=== PATIENT | female | born 1950 | race Caucasian/White ===

== ENCOUNTER 2016-12-18 03:11 | Inpatient (IN) ==
--- NOTE | 2016-12-18 04:40 | Emergency Department Note ---
Disposition Clinical Impression: Acute exacerbation of chronic obstructive pulmonary disease (COPD), Hypoxia Disposition: Admitted As Inpatient Condition: Good Referrals: Janice Hoff MD [Primary Care Provider] - Forms: ED Satisfaction Letter SOB HPI - General Chief Complaint: ED Shortness of Breath/Dyspnea Stated Complaint: LAVERNE Time Seen by Provider: 12/18/16 03:47 Source: patient, EMS Limitations: no limitations Nursing Notes Reviewed: Yes Vital Signs Reviewed: Yes - History of Present Illness Ms. Cabello, a 66yo female, presents form home via EMS she complained difficulty breathing. Patient was admitted to this hospital 3 weeks ago for community acquired pneumonia. Since then, her respiratiory symptoms have been mild but overall unimproved. 3 days ago, her dyspnea worsened aggressively to her presentation today. Patient notes to her grandchildren recently diagnosed with RSV. Patient missed to dyspnea at rest, worse with exertion. Patient denies fever, chills, nausea, vomiting, changes in bowel or bladder, chest pain, palpitations, dizziness, weakness, numbness, tingling. Denies history of heart disease, kidney disease, DM, thyroid disease. EMS treatment in route included Solu-Medrol 125, DuoNeb aerosol 1. Patient noted improvement after squad-delivered nebs. PMH: Lung cancer status post pneumonectomy, colon cancer; status 11 years post chemotherapy. Embolic ischemic stroke. History community acquired pneumonia. History RSV URI. Chronic hypoxemic respiratory failure. - Related Data Home Medications Medication Instructions Recorded Confirmed Albuterol Sulfate [Ventolin Hfa] 2 puff IH QID PRN 06/08/16 10/19/16 Dextroamphetamine/Amphetamine 30 mg PO BID 06/08/16 10/19/16 [Adderall 30 mg Tablet] Fluticasone/Vilanterol [Breo 1 each IH DAILY 06/08/16 10/19/16 Ellipta 200-25 Mcg INH] Oxycodone HCl/Acetaminophen 1 tab PO Q4-6H PRN 06/08/16 10/19/16 [Percocet 10-325 mg Tablet] Furosemide [Lasix] 20 mg PO DAILY PRN 10/19/16 10/19/16 Ropinirole HCl [Requip] 6 mg PO HS 10/19/16 10/19/16 Rosuvastatin Calcium [Crestor] 10 mg PO DAILY 10/19/16 10/19/16 Previous Rx's Medication Instructions Recorded Ipratropium/Albuterol Neb [Duoneb] 3 ml IH [id number] #60 inhsol 06/10/16 Lisinopril-HCTZ 10-12.5 [Prinzide 1 each PO DAILY tablet 06/10/16 10-12.5] Azithromycin [Zithromax] 250 mg PO DAILY #5 tablet 10/21/16 Cefdinir [Omnicef] 300 mg PO BID #20 capsule 10/21/16 Fluticasone Propionate Nasal 50 mcg NS DAILY #1 bottle 10/21/16 [Flonase] GuaiFENesin ER [Mucinex] 1,200 mg PO BID #40 tbbp.12hr 10/21/16 Loratadine [Claritin] 10 mg PO DAILY #30 tablet 10/21/16 Oxygen 4 l IN CONT #1 each 10/21/16 PredniSONE 10 mg PO DAILY #95 tablet 10/21/16 Allergies Allergy/AdvReac Type Severity Reaction Status Date / Time levofloxacin [From Levaquin] Allergy Rash Verified 06/08/16 10:26 Penicillins Allergy Rash Verified 06/08/16 10:26 azithromycin AdvReac See Verified 06/09/16 14:14 Comments All systems ED: reviewed and negative except as stated. Constitutional: Denies: fever, chills, weakness ENT ED: Denies: throat pain, congestion Cardiovascular: Reports: dyspnea on exertion. Denies: chest pain, palpitations , syncope Respiratory: Reports: cough, wheezes. 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 No retractions, head bobbing, or tripoding/posturing. HEENT: No facial asymmetry. Head is normocephalic and atraumatic. Nasal turbinates pale and moist. Posterior pharynx without exudates or cobblestoning. Trachea midline. Cardiovascular: Heart regular rate and rhythm without clicks, rubs, gallops, or murmurs. No JVD. PMI nondisplaced. Respiratory: Symmetric chest rise with poor respiratory effort. Prolonged expiratory phase. Bilateral breath sounds with overt diffuse wheezing. No rales or rhonchi. Abdomen: Bowel sounds present normoactive x-4 quadrants. Abdomen is soft, nondistended, and nontender. No organomegaly noted. Neuro: Cranial nerves II through XII grossly intact. Sensation light touch intact. Psych: Patient's affect is appropriate for situation. - General Limitations: no limitations General appearance: alert, in no apparent distress Course Course Narrative: Respiratory workup. We will also perform EKG and draw troponins; I do not clinically suspect cardiac etiology of her dyspnea rather looking to rule out dyspnea induced demand ischemia. Vital Signs Temperature 98.6 F 12/18/16 03:13 Pulse Rate 104 12/18/16 03:13 Respiratory Rate 20 12/18/16 03:13 Blood Pressure 153/86 12/18/16 03:13 O2 Sat by Pulse Oximetry 92 L 12/18/16 03:13 Temperature 98.6 F 12/18/16 03:13 Pulse Rate 112 12/18/16 07:32 Respiratory Rate 18 12/18/16 07:32 Blood Pressure 133/84 12/18/16 07:32 O2 Sat by Pulse Oximetry 90 L 12/18/16 07:32 Oxygen Delivery Oxygen Delivery Nasal Cannula Shortness of Breath/Dyspnea - Lab Data Result diagrams: 12/18/16 05:36 12/18/16 05:36 Lab Results 12/18/16 12/18/16 12/18/16 Range/Units 05:36 05:36 05:36 WBC 5.8 (4.3-11.1) K/mcL RBC 5.09 H (3.82-4.97) M/mcL Hgb 14.6 (11.5-15.4) g/dL Hct 45.2 H (35.3-44.9) % MCV 88.8 (83.0-100.0) fL MCH 28.7 (28.0-33.3) pg MCHC 32.3 (31.6-35.5) g/dL RDW 14.1 (11.5-14.5) % Plt Count 162 (140-400) K/mcL MPV 10.7 (9.4-12.4) fL Immature Gran % 0.3 (0-4) % Seg Neutrophils % 89.7 % Lymphocytes % 5.2 % Monocytes % 1.9 % Eosinophils % 2.2 % Basophils % 0.7 % Neutrophils # 5.2 (1.6-8.9) K/mcL Lymphocytes # 0.3 L (0.6-4.6) K/mcL Monocytes # 0.1 (0.0-1.3) K/mcL Eosinophils # 0.1 (0.0-0.6) K/mcL Basophils # 0.0 (0.0-0.2) K/mcL Sodium 137 (136-145) mEq/L Potassium 4.4 (3.5-4.5) mEq/L Chloride 99 (98-109) mEq/L Carbon Dioxide 28 (19-29) mEq/L BUN 10 (7-20) mg/dL Creatinine 0.69 (0.57-1.11) mg/dL Est GFR ( Amer) > 60 (> 60) Est GFR (Non-Af Amer) > 60 (> 60) BUN/Creatinine Ratio 14 (6-26) Glucose 208 H (70-99) mg/dL Calculated Osmolality 289 (280-300) Calcium 9.7 (8.6-10.8) mg/dL Troponin I 0.01 (0-0.03) ng/mL - EKG Data EKG attestation: Yes I reviewed and interpreted this EKG. EKG results narrative: EKG dated 12/18/16 at 03:21 shows sinus tachycardia with a rate of 100. Normal intervals. Left axis. Nonspecific ST-T changes. Compared to previous dated at 01:51 also showing sinus tachycardia with rare PVCs; no acute ischemic changes in comparison. S.B.A.R. - S.B.A.R. Situation: Demographics Background: Presenting Complaint, Relevant PMH, Meds, & Allergies Assessment: Vital Signs, Course and respsone to treatment, Pertinant Lab Results Recommendation: Barrier(s) to disposition, Recommendation based on pending studies, treatments, or consults Sunni Report Given to: Dr. Patty Moeller Repor Time: 07:11 Attestation Statement - Attestation Attestation: I, Julio Cesar Isabel MD, personally performed a history and physical exam of the patient and discussed their management with the resident. I reviewed the resident's note and agree with the documented findings, medical decision making , and plan of care. 66-year-old female with history of COPD and uses home oxygen as needed. She presents tonight complaining of increased shortness of breath over the past several days but much worse tonight. There has been a productive cough with some brownish green sputum. No chest pain. No definite fever. She was recently in the hospital for pneumonia. On examination patient is a well-developed well-nourished elderly female in no acute distress. She is alert and oriented 3. There is no cyanosis or diaphoresis. Breath sounds are decreased bilaterally with some scattered expiratory wheezes. Some mild bibasilar crackles. Heart regular rate and rhythm. Abdomen soft with normal bowel sounds. Lab results reviewed. Chest x-ray showed pulmonary vascular congestion with mild cardiomegaly and hyperinflation. No acute changes on EKG. At shift change the patient is signed out to the [facility], Dr. Corrales and Dr. Brambila. They will assume responsible for the further evaluation and management and disposition of this patient.
[2016-12-18 05:45] LABS: Basophils % 0.7 %; Eosinophils # 0.1 K/mcL (0.0-0.6); Eosinophils % 2.2 %; Hematocrit 45.2 % (35.3-44.9); Hemoglobin 14.6 g/dL (11.5-15.4); Immature Granulocytes % 0.3 % (0-4); Lymphocytes # 0.3 K/mcL (0.6-4.6); Lymphocytes % 5.2 %; Mean Corpuscular HGB Conc 32.3 g/dL (31.6-35.5); Mean Corpuscular Hemoglobin 28.7 pg (28.0-33.3); Mean Corpuscular Volume 88.8 fL (83.0-100.0); Mean Platelet Volume 10.7 fL (9.4-12.4); Monocytes # 0.1 K/mcL (0.0-1.3); Monocytes % 1.9 %; Neutrophils # 5.2 K/mcL (1.6-8.9); Platelet Count 162 K/mcL (140-400); Red Blood Count 5.09 M/mcL (3.82-4.97); Red Cell Distribution Width 14.1 % (11.5-14.5); Segmented Neutrophils % 89.7 %
[2016-12-18 05:56] LABS: BUN/Creatinine Ratio 14 (6-26); Blood Urea Nitrogen 10 mg/dL (7-20); Calcium 9.7 mg/dL (8.6-10.8); Carbon Dioxide 28 mEq/L (19-29); Chloride 99 mEq/L (98-109); Glucose 208 mg/dL (70-99); Osmolality,Calculated 289 (280-300); Potassium 4.4 mEq/L (3.5-4.5); Sodium 137 mEq/L (136-145); eGFR For African Americans > 60 (> 60); eGFR For Non-African Americans > 60 (> 60)
[2016-12-18] MEDS ORDERED: Ipratropium/Albuterol Neb 3 ML IH ONE (06:22)
[2016-12-18] MEDS: 0.9 % Sodium Chloride 250 ML IVC ONE ×2 (06:25→06:29)
[2016-12-18] MEDS ORDERED: methylPREDNISolone 125 MG/2 ML VIAL IVP ONE (07:27)
--- NOTE | 2016-12-18 07:35 | Emergency Department Note ---
Disposition Clinical Impression: Acute exacerbation of chronic obstructive pulmonary disease (COPD), Hypoxia Disposition: Admitted As Inpatient Condition: Good Referrals: Janice Hoff MD [Primary Care Provider] - Forms: ED Satisfaction Letter Time of Disposition: 07:42 SOB HPI - General Chief Complaint: ED Shortness of Breath/Dyspnea Stated Complaint: LAVERNE Time Seen by Provider: 12/18/16 03:47 Source: patient, EMS Limitations: no limitations - Related Data Home Medications Medication Instructions Recorded Confirmed Albuterol Sulfate [Ventolin Hfa] 2 puff IH QID PRN 06/08/16 10/19/16 Dextroamphetamine/Amphetamine 30 mg PO BID 06/08/16 10/19/16 [Adderall 30 mg Tablet] Fluticasone/Vilanterol [Breo 1 each IH DAILY 06/08/16 10/19/16 Ellipta 200-25 Mcg INH] Oxycodone HCl/Acetaminophen 1 tab PO Q4-6H PRN 06/08/16 10/19/16 [Percocet 10-325 mg Tablet] Furosemide [Lasix] 20 mg PO DAILY PRN 10/19/16 10/19/16 Ropinirole HCl [Requip] 6 mg PO HS 10/19/16 10/19/16 Rosuvastatin Calcium [Crestor] 10 mg PO DAILY 10/19/16 10/19/16 Previous Rx's Medication Instructions Recorded Ipratropium/Albuterol Neb [Duoneb] 3 ml IH [id number] #60 inhsol 06/10/16 Lisinopril-HCTZ 10-12.5 [Prinzide 1 each PO DAILY tablet 06/10/16 10-12.5] Azithromycin [Zithromax] 250 mg PO DAILY #5 tablet 10/21/16 Cefdinir [Omnicef] 300 mg PO BID #20 capsule 10/21/16 Fluticasone Propionate Nasal 50 mcg NS DAILY #1 bottle 10/21/16 [Flonase] GuaiFENesin ER [Mucinex] 1,200 mg PO BID #40 tbbp.12hr 10/21/16 Loratadine [Claritin] 10 mg PO DAILY #30 tablet 10/21/16 Oxygen 4 l IN CONT #1 each 10/21/16 PredniSONE 10 mg PO DAILY #95 tablet 10/21/16 Allergies Allergy/AdvReac Type Severity Reaction Status Date / Time levofloxacin [From Levaquin] Allergy Rash Verified 06/08/16 10:26 Penicillins Allergy Rash Verified 06/08/16 10:26 azithromycin AdvReac See Verified 06/09/16 14:14 Comments Constitutional: Denies: fever, chills, weakness ENT ED: Denies: throat pain, congestion Cardiovascular: Reports: dyspnea on exertion. Denies: chest pain, palpitations , syncope Respiratory: Reports: cough, wheezes. Denies: dyspnea Gastrointestinal: Denies: abdominal pain, nausea, vomiting, diarrhea, constipation, hematemesis, melena, hematochezia Genitourinary: Denies: urgency, dysuria Musculoskeletal: Denies: back pain Neurological: Denies: headache, weakness, numbness, paresthesias, confusion Past Medical History - Past Medical History Medical history: Reports: asthma, cancer, COPD, hypertension Surgical history: Reports: cancer surgery, hysterectomy Psychiatric history: Reports: depression MEDICAL SPECIALIST history: Reports: bilateral tubal ligation - Social History Smoking Status: Former smoker Smokeless Tobacco Status: No Alcohol use: Reports: none Drug use: Reports: none Physical Exam - General Limitations: no limitations General appearance: alert, in no apparent distress Course Course Narrative: Patient taken over the beginning my shift at 0700 hrs. Sign out was completed by Dr. Boss and Dr. Isabel. Patient presents emergency room with increased work of breathing shortness of breath and increased oxygen use at home. Vital signs on presentation were tachycardic tachypnea can hypoxic. She typically uses 2 L of oxygen as needed at home but has required 4 L of oxygen to not feel short of breath. She was just discharged from the hospital 2-3 weeks ago for antibiotic treatment of pneumonia. She says that once her antibiotics stopped she started to have productive cough and sputum again along with increased work of breathing. Physical exam and workup were started prior to my arrival. Repeat physical exam by myself confirms increased aeration bilaterally and the lung was still has expiratory wheezing. Patient is still hypoxic with oxygen on. Patient will be admitted to the hospital this time. IV antibiotics to be ordered for community acquired pneumonia consideration over 2 weeks and she was discharged. Patient will be discussed with the hospitalist at this time. - Reevaluation(s) Reevaluation #1: Patient was discussed with the hospitalist Detailed review the presentation symptoms recent medical admission were discussed. He agreed that she would most likely benefit from inpatient evaluation and treatment of COPD flare possible subclinically treated pneumonia. Patient is stable resting in bed and 3 DuoNeb's pulse ox is better while resting but she does still get conversationally dyspneic. Patient will be observed here in the emergency room to the admission process is completed Sebastian Time: 07:41 Vital Signs Temperature 98.6 F 12/18/16 03:13 Pulse Rate 104 12/18/16 03:13 Respiratory Rate 20 12/18/16 03:13 Blood Pressure 153/86 12/18/16 03:13 O2 Sat by Pulse Oximetry 92 L 12/18/16 03:13 Temperature 98.6 F 12/18/16 03:13 Pulse Rate 112 12/18/16 07:32 Respiratory Rate 18 12/18/16 07:32 Blood Pressure 133/84 12/18/16 07:32 O2 Sat by Pulse Oximetry 90 L 12/18/16 07:32 Oxygen Delivery Oxygen Delivery Nasal Cannula Shortness of Breath/Dyspnea - Medical Records Medical records reviewed: Yes I reviewed the patient's medical records. - Lab Data Lab results reviewed: Yes I reviewed the patient's lab results. Result diagrams: 12/18/16 05:36 12/18/16 05:36 Lab Results 12/18/16 12/18/16 12/18/16 Range/Units 05:36 05:36 05:36 WBC 5.8 (4.3-11.1) K/mcL RBC 5.09 H (3.82-4.97) M/mcL Hgb 14.6 (11.5-15.4) g/dL Hct 45.2 H (35.3-44.9) % MCV 88.8 (83.0-100.0) fL MCH 28.7 (28.0-33.3) pg MCHC 32.3 (31.6-35.5) g/dL RDW 14.1 (11.5-14.5) % Plt Count 162 (140-400) K/mcL MPV 10.7 (9.4-12.4) fL Immature Gran % 0.3 (0-4) % Seg Neutrophils % 89.7 % Lymphocytes % 5.2 % Monocytes % 1.9 % Eosinophils % 2.2 % Basophils % 0.7 % Neutrophils # 5.2 (1.6-8.9) K/mcL Lymphocytes # 0.3 L (0.6-4.6) K/mcL Monocytes # 0.1 (0.0-1.3) K/mcL Eosinophils # 0.1 (0.0-0.6) K/mcL Basophils # 0.0 (0.0-0.2) K/mcL Sodium 137 (136-145) mEq/L Potassium 4.4 (3.5-4.5) mEq/L Chloride 99 (98-109) mEq/L Carbon Dioxide 28 (19-29) mEq/L BUN 10 (7-20) mg/dL Creatinine 0.69 (0.57-1.11) mg/dL Est GFR ( Amer) > 60 (> 60) Est GFR (Non-Af Amer) > 60 (> 60) BUN/Creatinine Ratio 14 (6-26) Glucose 208 H (70-99) mg/dL Calculated Osmolality 289 (280-300) Calcium 9.7 (8.6-10.8) mg/dL Troponin I 0.01 (0-0.03) ng/mL - Radiology Data Radiology results reviewed: Yes I reviewed the patient's radiology results. Chest x-ray is negative for acute pathology. This was reviewed by myself and confirmed by radiology - EKG Data EKG attestation: Yes I reviewed and interpreted this EKG. EKG shows normal: Reports: sinus rhythm, axis, intervals, QRS complexes, ST-T waves Rate: Reports: tachycardia Rhythm: Reports: NSR [place]/QRS: Reports: normal When compared to previous EKG there are: no significant changes Interpretation: Reports: normal EKG, unchanged when compared to prior tracing ( date) (02/19/11) Critical Care Time Critical Care Time: Yes Total Critical Care Time: 30 Attestation: Critical care is independent of procedures and medical management in emergency room Attestation Statement - Attestation Attestation: Patient was seen with resident physician. I reviewed the history, physical, assessment and plan, and agree with the findings. I also personally evaluated this patient and had [id number] time with this patient. 66-year-old female presents to the emergency department with worsening shortness of breath. Patient has a history of COPD was recently admitted to the hospital for pneumonia. States that her breathing is getting progressively worse for the last 2-3 days. She is on home O2. Is concerned that she might have more pneumonia. On examination heart is normal. Lungs after 3 breathing treatments still show wheezing throughout. Remainder workup was unremarkable. Unfortunately patient was not breathing well or oxygenating well and up for outpatient management. Were going to admit the patient for acute exacerbation of COPD. Hospice was notified. I agree with the resident physician assessment and plan.
[2016-12-18] MEDS ORDERED: *HR* Morphine 2 MG/ML SYRINGE IV PRN (08:56)
[2016-12-18] MEDS ORDERED: Ondansetron 4 MG/2 ML VIAL IVP PRN (08:57)
[2016-12-18] MEDS ORDERED: Naloxone 0.4 MG/ML INJ IVP PRN (08:57)
[2016-12-18] MEDS ORDERED: Acetaminophen 325 MG TABLET PO PRN (08:57)
[2016-12-18] MEDS ORDERED: Azithromycin 500 MG in D5% in Water 250 ML IVPB SCH (09:00)
--- NOTE | 2016-12-18 09:05 | Internal Med History&Physical ---
Date of Encounter: 12/18/16 Time of Encounter: 09:02 Assessment and Plan (1) Acute exacerbation of chronic obstructive pulmonary disease (COPD) Current visit: Yes Status: Acute Acute on chronic respiratory failure secondary to acute COPD exacerbation likely secondary to acute bronchitis (viral versus bacterial) with a combination of possible CHF systolic versus diastolic, consider possible atypical pneumonia Continue Rocephin and azithromycin Solu-Medrol IV, DuoNeb's, oxygen therapy Lasix IV, strict I's and O's, daily weight, check an echocardiogram Check a respiratory viral panel, Legionella and Streptococcus antigen in urine (2) Acute on chronic respiratory failure with hypoxemia Current visit: No Status: Acute (3) ADHD (attention deficit hyperactivity disorder) Current visit: No Status: Chronic Qualifiers: Attention deficit-hyperactivity disorder type: predominantly hyperactive Qualified Code(s): F90.1 - Attention-deficit hyperactivity disorder, predominantly hyperactive type (4) Anxiety Current visit: No Status: Chronic (5) HTN (hypertension) Current visit: No Status: Chronic Order hydralazine IV as needed Qualifiers: Hypertension type: essential hypertension Qualified Code(s): I10 - Essential (primary) hypertension (6) History of lung cancer Current visit: No Status: Chronic (7) S/P pneumonectomy Current visit: No Status: Chronic Omeprazole for GI prophylaxis and subcutaneous heparin for DVT prophylaxis. The patient will be admitted as inpatient, she is expected to stay more than 2 midnights. Full code. Time spent on this admission 40 minutes. High risk for respiratory failure Internal Medicine - H&P: HPI Chief complaint: Shortness of breath Admitted From: Emergency Dept History of present illness: Ms. Cabello is a 66 year old female with a past medical history of COPD oxygen dependent who was discharged from the hospital on 10/20/2016 where she was treated for COPD exacerbation/pneumonia. Back then she was started on Rocephin and azithromycin. She reported that azithromycin upsetting her stomach slightly but she took it another time without any problems. The patient mentions that two of her great-grandsons were positive for RSV. She did not complain of greenish/brownish phlegm for the past 3 days, worsening shortness of breath. Down and did a ER she desaturated down to 86%, her heart rate was 112 blood pressure 153/86. The chest x-ray shows a right augusto-heel year opacity and vascular congestion with pulmonary edema, also left lower opacities likely scarring. She did not complain of chills. The patient was started on Solu-Medrol and DuoNeb's at the emergency room. Past Med Surg Social Fam HX - Past Medical History Medical history: asthma, cancer (Lung cancer status post lobectomy, colon cancer 11 years ago status post chemotherapy and partial colectomy), COPD ( Oxygen dependent using 2 L as needed), hypertension, other (Ischemic CVA/embolic , RSV pneumonia, chronic back pain, chronic respiratory failure, ADHD) Psychiatric history: depression - Past Surgical History Surgical History: cancer surgery (Partial colectomy, and lung lobectomy, tubal ligation), hysterectomy - Social History Smoking Status: Former smoker (Quit tobacco 12 years ago) Smokeless Tobacco Status: No Alcohol use: none Drug use: none - Family History Mother Living Status: - Additional Family History Additional family history: Mother with colon cancer Internal Medicine - H&P: Meds Albuterol Sulfate [Ventolin Hfa] 2 puff IH QID PRN 06/08/16 [History] Dextroamphetamine/Amphetamine [Adderall 30 mg Tablet] 30 mg PO BID 06/08/16 [ History] Oxycodone HCl/Acetaminophen [Percocet 10-325 mg Tablet] 1 tab PO Q4-6H PRN 06/08 [History] Ipratropium/Albuterol Neb [Duoneb] 3 ml IH [id number] #60 inhsol 06/10/16 [Rx] Lisinopril-HCTZ 10-12.5 [Prinzide 10-12.5] 1 each PO DAILY tablet 06/10/16 [Rx] Furosemide [Lasix] 20 mg PO DAILY PRN 10/19/16 [History] Ropinirole HCl [Requip] 6 mg PO HS 10/19/16 [History] Rosuvastatin Calcium [Crestor] 10 mg PO DAILY 10/19/16 [History] Fluticasone Propionate Nasal [Flonase] 50 mcg NS DAILY #1 bottle 10/21/16 [Rx] GuaiFENesin ER [Mucinex] 1,200 mg PO BID #40 tbbp.12hr 10/21/16 [Rx] Oxygen 2 l IN CONT 12/18/16 [History] Allergies levofloxacin [From Levaquin] Allergy (Verified 06/08/16 10:26) Rash Penicillins Allergy (Verified 06/08/16 10:26) Rash All Systems PM: A 10-system review of systems was performed and is negative for pertinent findings except as documented above in the HPI. Review of systems: Denies any chest pain, no abdominal pain, no dysuria. Other systems out of the 10 reviewed were negative - Constitutional Vitals: Temp Pulse Resp BP Pulse Ox 97.7 F 103 21 155/88 92 L 12/18/16 08:38 12/18/16 08:38 12/18/16 08:38 12/18/16 08:38 12/18/16 08:38 General appearance: Present: A&O X 3, obese - Head Head exam: Present: atraumatic, normocephalic - Eye Eye exam: Present: PERRL, conjuntiva pink, sclera anicteric Pupils: Present: PERRL - Neck Neck exam general surgery: Present: supple, trachea midline. Absent: lymphadenopathy - Respiratory Respiratory exam: Present: decreased breath sounds, CTAB, rales (Diffuse crackles with fine wheezing), wheezes. Absent: accessory muscle use, rhonchi - Cardiovascular Cardiovascular exam: Present: RRR, +S1, +S2. Absent: diastolic murmur, gallop, rubs, systolic murmur - GI/Abdominal GI/Abdominal exam: Present: normal bowel sounds, soft, no peritoneal signs. Absent: distended, tenderness - Extremities Exam Extremities exam: Present: pedal edema (+1 pitting edema in both lower extremities), warm, radial pulses palpable and symetrical. Absent: calf tenderness, cyanotic - Neurological Exam Neurological exam: Present: CN II-XII intact, oriented X3, no focal deficits. Absent: pronater drift, facial droop, speech deficit - Skin Skin exam: Present: dry, intact Internal Med - H&P Results - Labs CBC & Chem 7: 12/18/16 05:36 12/18/16 05:36
[2016-12-18] MEDS: Aspirin 81 MG TAB.CHEW PO SCH (10:24)
[2016-12-18] MEDS: Furosemide 40 MG/4 ML VIAL IV SCH (10:26)
[2016-12-18] MEDS: *HR* OxyCODONE/APAP 10/325 TABLET PO PRN ×3 (10:35→21:59)
[2016-12-18 10:36] LABS: Adenovirus Not Detected (Not Detect); Bordetella Pertussis Not Detected (Not Detect); Chlamydophila pneumoniae Not Detected (Not Detect); Coronavirus 229E Not Detected (Not Detect); Coronavirus HKU1 Not Detected (Not Detect); Coronavirus NL63 Not Detected (Not Detect); Coronavirus OC43 ***DETECTED*** (Not Detect); Human Metapneumovirus Not Detected (Not Detect); Human Rhinovirus/Enterovirus Not Detected (Not Detect); Influenza A Subtype 2009 H1 Not Detected (Not Detect); Influenza A Untypeable Not Detected (Not Detect); Influenza B Not Detected (Not Detect); Mycoplasma pneumoniae Not Detected (Not Detect); Parainfluenza Virus 1 Not Detected (Not Detect); Parainfluenza Virus 2 Not Detected (Not Detect); Parainfluenza Virus 3 Not Detected (Not Detect); Parainfluenza Virus 4 Not Detected (Not Detect); Respiratory Syncytial Virus Not Detected (Not Detect)
[2016-12-18] MEDS: Ipratropium/Albuterol Neb 3 ML IH SCH ×3 (10:53→22:22)
[2016-12-18] MEDS: Dextroamphetamine/Amphetamine [Adderall 30 Mg Tablet] PO SCH ×2 (12:33→21:56)
[2016-12-18] MEDS: Azithromycin 500 MG in D5% in Water 250 ML IVPB SCH (12:34)
--- NOTE | 2016-12-18 15:00 | ECHO - Doppler Report ---
Echocardiogram Name: Yecenia Cabello Date of Study: 12/18/2016 Date: 1950 Ht: 62.0 in Medical Record#: [id number] Age: 66 Wt: 187.0 lb Gender: Female BSA: 1.86 Order #: [id number] Location: [facility] Room #: 2a25 Reading Physician: Swapnil Conte DO, ILYA, LETA GREEN Operating Room Technician: Connor Croft RDCS Ordering Physician: Kurt Soto MD Primary Physician: None Indications: Congestive heart failure Impressions: LVEF 70%. Normal LV chamber size, wall thickness and function. Mild left ventricular diastolic dysfunction. Normal right ventricular structure and function. No evidence of pulmonary hypertension. No significant valvular dysfunction. Left Ventricular Wall Motion: Rest Echo Findings All wall segments showed normal motion. Findings: Study Quality * Technically adequate exam. ECG Findings * Sinus tachycardia. Left Ventricle * LVEF 70%. * Normal LV chamber size, wall thickness and function. * Mild left ventricular diastolic dysfunction. Right Ventricle * Normal right ventricular structure and function. Left Atrium * Mildly dilated left atrium. Right Atrium * Normal right atrial size. Interatrial Septum * Interatrial septum not well evaluated. Aortic Valve * Aortic valve not well visualized. * No aortic stenosis. * No aortic regurgitation. Mitral Valve * Normal mitral valve structure and function. * No mitral regurgitation. * No mitral stenosis. Tricuspid Valve * Normal tricuspid valve structure and function. * Trace tricuspid regurgitation. * No evidence of pulmonary hypertension. Pulmonic Valve * Pulmonic valve not well visualized. * No pulmonic regurgitation. Aorta * Normally sized aortic root. Pericardium * The pericardium appears normal. IVC * The IVC is not well evaluated. Pulmonary Artery * Normal visualized portions of the main pulmonary artery. History Hypertension Hypercholesteremia Measurements: BP: 125/ 55 2D Normal Values RVIDd: 2.90 cm <2.7 cm IVSd: .80 cm 0.6 - 1.0 cm LVIDd: 4.00 cm 3.7 - 5.6 cm LVPWd: 1.10 cm 0.6 - 1.1 cm LVIDs: 2.70 cm 1.5 - 3.6 cm AO: 3.10 cm < 4.0 cm LA: 2.70 cm 2.0 - 4.0cm %FS: 32.50 cm >25 % LA volume: 72 Mitral Valve Peak E:.70 m/sec Peak A:.94 m/sec E/A Ratio:0.7 Peak E' Lat Rodrick:8.09 cm/s Peak E' Med Rodrick:5.75 cm/s E/E' Lat Ratio:8.6 E/E' Med Ratio:12.1 Tricuspid Valve TV Regurg Peak Grad: 11.00mmHg TV Regurg Peak Rodrick: 1.68m/sec Updated by Swapnil Conte DO, ILYA, NORMA, LETA on 12/18/2016 2:53:00 PM electronically signed on 12/18/2016 2:56:19 PM with status of Final Wall Motion [place]: 1=Normal, 2=Hypokinesis, 3=Akinesis, 4=Dyskinesis, 5=Aneurysmal, 6=Hyperkinetic, X=Not Visualized (Blank)=Missing
[2016-12-18] MEDS: methylPREDNISolone 125 MG/2 ML VIAL IV SCH (16:40)
[2016-12-18] MEDS: *HR* Heparin 5,000 UNIT/ML VIAL SQ SCH (16:43)
[2016-12-19] MEDS: *HR* Heparin 5,000 UNIT/ML VIAL SQ SCH ×3 (00:59→19:47)
[2016-12-19] MEDS: methylPREDNISolone 125 MG/2 ML VIAL IV SCH ×4 (00:59→23:04)
[2016-12-19] MEDS: Ipratropium/Albuterol Neb 3 ML IH SCH ×4 (03:47→22:29)
[2016-12-19] MEDS: *HR* OxyCODONE/APAP 10/325 TABLET PO PRN ×3 (04:52→23:04)
[2016-12-19 05:08] LABS: Hematocrit 45.5 % (35.3-44.9); Hemoglobin 14.6 g/dL (11.5-15.4); Mean Corpuscular HGB Conc 32.1 g/dL (31.6-35.5); Mean Corpuscular Hemoglobin 28.7 pg (28.0-33.3); Mean Corpuscular Volume 89.4 fL (83.0-100.0); Mean Platelet Volume 11.2 fL (9.4-12.4); Platelet Count 223 K/mcL (140-400); Red Blood Count 5.09 M/mcL (3.82-4.97); Red Cell Distribution Width 14.1 % (11.5-14.5)
[2016-12-19 05:20] LABS: Calcium 9.9 mg/dL (8.6-10.8); Potassium 4.5 mEq/L (3.5-4.5)
--- NOTE | 2016-12-19 06:30 | Electrocardiograph Report ---
Test Date: 2016-12-18 Pat Name: Yecenia Cabello Department: 103 Room: 2A25 Gender: F [employer] Director: JAMEY : 1950 Requested By: Lopez Boss Order Number: [id number] Reading MD: Carter Nunez MD Measurements Intervals [place] Rate: 100 P: 34 ND: 153 QRS: 3 QRSD: 86 T: 44 QT: 328 QTc: 385 Interpretive Statements SINUS TACHYCARDIA LOW QRS VOLTAGE IN PRECORDIAL LEADS ABNORMAL RHYTHM ECG Electronically Signed On 12-19-16 06:28:27 EST by Carter Nunez MD
[2016-12-19] MEDS: Aspirin 81 MG TAB.CHEW PO SCH (07:52)
[2016-12-19] MEDS: Furosemide 40 MG/4 ML VIAL IV SCH (07:53)
[2016-12-19] MEDS: Azithromycin 500 MG in D5% in Water 250 ML IVPB SCH (07:56)
[2016-12-19] MEDS: Dextroamphetamine/Amphetamine [Adderall 30 Mg Tablet] PO SCH ×2 (07:57→19:50)
[2016-12-19] MEDS ORDERED: Dextrose Gel 15 GM PO PRN ×4 (09:30→16:31)
[2016-12-19] MEDS ORDERED: D5% in Water 1,000 ML IV PRN ×2 (09:30→16:31)
[2016-12-19] MEDS ORDERED: *HR* Dextrose 50 % in Water (Syg) 50 ML SYRINGE IVP PRN ×2 (09:30→16:31)
--- NOTE | 2016-12-19 09:55 | Internal Med Progress Note ---
Date of Encounter: 12/19/16 Time of Encounter: 09:51 - Assessment and plan (1) Acute bronchitis Current Visit: Yes Status: Acute Assessment and plan: Patient presented with wheezing and a cute dyspnea and hypoxia. Respiratory viral panel positive for roblero virus. Continue droplet precautions. Supportive care with supplemental oxygen, bronchodilators and IV steroids. Qualifiers: Bronchitis organism: other organism Qualified Code(s): J20.8 - Acute bronchitis due to other specified organisms (2) Hyperglycemia, drug-induced Current Visit: Yes Status: Acute Assessment and plan: Patient is noted to have significant steroid-induced hyperglycemia due to high- dose IV steroids. Hemoglobin A1c noted to be 6.6%. Blood sugars noted to be uncontrolled with sliding scale insulin, will add basal insulin and monitor sugars closely. Diabetic diet. (3) Acute exacerbation of chronic obstructive pulmonary disease (COPD) Current Visit: Yes Status: Acute Assessment and plan: Patient has a long history of COPD and asthma. Nonsmoker at this time. Improving. Continue high-dose IV steroids, to taper as tolerated. Continue scheduled bronchodilators, inhaled corticosteroids and supplemental oxygen as needed along with empiric IV antibiotics. (4) Acute on chronic respiratory failure with hypoxemia Current Visit: Yes Status: Acute Assessment and plan: Secondary to acute on chronic bronchitis, COPD. Plan as above. Patient is noted to be on intermittent home oxygen at 2 L/m nasal cannula. Currently requiring 5 L/m, titrate down FiO2 as tolerated. Echocardiogram revealed, shows 70% ejection fraction, mild left ventricular diastolic dysfunction. Noted to have worsening serum creatinine, hold diuretics at this time. (5) ADHD (attention deficit hyperactivity disorder) Current Visit: Yes Status: Chronic Qualifiers: Attention deficit-hyperactivity disorder type: predominantly hyperactive Qualified Code(s): F90.1 - Attention-deficit hyperactivity disorder, predominantly hyperactive type (6) HTN (hypertension) Current Visit: Yes Status: Chronic Qualifiers: Hypertension type: essential hypertension Qualified Code(s): I10 - Essential (primary) hypertension - Subjective Interval history: Feels better than yesterday. Continues to have wheezing that improved shortness of breath. No fever, chills, weakness. Noted to be requiring 5 L/m supplemental oxygen. No nausea or vomiting. On respiratory precautions due to positive serology for roblero virus. - Constitutional Vitals: Temp Pulse Resp BP Pulse Ox 97.6 F 101 18 119/72 92 L 12/19/16 07:17 12/19/16 07:17 12/19/16 07:17 12/19/16 07:17 12/19/16 08:09 General appearance: Present: A&O X 3, obese, answers questions appropriately - Head Head exam: Present: atraumatic, normocephalic - Neck Neck exam general surgery: Present: supple, trachea midline. Absent: lymphadenopathy - Respiratory Respiratory exam: Present: rhonchi, wheezes (Bilateral anterior and posterior diffuse wheezing). Absent: accessory muscle use, rales - Cardiovascular Cardiovascular exam: Present: RRR, +S1, +S2. Absent: diastolic murmur, gallop, rubs, systolic murmur - GI/Abdominal GI/Abdominal exam: Present: normal bowel sounds, soft (Obese), no peritoneal signs. Absent: distended, tenderness - Extremities Exam Extremities exam: Present: pedal edema (Trace), warm, radial pulses palpable and symetrical. Absent: calf tenderness, cyanotic - Neurological Exam Neurological exam: Present: CN II-XII intact, oriented X3, no focal deficits. Absent: pronater drift, facial droop, speech deficit - Skin Skin exam: Present: dry, intact Internal Medicine: Result - Labs CBC & Chem 7: 12/19/16 04:26 12/19/16 04:26 Labs: Short CBC 12/19/16 Range/Units 04:26 WBC 14.0 H D (4.3-11.1) K/mcL Hgb 14.6 (11.5-15.4) g/dL Hct 45.5 H (35.3-44.9) % Plt Count 223 (140-400) K/mcL [facility] 12/19/16 04:26 Sodium 137 Potassium 4.5 Chloride 97 L Carbon Dioxide 27 BUN 36 H D Creatinine 1.21 H D Glucose 291 H Calcium 9.9 Consult Discharge Plan - Plan Referrals: Janice Hoff MD [Primary Care Provider] -
[2016-12-19 10:11] LABS: Hemoglobin A1C 6.6 %
[2016-12-19] MEDS: Insulin LISPRO 300 UNITS/3 ML VIAL SQ SCH ×2 (11:34→15:02)
[2016-12-19] MEDS ORDERED: *HR* OxyCODONE/APAP 5/325 TABLET PO PRN (12:52)
[2016-12-19] MEDS ORDERED: Insulin LISPRO 300 UNITS/3 ML VIAL SQ SCH ×3 (17:00→21:00)
[2016-12-19 17:12] LABS: Calcium 10.1 mg/dL (8.6-10.8); Potassium 3.8 mEq/L (3.5-4.5)
[2016-12-19] MEDS ORDERED: 0.9 % Sodium Chloride 1,000 ML IVC SCH (17:15)
--- NOTE | 2016-12-19 17:43 | Electrocardiograph Report ---
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
[2016-12-19] MEDS ORDERED: Insulin Regular, Human 100 UNIT/ML IV PRN (18:26)
[2016-12-19] MEDS ORDERED: D5% in 0.45% NACL 1,000 ML IVC PRN (18:26)
--- NOTE | 2016-12-19 18:32 | Event Note ---
Date of Encounter: 12/19/16 Time of Encounter: 18:30 Patient appears to be developing Hyperosmolar hyperglycemic non ketotic state with persistently elevated blood sugars. Will start on IV insulin per HHS / DKA protocol. Monitor accuchecks Q1hr
[2016-12-19] MEDS: Insulin Human Regular 100 UNIT in 0.9 % Sodium Chloride 100 ML IVC SCH (19:47)
[2016-12-19] MEDS: 0.9 % Sodium Chloride 1,000 ML IVC SCH (19:48)
[2016-12-19] MEDS ORDERED: Insulin DETEMIR 100 UNIT/ML X5UNITS SQ SCH (21:00)
[2016-12-20] MEDS: Insulin Human Regular 100 UNIT in 0.9 % Sodium Chloride 100 ML IVC SCH (02:13)
[2016-12-20] MEDS: Ipratropium/Albuterol Neb 3 ML IH SCH ×4 (04:35→22:35)
[2016-12-20] MEDS: *HR* OxyCODONE/APAP 10/325 TABLET PO PRN ×2 (05:04→18:12)
[2016-12-20] MEDS: 0.9 % Sodium Chloride 1,000 ML IVC SCH ×2 (05:04→12:25)
[2016-12-20 05:45] LABS: Basophils % 0.1 %; Hematocrit 42.6 % (35.3-44.9); Hemoglobin 13.6 g/dL (11.5-15.4); Lymphocytes # 0.6 K/mcL (0.6-4.6); Lymphocytes % 4.7 %; Mean Corpuscular HGB Conc 31.9 g/dL (31.6-35.5); Mean Corpuscular Hemoglobin 28.8 pg (28.0-33.3); Mean Corpuscular Volume 90.1 fL (83.0-100.0); Mean Platelet Volume 11.3 fL (9.4-12.4); Monocytes # 0.3 K/mcL (0.0-1.3); Neutrophils # 11.5 K/mcL (1.6-8.9); Platelet Count 189 K/mcL (140-400); Red Blood Count 4.73 M/mcL (3.82-4.97); Red Cell Distribution Width 14.2 % (11.5-14.5); Segmented Neutrophils % 92.2 %
[2016-12-20 06:02] LABS: BUN/Creatinine Ratio 55 (6-26); Blood Urea Nitrogen 43 mg/dL (7-20); Carbon Dioxide 29 mEq/L (19-29); Chloride 99 mEq/L (98-109); Glucose 190 mg/dL (70-99); Osmolality,Calculated 302 (280-300); Potassium 4.4 mEq/L (3.5-4.5); Sodium 138 mEq/L (136-145); eGFR For African Americans > 60 (> 60); eGFR For Non-African Americans > 60 (> 60)
[2016-12-20] MEDS: *HR* Heparin 5,000 UNIT/ML VIAL SQ SCH ×2 (06:15→18:12)
[2016-12-20] MEDS ORDERED: Insulin LISPRO 300 UNITS/3 ML VIAL SQ SCH ×2 (07:30→21:00)
[2016-12-20] MEDS: Azithromycin 500 MG in D5% in Water 250 ML IVPB SCH (09:39)
[2016-12-20] MEDS: methylPREDNISolone 125 MG/2 ML VIAL IV SCH (09:40)
[2016-12-20] MEDS: Insulin DETEMIR 100 UNIT/ML X5UNITS SQ SCH ×2 (09:42→20:50)
[2016-12-20] MEDS: Dextroamphetamine/Amphetamine [Adderall 30 Mg Tablet] PO SCH ×2 (09:43→20:51)
[2016-12-20] MEDS: Aspirin 81 MG TAB.CHEW PO SCH (09:43)
[2016-12-20] MEDS: Insulin LISPRO 300 UNITS/3 ML VIAL SQ SCH ×4 (12:27→18:13)
--- NOTE | 2016-12-20 17:10 | Internal Med Progress Note ---
Date of Encounter: 12/20/16 Time of Encounter: 10:50 - Assessment and plan (1) Acute bronchitis Current Visit: Yes Status: Acute Assessment and plan: Patient presented with wheezing and a cute dyspnea and hypoxia. Respiratory viral panel positive for roblero virus. Continue droplet precautions. Supportive care with supplemental oxygen, bronchodilators Change steroids to po + Qualifiers: Bronchitis organism: other organism Qualified Code(s): J20.8 - Acute bronchitis due to other specified organisms (2) Acute exacerbation of chronic obstructive pulmonary disease (COPD) Current Visit: Yes Status: Acute Assessment and plan: As above (3) Acute on chronic respiratory failure with hypoxemia Current Visit: Yes Status: Acute Assessment and plan: Secondary to acute on chronic bronchitis, COPD. Plan as above. Patient is noted to be on intermittent home oxygen at 2 L/m nasal cannula. Currently requiring 3.5 L/m, titrate down as tolerated. Echocardiogram reviewed, shows 70 % ejection fraction, mild left ventricular diastolic dysfunction. Creatinine is at baseline now (4) Hyperglycemia, drug-induced Current Visit: Yes Status: Acute Assessment and plan: Patient is noted to have significant steroid-induced hyperglycemia due to high- dose IV steroids. Hemoglobin A1c noted to be 6.6%. Insulin drip has been discontinued Diabetic diet, basal and prandial insulin monitor FS (5) ADHD (attention deficit hyperactivity disorder) Current Visit: Yes Status: Chronic Qualifiers: Attention deficit-hyperactivity disorder type: predominantly hyperactive Qualified Code(s): F90.1 - Attention-deficit hyperactivity disorder, predominantly hyperactive type (6) HTN (hypertension) Current Visit: Yes Status: Chronic Qualifiers: Hypertension type: essential hypertension Qualified Code(s): I10 - Essential (primary) hypertension (7) Anxiety Current Visit: Yes Status: Chronic (8) Chronic back pain Current Visit: Yes Status: Chronic Qualifiers: Back pain location: low back pain Back pain laterality: bilateral Sciatica presence: without sciatica Qualified Code(s): M54.5 - Low back pain; G89.29 - Other chronic pain - Subjective Interval history: 66 Y/O F with acute on chronic respiratory failure secondary to acute bronchitis and COPDE from roblero virus infection She als has ADHD and HTN Yesterday, she developed HHS from hyperglycemia secondary to steroids She has been bridged this morning Will d/c solumedrol and change to prednisone po Patient seen at bedside, slightly tachypneic and wheezing diffusely She is also still requiring higher concentration of oxygen than she previously used at home She is a non-smoker - Constitutional Vitals: Temp Pulse Resp BP Pulse Ox 97.7 F 88 20 156/89 93 L 12/20/16 16:26 12/20/16 16:26 12/20/16 16:26 12/20/16 16:26 12/20/16 16:26 General appearance: Present: mild distress, A&O X 3, obese, answers questions appropriately - Head Head exam: Present: atraumatic, normocephalic - Eye Eye exam: Present: PERRL, conjuntiva pink, sclera anicteric Pupils: Present: PERRL - Neck Neck exam general surgery: Present: supple, trachea midline. Absent: lymphadenopathy - Respiratory Respiratory exam: Present: wheezes, tachypnea - Cardiovascular Cardiovascular exam: Present: RRR, +S1, +S2. Absent: diastolic murmur, gallop, rubs, systolic murmur - GI/Abdominal GI/Abdominal exam: Present: normal bowel sounds, soft, no peritoneal signs. Absent: distended, tenderness - Extremities Exam Extremities exam: Present: warm, radial pulses palpable and symetrical. Absent : calf tenderness, cyanotic, pedal edema - Neurological Exam Neurological exam: Present: CN II-XII intact, oriented X3, no focal deficits. Absent: pronater drift, facial droop, speech deficit - Skin Skin exam: Present: dry, intact Internal Medicine: Result - Labs CBC & Chem 7: 12/20/16 05:25 12/20/16 05:25 Labs: Short CBC 12/20/16 Range/Units 05:25 WBC 12.5 H (4.3-11.1) K/mcL Hgb 13.6 (11.5-15.4) g/dL Hct 42.6 (35.3-44.9) % Plt Count 189 (140-400) K/mcL Neutrophils # 11.5 H (1.6-8.9) K/mcL BMP 12/19/16 12/20/16 16:45 05:25 Sodium 137 138 Potassium 3.8 4.4 Chloride 95 L 99 Carbon Dioxide 28 29 BUN 45 H 43 H Creatinine 1.25 H 0.78 Glucose 439 H 190 H Calcium 10.1 9.0 Consult Discharge Plan - Plan Referrals: Janice Hoff MD [Primary Care Provider] - (appt requested)
[2016-12-20] MEDS ORDERED: ALPRAZolam 1 MG TABLET PO PRN (17:32)
[2016-12-20] MEDS ORDERED: ALPRAZolam 1 MG TABLET PO ONE (17:32)
[2016-12-21] MEDS: 0.9 % Sodium Chloride 1,000 ML IVC SCH ×2 (03:21→07:57)
[2016-12-21] MEDS: Ipratropium/Albuterol Neb 3 ML IH SCH ×2 (04:33→10:29)
[2016-12-21] MEDS: *HR* Heparin 5,000 UNIT/ML VIAL SQ SCH (05:28)
[2016-12-21 05:41] LABS: Basophils % 0.1 %; Hematocrit 41.7 % (35.3-44.9); Immature Granulocytes % 0.7 % (0-4); Lymphocytes % 10.2 %; Mean Corpuscular HGB Conc 31.2 g/dL (31.6-35.5); Mean Corpuscular Hemoglobin 28.6 pg (28.0-33.3); Mean Corpuscular Volume 91.9 fL (83.0-100.0); Mean Platelet Volume 11.3 fL (9.4-12.4); Monocytes # 0.5 K/mcL (0.0-1.3); Platelet Count 173 K/mcL (140-400); Red Blood Count 4.54 M/mcL (3.82-4.97); Red Cell Distribution Width 14.5 % (11.5-14.5)
[2016-12-21 05:51] LABS: BUN/Creatinine Ratio 42 (6-26); Calcium 8.8 mg/dL (8.6-10.8); Carbon Dioxide 26 mEq/L (19-29); Chloride 102 mEq/L (98-109); Glucose 213 mg/dL (70-99); Osmolality,Calculated 299 (280-300); Sodium 138 mEq/L (136-145); eGFR For African Americans > 60 (> 60); eGFR For Non-African Americans > 60 (> 60)
[2016-12-21 05:57] LABS: Blood Urea Nitrogen 31 mg/dL (7-20); Potassium 4.6 mEq/L (3.5-4.5)
[2016-12-21] MEDS: Insulin LISPRO 300 UNITS/3 ML VIAL SQ SCH ×4 (08:49→12:08)
[2016-12-21] MEDS: Aspirin 81 MG TAB.CHEW PO SCH (08:52)
[2016-12-21] MEDS: Azithromycin 500 MG in D5% in Water 250 ML IVPB SCH (08:52)
[2016-12-21] MEDS: Dextroamphetamine/Amphetamine [Adderall 30 Mg Tablet] PO SCH (08:53)
[2016-12-21] MEDS: Insulin DETEMIR 100 UNIT/ML X5UNITS SQ SCH (08:53)
[2016-12-21] MEDS ORDERED: predniSONE 20 MG TABLET PO SCH (09:00)
[2016-12-21] MEDS: *HR* OxyCODONE/APAP 10/325 TABLET PO PRN (09:45)
[2016-12-21 11:15] VITALS: BP 129/81
--- NOTE | 2016-12-21 13:24 | Discharge Summary ---
Date of Encounter: 12/21/16 Time of Encounter: 11:00 - Discharge Diagnosis (1) Acute bronchitis Priority: Primary Status: Acute Qualifiers: Bronchitis organism: other organism Qualified Code(s): J20.8 - Acute bronchitis due to other specified organisms (2) Acute exacerbation of chronic obstructive pulmonary disease (COPD) Priority: Primary Status: Acute (3) Acute on chronic respiratory failure with hypoxemia Priority: Primary Status: Acute (4) Hyperglycemia, drug-induced Priority: Secondary Status: Acute (5) ADHD (attention deficit hyperactivity disorder) Priority: Secondary Status: Chronic Qualifiers: Attention deficit-hyperactivity disorder type: predominantly hyperactive Qualified Code(s): F90.1 - Attention-deficit hyperactivity disorder, predominantly hyperactive type (6) HTN (hypertension) Priority: Secondary Status: Chronic Qualifiers: Hypertension type: essential hypertension Qualified Code(s): I10 - Essential (primary) hypertension (7) Anxiety Priority: Secondary Status: Chronic (8) Chronic back pain Priority: Secondary Status: Chronic Qualifiers: Back pain location: low back pain Back pain laterality: bilateral Sciatica presence: without sciatica Qualified Code(s): M54.5 - Low back pain; G89.29 - Other chronic pain (9) Diabetes mellitus Priority: Secondary Status: Chronic Comments: a1c 6.6 Started Metformin Qualifiers: Diabetes mellitus type: type 2 Diabetes mellitus complication status: without complication 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: without long-term use Qualified Code(s): E11.9 - Type 2 diabetes mellitus without complications - Discharge Medications Prescriptions: Albuterol Sulfate [Ventolin Hfa] 2 puff IH QID PRN #2 hfa.aer.ad PRN Reason: Shortness Of Breath Budesonide/Formoterol 160/4.5 [Symbicort 160/4.5] 1 puff IH BIDR #2 hfa.aer.ad Ipratropium/Albuterol Neb [Duoneb] 3 ml IH Q4H PRN #30 inhsol PRN Reason: Shortness Of Breath Metformin HCl [Metformin HCl ER] 1,000 mg PO DAILY #30 [id number] PredniSONE 40 mg PO DAILY #20 tablet Home Medications: Dextroamphetamine/Amphetamine [Adderall 30 mg Tablet] 30 mg PO BID 06/08/16 [ History] Oxycodone HCl/Acetaminophen [Percocet 10-325 mg Tablet] 1 tab PO Q4-6H PRN 07/13 /16 [History] Furosemide [Lasix] 20 mg PO DAILY PRN 10/19/16 [History] Ropinirole HCl [Requip] 6 mg PO HS 10/19/16 [History] Rosuvastatin Calcium [Crestor] 10 mg PO DAILY 10/19/16 [History] Fluticasone Propionate Nasal [Flonase] 50 mcg NS DAILY #1 bottle 10/21/16 [Rx] Aspirin [Lo-Dose Aspirin EC] 81 mg PO DAILY 12/18/16 [History] Lisinopril-HCTZ 10-12.5 [Prinzide 10-12.5] 1 tab PO DAILY 12/18/16 [History] Oxygen 4 l IN CONT 12/18/16 [History] Pantoprazole Sodium [Protonix] 20 mg PO DAILY 12/18/16 [History] Albuterol Sulfate [Ventolin Hfa] 2 puff IH QID PRN #2 hfa.aer.ad 12/21/16 [Rx] Budesonide/Formoterol 160/4.5 [Symbicort 160/4.5] 1 puff IH BIDR #2 hfa.aer.ad 12/21/16 [Rx] Ipratropium/Albuterol Neb [Duoneb] 3 ml IH Q4H PRN #30 inhsol 12/21/16 [Rx] Metformin HCl [Metformin HCl ER] 1,000 mg PO DAILY #30 [id number] 12/21/16 [Rx] PredniSONE 40 mg PO DAILY #20 tablet 12/21/16 [Rx] Allergies/Adverse Reactions: Allergies Amoxicillin Allergy (Verified 12/18/16 13:32) Rash levofloxacin [From Levaquin] Allergy (Verified 06/08/16 10:26) Rash Penicillins Allergy (Verified 06/08/16 10:26) Rash Procedures/tests Complete & Pending: Procedures Performed prior 72 hours Category Date Time Status ECG 12 lead ECG [ECG] Routine Y 12/18/16 22:52 Completed Date of admission: 12/18/16 10:39 Primary care physician: Janice Hoff Discharging clinician: Davian Vance Anticipated date of discharge: 12/21/16 - Patient Status Disposition: Home, Self-Care Condition: Good Functional capacity at discharge: independent ambulation Overall status at discharge: patient is progressing back to baseline - Discharge Instructions Instructions: Prednisone (By mouth), Metformin (By mouth), Ipratropium/ Albuterol (By breathing), Viral Pneumonia (DC), Chronic Obstructive Pulmonary Disease (DC) Follow Up With: Janice Hoff MD [Primary Care Provider] - (appt requested) - Diet and Activity Activity: resume usual activities as tolerated, wear oxygen at all times Diet: diabetic diet, low fat, low cholesterol, low salt diet Interval History: See below Hospital course: Ms. Cabello is a 66 year old female with PMH of Asthma/COPD, Chronic respiratory failure on home O2, DM (A1C 6.6%), ADHD, Anxiety, HTN and Chronic low back pain She was admitted and managed for acute viral bronchitis with exacerbation of her COPD Hospital stay was complicated by hyperglycemia and HHS Her respiratory status has improved, her blood sugars have been controlled and improved on insulin She is seen at bedside today in no form of distress She is stable to be discharged home She is discharged on prednisone taper and albuterol I, Advair HERNANDEZI and Cornelia alford prn She is also started on Metformin po for her DM (which she states she was pre-DM before) Other chronic conditions stable She has received FLu and pneuococcal vaccine Follow up with PCP - Time Spent with Patient Total time spent providing and/or coordinating discharge services: Less than 30 minutes - Constitutional Vitals: Temp Pulse Resp BP Pulse Ox 97.5 F L 93 16 129/81 95 12/21/16 11:10 12/21/16 11:10 12/21/16 11:10 12/21/16 11:10 12/21/16 11:10 General appearance: Present: A&O X 3, no acute distress, obese, answers questions appropriately - Head Head exam: Present: atraumatic, normocephalic - Eye Eye exam: Present: PERRL, conjuntiva pink, sclera anicteric Pupils: Present: PERRL - Neck Neck exam general surgery: Present: supple, trachea midline. Absent: lymphadenopathy - Respiratory Respiratory exam: Present: wheezes (Few scattered whezes). Absent: accessory muscle use, rales, rhonchi - Cardiovascular Cardiovascular exam: Present: RRR, +S1, +S2. Absent: diastolic murmur, gallop, rubs, systolic murmur - GI/Abdominal GI/Abdominal exam: Present: normal bowel sounds, soft, no peritoneal signs. Absent: distended, tenderness - Extremities Exam Extremities exam: Present: warm, radial pulses palpable and symetrical. Absent : calf tenderness, cyanotic, pedal edema - Neurological Exam Neurological exam: Present: CN II-XII intact, oriented X3, no focal deficits. Absent: pronater drift, facial droop, speech deficit - Skin Skin exam: Present: dry
== END 2016-12-21 15:00 | disposition home or self-care (01) ==
LOC: 2ANU 03:11 → EMEROO 03:11 → 2ANU 08:29 → SUATTDRO 10:39
PROVIDERS: ADMIT Internal Medicine; ATTEND Internal Medicine

== ENCOUNTER 2017-01-19 01:25 | Inpatient (IN) ==
[2017-01-19] MEDS ORDERED: Ipratropium/Albuterol Neb 3 ML ONE (01:43)
[2017-01-19] MEDS ORDERED: Albuterol 2.5 MG/3 ML NEBULIZER ONE (02:13)
[2017-01-19] MEDS ORDERED: predniSONE 20 MG TABLET ONE (02:28)
[2017-01-19] MEDS ORDERED: 0.9 % Sodium Chloride 2,000 ML ONE (02:55)
[2017-01-19] MEDS: 0.9 % Sodium Chloride 1,000 ML IVC SCH ×2 (02:58→03:27)
[2017-01-19] MEDS ORDERED: Piperacillin/Tazobactam 4.5 GM VIAL IVPB ONE (03:15)
[2017-01-19] MEDS ORDERED: D5% in Water (Mini-Bag+) 0 ML IVPB ONE (03:15)
[2017-01-19] MEDS ORDERED: Levofloxacin 750 MG/150 ML 750 MG/150 ML BAG IVPB ONE ×2 (03:23→03:27)
[2017-01-19] MEDS ORDERED: D5% in Water 250 ML ONE (04:27)
[2017-01-19] MEDS ORDERED: Vancomycin 1,000 MG VIAL ONE (04:27)
[2017-01-19] MEDS ORDERED: Vancomycin 1,500 MG in D5% in Water 250 ML IVPB ONE (04:35)
[2017-01-19] MEDS ORDERED: Cefepime HCl 2,000 MG in D5% in Water (Mini-Bag+) 100 ML IVPB ONE (04:57)
--- NOTE | 2017-01-19 05:19 | Emergency Department Note ---
Disposition Clinical Impression: HCAP (healthcare-associated pneumonia), Sepsis, History of lung cancer Acute respiratory failure Qualifiers: Respiratory failure complication: unspecified whether with hypoxia or hypercapnia Qualified Code(s): J96.00 - Acute respiratory failure, unspecified whether with hypoxia or hypercapnia Disposition: Admitted As Inpatient Condition: Fair Referrals: Janice Hoff MD [Primary Care Provider] - Time of Disposition: 02:53 SOB HPI - General Stated Complaint: abebe Time Seen by Provider: 01/19/17 05:16 Source: patient Mode of arrival: ambulatory Limitations: no limitations Nursing Notes Reviewed: Yes Vital Signs Reviewed: Yes - History of Present Illness Patient was evaluated during [facility] 66-year-old female with history of lung CA (surgery removed 11 years ago), HTN, HLD, Colon CA, and COPD on 3L home oxygenation presents to the ED for difficulty in breathing. Worse the past 2 days. Reports her duoneb machine has not been working over the past 2 days as well. She has been using her inhalers with increased frequency. Denies any fever or chills. Denies any chest pain. She reports increase cough in sputum production with change in sputum color. She is currently taken steroids for COPD exacerbation that has been ongoing for last 2 weeks. Patient presents in respiratory distress 76% on 5L NC. Per EMS she was reportedly 80% on room air. Reports she is on Coumadin started here at [place] on discharge. - Related Data Home Medications Medication Instructions Recorded Confirmed Dextroamphetamine/Amphetamine 30 mg PO BID 06/08/16 12/18/16 [Adderall 30 mg Tablet] Oxycodone HCl/Acetaminophen 1 tab PO Q4-6H PRN 06/08/16 12/18/16 [Percocet 10-325 mg Tablet] Furosemide [Lasix] 20 mg PO DAILY PRN 10/19/16 12/18/16 Ropinirole HCl [Requip] 6 mg PO HS 10/19/16 12/18/16 Rosuvastatin Calcium [Crestor] 10 mg PO DAILY 10/19/16 12/18/16 Aspirin [Lo-Dose Aspirin EC] 81 mg PO DAILY 12/18/16 12/18/16 Lisinopril-HCTZ 10-12.5 [Prinzide 1 tab PO DAILY 12/18/16 12/18/16 10-12.5] Oxygen 4 l IN CONT 12/18/16 12/18/16 Pantoprazole Sodium [Protonix] 20 mg PO DAILY 12/18/16 12/18/16 Previous Rx's Medication Instructions Recorded Fluticasone Propionate Nasal 50 mcg NS DAILY #1 bottle 10/21/16 [Flonase] Albuterol Sulfate [Ventolin Hfa] 2 puff IH QID PRN #2 hfa.[email or web address] 12/21/16 Budesonide/Formoterol 160/4.5 1 puff IH BIDR #2 hfa.aer.ad 12/21/16 [Symbicort 160/4.5] Ipratropium/Albuterol Neb [Duoneb] 3 ml IH Q4H PRN #30 inhsol 12/21/16 Metformin HCl [Metformin HCl ER] 1,000 mg PO DAILY #30 [id number] 12/21/16 PredniSONE 40 mg PO DAILY #20 tablet 12/21/16 Allergies Allergy/AdvReac Type Severity Reaction Status Date / Time Amoxicillin Allergy Rash Verified 01/19/17 05:05 Penicillins Allergy Rash Verified 01/19/17 05:05 All systems ED: reviewed and negative except as stated. Constitutional: Denies: fever, chills Cardiovascular: Denies: chest pain Respiratory: Reports: cough, dyspnea, wheezes Gastrointestinal: Denies: abdominal pain, nausea, vomiting Musculoskeletal: Denies: back pain Integumentary: Denies: rash, abrasion Neurological: Denies: headache Past Medical History - Past Medical History Attestation: Yes The following information was validated with the patient. Source: patient Medical history: Reports: asthma, cancer (Lung cancer status post lobectomy, colon cancer 11 years ago status post chemotherapy and partial colectomy), COPD (Oxygen dependent using 2 L as needed), hypertension, other (Ischemic CVA/ embolic, RSV pneumonia, chronic back pain, chronic respiratory failure, ADHD) Surgical history: Reports: cancer surgery (Partial colectomy, and lung lobectomy , tubal ligation), hysterectomy Psychiatric history: Reports: depression [employer] history: Reports: bilateral tubal ligation - Social History Smoking Status: Former smoker (Quit tobacco 12 years ago) Smokeless Tobacco Status: No Alcohol use: Reports: none Drug use: Reports: none Physical Exam - General Limitations: no limitations General appearance: alert, in distress - Head Head exam: atraumatic, normocephalic, normal inspection - Eye Eye exam: Present: normal appearance, PERRL, EOMI - ENT ENT exam: normal exam, normal oropharynx, mucous membranes dry - Neck Neck exam: Present: normal inspection, full ROM, trachea midline - Chest Chest inspection: Present: normal inspection, symmetric chest wall rise - Respiratory Respiratory exam: Present: normal lung sounds bilaterally, respiratory distress , wheezes, accessory muscle use - Cardiovascular Cardiovascular exam: Present: regular rate, normal rhythm, normal heart sounds - Abdominal Exam Abdominal exam: Present: soft, Non-Tender, normal bowel sounds. Absent: tenderness, distention, guarding, rebound, rigidity - Extremities Exam Extremities exam: Present: normal inspection, full ROM, normal capillary refill. Absent: tenderness, pedal edema, calf tenderness - Neurological Exam Neurological exam: Present: alert, oriented X3 - Psychiatric Psychiatric exam: Present: normal affect, normal mood - Skin Skin exam: Present: warm, dry, intact, normal color Course Course Narrative: Patient with COPD on 3L home supplementation presents with difficulty in breathing over past 48 hours. Reports increase cough, sputum production, and change in sputum color. Also reports her duoneb machine not working the past 2 days as well. Previously admitted and treated for pneumonia which required hospitalization. She finished oral antibiotics and has been requiring 20 mg prednisone daily. Did not take any today. Initially patient is 76% on 5L NC. After 3 continuous duoneb treatments and NRB she remains tight and diffusely wheezy but O2 96-98%. Will check CXR, BMP, CBC. Likely will admit for respiratory distress suspect COPD exacerbation or pneumonia. CBC does not reveal leukocytosis. BMP is normal. CXR portable reveals new right lobe infiltrate, compared to CXR back in November where she was hospitalized for pneumonia >48 hr. Will treat for HCAP. Will order blood cultures x2, IV 2L NS, and lactate for septic workup. With her duoneb machine down and acute hypoxia will admit to hospital. IV vanc, zosyn, and Levaquin. Patient is in agreement with plan. Patient's antibiotics switched from Zosyn to Cefepime due to PCN allergy and history of Ceftriaxone and Keflex without adverse effects. Will check a VBG and place her on BiPAP. [address] Siddhartha mancini for admission for HCAP and sepsis. Shortness of Breath/Dyspnea - Medical Records Medical records reviewed: Yes I reviewed the patient's medical records. - Lab Data Lab results reviewed: Yes I reviewed the patient's lab results. - Radiology Data Radiology results reviewed: Yes I reviewed the patient's radiology results. Images interpreted by radiologist and reviewed by myself, reveals new right infiltrate consistent with pneumonia. CXR report on paper chart - EKG Data EKG attestation: Yes I reviewed and interpreted this EKG. EKG results narrative: EKG performed 140 shows sinus tachycardia 131 beates per minute, normal axis, there are no ST elevations or depressions, no T-wave inversions, intervals are within normal limits. No old EKG available at this time for comparison. Attestation Statement - Attestation Attestation: I examined this patient and my medical decision-making was reviewed with the Resident Physician. I agree with the documented findings, disposition and treatment plan as described.
--- NOTE | 2017-01-19 05:22 | Internal Med History&Physical ---
<Jenifer Mckeon - Last Filed: 01/19/17 06:32> Date of Encounter: 01/19/17 Time of Encounter: 05:20 Assessment and Plan (1) HCAP (healthcare-associated pneumonia) Current visit: Yes Status: Acute IV vancomycin, cefepime, and levaquin (2) Acute on chronic respiratory failure with hypoxemia Current visit: No Status: Acute patient currently doing well on BIPAP VBG ordered (3) Chronic back pain Current visit: No Status: Chronic continue home medications Qualifiers: Back pain location: low back pain Back pain laterality: bilateral Sciatica presence: without sciatica Qualified Code(s): M54.5 - Low back pain; G89.29 - Other chronic pain (4) Diabetes mellitus Current visit: No Status: Chronic diagnosed during last hospitalization 1 month ago accucheck q6 low dose sliding scale Qualifiers: Diabetes mellitus type: type 2 Diabetes mellitus complication status: without complication 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: without termite technician use Qualified Code(s): E11.9 - Type 2 diabetes mellitus without complications (5) HTN (hypertension) Current visit: No Status: Chronic continue home medications no VS visible at this time due to [place] downtime Qualifiers: Hypertension type: essential hypertension Qualified Code(s): I10 - Essential (primary) hypertension (6) History of lung cancer Current visit: No Status: Chronic (7) S/P pneumonectomy Current visit: No Status: Chronic Internal Medicine - H&P: HPI Chief complaint: shortness of breath Admitted From: Emergency Dept History of present illness: Ms. Cabello is a 66 year old female with past medical history of COPD, asthma, who presents to the emergency department with increased shortness of breath for the past 3 days. She also has had a productive cough, subjective fevers, and lack of appetite in that period of time. She was hospitalized 1 month ago for bronchitis. She states that she felt that she only got better for a very short amount of time before her condition worsened again. Patient states that she has home oxygen and a nebulizer but she only uses them when she is sick. She states that when she is healthy she does not use oxygen or nebulizers: she does take inhalers daily to manage her COPD. Past Med Surg Social Fam HX - Past Medical History Medical history: asthma, cancer (Lung cancer status post lobectomy, colon cancer 11 years ago status post chemotherapy and partial colectomy), COPD ( Oxygen dependent using 2 L as needed), diabetes, hyperlipidemia, hypertension, other (Ischemic CVA/embolic, RSV pneumonia, chronic back pain, chronic respiratory failure, ADHD) Psychiatric history: depression - Past Surgical History Surgical History: cancer surgery (Partial colectomy, and lung lobectomy, tubal ligation), hysterectomy - Social History Smoking Status: Former smoker (Quit tobacco 12 years ago) Smokeless Tobacco Status: No Alcohol use: none Drug use: none - Family History Mother Living Status: Internal Medicine - H&P: Meds Dextroamphetamine/Amphetamine [Adderall 30 mg Tablet] 30 mg PO BID 06/08/16 [ History] Oxycodone HCl/Acetaminophen [Percocet 10-325 mg Tablet] 1 tab PO Q8H PRN [History] Ropinirole HCl [Requip] 6 mg PO HS 10/19/16 [History] Rosuvastatin Calcium [Crestor] 10 mg PO DAILY 10/19/16 [History] Aspirin [Lo-Dose Aspirin EC] 81 mg PO DAILY 12/18/16 [History] Lisinopril-HCTZ 10-12.5 [Prinzide 10-12.5] 1 tab PO DAILY 12/18/16 [History] Albuterol Sulfate [Ventolin Hfa] 2 puff IH QID PRN #2 hfa.aer.ad 12/21/16 [Rx] Ipratropium/Albuterol Neb [Duoneb] 3 ml IH Q4H PRN #30 inhsol 12/21/16 [Rx] Metformin HCl [Metformin HCl ER] 1,000 mg PO DAILY #30 [id number] 12/21/16 [Rx] Alprazolam [Xanax 1 MG Tablet] 1 mg PO Q6H PRN 01/19/17 [History] Fluticasone/Vilanterol [Breo Ellipta 200-25 Mcg INH] 2 puff IH DAILY 01/19/17 [ History] Omeprazole [PriLOSEC] 20 mg PO DAILY 01/19/17 [History] Allergies Amoxicillin Allergy (Verified 01/19/17 08:21) Rash Penicillins Allergy (Verified 01/19/17 08:21) Rash All Systems PM: A 10-system review of systems was performed and is negative for pertinent findings except as documented above in the HPI. - Constitutional Constitutional: anorexia, fever(s) (subjective), no chills, no night sweats - EENT Eyes: no change in vision, no discharge, no pain, no photophobia Ears: no ear discharge, no ear pain, no tinnitus Nose, mouth and throat: no dysphagia, no nasal discharge, no neck pain, no sore throat - Cardiovascular Cardiovascular ROS IM: no chest pain, no diaphoresis, no dyspnea, no lightheadedness, no palpitations, no syncope - Respiratory Respiratory: cough, dyspnea, excessive phlegm production, no wheezing - Gastrointestinal Gastrointestinal: other (loss of appetite), no abdominal pain, no diarrhea, no hematemesis, no hematochezia, no melena, no nausea, no vomiting - Genitourinary Genitourinary: no change in urinary stream, no dysuria, no flank pain, no hematuria - Musculoskeletal Musculoskeletal ROS IM: no arthralgias, no myalgias, no numbness, no tingling - Integumentary Integumentary IM: no rash, no unusual bruising - Neurological Neurological ROS: no confusion, no convulsions, no focal weakness, no headache(s ), no numbness, no tingling, no tremor(s) - Hematologic/Lymphatic Hematologic/Lymphatic: no easy bruising - Constitutional General appearance: Present: A&O X 3, no acute distress (on BIPAP), answers questions appropriately - Head Head exam: Present: atraumatic, normocephalic - Eye Eye exam: Present: PERRL, conjuntiva pink, sclera anicteric Pupils: Present: PERRL - Neck Neck exam general surgery: Present: supple, trachea midline. Absent: lymphadenopathy - Respiratory Respiratory exam: Present: decreased breath sounds, wheezes. Absent: accessory muscle use, rales, rhonchi - Cardiovascular Cardiovascular exam: Present: RRR, +S1, +S2. Absent: diastolic murmur, gallop, rubs, systolic murmur - GI/Abdominal GI/Abdominal exam: Present: normal bowel sounds, soft, no peritoneal signs. Absent: distended, tenderness - Extremities Exam Extremities exam: Present: warm, radial pulses palpable and symetrical. Absent : calf tenderness, cyanotic, pedal edema - Neurological Exam Neurological exam: Present: CN II-XII intact, oriented X3, no focal deficits. Absent: pronater drift, facial droop, speech deficit - Skin Skin exam: Present: dry, intact <Mariana Branch R - Last Filed: 01/19/17 09:46> Date of Encounter: 01/19/17 Assessment and Plan (1) Sepsis Current visit: Yes Status: Acute Secondary to pneumonia. Treat with IV antibiotics and IV fluids Qualifiers: Sepsis type: sepsis due to unspecified organism Qualified Code(s): A41.9 - Sepsis, unspecified organism Internal Medicine - H&P: HPI History of present illness: Ms. Cabello is a 66 year old female All Systems PM: A 10-system review of systems was performed and is negative for pertinent findings except as documented above in the HPI. - Constitutional Vitals: Temp Pulse Resp BP Pulse Ox 0 F L 103 22 132/89 94 L 01/19/17 08:09 01/19/17 06:24 01/19/17 08:55 01/19/17 08:55 01/19/17 08:55 Internal Med - H&P Results - Labs CBC & Chem 7: 01/19/17 01:45 01/19/17 01:45 - Attending Attestation I performed a history and physical examination of the patient and discussed his management with the Resident/Medical Record Librarians Teacher (Dr Mckeon). I reviewed the residents note and agree with the documented findings and plan of care, with additions as below. 66 Y/F with h/o COPD and was hospitalized about a month ago for bronchitis. She presented to the emergency department with worsening shortness of breath and productive cough. She was hypoxic in the emergency department and required BiPAP therapy. O/E: General: Not in acute distress at the time of my evaluation HEENT: Oral mucosa is moist. No conjunctival palor or scleral icterus Neck: No obvious neck swellings Lungs: Occasional clicks on the right side. Scar on the right posterolateral chest Cardiac: Regular rate and rhythm - tachycardic. No significant murmurs Abdomen: Soft, non tender. Bowel sounds present Neurological: Alert and oriented. No gross localizing deficits Psych: Not aggressive or agitated Extremities: no significant leg edema Skin: No generalized rash CXR: Reported new right lung opacities which may represent acute pneumonia. Recurrent lung cancer cannot be excluded (However, reviewed prior CXR, which does not show similar changes in the right lung). Labs reviewed. A/P: Pneumonia (right lung): Treat for healthcare associated pneumonia / bacterial pneumonia, with cefepime, levofloxacin, vancomycin. Sepsis secondary to pneumonia: Lactate is not elevated. Continue antibiotics, IV fluids. Acute on chronic respiratory failure: Treat with supplemental oxygen/BiPAP
[2017-01-19] MEDS ORDERED: Furosemide 20 MG TABLET PO PRN (05:26)
[2017-01-19] MEDS ORDERED: predniSONE 20 MG TABLET PO ONE (05:32)
[2017-01-19 05:44] LABS: VBG HCO3 35.1 mEq/L (21-27); VBG PH 7.34 pH Units (7.32-7.42)
[2017-01-19] MEDS ORDERED: Naloxone 0.4 MG/ML INJ IVP PRN ×2 (05:59→19:23)
[2017-01-19] MEDS ORDERED: Ondansetron ODT 4 MG TAB.RAPDIS SL PRN ×2 (05:59→19:23)
[2017-01-19] MEDS ORDERED: Acetaminophen 325 MG TABLET PO PRN ×2 (05:59→19:23)
[2017-01-19] MEDS ORDERED: Dextrose Gel 15 GM PO PRN ×6 (06:02→19:23)
[2017-01-19] MEDS ORDERED: D5% in Water 1,000 ML IV PRN ×3 (06:02→19:23)
[2017-01-19] MEDS ORDERED: *HR* Dextrose 50 % in Water (Syg) 50 ML SYRINGE IVP PRN ×3 (06:02→19:23)
[2017-01-19 07:34] LABS: BUN/Creatinine Ratio 16 (6-26); Blood Urea Nitrogen 12 mg/dL (7-20); Calcium 9.6 mg/dL (8.6-10.8); Carbon Dioxide 32 mEq/L (19-29); Chloride 98 mEq/L (98-109); Glucose 155 mg/dL (70-99); Osmolality,Calculated 291 (280-300); Sodium 139 mEq/L (136-145); eGFR For African Americans > 60 (> 60); eGFR For Non-African Americans > 60 (> 60)
[2017-01-19 07:38] LABS: Basophils % 0.4 %; Eosinophils # 0.1 K/mcL (0.0-0.6); Eosinophils % 0.9 %; Hematocrit 42.7 % (35.3-44.9); Hemoglobin 13.4 g/dL (11.5-15.4); Immature Granulocytes % 0.8 % (0-4); Immature Platelets 6.7 % (1.1-6.1); Lymphocytes # 1.1 K/mcL (0.6-4.6); Lymphocytes % 14.1 %; Mean Corpuscular HGB Conc 31.4 g/dL (31.6-35.5); Mean Corpuscular Hemoglobin 28.5 pg (28.0-33.3); Mean Corpuscular Volume 90.7 fL (83.0-100.0); Mean Platelet Volume 11.4 fL (9.4-12.4); Monocytes # 0.5 K/mcL (0.0-1.3); Monocytes % 5.8 %; Platelet Count 231 K/mcL (140-400); Red Blood Count 4.71 M/mcL (3.82-4.97); Red Cell Distribution Width 13.8 % (11.5-14.5)
[2017-01-19] MEDS ORDERED: (Dextroamphetamine/Amphetamine [Adderall 30 Mg Tablet]) PO SCH (09:00)
[2017-01-19] MEDS ORDERED: Fluticasone Propionate Nasal 50 MCG/SPRAY BOTTLE NS SCH (09:00)
[2017-01-19] MEDS ORDERED: *HR* Metformin 500 MG TABLET PO SCH (09:00)
[2017-01-19] MEDS ORDERED: Aspirin Enteric Coated 81 MG Tablet PO SCH (09:00)
[2017-01-19] MEDS: *HR* Heparin 5,000 UNIT/ML VIAL SQ SCH ×2 (09:29→18:36)
[2017-01-19] MEDS: *HR* OxyCODONE/APAP 10/325 TABLET PO PRN ×2 (09:29→15:31)
[2017-01-19] MEDS ORDERED: 0.9 % Sodium Chloride 1,000 ML IVC SCH (09:45)
[2017-01-19] MEDS ORDERED: Budesonide/Formoterol 160/4.5 MDI IH SCH (10:00)
--- NOTE | 2017-01-19 10:10 | Internal Med Progress Note ---
<Avinash Baxter - Last Filed: 01/19/17 15:06> Date of Encounter: 01/19/17 Time of Encounter: 09:20 - Assessment and plan (1) HCAP (healthcare-associated pneumonia) Current Visit: Yes Status: Acute Assessment and plan: Patient with recent admission. Now with color change in sputum. new opacities in the right lung with exam findings consistent with pneumonia. Continue Vancomycin, cefepime and levofloxacin possibly a secondary pneumonia as she recently had coronovirus infection. obtain blood and sputum cultures. urine strep and legionella. currently she meets SIRS criteria but clinically dose not appear septic. BIPAP/O2 as needed. Stable. Can transfer out of ICU to . however no bed available at this time. (2) SIRS (systemic inflammatory response syndrome) Current Visit: Yes Status: Acute Assessment and plan: tachycardia and tachypnea. however clinically she dose not appear septic and is afebrile. Normal lactic acid. Hemodynamically stable (3) Acute respiratory failure Current Visit: Yes Status: Acute Assessment and plan: I suspect she has some chronic respiratory failure given her elevated bicarb. Combined hypoxemic and hypercapneic. multifactorial with COPD, PNA, prior lobectomy, and former tobacco abuse contributing. Will attempt to wean off of BiPAP and onto O2 Titrate O2 to no greater than 92% Qualifiers: Qualified Code(s): J96.00 - Acute respiratory failure, unspecified whether with hypoxia or hypercapnia (4) Acute exacerbation of chronic obstructive airways disease Current Visit: No Status: Resolved Assessment and plan: Currently she is not wheezing However she has had steroids adn bronchodialators. wheezing documented on H&P and ER notes Will continue bronchodialators and steroids. (5) History of lung cancer Current Visit: Yes Status: Acute (6) Former tobacco use Current Visit: Yes Status: Acute Assessment and plan: she has quit for 12 years now. (7) History of colon cancer Current Visit: Yes Status: Acute (8) Metabolic alkalosis Current Visit: Yes Status: Acute Assessment and plan: mild Likely from chronic hypoxemia. Will see if she qualifies for O2 prior to discharge. (9) Diabetes Current Visit: Yes Status: Acute Assessment and plan: DC metformin as she is an inpatient. Continue sliding scale insulin. Qualifiers: Qualified Code(s): E11.9 - Type 2 diabetes mellitus without complications (10) DVT prophylaxis Current Visit: Yes Status: Acute Assessment and plan: SQ heparin - Subjective Interval history: Mrs Cabello is a 65 y.o. female with pmh significant for Colon and lung cancer. She states that these were 2 primary cancers diagnosed at the same wime. She would undergo colon resection and chemotherapy. She would also have right upper lobectomy. She states that she has no had recurrence since that time. she states that she is a former smoker and that seh quit e12 years ago after her cancer diagonosis. She dose have a history of COPD but states that it is well controlled and that mary has not been hospitalized for the past 3 years until this winter. She was recently admitted to [facility] and was treated for AECOPD and was discharged on bronchodilators and prednisone. she was also started on metformin because her Hg A1C was 6.6. today she states that she is feeling much better since admission. She states that she felt better for about a week after discharge but then she took a turn for the worse and had increased dyspnea, cough, and subjective fever. she states that her sputum is now green. She denies any pain or dyscomfort. She has no further complaints or concerns at this time. - Constitutional Vitals: Temp Pulse Resp BP Pulse Ox 0 F L 103 22 132/89 94 L 01/19/17 08:09 01/19/17 06:24 01/19/17 08:55 01/19/17 08:55 01/19/17 08:55 General appearance: Present: A&O X 3, no acute distress (on BIPAP), answers questions appropriately - Head Head exam: Present: atraumatic, normal inspection, normocephalic - Eye Eye exam: Present: PERRL, conjuntiva pink, sclera anicteric Pupils: Present: PERRL - Neck Neck exam general surgery: Present: supple, trachea midline. Absent: lymphadenopathy - Respiratory Respiratory exam: Present: CTAB, rhonchi. Absent: accessory muscle use, rales, wheezes Additional comments: in the right lower and right mid lung. mild crackles in this area as well. She has a sugical scar from prior lobectomy on the right. She is currently comfortable and is on BIPAP with 45% FiO2 - Cardiovascular Cardiovascular exam: Present: RRR, +S1, +S2. Absent: diastolic murmur, gallop, rubs, systolic murmur - GI/Abdominal GI/Abdominal exam: Present: normal bowel sounds, soft, no peritoneal signs. Absent: distended, tenderness - Extremities Exam Extremities exam: Present: warm, radial pulses palpable and symetrical. Absent : calf tenderness, cyanotic, pedal edema - Skin Skin exam: Present: dry, intact Internal Medicine: Result - Labs CBC & Chem 7: 01/19/17 01:45 01/19/17 01:45 Consult Discharge Plan - Plan Referrals: Janice Hoff MD [Primary Care Provider] - <Ki Burns - Last Filed: 01/19/17 17:19> Date of Encounter: 01/19/17 - Constitutional Vitals: Temp Pulse Resp BP Pulse Ox 98.2 F 97 24 111/93 93 L 01/19/17 16:00 01/19/17 16:00 01/19/17 16:00 01/19/17 16:00 01/19/17 16:00 Internal Medicine: Result - Labs CBC & Chem 7: 01/19/17 01:45 01/19/17 01:45 - Attending Attestation I examined this patient and my medical decision-making was reviewed with the ZIGZAGGER/PA/Advanced Practice Nurse/Resident Physician. I agree with the documented findings, disposition and treatment plan as described except to the extent set forth below. Agree with DR. Baxter. Continue with therapy for HCAP , trasnfer to step down unit. D/W patient.
[2017-01-19] MEDS ORDERED: Insulin LISPRO 300 UNITS/3 ML VIAL SQ SCH ×2 (12:00→21:00)
[2017-01-19] MEDS: Insulin LISPRO 300 UNITS/3 ML VIAL SQ SCH ×3 (12:52→20:03)
[2017-01-19] MEDS ORDERED: Cefepime HCl 2,000 MG in D5% in Water (Mini-Bag+) 100 ML IVPB SCH (13:00)
[2017-01-19] MEDS ORDERED: MethylPREDNISolone 40 MG/ML VIAL IVP SCH (16:00)
[2017-01-19] MEDS ORDERED: Vancomycin 1,500 MG in D5% in Water 250 ML IVPB SCH (16:00)
[2017-01-19] MEDS ORDERED: Vancomycin 1,250 MG in D5% in Water 250 ML IVPB SCH (16:30)
--- NOTE | 2017-01-19 19:36 | Electrocardiograph Report ---
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
[2017-01-19] MEDS: Patient Taking Own Medication 1 EACH PO SCH (20:01)
[2017-01-19] MEDS: Cefepime HCl 2,000 MG in D5% in Water (Mini-Bag+) 100 ML IVPB SCH (20:12)
[2017-01-19] MEDS: Budesonide/Formoterol 160/4.5 MDI IH SCH (20:47)
[2017-01-20] MEDS: MethylPREDNISolone 40 MG/ML VIAL IVP SCH ×2 (00:35→08:44)
[2017-01-20] MEDS: *HR* OxyCODONE/APAP 10/325 TABLET PO PRN ×4 (00:40→21:48)
[2017-01-20] MEDS: Levofloxacin 750 MG/150 ML 750 MG/150 ML BAG IVPB SCH (02:53)
[2017-01-20] MEDS ORDERED: Levofloxacin 750 MG/150 ML 750 MG/150 ML BAG IVPB SCH (03:00)
[2017-01-20 03:35] LABS: Basophils % 0.2 %; Hematocrit 36.7 % (35.3-44.9); Hemoglobin 11.6 g/dL (11.5-15.4); Immature Granulocytes % 1.2 % (0-4); Lymphocytes # 0.5 K/mcL (0.6-4.6); Lymphocytes % 8.7 %; Mean Corpuscular HGB Conc 31.6 g/dL (31.6-35.5); Mean Corpuscular Hemoglobin 28.9 pg (28.0-33.3); Mean Corpuscular Volume 91.3 fL (83.0-100.0); Mean Platelet Volume 11.7 fL (9.4-12.4); Monocytes # 0.2 K/mcL (0.0-1.3); Monocytes % 2.6 %; Neutrophils # 5.1 K/mcL (1.6-8.9); Platelet Count 181 K/mcL (140-400); Red Blood Count 4.02 M/mcL (3.82-4.97); Red Cell Distribution Width 13.7 % (11.5-14.5); Segmented Neutrophils % 87.3 %
[2017-01-20 03:47] LABS: Alanine Aminotransferase 9 Units/L (0-55); Albumin 2.6 g/dL (3.5-5.0); Albumin/Globulin Ratio 0.7 (1.1-2.2); Alkaline Phosphatase 70 Units/L (38-126); Aspartate Amino Transferase 8 Units/L (5-34); BUN/Creatinine Ratio 22 (6-26); Bilirubin,Total 0.5 mg/dL (0.2-1.2); Blood Urea Nitrogen 16 mg/dL (7-20); Calcium 8.6 mg/dL (8.6-10.8); Carbon Dioxide 30 mEq/L (19-29); Chloride 99 mEq/L (98-109); Globulin 3.7 g/dL (2.4-3.5); Glucose 262 mg/dL (70-99); Osmolality,Calculated 290 (280-300); Potassium 4.7 mEq/L (3.5-4.5); Sodium 135 mEq/L (136-145); Total Protein 6.3 g/dL (6.0-8.3); eGFR For African Americans > 60 (> 60); eGFR For Non-African Americans > 60 (> 60)
[2017-01-20] MEDS ORDERED: Vancomycin 1,250 MG in D5% in Water 250 ML IVPB SCH (04:30)
[2017-01-20] MEDS: Cefepime HCl 2,000 MG in D5% in Water (Mini-Bag+) 100 ML IVPB SCH (04:43)
[2017-01-20] MEDS: Fluticasone Propionate Nasal 50 MCG/SPRAY BOTTLE NS SCH (08:42)
[2017-01-20] MEDS: Insulin LISPRO 300 UNITS/3 ML VIAL SQ SCH ×4 (08:43→21:48)
[2017-01-20] MEDS: Aspirin Enteric Coated 81 MG Tablet PO SCH (08:43)
[2017-01-20] MEDS: Patient Taking Own Medication 1 EACH PO SCH ×2 (08:44→21:47)
[2017-01-20] MEDS: *HR* Heparin 5,000 UNIT/ML VIAL SQ SCH ×2 (08:44→18:26)
--- NOTE | 2017-01-20 10:15 | Internal Med Progress Note ---
Addendum entered and electronically signed by Avinash Baxter DO 11:44: Patient doing well. In addition to the below plan we will also deescalate her cefepime. If she continues to improve may possibly be discharged tomorrow on a course of levofloxacin. Original Note: <Avinash Baxter - Last Filed: 01/20/17 10:19> Date of Encounter: 01/20/17 Time of Encounter: 10:13 - Assessment and plan (1) HCAP (healthcare-associated pneumonia) Current Visit: Yes Status: Acute Assessment and plan: Patient with recent admission. Now with color change in sputum. new opacities in the right lung with exam findings consistent with pneumonia. Continue Vancomycin, cefepime and levofloxacin possibly a secondary pneumonia as she recently had coronovirus infection. obtain blood and sputum cultures. urine strep and legionella. currently she meets SIRS criteria but clinically dose not appear septic. BIPAP/O2 as needed. 01/20/17 Patient is doing well. afebrile normal WBC improvemetn on exam. Blood and sputum cultures pending. we will deescalate antibiotics today. DC vancomycin. can transfer to floor whenever bed available. (2) SIRS (systemic inflammatory response syndrome) Current Visit: Yes Status: Acute Assessment and plan: resolved (3) Acute respiratory failure Current Visit: Yes Status: Acute Assessment and plan: I suspect she has some chronic respiratory failure given her elevated bicarb. Combined hypoxemic and hypercapneic. multifactorial with COPD, PNA, prior lobectomy, and former tobacco abuse contributing. Will attempt to wean off of BiPAP and onto O2 Titrate O2 to no greater than 92% 01/20/17 improving Now on 3L and comfortable Qualifiers: Qualified Code(s): J96.00 - Acute respiratory failure, unspecified whether with hypoxia or hypercapnia (4) History of lung cancer Current Visit: Yes Status: Acute (5) Former tobacco use Current Visit: Yes Status: Acute Assessment and plan: she has quit for 12 years now. (6) History of colon cancer Current Visit: Yes Status: Acute (7) Metabolic alkalosis Current Visit: Yes Status: Acute Assessment and plan: mild Likely from chronic hypoxemia. Will see if she qualifies for O2 prior to discharge. (8) Diabetes Current Visit: Yes Status: Acute Assessment and plan: DC metformin as she is an inpatient. Continue sliding scale insulin. Qualifiers: Qualified Code(s): E11.9 - Type 2 diabetes mellitus without complications (9) DVT prophylaxis Current Visit: Yes Status: Acute Assessment and plan: SQ heparin - Subjective Interval history: No major events overnight. Patient states that she is feeling better. she is breathing easier and has less coughing. She denies any pain or discomfort. She is tolerating a diet. she has no further complaints or concerns at this time. - Constitutional Vitals: Temp Pulse Resp BP Pulse Ox 97.6 F 95 17 123/84 91 L 01/20/17 07:10 01/20/17 09:00 01/20/17 08:00 01/20/17 08:00 01/20/17 08:00 General appearance: Present: A&O X 3, no acute distress (on BIPAP), answers questions appropriately - Head Head exam: Present: atraumatic, normal inspection, normocephalic - Eye Eye exam: Present: PERRL, conjuntiva pink, sclera anicteric Pupils: Present: PERRL - Neck Neck exam general surgery: Present: supple, trachea midline. Absent: lymphadenopathy - Respiratory Respiratory exam: Present: CTAB. Absent: accessory muscle use, rales, rhonchi, wheezes Additional comments: patient has scar form prior lobectomy on the right. Mild crackles in the right mid field Significantly improved since last exam - Cardiovascular Cardiovascular exam: Present: RRR, +S1, +S2. Absent: diastolic murmur, gallop, rubs, systolic murmur - GI/Abdominal GI/Abdominal exam: Present: normal bowel sounds, soft, no peritoneal signs. Absent: distended, tenderness - Extremities Exam Extremities exam: Present: warm, radial pulses palpable and symetrical. Absent : calf tenderness, cyanotic, pedal edema - Skin Skin exam: Present: dry, intact Internal Medicine: Result - Labs CBC & Chem 7: 01/20/17 03:20 01/20/17 03:20 Labs: Short CBC 01/20/17 Range/Units 03:20 WBC 5.8 (4.3-11.1) K/mcL Hgb 11.6 D (11.5-15.4) g/dL Hct 36.7 (35.3-44.9) % Plt Count 181 (140-400) K/mcL Neutrophils # 5.1 (1.6-8.9) K/mcL BMP 01/20/17 03:20 Sodium 135 L Potassium 4.7 H Chloride 99 Carbon Dioxide 30 H BUN 16 Creatinine 0.73 Glucose 262 H Calcium 8.6 Liver Function 01/20/17 Range/Units 03:20 Total Bilirubin 0.5 (0.2-1.2) mg/dL AST 8 (5-34) Units/L ALT 9 (0-55) Units/L Alkaline Phosphatase 70 (38-126) Units/L Albumin 2.6 L (3.5-5.0) g/dL Consult Discharge Plan - Plan Referrals: Janice Hoff MD [Primary Care Provider] - <Ki Burns - Last Filed: 01/20/17 16:02> Date of Encounter: 01/20/17 - Constitutional Vitals: Temp Pulse Resp BP Pulse Ox 97.6 F 93 18 133/85 93 L 01/20/17 11:49 01/20/17 12:37 01/20/17 12:35 01/20/17 12:35 01/20/17 12:35 Internal Medicine: Result - Labs CBC & Chem 7: 01/20/17 03:20 01/20/17 03:20 Labs: Short CBC 01/20/17 Range/Units 03:20 WBC 5.8 (4.3-11.1) K/mcL Hgb 11.6 D (11.5-15.4) g/dL Hct 36.7 (35.3-44.9) % Plt Count 181 (140-400) K/mcL Neutrophils # 5.1 (1.6-8.9) K/mcL [facility] 01/20/17 03:20 Sodium 135 L Potassium 4.7 H Chloride 99 Carbon Dioxide 30 H BUN 16 Creatinine 0.73 Glucose 262 H Calcium 8.6 Liver Function 01/20/17 Range/Units 03:20 Total Bilirubin 0.5 (0.2-1.2) mg/dL AST 8 (5-34) Units/L ALT 9 (0-55) Units/L Alkaline Phosphatase 70 (38-126) Units/L Albumin 2.6 L (3.5-5.0) g/dL - Attending Attestation I examined this patient and my medical decision-making was reviewed with the MEDICAL SECRETARY RECEPTIONIST/PA/Advanced Practice Nurse/Resident Physician. I agree with the documented findings, disposition and treatment plan as described except to the extent set forth below. Stable, can be transferred out of the ICU.
[2017-01-20] MEDS: Budesonide/Formoterol 160/4.5 MDI IH SCH ×2 (10:38→22:40)
[2017-01-20] MEDS: 0.9 % Sodium Chloride 1,000 ML IVC SCH ×3 (19:25→23:04)
[2017-01-21] MEDS: Levofloxacin 750 MG/150 ML 750 MG/150 ML BAG IVPB SCH (02:02)
[2017-01-21] MEDS: *HR* OxyCODONE/APAP 10/325 TABLET PO PRN (03:38)
[2017-01-21] MEDS: *HR* Heparin 5,000 UNIT/ML VIAL SQ SCH (06:12)
[2017-01-21 07:48] VITALS: BP 145/79
[2017-01-21] MEDS: Patient Taking Own Medication 1 EACH PO SCH (07:49)
[2017-01-21] MEDS: Insulin LISPRO 300 UNITS/3 ML VIAL SQ SCH (07:51)
[2017-01-21] MEDS: Aspirin Enteric Coated 81 MG Tablet PO SCH (07:56)
[2017-01-21] MEDS: Budesonide/Formoterol 160/4.5 MDI IH SCH (08:01)
[2017-01-21] MEDS: Fluticasone Propionate Nasal 50 MCG/SPRAY BOTTLE NS SCH (08:44)
[2017-01-21] MEDS ORDERED: predniSONE 20 MG TABLET PO SCH (09:00)
--- NOTE | 2017-01-21 09:27 | Discharge Summary ---
Date of Encounter: 01/21/17 Time of Encounter: 09:25 - Discharge Diagnosis (1) Acute exacerbation of chronic obstructive pulmonary disease (COPD) Priority: Primary Status: Acute (2) Acute respiratory failure Priority: Secondary Status: Acute Qualifiers: Qualified Code(s): J96.00 - Acute respiratory failure, unspecified whether with hypoxia or hypercapnia (3) DVT prophylaxis Priority: Secondary Status: Acute (4) Diabetes Priority: Secondary Status: Acute Qualifiers: Diabetes mellitus type: type 2 Diabetes mellitus complication status: without complication Diabetes mellitus manager terminal insulin use: without [facility] use Qualified Code(s): E11.9 - Type 2 diabetes mellitus without complications (5) Former tobacco use Priority: Secondary Status: Acute (6) HCAP (healthcare-associated pneumonia) Priority: Secondary Status: Acute (7) History of colon cancer Priority: Secondary Status: Acute - Discharge Medications Prescriptions: Levofloxacin [Levaquin] 500 mg PO DAILY 4 Days Home Medications: Dextroamphetamine/Amphetamine [Adderall 30 mg Tablet] 30 mg PO BID 06/08/16 [ History] Oxycodone HCl/Acetaminophen [Percocet 10-325 mg Tablet] 1 tab PO Q8H PRN [History] Ropinirole HCl [Requip] 6 mg PO HS 10/19/16 [History] Rosuvastatin Calcium [Crestor] 10 mg PO DAILY 10/19/16 [History] Aspirin [Lo-Dose Aspirin EC] 81 mg PO DAILY 12/18/16 [History] Lisinopril-HCTZ 10-12.5 [Prinzide 10-12.5] 1 tab PO DAILY 12/18/16 [History] Albuterol Sulfate [Ventolin Hfa] 2 puff IH QID PRN #2 hfa.aer.ad 12/21/16 [Rx] Ipratropium/Albuterol Neb [Duoneb] 3 ml IH Q4H PRN #30 inhsol 12/21/16 [Rx] Metformin HCl [Metformin HCl ER] 1,000 mg PO DAILY #30 [id number] 12/21/16 [Rx] Alprazolam [Xanax 1 MG Tablet] 1 mg PO Q6H PRN 01/19/17 [History] Fluticasone/Vilanterol [Breo Ellipta 200-25 Mcg INH] 2 puff IH DAILY 01/19/17 [ History] Omeprazole [PriLOSEC] 20 mg PO DAILY 01/19/17 [History] Levofloxacin [Levaquin] 500 mg PO DAILY 4 Days 01/21/17 [Rx] Allergies/Adverse Reactions: Allergies Amoxicillin Allergy (Verified 01/19/17 08:21) Rash Penicillins Allergy (Verified 01/19/17 08:21) Rash Procedures/tests Complete & Pending: Procedures Performed prior 72 hours Category Date Time Status ECG 12 lead ECG [ECG] Routine Y 01/19/17 01:41 Completed Date of admission: 01/19/17 07:41 Primary care physician: Janice Hoff Discharging clinician: Ki Burns Anticipated date of discharge: 01/21/17 - Patient Status Disposition: Home Health Service Condition: Fair Functional capacity at discharge: independent ambulation Overall status at discharge: patient is back to baseline - Discharge Instructions Follow Up With: Janice Hoff MD [Primary Care Provider] - - Diet and Activity Activity: increase activity as tolerated Diet: advance to your usual diet Interval History: Ms. Cabello is a 66 year old female with past medical history of COPD, asthma, who presents to the emergency department with increased shortness of breath for the past 3 days. She also has had a productive cough, subjective fevers, and lack of appetite in that period of time. She was hospitalized 1 month ago for bronchitis. She states that she felt that she only got better for a very short amount of time before her condition worsened again. Patient states that she has home oxygen and a nebulizer but she only uses them when she is sick. She states that when she is healthy she does not use oxygen or nebulizers: she does take inhalers daily to manage her COPD. Hospital course: Ms. Cabello is a 66 year old female Patient with recent admission. Now with color change in sputum. new opacities in the right lung with exam findings consistent with pneumonia. Responded well to therapy. Afebrile, no leukocytosis. Stable. Renal function at her baseline. Blood cultures show no growth. Possibly a secondary pneumonia as she recently had coronovirus infection. She will be discharged home today, will continue with levaquin po. She is a user of manager terminal oxygen therapy. Resume home meds. D/W patient, agreed with plan. Follow up with PCP upon discharge. - Time Spent with Patient Total time spent providing and/or coordinating discharge services: Greater than 30 minutes - Constitutional Vitals: Temp Pulse Resp BP Pulse Ox 97.6 F 63 16 145/79 93 L 01/21/17 07:37 01/21/17 07:37 01/21/17 07:37 01/21/17 07:37 01/21/17 07:45 General appearance: Present: A&O X 3, no acute distress (on BIPAP), answers questions appropriately Exam: breathing with a nasal cannula. - Head Head exam: Present: atraumatic, normocephalic - Eye Eye exam: Present: PERRL, conjuntiva pink, sclera anicteric Pupils: Present: PERRL - Neck Neck exam general surgery: Present: supple, trachea midline. Absent: lymphadenopathy - Respiratory Respiratory exam: Present: decreased breath sounds. Absent: accessory muscle use, rales, rhonchi, wheezes - Cardiovascular Cardiovascular exam: Present: RRR, +S1, +S2. Absent: diastolic murmur, gallop, rubs, systolic murmur - GI/Abdominal GI/Abdominal exam: Present: normal bowel sounds, soft, no peritoneal signs. Absent: distended, tenderness - Extremities Exam Extremities exam: Present: warm, radial pulses palpable and symetrical. Absent : calf tenderness, cyanotic, pedal edema - Neurological Exam Neurological exam: Present: CN II-XII intact, oriented X3, no focal deficits. Absent: pronater drift, facial droop, speech deficit - Skin Skin exam: Present: dry, intact
--- NOTE | 2017-01-21 09:32 | Physician Discharge Referral ---
Home Health/Hosp Referral Info Transfer to: Home Health - Diagnosis (1) Acute exacerbation of chronic obstructive pulmonary disease (COPD) Status: Acute (2) Acute respiratory failure Status: Acute (3) DVT prophylaxis Status: Acute (4) Diabetes Status: Acute (5) Former tobacco use Status: Acute (6) HCAP (healthcare-associated pneumonia) Status: Acute (7) History of colon cancer Status: Acute - Respiratory Orders Oxygen / L per min (3) Smoking Cessation: Smoking cessation has been advised. For more information, call the [employer] Quit Line at 9-673-QMJC-NOW. - Diet/Nutrition Diet/Nutrition Orders: Cardiac - Activity Activity Orders: Up ad mikael - Services Needed Following services are medically necessary services: Home Health Aide - Transfer Medications Prescriptions: Levofloxacin [Levaquin] 500 mg PO DAILY 4 Days Home Medications: Dextroamphetamine/Amphetamine [Adderall 30 mg Tablet] 30 mg PO BID 06/08/16 [ History] Oxycodone HCl/Acetaminophen [Percocet 10-325 mg Tablet] 1 tab PO Q8H PRN [History] Ropinirole HCl [Requip] 6 mg PO HS 10/19/16 [History] Rosuvastatin Calcium [Crestor] 10 mg PO DAILY 10/19/16 [History] Aspirin [Lo-Dose Aspirin EC] 81 mg PO DAILY 12/18/16 [History] Lisinopril-HCTZ 10-12.5 [Prinzide 10-12.5] 1 tab PO DAILY 12/18/16 [History] Albuterol Sulfate [Ventolin Hfa] 2 puff IH QID PRN #2 hfa.aer.ad 12/21/16 [Rx] Ipratropium/Albuterol Neb [Duoneb] 3 ml IH Q4H PRN #30 inhsol 12/21/16 [Rx] Metformin HCl [Metformin HCl ER] 1,000 mg PO DAILY #30 [id number] 12/21/16 [Rx] Alprazolam [Xanax 1 MG Tablet] 1 mg PO Q6H PRN 01/19/17 [History] Fluticasone/Vilanterol [Breo Ellipta 200-25 Mcg INH] 2 puff IH DAILY 01/19/17 [ History] Omeprazole [PriLOSEC] 20 mg PO DAILY 01/19/17 [History] Levofloxacin [Levaquin] 500 mg PO DAILY 4 Days 01/21/17 [Rx] Allergies/Adverse Reactions: Allergies Amoxicillin Allergy (Verified 01/19/17 08:21) Rash Penicillins Allergy (Verified 01/19/17 08:21) Rash Certification: Further, I certify that my clinical findings support that this patient is homebound (i.e. absences from home require considerable and taxing effort and are for medical reasons or episcopal services or infrequently or short duration when for other reasons) because: Homebound Reason: Leaving home requires considerable and taxing effort due to condition, Severity of cardiac or pulmonary status limits activity tolerance Attestation: My signature below is to certify that this patient is under my care and that I, or nurse practitioner, or a physician's assistant corporate secretary working with me, has a face-to -face encounter with this patient.
[2017-01-21] MEDS ORDERED: Aminoglycoside Consult 1 EACH MC ONE (11:25)
== END 2017-01-21 11:26 | disposition home or self-care (01) | DRG 871 ==
LOC: EMEROO 01:25 → ICNU 07:41 → SUATTDRO 07:41 → ICNU 08:39 → 3ANU 01-20 15:55
PROVIDERS: ADMIT Pediatrics; ATTEND Internal Medicine

== ENCOUNTER 2017-03-28 11:26 | Inpatient (IN) ==
[2017-03-28] MEDS ORDERED: Ipratropium/Albuterol Neb 3 ML ONE (11:41)
[2017-03-28] MEDS ORDERED: Ipratropium/Albuterol Neb 3 ML IH ONE (11:41)
[2017-03-28] MEDS ORDERED: methylPREDNISolone 125 MG/2 ML VIAL IVP ONE (11:41)
--- NOTE | 2017-03-28 11:47 | Emergency Department Note ---
Disposition Clinical Impression: Acute exacerbation of chronic obstructive airways disease, History of lung cancer, Community acquired pneumonia Disposition: Admitted As Inpatient Condition: Fair Referrals: NO,PCP [Non-Partnered Physician] - Forms: ED Satisfaction Letter Time of Disposition: 13:04 SOB HPI - General Chief Complaint: ED Shortness of Breath/Dyspnea Stated Complaint: LAVERNE Time Seen by Provider: 03/28/17 11:31 Source: EMS Limitations: no limitations Nursing Notes Reviewed: Yes Vital Signs Reviewed: Yes - History of Present Illness 66-year-old comes in with increasing shortness of breath history of lung cancer and COPD. Pt Subjective Complaint: shortness of breath, cough Onset (ago): day(s) (1) Context: recent illness Severity: moderate Consistency/Duration: constant Improves with: nothing Worsens with: exertion Known history of: COPD Associated symptoms: Reports: chest pain (With cough and deep breathing), fever (Subjective), wheezing Treatment prior to arrival: oxygen, bronchodilator - Related Data Home Medications Medication Instructions Recorded Confirmed Dextroamphetamine/Amphetamine 30 mg PO BID 06/08/16 01/19/17 [Adderall 30 mg Tablet] Oxycodone HCl/Acetaminophen 1 tab PO Q8H PRN 06/08/16 01/19/17 [Percocet 10-325 mg Tablet] Ropinirole HCl [Requip] 6 mg PO HS 10/19/16 01/19/17 Rosuvastatin Calcium [Crestor] 10 mg PO DAILY 10/19/16 01/19/17 Aspirin [Lo-Dose Aspirin EC] 81 mg PO DAILY 12/18/16 01/19/17 Lisinopril-HCTZ 10-12.5 [Prinzide 1 tab PO DAILY 12/18/16 01/19/17 10-12.5] Alprazolam [Xanax 1 MG Tablet] 1 mg PO Q6H PRN 01/19/17 01/19/17 Fluticasone/Vilanterol [Breo 2 puff IH DAILY 01/19/17 01/19/17 Ellipta 200-25 Mcg INH] Omeprazole [PriLOSEC] 20 mg PO DAILY 01/19/17 01/19/17 Previous Rx's Medication Instructions Recorded Albuterol Sulfate [Ventolin Hfa] 2 puff IH QID PRN #2 hfa.aer.ad 01/25/17 Ipratropium/Albuterol Neb [Duoneb] 3 ml IH Q4H PRN #30 inhsol 12/21/16 Metformin HCl [Metformin HCl ER] 1,000 mg PO DAILY #30 [id number] 12/21/16 Levofloxacin [Levaquin] 500 mg PO DAILY 4 Days 01/21/17 Allergies Allergy/AdvReac Type Severity Reaction Status Date / Time Amoxicillin Allergy Rash Verified 01/19/17 08:21 Penicillins Allergy Rash Verified 01/19/17 08:21 All systems ED: reviewed and negative except as stated. Constitutional: Denies: fever, chills, weakness, weight change Eyes: Denies: eye pain, eye discharge, vision change ENT ED: Denies: ear pain, throat pain, dental pain, hearing loss, epistaxis, congestion, dysphagia Cardiovascular: Reports: chest pain. Denies: palpitations, dyspnea on exertion , edema, syncope Respiratory: Reports: cough, wheezes. Denies: dyspnea, hemoptysis, stridor Gastrointestinal: Denies: abdominal pain, nausea, vomiting, diarrhea, constipation, hematemesis, melena, hematochezia Genitourinary: Denies: dysuria, frequency, hematuria, discharge Musculoskeletal: Denies: back pain, neck pain, arthralgia, myalgia Integumentary: Denies: rash, abrasion, lesions Neurological: Denies: headache, weakness, numbness, paresthesias, confusion, abnormal gait, vertigo Psychiatric: Denies: anxiety, depression, suicidal thoughts, homicidal thoughts , auditory hallucinations, visual hallucinations Endocrine: Denies: fatigue Hematological/Lymphatic: Denies: easy bleeding, easy bruising Allergic/Immunologic: Denies: facial swelling, urticaria Past Medical History - Past Medical History Medical history: Reports: asthma, cancer, COPD, diabetes, hyperlipidemia, hypertension, other Surgical history: Reports: cancer surgery, hysterectomy Psychiatric history: Reports: depression DENTAL THERAPIST history: Reports: bilateral tubal ligation - Social History Smoking Status: Former smoker Smokeless Tobacco Status: No Alcohol use: Reports: none Drug use: Reports: none Physical Exam - General Limitations: no limitations General appearance: alert - Head Head exam: atraumatic, normocephalic, normal inspection - Eye Eye exam: Present: normal appearance, PERRL, EOMI - ENT ENT exam: normal exam, normal oropharynx, mucous membranes moist - Neck Neck exam: Present: normal inspection, full ROM, trachea midline - Chest Chest inspection: Present: normal inspection, symmetric chest wall rise - Respiratory Respiratory exam: Present: wheezes - Cardiovascular Cardiovascular exam: Present: regular rate, normal rhythm, normal heart sounds - Abdominal Exam Abdominal exam: Present: soft, Non-Tender. Absent: tenderness, distention, guarding, rebound, rigidity - Extremities Exam Extremities exam: Present: normal inspection, full ROM. Absent: tenderness, pedal edema - Expanded Lower Extremity Exam Neurovascular/Tendon exam: Absent: motor deficit, sensory deficit, tendon deficit Gait: observed and normal - Back Exam Back exam: Present: normal inspection, full ROM. Absent: tenderness - Neurological Exam Neurological exam: Present: alert, oriented X3 - Psychiatric Psychiatric exam: Present: normal affect, normal mood - Skin Skin exam: Present: warm, dry, intact, normal color Course - Reevaluation(s) Reevaluation #1: 66-year-old with a history COPD a remote history of lung cancer comes in with increasing shortness of breath. Workup shows a left lower lobe pneumonia. Mid for further evaluation and treatment. Time: 13:12 - Consultations Consultation #1: Discussed with kevin Vincent. Time: 13:11 Vital Signs Temperature 97.8 F 03/28/17 11:29 Pulse Rate 123 03/28/17 11:29 Respiratory Rate 28 03/28/17 11:29 Blood Pressure 134/91 03/28/17 11:29 O2 Sat by Pulse Oximetry 90 03/28/17 11:29 Temperature 97.8 F 03/28/17 11:29 Pulse Rate 123 03/28/17 11:29 Respiratory Rate 28 03/28/17 11:29 Blood Pressure 134/91 03/28/17 11:29 O2 Sat by Pulse Oximetry 90 03/28/17 11:29 Oxygen Delivery Oxygen Delivery Nasal Cannula Shortness of Breath/Dyspnea - Lab Data Lab results reviewed: Yes I reviewed the patient's lab results. Result diagrams: 03/28/17 12:12 03/28/17 12:12 Lab Results 03/28/17 03/28/17 03/28/17 Range/Units 12:12 12:12 12:12 WBC 19.3 H (4.3-11.1) K/mcL RBC 5.81 H (3.82-4.97) M/mcL Hgb 15.9 H (11.5-15.4) g/dL Hct 50.8 H (35.3-44.9) % MCV 87.4 (83.0-100.0) fL MCH 27.4 L (28.0-33.3) pg MCHC 31.3 L (31.6-35.5) g/dL RDW 13.6 (11.5-14.5) % Plt Count 139 L (140-400) K/mcL MPV 11.5 (9.4-12.4) fL Immature Gran % 7.1 H (0-4) % Seg Neutrophils % 84.6 % Lymphocytes % 5.2 % Monocytes % 2.5 % Eosinophils % 0.0 % Basophils % 0.6 % Neutrophils # 16.3 H (1.6-8.9) K/mcL Lymphocytes # 1.0 (0.6-4.6) K/mcL Monocytes # 0.5 (0.0-1.3) K/mcL Eosinophils # 0.0 (0.0-0.6) K/mcL Basophils # 0.1 (0.0-0.2) K/mcL Platelet Estimate Decreased L (Normal) Sodium 136 (136-145) mEq/L Potassium 4.3 (3.5-4.5) mEq/L Chloride 102 (98-109) mEq/L Carbon Dioxide 20 (19-29) mEq/L BUN 23 H (7-20) mg/dL Creatinine 1.23 H (0.57-1.11) mg/dL Est GFR ( Amer) 53 L (> 60) Est GFR (Non-Af Amer) 44 L (> 60) BUN/Creatinine Ratio 19 (6-26) Glucose 135 H (70-99) mg/dL Calculated Osmolality 288 (280-300) Calcium 9.3 (8.6-10.8) mg/dL Troponin I 0.00 (0-0.03) ng/mL B-Natriuretic Peptide (0-100) pg/mL 03/28/17 Range/Units 12:12 WBC (4.3-11.1) K/mcL RBC (3.82-4.97) M/mcL Hgb (11.5-15.4) g/dL Hct (35.3-44.9) % MCV (83.0-100.0) fL MCH (28.0-33.3) pg MCHC (31.6-35.5) g/dL RDW (11.5-14.5) % Plt Count (140-400) K/mcL MPV (9.4-12.4) fL Immature Gran % (0-4) % Seg Neutrophils % % Lymphocytes % % Monocytes % % Eosinophils % % Basophils % % Neutrophils # (1.6-8.9) K/mcL Lymphocytes # (0.6-4.6) K/mcL Monocytes # (0.0-1.3) K/mcL Eosinophils # (0.0-0.6) K/mcL Basophils # (0.0-0.2) K/mcL Platelet Estimate (Normal) Sodium (136-145) mEq/L Potassium (3.5-4.5) mEq/L Chloride (98-109) mEq/L Carbon Dioxide (19-29) mEq/L BUN (7-20) mg/dL Creatinine (0.57-1.11) mg/dL Est GFR ( Amer) (> 60) Est GFR (Non-Af Amer) (> 60) BUN/Creatinine Ratio (6-26) Glucose (70-99) mg/dL Calculated Osmolality (280-300) Calcium (8.6-10.8) mg/dL Troponin I (0-0.03) ng/mL B-Natriuretic Peptide 90 (0-100) pg/mL - Radiology Data Radiology results reviewed: Yes I reviewed the patient's radiology results. Chest X-Ray 03/28/17 11:36 IMPRESSION: Stable cardiomegaly. Mild pulmonary vascular congestion. Interval development of airspace opacity in the left mid to lower lung field, likely related to pneumonia. Interval improved aeration of the right hemithorax. Small bilateral pleural effusions. D/ / Steven Mendez MD / Steven Mendez MD Interpreting Provider: Steven Mendez MD - EKG Data EKG attestation: Yes I reviewed and interpreted this EKG. EKG shows normal: Reports: sinus rhythm Rate: Reports: tachycardia Rhythm: Reports: NSR Interpretation: Reports: no acute changes
[2017-03-28 12:23] LABS: Basophils # 0.1 K/mcL (0.0-0.2); Basophils % 0.6 %; Hematocrit 50.8 % (35.3-44.9); Hemoglobin 15.9 g/dL (11.5-15.4); Immature Granulocytes % 7.1 % (0-4); Lymphocytes % 5.2 %; Mean Corpuscular HGB Conc 31.3 g/dL (31.6-35.5); Mean Corpuscular Hemoglobin 27.4 pg (28.0-33.3); Mean Corpuscular Volume 87.4 fL (83.0-100.0); Mean Platelet Volume 11.5 fL (9.4-12.4); Monocytes # 0.5 K/mcL (0.0-1.3); Monocytes % 2.5 %; Neutrophils # 16.3 K/mcL (1.6-8.9); Platelet Count 139 K/mcL (140-400); Red Blood Count 5.81 M/mcL (3.82-4.97); Red Cell Distribution Width 13.6 % (11.5-14.5); Segmented Neutrophils % 84.6 %
[2017-03-28 12:35] LABS: Calcium 9.3 mg/dL (8.6-10.8); Potassium 4.3 mEq/L (3.5-4.5)
[2017-03-28 12:41] LABS: Platelet Estimate Decreased (Normal)
[2017-03-28] MEDS ORDERED: Azithromycin 500 MG in D5% in Water 250 ML IVPB ONE (13:02)
[2017-03-28] MEDS ORDERED: *HR* Morphine 2 MG/ML SYRINGE IVP ONE (13:23)
[2017-03-28] MEDS ORDERED: *HR* Promethazine 25 MG/ML VIAL IVP ONE (13:23)
[2017-03-28] MEDS ORDERED: Acetaminophen 325 MG TABLET PO PRN (15:00)
[2017-03-28] MEDS ORDERED: *HR* Morphine 2 MG/ML SYRINGE IVP PRN ×2 (15:00→15:35)
[2017-03-28] MEDS ORDERED: Naloxone 0.4 MG/ML INJ IVP PRN (15:00)
[2017-03-28] MEDS ORDERED: *HR* HYDROcodone/Acet 5/325 mg TABLET PO PRN (15:00)
--- NOTE | 2017-03-28 15:11 | Event Note ---
Date of Encounter: 03/28/17 Time of Encounter: 15:09 Patient seen and examined with nurse practitioner. Patient as healthcare associated pneumonia. She was discharged two month ago from the hospital after she had presented with pneumonia. Patient currently in mild respiratory distress requiring 4 L of nasal oxygen. Uses oxygen at home as needed. Patient will be treated with vancomycin meropenem and Levaquin. She was treated with vanc cefepime and levaquin last admission. Patient will also be treated with IV steroids and [id number] nebulizer treatment for COPD exacerbation. She is in hypoxic respiratory failure so a blood gas will be performed as she still having increased work of breathing. Consider BiPAP. Sputum blood culture. Continuous telemetry monitoring. She is full code. Patient is at high risk for decompensation.
[2017-03-28] MEDS ORDERED: 0.9 % Sodium Chloride 1,000 ML IVC ONE ×3 (15:29→21:59)
[2017-03-28] MEDS: 0.9 % Sodium Chloride 1,000 ML IVC SCH (15:54)
[2017-03-28] MEDS: Meropenem 1,000 MG in 0.9 % Sodium Chloride Mini Bag 100 ML IVPB SCH (15:54)
[2017-03-28] MEDS ORDERED: Vancomycin 1,500 MG in D5% in Water 250 ML IVPB SCH ×2 (16:00→23:00)
[2017-03-28] MEDS ORDERED: *HR* Morphine 2 MG/ML SYRINGE IVP SCH (16:00)
[2017-03-28] MEDS ORDERED: Ipratropium/Albuterol Neb 3 ML IH SCH (16:00)
[2017-03-28] MEDS ORDERED: Levofloxacin 750 MG/150 ML 750 MG/150 ML BAG IVPB SCH (16:00)
[2017-03-28 16:13] LABS: Hemoglobin A1C 6.2 %
[2017-03-28 16:16] LABS: ABG Base Excess -0.9 mEq/L (-2.0 to 3.0); ABG HCO3 24.9 mEQ/L (21-27); ABG Oxygen Saturation 87 % (95-98); ABG PCO2 44 mmHg (35-45); ABG PH 7.36 pH Units (7.32-7.45); ABG PO2 56 mmHg (85-104); ABG TCO2 26.3 mEq/L (20-26); Blood Gas FiO2 32 %
[2017-03-28 17:13] LABS: Hematocrit 50.5 % (35.3-44.9); Hemoglobin 15.7 g/dL (11.5-15.4); Mean Corpuscular HGB Conc 31.1 g/dL (31.6-35.5); Mean Corpuscular Hemoglobin 27.4 pg (28.0-33.3); Mean Corpuscular Volume 88.1 fL (83.0-100.0); Mean Platelet Volume 11.8 fL (9.4-12.4); Platelet Count 174 K/mcL (140-400); Red Blood Count 5.73 M/mcL (3.82-4.97); Red Cell Distribution Width 13.5 % (11.5-14.5)
[2017-03-28 17:27] LABS: INR 1.7; Prothrombin Time 18.4 Seconds (9.4-12.1)
[2017-03-28 17:28] LABS: Albumin 3.2 g/dL (3.5-5.0); Albumin/Globulin Ratio 0.8 (1.1-2.2); Bilirubin,Direct 0.7 mg/dL (0.0-0.5); Bilirubin,Indirect 0.6 mg/dL (0.0-1.2); Bilirubin,Total 1.3 mg/dL (0.2-1.2); Calcium 9.3 mg/dL (8.6-10.8); Potassium 4.1 mEq/L (3.5-4.5); Total Protein 7.2 g/dL (6.0-8.3)
[2017-03-28 17:30] LABS: Activated Partial Thrombo Time 42.5 Seconds (26.0-36.0)
[2017-03-28] MEDS: *HR* Digoxin 0.5 MG/2 ML AMPUL ONE ×2 (17:52→18:21)
[2017-03-28 17:53] LABS: Monocytes # 1.1 K/mcL (0.0-1.3); Neutrophils # 16.7 K/mcL (1.6-8.9)
[2017-03-28 17:54] LABS: Dohle Bodies Present (Not Present)
--- NOTE | 2017-03-28 18:41 | Internal Med History&Physical ---
Date of Encounter: 03/28/17 Time of Encounter: 14:40 Assessment and Plan (1) Sepsis Current visit: Yes Status: Acute Assess: Patient presents with elevated WBC of 19.3, infection related to unresolved pneumonia, HR >90 (123), respiratory rate of 28 and lactic acid level of 3.6 that increased to 5.8. Plan: Blood cultures ordered Sputum cultures ordered Repeat lactate levels Ceftriaxone IVPB ordered Levofloxacin IVPB ordered Meropenem IVPB ordered ABGs ordered Monitor patient's vital signs Monitor patient's O2 and SpO2 levels and titrate if necessary when SpO2 <92% Qualifiers: Sepsis type: sepsis due to unspecified organism Qualified Code(s): A41.9 - Sepsis, unspecified organism (2) Shortness of breath Current visit: Yes Status: Acute Assess: Patient presents with acute SOB and dyspnea related to unresolved pneumonia. Plan: Xopenex nebulizer treatments ordered Q4 Continue albuterol inhaler PRN Continue Singulair PRN Methylprednisolone ordered 60 mg IVP Q6HR BiPAP PRN ABGs ordered O2 @ 4L ordered to be titrated if SpO2 <92% Monitor SpO2 Monitor vital signs (3) Community acquired pneumonia Current visit: Yes Status: Acute Assess: Patient presents with unresolved pneumonia resulting in acute SOB and dyspnea. Plan: Ceftriaxone IVPB ordered Levofloxacin IVPB ordered Meropenem IVPB ordered Xopenex nebulizer treatments ordered Q4 Continue albuterol inhaler PRN Continue Singulair PRN Methylprednisolone ordered 60 mg IVP Q6HR BiPAP PRN ABGs ordered O2 @ 4L ordered to be titrated if SpO2 <92% Monitor SpO2 Monitor vital signs (4) Acute exacerbation of chronic obstructive pulmonary disease (COPD) Current visit: Yes Status: Acute Assess: Patient presents with SOB and acute exacerbation of COPD. Plan: Xopenex nebulizer treatments ordered Q4 Continue albuterol inhaler PRN Continue Singulair PRN Methylprednisolone ordered 60 mg IVP Q6HR BiPAP PRN ABGs ordered O2 @ 4L ordered to be titrated if SpO2 <92% Monitor SpO2 Monitor vital signs (5) Asthma exacerbation Current visit: Yes Status: Acute Assess: Patient presents with SOB and acute exacerbation of asthma. Plan: Xopenex nebulizer treatments ordered Q4 Continue albuterol inhaler PRN Continue Singulair PRN Methylprednisolone ordered 60 mg IVP Q6HR BiPAP PRN ABGs ordered O2 @ 4L ordered to be titrated if SpO2 <92% Monitor SpO2 Monitor vital signs (6) DVT prophylaxis Current visit: Yes Status: Acute Assess: Patient to be placed on DVT prophylaxis due to current inpatient status and sepsis criteria. Plan: 5,000 units SQ Q12HR of Heparin ordered. Internal Medicine - H&P: HPI Chief complaint: SOB/dyspnea Admitted From: Emergency Dept Plans for Post Hospital Care: Home History of present illness: Ms. Cabello is a 66 year old female who presents from the ED with the chief complaint of shortness of breath and dyspnea related to unresolved pneumonia. Patient states that she was hospitalized three weeks ago for pneumonia and symptoms did not resolve completely and have become worse over the past several days. Patient reports experiencing dyspnea at rest and with exertion. Mrs. Cabello also reports coughing up bloody sputum over the past 48 hours. On examination, Mrs. Santos's lungs have expiratory wheezes in all lobes and she is clearly dyspneic on examination. Patient denies smoking, alcohol, or drug use. Patient has history of asthma, lung cancer, colon cancer, COPD, hyperlipidemia, hypertension, and pre-diabetes. Heart rate is regular with normal rhythm and normal heart sounds. Patient to be admitted as inpatient status. Ceftriaxone, levofloxacin, and meropenem ordered for pneumonia coverage. Methylprednisone 60 mg IV push every 6 ordered. Xopenex nebulizer every 4 hours ordered. Patient 's vital signs and SpO2 to be monitored closely to assess respiratory status. Past Med Surg Social Fam HX - Past Medical History Medical history: asthma, cancer, COPD, hyperlipidemia, hypertension, other - Past Surgical History Surgical History: cancer surgery (Right lower lobectomy, colectomy), hysterectomy, orthopedic, other (Knee surgery), other (Tonsillectomy, brain surgery (11 years ago)) - Social History Smoking Status: Former smoker Smokeless Tobacco Status: No Alcohol use: none Drug use: none Occupational status: unemployed Current living situation: Home Activity Level: Independent ambulation Recent Out of Country Travel Within the Last 8 Weeks: No Exposure or Possible Exposure to Illness During Travel: No - Family History Father Living Status: Hx Family Cardiac Disorders: Yes Hx Family Respiratory Disorders: Yes Mother Adopted: No Living Status: Hx Family Cardiac Disorders: Yes Internal Medicine - H&P: Meds Dextroamphetamine/Amphetamine [Adderall 30 mg Tablet] 30 mg PO BID 06/08/16 [ History] Oxycodone HCl/Acetaminophen [Percocet 10-325 mg Tablet] 1 tab PO Q8H PRN [History] Ropinirole HCl [Requip] 6 mg PO HS 10/19/16 [History] Rosuvastatin Calcium [Crestor] 10 mg PO DAILY 10/19/16 [History] Aspirin [Lo-Dose Aspirin EC] 81 mg PO DAILY 12/18/16 [History] Lisinopril-HCTZ 10-12.5 [Prinzide 10-12.5] 1 tab PO DAILY 12/18/16 [History] Albuterol Sulfate [Ventolin Hfa] 2 puff IH QID PRN #2 hfa.aer.ad 12/21/16 [Rx] Ipratropium/Albuterol Neb [Duoneb] 3 ml IH Q4H PRN #30 inhsol 12/21/16 [Rx] Alprazolam [Xanax 1 MG Tablet] 1 mg PO Q6H PRN 01/19/17 [History] Omeprazole [PriLOSEC] 20 mg PO DAILY 01/19/17 [History] Budesonide/Formoterol 160/4.5 [Symbicort 160/4.5] 1 puff IH BIDR 03/28/17 [ History] Nortriptyline [Pamelor] 25 mg PO BID 03/28/17 [History] Allergies Amoxicillin Allergy (Verified 03/28/17 13:19) Rash Penicillins Allergy (Verified 03/28/17 13:19) Rash All Systems PM: A 10-system review of systems was performed and is negative for pertinent findings except as documented above in the HPI. - Constitutional Constitutional: no chills, no fever(s), no night sweats - EENT Eyes: no change in vision, no discharge, no pain, no photophobia Ears: no ear discharge, no ear pain, no tinnitus Nose, mouth and throat: no dysphagia, no nasal discharge, no neck pain, no sore throat - Breasts Breasts: as per HPI - Cardiovascular Cardiovascular ROS IM: dyspnea, no chest pain, no diaphoresis, no lightheadedness, no palpitations, no syncope - Respiratory Respiratory: as per HPI, cough, dyspnea, hemoptysis, dyspnea on exertion, wheezing, pain on inspiration, change in phlegm color - Gastrointestinal Gastrointestinal: no abdominal pain, no diarrhea, no hematemesis, no hematochezia, no melena, no nausea, no vomiting - Genitourinary Genitourinary: no change in urinary stream, no dysuria, no flank pain, no hematuria Menstruation: as per HPI - Musculoskeletal Musculoskeletal ROS IM: no numbness, no tingling - Integumentary Integumentary IM: no rash, no unusual bruising - Neurological Neurological ROS: no confusion, no convulsions, no focal weakness, no numbness, no tingling, no tremor(s) - Psychiatric Psychiatric: as per HPI - Endocrine Endocrine IM: as per HPI - Hematologic/Lymphatic Hematologic/Lymphatic: no easy bruising - Allergic/Immunologic Allergic/Immunologic: as per HPI - Constitutional Vitals: Temp Pulse Resp BP Pulse Ox 98.7 F 116 28 106/71 93 03/28/17 17:58 03/28/17 17:58 03/28/17 17:58 03/28/17 17:58 03/28/17 17:58 General appearance: Present: cooperative, mild distress, A&O X 3, pleasant, obese, answers questions appropriately - Head Head exam: Present: atraumatic, normocephalic - Eye Eye exam: Present: PERRL, conjuntiva pink, sclera anicteric Pupils: Present: PERRL - ENT ENT exam: Present: normal exam, normal external ear exam - Neck Neck exam general surgery: Present: supple, trachea midline. Absent: lymphadenopathy - Respiratory Respiratory exam: Present: respiratory distress, wheezes - Cardiovascular Cardiovascular exam: Present: RRR, +S1, +S2. Absent: diastolic murmur, gallop, rubs, systolic murmur - GI/Abdominal GI/Abdominal exam: Present: normal bowel sounds, soft, no peritoneal signs. Absent: distended, tenderness - Rectal Rectal exam: Present: deferred - Additional comments: exam deferred. - Extremities Exam Extremities exam: Present: warm, radial pulses palpable and symetrical. Absent : calf tenderness, cyanotic, pedal edema - Back Exam Back exam: Present: normal inspection - Neurological Exam Neurological exam: Present: CN II-XII intact, oriented X3, no focal deficits. Absent: pronater drift, facial droop, speech deficit - Psychiatric Psychiatric exam: Present: normal affect, normal mood - Skin Skin exam: Present: dry, intact Internal Med - H&P Results - Labs CBC & Chem 7: 03/28/17 17:04 03/28/17 17:04 Labs: Short CBC 03/28/17 Range/Units 17:04 WBC 17.8 H (4.3-11.1) K/mcL Hgb 15.7 H (11.5-15.4) g/dL Hct 50.5 H (35.3-44.9) % Plt Count 174 (140-400) K/mcL Neutrophils # 16.7 H (1.6-8.9) K/mcL BMP 03/28/17 17:04 Sodium 137 Potassium 4.1 Chloride 101 Carbon Dioxide 23 BUN 27 H Creatinine 1.46 H Glucose 195 H Calcium 9.3 Liver Function 03/28/17 Range/Units 17:04 Total Bilirubin 1.3 H (0.2-1.2) mg/dL Direct Bilirubin 0.7 H (0.0-0.5) mg/dL AST 13 (5-34) Units/L ALT 18 (0-55) Units/L Alkaline Phosphatase 68 (38-126) Units/L Albumin 3.2 L (3.5-5.0) g/dL - ABG Interpretation ABG results: 03/28/17 16:09 ABG pH 7.36 ABG pCO2 44 ABG pO2 56 L ABG HCO3 24.9 ABG Total CO2 26.3 H ABG O2 Saturation 87 L ABG Base Excess -0.9 - EKG Data EKG shows normal: sinus rhythm Rate: tachycardia - EKG Data Prior EKG available for review: no EKG comments: 03/28/17 19:10 EKG dated 03/28/17 shows sinus tachycardia with possible anterior myocardial infarction of indeterminate age. - Diagnostic Studies Chest x-ray Additional comments: 1-View CXR dated 03/28/17 shows stable cardiomegaly, mild pulmonary vascular congestion, interval development of airspace opacity in the left mid to lower lung field, likely related to pneumonia. Interval improved aeration of the right hemothorax. Small bilateral pleural effusions.
[2017-03-28] MEDS: *HR* Heparin 5,000 UNIT/ML VIAL SQ SCH (20:23)
[2017-03-28] MEDS: *HR* OxyCODONE/APAP 10/325 TABLET PO PRN (20:24)
[2017-03-28] MEDS: methylPREDNISolone 125 MG/2 ML VIAL IVP SCH (20:24)
[2017-03-28] MEDS: DEXTROAMPHETAMINE PO SCH (20:25)
[2017-03-28] MEDS: AMPHETAMINE PO SCH (20:25)
[2017-03-28] MEDS: Levalbuterol Neb 1.25 MG/3 ML IH SCH (20:56)
[2017-03-28] MEDS: Budesonide/Formoterol 160/4.5 MDI IH SCH (20:57)
[2017-03-29] MEDS: Levalbuterol Neb 1.25 MG/3 ML IH SCH ×6 (00:19→20:54)
[2017-03-29] MEDS: 0.9 % Sodium Chloride 1,000 ML IVC SCH ×2 (00:45→11:31)
[2017-03-29] MEDS: methylPREDNISolone 125 MG/2 ML VIAL IVP SCH ×4 (00:45→18:24)
[2017-03-29] MEDS: Meropenem 1,000 MG in 0.9 % Sodium Chloride Mini Bag 100 ML IVPB SCH ×3 (00:45→18:07)
[2017-03-29] MEDS: *HR* Heparin 5,000 UNIT/ML VIAL SQ SCH ×2 (05:17→18:24)
[2017-03-29 05:25] LABS: Hematocrit 43.1 % (35.3-44.9); Mean Corpuscular HGB Conc 30.6 g/dL (31.6-35.5); Mean Corpuscular Hemoglobin 27.4 pg (28.0-33.3); Mean Corpuscular Volume 89.4 fL (83.0-100.0); Mean Platelet Volume 11.4 fL (9.4-12.4); Platelet Count 136 K/mcL (140-400); Red Blood Count 4.82 M/mcL (3.82-4.97); Red Cell Distribution Width 13.6 % (11.5-14.5)
[2017-03-29] MEDS: *HR* OxyCODONE/APAP 10/325 TABLET PO PRN ×2 (05:25→21:22)
[2017-03-29] MEDS: ALPRAZolam 1 MG TABLET PO PRN ×2 (05:25→22:51)
[2017-03-29 05:45] LABS: Alanine Aminotransferase 15 Units/L (0-55); Albumin/Globulin Ratio 0.7 (1.1-2.2); Alkaline Phosphatase 45 Units/L (38-126); Aspartate Amino Transferase 9 Units/L (5-34); BUN/Creatinine Ratio 30 (6-26); Bilirubin,Total 0.6 mg/dL (0.2-1.2); Blood Urea Nitrogen 25 mg/dL (7-20); Calcium 8.3 mg/dL (8.6-10.8); Carbon Dioxide 24 mEq/L (19-29); Chloride 107 mEq/L (98-109); Chol/HDL Ratio 3.5 (0-4.9); Cholesterol 94 mg/dL (< 200); Globulin 3.5 g/dL (2.4-3.5); Glucose 191 mg/dL (70-99); HDL Cholesterol 27 mg/dL (40-59); LDL Cholesterol,Calculated 44 mg/dL (0-99); Magnesium 1.6 mg/dL (1.6-2.6); Osmolality,Calculated 296 (280-300); Sodium 138 mEq/L (136-145); Triglycerides 115 mg/dL (< 150); eGFR For African Americans > 60 (> 60); eGFR For Non-African Americans > 60 (> 60)
[2017-03-29 05:46] LABS: Albumin 2.5 g/dL (3.5-5.0)
[2017-03-29 05:55] LABS: Hemoglobin 13.2 g/dL (11.5-15.4)
[2017-03-29 06:31] LABS: Lymphocytes # 0.7 K/mcL (0.6-4.6); Monocytes # 0.2 K/mcL (0.0-1.3); Platelet Estimate Normal (Normal)
[2017-03-29] MEDS: Budesonide/Formoterol 160/4.5 MDI IH SCH (07:54)
[2017-03-29] MEDS: Aspirin Enteric Coated 81 MG Tablet PO SCH (08:49)
[2017-03-29] MEDS: DEXTROAMPHETAMINE PO SCH (08:50)
[2017-03-29] MEDS: AMPHETAMINE PO SCH (08:50)
--- NOTE | 2017-03-29 12:18 | Internal Med Progress Note ---
Date of Encounter: 03/29/17 Time of Encounter: 12:18 - Assessment and plan (1) Acute exacerbation of chronic obstructive airways disease Current Visit: Yes Status: Acute Assessment and plan: Continue IV steroids patient with significant O2 requirements Continue duonebs Continue singulair (2) Acute on chronic respiratory failure with hypoxemia Current Visit: Yes Status: Acute Assessment and plan: Continue O2 supplement Change to humidified O2 by NC-high flow Will need O2 qualification prior to discharge (3) HTN (hypertension) Current Visit: Yes Status: Chronic Assessment and plan: Controlled , medications held due to low blood pressure on admission Will restart medications prn Qualifiers: Hypertension type: essential hypertension Qualified Code(s): I10 - Essential (primary) hypertension (4) S/P pneumonectomy Current Visit: Yes Status: Chronic Assessment and plan: Chronic, stable (5) Diabetes mellitus Current Visit: Yes Status: Chronic Assessment and plan: A1C 6.2 FS ACHS Sliding scale Qualifiers: Diabetes mellitus type: type 2 Diabetes mellitus complication status: without complication Diabetes mellitus fpc insulin use: without terminal gauger supervisor use Qualified Code(s): E11.9 - Type 2 diabetes mellitus without complications (6) HCAP (healthcare-associated pneumonia) Current Visit: Yes Status: Acute Assessment and plan: As in sepsis (7) Sepsis Current Visit: Yes Status: Acute Assessment and plan: Patient presented with respiratory distress and lactic acidosis, leukocytosis with left shift and evidence of pneumonia. Lactic acidosis PKI and leukocytosis have improved. Patient is on meropenem, levofloxacin, and Vanco continue the same Follow blood cultures Sputum culture with prelim many GPC/GNR Send respiratory panel hemoptysis has resolved Continue oxygen supplementation BiPAP when necessary Qualifiers: Sepsis type: sepsis due to unspecified organism Qualified Code(s): A41.9 - Sepsis, unspecified organism - Subjective Interval history: Seen and evaluated at bedside 66 Y/O F being managed for severe sepsis with hypotension, lactic acidosis secondary to HCAP, she also has acute on chronic hypoxemic respiratory failure She has made remarkable improvement but continues to require high O2 Denies new complains - Constitutional Vitals: Temp Pulse Resp BP Pulse Ox 97.8 F 115 24 119/80 90 03/29/17 12:06 03/29/17 12:06 03/29/17 12:06 03/29/17 12:06 05/03/17 12:06 VSS, O2 sat 92-96% on 15L by face mask Gen: Not in any form of distress, speaks full sentences, Neuro: AAOX3, moves all limbs spontaneously, no focal deficits, no speech abnormality or facial asymmetry HEENT: Moist mucosa, no cyanosis, YESENIA Chest: Diffuse rhonchi in all lung zones Heart: S1, S2, no m/g/r Abdomen: Soft, not tender, no palpably enlarged organs Extremities: No edema General appearance: Present: cooperative, A&O X 3, pleasant, no acute distress, obese, answers questions appropriately Internal Medicine: Result - Labs CBC & Chem 7: 03/29/17 05:08 03/29/17 05:08 Labs: Short CBC 03/28/17 03/29/17 Range/Units 17:04 05:08 WBC 17.8 H 9.1 (4.3-11.1) K/mcL Hgb 15.7 H 13.2 D (11.5-15.4) g/dL Hct 50.5 H 43.1 (35.3-44.9) % Plt Count 174 136 L (140-400) K/mcL Neutrophils # 16.7 H 8.0 (1.6-8.9) K/mcL BMP 03/28/17 03/29/17 17:04 05:08 Sodium 137 138 Potassium 4.1 4.0 Chloride 101 107 Carbon Dioxide 23 24 BUN 27 H 25 H Creatinine 1.46 H 0.83 Glucose 195 H 191 H Calcium 9.3 8.3 L Liver Function 03/28/17 03/29/17 Range/Units 17:04 05:08 Total Bilirubin 1.3 H 0.6 (0.2-1.2) mg/dL Direct Bilirubin 0.7 H (0.0-0.5) mg/dL AST 13 9 (5-34) Units/L ALT 18 15 (0-55) Units/L Alkaline Phosphatase 68 45 (38-126) Units/L Albumin 3.2 L 2.5 L D (3.5-5.0) g/dL - ABG Interpretation ABG results: ABG ABG pH 7.36 pH Units (7.32-7.45) 03/28/17 16:09 ABG pCO2 44 mmHg (35-45) 03/28/17 16:09 ABG pO2 56 mmHg (85-104) L 03/28/17 16:09 ABG O2 Saturation 87 % (95-98) L 03/28/17 16:09 PT/INR, D-dimer PT 18.4 Seconds (9.4-12.1) H 03/28/17 17:04 Consult Discharge Plan - Plan Referrals: Janice Hoff MD [Primary Care Provider] -
[2017-03-29] MEDS ORDERED: Vancomycin 1,000 MG in D5% in Water 250 ML IVPB SCH (14:00)
--- NOTE | 2017-03-29 14:22 | Electrocardiograph Report ---
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
[2017-03-29] MEDS ORDERED: Dextrose Gel 15 GM PO PRN ×2 (15:04→15:09)
[2017-03-29] MEDS ORDERED: D5% in Water 1,000 ML IVC PRN (15:04)
[2017-03-29] MEDS ORDERED: *HR* Dextrose 50 % in Water (Syg) 50 ML SYRINGE IVP PRN (15:09)
[2017-03-29 17:14] LABS: ABG Base Excess -4.1 mEq/L (-2.0 to 3.0); ABG HCO3 25.6 mEQ/L (21-27); ABG Oxygen Saturation 90 % (95-98); ABG PCO2 64 mmHg (35-45); ABG PH 7.21 pH Units (7.32-7.45); ABG PO2 72 mmHg (85-104); ABG TCO2 27.6 mEq/L (20-26); Blood Gas FiO2 50 %
--- NOTE | 2017-03-29 17:16 | Event Note ---
Date of Encounter: 03/29/17 Time of Encounter: 17:13 Attention drawn to patient by RN stated patient is drowsy Seen and evaluated at bedside On BIPAP, RR 20-22, Alert, awake, oriented X3 Diffuse rhonchi on lung auscultation HR ranged from 125-135, patient without hypotension Stat 12 lead EKG ordered, suspicious for new Afib Will start on low dose cardizem drip as tolerated by BP Will consult cardiology ECHO when patient is out of fib for assessment Hold all sedative, only use anxiolytic prn to prevent withdrawal
[2017-03-29] MEDS: Levofloxacin 750 MG/150 ML 750 MG/150 ML BAG IVPB SCH (18:23)
[2017-03-29] MEDS: Insulin LISPRO 300 UNITS/3 ML VIAL SQ SCH ×2 (18:24→21:24)
[2017-03-30 00:14] LABS: Adenovirus Not Detected (Not Detect); Bordetella Pertussis Not Detected (Not Detect); Chlamydophila pneumoniae Not Detected (Not Detect); Coronavirus 229E Not Detected (Not Detect); Coronavirus HKU1 Not Detected (Not Detect); Coronavirus NL63 Not Detected (Not Detect); Coronavirus OC43 Not Detected (Not Detect); Human Metapneumovirus Not Detected (Not Detect); Influenza A Subtype 2009 H1 Not Detected (Not Detect); Influenza A Untypeable Not Detected (Not Detect); Influenza B Not Detected (Not Detect); Mycoplasma pneumoniae Not Detected (Not Detect); Parainfluenza Virus 1 Not Detected (Not Detect); Parainfluenza Virus 2 Not Detected (Not Detect); Parainfluenza Virus 3 Not Detected (Not Detect); Parainfluenza Virus 4 Not Detected (Not Detect); Respiratory Syncytial Virus Not Detected (Not Detect)
[2017-03-30 00:15] LABS: Human Rhinovirus/Enterovirus ***DETECTED*** (Not Detect)
[2017-03-30] MEDS: Levalbuterol Neb 1.25 MG/3 ML IH SCH ×7 (00:25→23:48)
[2017-03-30] MEDS: methylPREDNISolone 125 MG/2 ML VIAL IVP SCH ×4 (00:59→16:29)
[2017-03-30] MEDS: Meropenem 1,000 MG in 0.9 % Sodium Chloride Mini Bag 100 ML IVPB SCH ×2 (01:00→09:07)
[2017-03-30] MEDS: AMPHETAMINE PO SCH ×3 (01:02→22:24)
[2017-03-30] MEDS: DEXTROAMPHETAMINE PO SCH ×3 (01:02→22:24)
[2017-03-30 05:00] LABS: Basophils % 0.5 %; Hematocrit 40.5 % (35.3-44.9); Hemoglobin 12.6 g/dL (11.5-15.4); Immature Granulocytes % 7.9 % (0-4); Lymphocytes # 0.4 K/mcL (0.6-4.6); Lymphocytes % 5.9 %; Mean Corpuscular HGB Conc 31.1 g/dL (31.6-35.5); Mean Corpuscular Hemoglobin 27.9 pg (28.0-33.3); Mean Corpuscular Volume 89.8 fL (83.0-100.0); Mean Platelet Volume 12.4 fL (9.4-12.4); Monocytes # 0.3 K/mcL (0.0-1.3); Monocytes % 4.5 %; Neutrophils # 5.2 K/mcL (1.6-8.9); Platelet Count 130 K/mcL (140-400); Red Blood Count 4.51 M/mcL (3.82-4.97); Red Cell Distribution Width 13.8 % (11.5-14.5); Segmented Neutrophils % 81.2 %
[2017-03-30 05:20] LABS: BUN/Creatinine Ratio 32 (6-26); Blood Urea Nitrogen 27 mg/dL (7-20); Carbon Dioxide 26 mEq/L (19-29); Chloride 105 mEq/L (98-109); Glucose 265 mg/dL (70-99); Osmolality,Calculated 298 (280-300); Potassium 4.1 mEq/L (3.5-4.5); Sodium 137 mEq/L (136-145); eGFR For African Americans > 60 (> 60); eGFR For Non-African Americans > 60 (> 60)
[2017-03-30 06:32] LABS: Platelet Estimate Normal (Normal)
[2017-03-30] MEDS: Vancomycin 1,000 MG in D5% in Water 250 ML IVPB SCH ×2 (06:45→17:40)
[2017-03-30] MEDS: *HR* OxyCODONE/APAP 10/325 TABLET PO PRN (06:45)
[2017-03-30] MEDS: *HR* Heparin 5,000 UNIT/ML VIAL SQ SCH ×2 (06:45→17:41)
[2017-03-30] MEDS: Aspirin Enteric Coated 81 MG Tablet PO SCH (08:10)
[2017-03-30] MEDS: Insulin LISPRO 300 UNITS/3 ML VIAL SQ SCH ×4 (08:12→22:18)
--- NOTE | 2017-03-30 09:16 | Internal Med Progress Note ---
Date of Encounter: 03/30/17 Time of Encounter: 09:14 - Assessment and plan (1) Sepsis Current Visit: Yes Status: Acute Assessment and plan: Patient presented with respiratory distress and lactic acidosis, leukocytosis with left shift and evidence of pneumonia. Lactic acidosis , GREGORIO and leukocytosis have improved. Patient is on meropenem, levofloxacin, and Vanco continue the same Follow blood cultures, prelim negative Sputum culture with prelim many GPC/GNR Resp panel enterovirus Await final cultures before deescalation as patient is recurrent pneumonia hemoptysis has resolved Continue oxygen supplementation BiPAP when necessary Qualifiers: Sepsis type: sepsis due to unspecified organism Qualified Code(s): A41.9 - Sepsis, unspecified organism (2) Atrial fibrillation Current Visit: Yes Status: Acute Assessment and plan: Suspected Qualifiers: Atrial fibrillation type: paroxysmal Qualified Code(s): I48.0 - Paroxysmal atrial fibrillation (3) Acute exacerbation of chronic obstructive airways disease Current Visit: Yes Status: Acute Assessment and plan: CD/C steroids IV after today and change to prednisone from tomorrow patient with significant O2 requirements Continue duonebs Continue singulair (4) Acute on chronic respiratory failure with hypoxemia Current Visit: Yes Status: Acute Assessment and plan: Continue O2 supplement Change to humidified O2 by NC-high flow Will need O2 qualification prior to discharge (5) HTN (hypertension) Current Visit: Yes Status: Chronic Assessment and plan: Controlled , continue meds Qualifiers: Hypertension type: essential hypertension Qualified Code(s): I10 - Essential (primary) hypertension (6) S/P pneumonectomy Current Visit: Yes Status: Chronic Assessment and plan: Chronic, stable (7) Diabetes mellitus Current Visit: Yes Status: Chronic Assessment and plan: A1C 6.2 FS ACHS Sliding scale Qualifiers: Diabetes mellitus type: type 2 Diabetes mellitus complication status: without complication Diabetes mellitus termite exterminator insulin use: without termite exterminator use Qualified Code(s): E11.9 - Type 2 diabetes mellitus without complications (8) HCAP (healthcare-associated pneumonia) Current Visit: Yes Status: Acute Assessment and plan: As in sepsis (9) SVT (supraventricular tachycardia) Current Visit: Yes Status: Acute Assessment and plan: Appreciate cardiology input Continue cardizem Follow ECHO - Subjective Interval history: Seen and evaluated at bedside 66 Y/O F being managed for severe sepsis with hypotension, lactic acidosis secondary to HCAP, she also has acute on chronic hypoxemic respiratory failure She has made remarkable improvement but continues to require high O2 Developed SVT/Afib/flutter with RVR yesterday, responded to cardizem drip She sounds better on auscultation this a.m and her vital signs are stable Will transition to po cardizem ECHO and cardiology review are pending Regarding HCAP, resp panel with entero/rhino and sputum culture is pending - Constitutional Vitals: Temp Pulse Resp BP Pulse Ox 96.7 F L 95 24 130/79 88 03/30/17 08:24 03/30/17 08:24 03/30/17 08:24 03/30/17 08:24 03/30/17 08:11 General appearance: Present: cooperative, A&O X 3, pleasant, no acute distress, obese, answers questions appropriately Exam: VSS, O2 sat 92% on 8L by face mask. HR 100-106, sinus Gen: Not in any form of distress, speaks full sentences, looks clinically better today Neuro: AAOX3, moves all limbs spontaneously, no focal deficits, no speech abnormality or facial asymmetry HEENT: Moist mucosa, no cyanosis, YESENIA Chest: Improved air entry bilaterally, few scattered wheezing, rhonchi has improved significantly Heart: S1, S2, Regular this a.m, no m/g/r Abdomen: Soft, not tender, no palpably enlarged organs Extremities: No edema Internal Medicine: Result - Labs CBC & Chem 7: 03/30/17 04:11 03/30/17 04:11 Labs: Short CBC 03/30/17 Range/Units 04:11 WBC 6.4 (4.3-11.1) K/mcL Hgb 12.6 (11.5-15.4) g/dL Hct 40.5 (35.3-44.9) % Plt Count 130 L (140-400) K/mcL Neutrophils # 5.2 (1.6-8.9) K/mcL BMP 03/30/17 04:11 Sodium 137 Potassium 4.1 Chloride 105 Carbon Dioxide 26 BUN 27 H Creatinine 0.85 Glucose 265 H Calcium 9.0 - ABG Interpretation ABG results: ABG ABG pH 7.21 pH Units (7.32-7.45) L 03/29/17 16:55 ABG pCO2 64 mmHg (35-45) H 03/29/17 16:55 ABG pO2 72 mmHg (85-104) L 03/29/17 16:55 ABG O2 Saturation 90 % (95-98) L 03/29/17 16:55 PT/INR, D-dimer PT 18.4 Seconds (9.4-12.1) H 03/28/17 17:04 Consult Discharge Plan - Plan Referrals: Janice Hoff MD [Primary Care Provider] - 04/07/17 11:00 am
--- NOTE | 2017-03-30 09:51 | Cardiology Consult Note ---
<Tushar Armenta A - Last Filed: 03/30/17 11:30> Date of Encounter: 03/30/17 Time of Encounter: 09:30 Assessment and Plan (1) SVT (supraventricular tachycardia) Current Visit: Yes Status: Acute SVT present on telemetry and EKG in addition to sinus tachycardia Recommend AV gigi blocking agent such as PO cardizem as needed (2) Tachycardia Current Visit: Yes Status: Acute Reviewed the EKG's and telemetry overnight SVT and sinus tachycardia were found to be present in the setting of hypoxia, AECOPD, Pneumonia, and lactic acidosis No evidence of atrial fibrillation found Recommend AV gigi blocking agent such as cardizem, but will avoid beta robin due to theoretical risk of worsening asthma/copd. Agree with PO diltiazem (3) Community acquired pneumonia Current Visit: Yes Status: Acute Managed per primary team (4) HTN (hypertension) Current Visit: Yes Status: Chronic BP appears to be controlled while admitted Qualifiers: Hypertension type: essential hypertension Qualified Code(s): I10 - Essential (primary) hypertension (5) Acute exacerbation of chronic obstructive pulmonary disease (COPD) Current Visit: Yes Status: Acute Managed per primary team Discussion w patient/family: The assessment and plan as outlined above was discussed with the patient and/or family members who expressed understanding and agreement. All questions were answered. Thank you for involving us in the care of your patient. Please call with any questions. History of Present Illness Consult date: 03/30/17 Consult reason: Suspected new onset Afib Chief complaint: Dyspnea History of present illness: Ms. Cabello is a 66 year old female who presented to the ER on 03/28/17 due to dyspnea and cough. She was found to have LLL pneumonia and AECOPD. In the evening of 03/29/17 she was found to have tachycardia. An EKG was performed which was read as possible A-fib. She was started on a cardizem drip at 7.5mg/ hr and was rate controlled a couple of hours later. She has since been transitioned to cardizem PO. She denies having any symptoms during this episode. No CP, no worsening dyspnea, no paresthesias, no pre-syncope. She reports no cardiac history. Never had a heart cath. No stents/CABG. She reports this happened to her while she was hospitalized 10 years ago, but that is all she remembers. She reports her dyspnea has only improved since being admitted to the hospital. She has intermittently been on Bipap but is not currently. Past Med Surg Social Fam HX - Past Medical History Medical history: asthma, cancer, COPD, hyperlipidemia, hypertension, other Psychiatric history: depression - Past Surgical History Surgical History: cancer surgery (Right lower lobectomy, colectomy), hysterectomy, orthopedic, other (Knee surgery), other (Tonsillectomy, brain surgery (11 years ago)) - Social History Smoking Status: Former smoker Smokeless Tobacco Status: No Alcohol use: none Drug use: none - Family History Father Living Status: Hx Family Cardiac Disorders: Yes Hx Family Respiratory Disorders: Yes Mother Adopted: No Living Status: Hx Family Cardiac Disorders: Yes Medications and Allergies Dextroamphetamine/Amphetamine [Adderall 30 mg Tablet] 30 mg PO BID 06/08/16 [ History] Oxycodone HCl/Acetaminophen [Percocet 10-325 mg Tablet] 1 tab PO Q8H PRN [History] Ropinirole HCl [Requip] 6 mg PO HS 10/19/16 [History] Rosuvastatin Calcium [Crestor] 10 mg PO DAILY 10/19/16 [History] Aspirin [Lo-Dose Aspirin EC] 81 mg PO DAILY 12/18/16 [History] Lisinopril-HCTZ 10-12.5 [Prinzide 10-12.5] 1 tab PO DAILY 12/18/16 [History] Albuterol Sulfate [Ventolin Hfa] 2 puff IH QID PRN #2 hfa.aer.ad 12/21/16 [Rx] Ipratropium/Albuterol Neb [Duoneb] 3 ml IH Q4H PRN #30 inhsol 12/21/16 [Rx] Alprazolam [Xanax 1 MG Tablet] 1 mg PO Q6H PRN 01/19/17 [History] Omeprazole [PriLOSEC] 20 mg PO DAILY 01/19/17 [History] Budesonide/Formoterol 160/4.5 [Symbicort 160/4.5] 1 puff IH BIDR 03/28/17 [ History] Nortriptyline [Pamelor] 25 mg PO BID 03/28/17 [History] Allergies Amoxicillin Allergy (Verified 03/28/17 13:19) Rash Penicillins Allergy (Verified 03/28/17 13:19) Rash All Systems Review: A 10-system review of systems was performed and is negative for pertinent findings except as documented above in the HPI. - Constitutional Constitutional: fatigue - EENT Eyes: no loss of vision - Cardiovascular Cardiovascular: no chest pain at rest - Respiratory Respiratory: cough, dyspnea - Genitourinary Genitourinary: no dysuria - Integumentary Integumentary: no rash - Neurological Neurological: no dizziness Physical Examination Vital Signs, Last 4 Hours Temp Pulse Resp BP Pulse Ox 03/30/17 08:24 96.7 F L 95 24 130/79 03/30/17 08:11 17 88 03/30/17 07:00 91 127/93 03/30/17 06:00 93 127/81 General: Conversant HEENT: Atraumatic Neck: No JVD Cardiac: Reg Rate and Rhythm, Normal S1 and S2 Lungs: Other (Coarse lung sounds and expiratory wheezes bilaterally) Neuro: Alert and responsive Abdomen: Soft Skin: No rashes noted on visualized skin Extremities: No Cyanosis, No Edema, Normal Pulses Results 03/30/17 04:11 03/30/17 04:11 Lab Results 03/30/17 03/30/17 04:11 04:11 WBC 6.4 Hgb 12.6 Hct 40.5 Plt Count 130 L Sodium 137 Potassium 4.1 Chloride 105 Carbon Dioxide 26 BUN 27 H Creatinine 0.85 Glucose 265 H Calcium 9.0 Consult Discharge Plan - Plan Referrals: Janice Hoff MD [Primary Care Provider] - 04/07/17 11:00 am <Lucy Briceno - Last Filed: 03/30/17 13:58> Date of Encounter: 03/30/17 Assessment and Plan Discussion w patient/family: The assessment and plan as outlined above was discussed with the patient and/or family members who expressed understanding and agreement. All questions were answered. Thank you for involving us in the care of your patient. Please call with any questions. History of Present Illness History of present illness: Ms. Cabello is a 66 year old female All Systems Review: A 10-system review of systems was performed and is negative for pertinent findings except as documented above in the HPI. Physical Examination Vital Signs, Last 4 Hours Temp Pulse Resp BP Pulse Ox 03/30/17 12:11 97.7 F 97 20 138/82 03/30/17 10:00 98 135/84 93 Results 03/30/17 04:11 03/30/17 04:11 Lab Results 03/30/17 03/30/17 04:11 04:11 WBC 6.4 Hgb 12.6 Hct 40.5 Plt Count 130 L Sodium 137 Potassium 4.1 Chloride 105 Carbon Dioxide 26 BUN 27 H Creatinine 0.85 Glucose 265 H Calcium 9.0 - Attending Attestation I examined this patient and my medical decision-making was reviewed with the ENTERTAINER [employer] COMIC/PA/Advanced Practice Nurse/Resident Physician. I agree with the documented findings, disposition and treatment plan. Reviewed patient's ECGs and telemetry. No findings consistent with a diagnosis of AFIB. One of her ECGs demonstrates SVT. However, she is at risk for the development of AF. I recommend continuing aspirin. We will start her on oral cardizem. Her echo returned demonstrating normal findings. No further testing is warranted at this time. Please call with questions. We will sign off.
--- NOTE | 2017-03-30 10:26 | Electrocardiograph Report ---
[address] [place] [address] Test Date: 2017-03-28 Pat Name: Yecenia Cabello Department: 112 Room: 2N13 Gender: F Product Technician: : 1950 Requested By: Jhonathan Shore Order Number: [id number] Reading MD: Mohamud Rico Measurements Intervals [place] Rate: 153 P: HI: 0 QRS: -16 QRSD: 92 T: 48 QT: 309 QTc: 396 Interpretive Statements SINUS TACHYCARDIA WITH PVCS POSSIBLE ANTERIOR MYOCARDIAL INFARCTION, OF INDETERMINATE AGE Electronically Signed On 03-30-2017 10:25:11 EDT by Mohamud Rico
--- NOTE | 2017-03-30 10:27 | Electrocardiograph Report ---
[address] [place] [address] Test Date: 2017-03-28 Pat Name: Yecenia Cabello Department: 110 Room: 2N13 Gender: F Conductor And Engineer: [place] : 1950 Requested By: Mariana Branch Order Number: [id number] Reading MD: Mohamud Rico Measurements Intervals [place] Rate: 135 P: 49 ME: 170 QRS: -7 QRSD: 93 T: 52 QT: 294 QTc: 373 Interpretive Statements SINUS TACHYCARDIA LOW QRS VOLTAGE IN PRECORDIAL LEADS POSSIBLE ANTERIOR MYOCARDIAL INFARCTION, OF INDETERMINATE AGE Electronically Signed On 03-30-2017 10:25:25 EDT by Mohamud Rico
--- NOTE | 2017-03-30 10:34 | Electrocardiograph Report ---
[address] [place] [address] Test Date: 2017-03-29 Pat Name: Yecenia Cabello Department: 110 Room: 2N13 Gender: F Motor Builder Assembler: : 1950 Requested By: Davian Vance Order Number: [id number] Reading MD: Mohamud Rico Measurements Intervals [place] Rate: 126 P: 59 [place]: 178 QRS: 3 QRSD: 92 T: 35 QT: 292 QTc: 366 Interpretive Statements SINUS TACHYCARDIA LOW QRS VOLTAGE IN PRECORDIAL LEADS POSSIBLE ANTERIOR MYOCARDIAL INFARCTION, OF INDETERMINATE AGE Electronically Signed On 03-30-2017 10:32:45 EDT by Mohamud Rico
--- NOTE | 2017-03-30 13:11 | ECHO - Doppler Report ---
Echocardiogram Name: Yecenia Cabello Date of Study: 03/30/2017 Date: 1950 Ht: 62.0 in Medical Record#: [id number] Age: 66 Wt: 207.0 lb Gender: Female BSA: 1.94 Order #: [id number] Location: [facility] Room #: 2NE13 Reading Physician: Gerald Contreras MD, [facility] Bd Special Education Teacher: Jacek Rose Ordering Physician: Davian Vance MD Primary Physician: Janice Hoff MD Indications: Atrial fibrillation Impressions: Normal LV systolic function, LVEF 65%. Normal left ventricular diastolic function. Normal right ventricular size and function. No significant valvular dysfunction. Left Ventricular Wall Motion: Rest Echo Findings All wall segments showed normal motion. Findings: Study Quality * Suboptimal echo windows. ECG Findings * Normal sinus rhythm. Left Ventricle * Normal LV systolic function, LVEF 65%. * Normal LV chamber size and wall thickness. * Normal left ventricular diastolic function. Right Ventricle * Normal right ventricular size and function. Left Atrium * Normal left atrial size. Right Atrium * Normal right atrial size. Aorta * Normally sized aortic root. Pericardium * There is no pericardial effusion present. IVC * The IVC is not dilated. Aortic Valve * Aortic valve not well visualized. * No aortic stenosis. * No aortic regurgitation. Mitral Valve * Normal mitral valve structure. * No mitral stenosis. * Trace mitral regurgitation. Tricuspid Valve * Tricuspid valve not well visualized. * No tricuspid stenosis. * Trace tricuspid regurgitation. * Unable to estimate RVSP due to lack of TR jet. Pulmonic Valve * Pulmonic valve not well visualized. * No pulmonic stenosis. * No pulmonic regurgitation. History Hypertension Diabetes Hypercholesteremia Family History of CAD 12/18/2016 a Previous Echo was performed. Measurements: BP: 135/ 84 2D Normal Values RVIDd: 3.10 cm IVSd: .90 cm 0.6 - 1.0 cm LVIDd: 4.90 cm 3.7 - 5.6 cm LVPWd: 1.00 cm 0.6 - 1.1 cm LVIDs: 3.40 cm 1.5 - 3.6 cm AO: 2.90 cm < 4.0 cm %FS: 30.60 cm >25 % LA volume: 39 Mitral Valve Peak E:1.17 m/sec Peak A:.89 m/sec E/A Ratio:1.3 Updated by Gerald Contreras MD, [facility] on 03/30/2017 1:06:50 PM electronically signed on 03/30/2017 1:07:18 PM with status of Final Wall Motion [place]: 1=Normal, 2=Hypokinesis, 3=Akinesis, 4=Dyskinesis, 5=Aneurysmal, 6=Hyperkinetic, X=Not Visualized (Blank)=Missing
[2017-03-30] MEDS: Levofloxacin 750 MG/150 ML 750 MG/150 ML BAG IVPB SCH (16:27)
[2017-03-30] MEDS: Insulin DETEMIR 100 UNIT/ML X5UNITS SQ SCH (22:18)
[2017-03-31] MEDS: Levalbuterol Neb 1.25 MG/3 ML IH SCH ×4 (04:08→16:04)
[2017-03-31] MEDS ORDERED: Vancomycin 1,250 MG in D5% in Water 250 ML IVPB SCH (05:00)
[2017-03-31 05:20] LABS: Hematocrit 40.9 % (35.3-44.9); Hemoglobin 12.8 g/dL (11.5-15.4); Mean Corpuscular HGB Conc 31.3 g/dL (31.6-35.5); Mean Corpuscular Hemoglobin 28.6 pg (28.0-33.3); Mean Corpuscular Volume 91.3 fL (83.0-100.0); Mean Platelet Volume 11.5 fL (9.4-12.4); Nucleated Red Blood Cells 0.3 /100 WBC (0); Platelet Count 145 K/mcL (140-400); Red Blood Count 4.48 M/mcL (3.82-4.97)
[2017-03-31 05:33] LABS: BUN/Creatinine Ratio 40 (6-26); Blood Urea Nitrogen 34 mg/dL (7-20); Calcium 9.5 mg/dL (8.6-10.8); Carbon Dioxide 28 mEq/L (19-29); Chloride 104 mEq/L (98-109); Glucose 254 mg/dL (70-99); Osmolality,Calculated 300 (280-300); Sodium 137 mEq/L (136-145); eGFR For African Americans > 60 (> 60); eGFR For Non-African Americans > 60 (> 60)
[2017-03-31 05:50] LABS: Lymphocytes # 5.9 K/mcL (0.6-4.6); Monocytes # 0.9 K/mcL (0.0-1.3); Neutrophils # 0.3 K/mcL (1.6-8.9); Platelet Estimate Normal (Normal)
[2017-03-31 05:51] LABS: Reactive Lymphocytes Present (Not Present)
[2017-03-31 06:07] LABS: Potassium 5.4 mEq/L (3.5-4.5)
[2017-03-31] MEDS: *HR* Heparin 5,000 UNIT/ML VIAL SQ SCH ×2 (06:29→18:29)
[2017-03-31] MEDS: *HR* OxyCODONE/APAP 10/325 TABLET PO PRN (06:34)
[2017-03-31] MEDS: Aspirin Enteric Coated 81 MG Tablet PO SCH (09:42)
[2017-03-31] MEDS: predniSONE 20 MG TABLET PO SCH (09:42)
[2017-03-31] MEDS: AMPHETAMINE PO SCH (09:43)
[2017-03-31] MEDS: DEXTROAMPHETAMINE PO SCH (09:43)
[2017-03-31] MEDS: Insulin LISPRO 300 UNITS/3 ML VIAL SQ SCH ×4 (09:44→21:16)
[2017-03-31] MEDS: Insulin DETEMIR 100 UNIT/ML X5UNITS SQ SCH ×2 (09:49→21:16)
--- NOTE | 2017-03-31 10:50 | Internal Med Progress Note ---
Date of Encounter: 03/31/17 Time of Encounter: 10:50 - Assessment and plan (1) Sepsis Current Visit: Yes Status: Acute Assessment and plan: Patient presented with respiratory distress and lactic acidosis, leukocytosis with left shift and evidence of pneumonia. Lactic acidosis , GREGORIO and leukocytosis have improved. Follow blood cultures, prelim negative Sputum culture with Strep pneumo Resp panel enterovirus Continue levoflox, d/c meropenem and vanco hemoptysis has resolved Continue oxygen supplementation BiPAP when necessary Qualifiers: Sepsis type: sepsis due to unspecified organism Qualified Code(s): A41.9 - Sepsis, unspecified organism (2) Atrial fibrillation Current Visit: Yes Status: Ruled-out Assessment and plan: ruled out Qualifiers: Atrial fibrillation type: paroxysmal Qualified Code(s): I48.0 - Paroxysmal atrial fibrillation (3) Acute exacerbation of chronic obstructive airways disease Current Visit: Yes Status: Acute Assessment and plan: CD/C steroids IV after today and change to prednisone from tomorrow patient with significant O2 requirements Continue duonebs Continue singulair (4) Acute on chronic respiratory failure with hypoxemia Current Visit: Yes Status: Acute Assessment and plan: Continue O2 supplement Continue humidified O2 by NC-high flow Will need O2 qualification prior to discharge (5) HTN (hypertension) Current Visit: Yes Status: Chronic Assessment and plan: Controlled , continue meds Qualifiers: Hypertension type: essential hypertension Qualified Code(s): I10 - Essential (primary) hypertension (6) S/P pneumonectomy Current Visit: Yes Status: Chronic Assessment and plan: Chronic, stable (7) Diabetes mellitus Current Visit: Yes Status: Chronic Assessment and plan: A1C 6.2 FS ACHS Increase levemir, continue Sliding scale Qualifiers: Diabetes mellitus type: type 2 Diabetes mellitus complication status: without complication Diabetes mellitus terminal gauger supervisor insulin use: without terminal gauger supervisor use Qualified Code(s): E11.9 - Type 2 diabetes mellitus without complications (8) HCAP (healthcare-associated pneumonia) Current Visit: Yes Status: Acute Assessment and plan: As in sepsis (9) SVT (supraventricular tachycardia) Current Visit: Yes Status: Acute Assessment and plan: Appreciate cardiology input Continue po cardizem ECHO unremarkable - Subjective Interval history: Seen and evaluated at bedside 66 Y/O F being managed for severe sepsis with hypotension, lactic acidosis secondary to HCAP, she also has acute on chronic hypoxemic respiratory failure She has made remarkable improvement but continues to require high O2 Developed SVT 5/3 responded to cardizem drip ECHO noted, unremarkable Regarding HCAP, resp panel with entero/rhino and sputum culture with strep pneumo patient seen at bedside, wheezing diffusely,meds adjusted - Constitutional Vitals: Temp Pulse Resp BP Pulse Ox 97.2 F L 114 26 157/99 100 03/31/17 08:02 03/31/17 08:02 03/31/17 09:26 03/31/17 08:02 03/31/17 09:26 General appearance: Present: cooperative, A&O X 3, pleasant, no acute distress, obese, answers questions appropriately Exam: VSS, O2 sat 92% on 5L by NC. HR 100-106, sinus Gen: Not in any form of distress, speaks full sentences, looks clinically better today Neuro: AAOX3, moves all limbs spontaneously, no focal deficits, no speech abnormality or facial asymmetry HEENT: Moist mucosa, no cyanosis, YESENIA Chest: Improved air entry bilaterally, diffuse wheezing, rhonchi has improved significantly Heart: S1, S2, Regular this a.m, no m/g/r Abdomen: Soft, not tender, no palpably enlarged organs Extremities: No edema Internal Medicine: Result - Labs CBC & Chem 7: 03/31/17 05:11 03/31/17 05:11 Labs: Short CBC 03/31/17 Range/Units 05:11 WBC 7.4 (4.3-11.1) K/mcL Hgb 12.8 (11.5-15.4) g/dL Hct 40.9 (35.3-44.9) % Plt Count 145 (140-400) K/mcL Neutrophils # 0.3 L (1.6-8.9) K/mcL BMP 03/31/17 05:11 Sodium 137 Potassium 5.4 H D Chloride 104 Carbon Dioxide 28 BUN 34 H Creatinine 0.86 Glucose 254 H Calcium 9.5 - ABG Interpretation ABG results: ABG ABG pH 7.21 pH Units (7.32-7.45) L 03/29/17 16:55 ABG pCO2 64 mmHg (35-45) H 03/29/17 16:55 ABG pO2 72 mmHg (85-104) L 03/29/17 16:55 ABG O2 Saturation 90 % (95-98) L 03/29/17 16:55 PT/INR, D-dimer PT 18.4 Seconds (9.4-12.1) H 03/28/17 17:04 Consult Discharge Plan - Plan Referrals: Janice Hoff MD [Primary Care Provider] - 04/07/17 11:00 am
[2017-03-31] MEDS ORDERED: Albuterol 2.5 MG/3 ML NEBULIZER IH PRN (11:04)
[2017-03-31] MEDS ORDERED: Ipratropium/Albuterol Neb 3 ML IH ONE (11:04)
[2017-03-31] MEDS ORDERED: Aminoglycoside Consult 1 EACH MC ONE (13:39)
[2017-03-31 16:17] LABS: ABG Base Excess 6.1 mEq/L (-2.0 to 3.0); ABG HCO3 35.8 mEQ/L (21-27); ABG Oxygen Saturation 81 % (95-98); ABG PH 7.27 pH Units (7.32-7.45); ABG PO2 52 mmHg (85-104); ABG TCO2 38.2 mEq/L (20-26)
[2017-03-31 16:23] LABS: ABG PCO2 78 mmHg (35-45)
[2017-03-31] MEDS: Levofloxacin 750 MG/150 ML 750 MG/150 ML BAG IVPB SCH (16:27)
[2017-03-31] MEDS ORDERED: Magnesium Sulfate 2 GM in D5% in Water 100 ML IVPB ONE (17:38)
[2017-03-31] MEDS ORDERED: Racepinephrine Neb 0.5 ML VIAL IH ONE (17:38)
[2017-03-31] MEDS: ALPRAZolam 0.5 MG TABLET PO PRN ×2 (18:29→23:13)
[2017-03-31] MEDS: Ipratropium/Albuterol Neb 3 ML IH SCH (21:00)
[2017-04-01] MEDS: Ipratropium/Albuterol Neb 3 ML IH SCH ×6 (00:31→20:38)
[2017-04-01 03:46] LABS: Basophils # 0.1 K/mcL (0.0-0.2); Hematocrit 41.3 % (35.3-44.9); Hemoglobin 12.6 g/dL (11.5-15.4); Lymphocytes # 0.6 K/mcL (0.6-4.6); Mean Corpuscular HGB Conc 30.5 g/dL (31.6-35.5); Mean Corpuscular Hemoglobin 27.6 pg (28.0-33.3); Mean Corpuscular Volume 90.4 fL (83.0-100.0); Mean Platelet Volume 11.6 fL (9.4-12.4); Monocytes # 0.4 K/mcL (0.0-1.3); Platelet Count 144 K/mcL (140-400); Red Blood Count 4.57 M/mcL (3.82-4.97); Red Cell Distribution Width 13.8 % (11.5-14.5)
[2017-04-01 03:58] LABS: BUN/Creatinine Ratio 39 (6-26); Blood Urea Nitrogen 31 mg/dL (7-20); Calcium 9.3 mg/dL (8.6-10.8); Carbon Dioxide 31 mEq/L (19-29); Chloride 103 mEq/L (98-109); Glucose 186 mg/dL (70-99); Osmolality,Calculated 303 (280-300); Potassium 4.9 mEq/L (3.5-4.5); Sodium 141 mEq/L (136-145); eGFR For African Americans > 60 (> 60); eGFR For Non-African Americans > 60 (> 60)
[2017-04-01 04:22] LABS: Neutrophils # 6.1 K/mcL (1.6-8.9); Platelet Estimate Normal (Normal); Reactive Lymphocytes Present (Not Present)
[2017-04-01 04:38] LABS: ABG Base Excess 11.5 mEq/L (-2.0 to 3.0); ABG HCO3 40.5 mEQ/L (21-27); ABG Oxygen Saturation 97 % (95-98); ABG PH 7.34 pH Units (7.32-7.45); ABG PO2 96 mmHg (85-104); ABG TCO2 42.8 mEq/L (20-26); Blood Gas FiO2 50 %
[2017-04-01 04:39] LABS: ABG PCO2 75 mmHg (35-45)
[2017-04-01] MEDS: *HR* Heparin 5,000 UNIT/ML VIAL SQ SCH ×2 (06:05→17:44)
--- NOTE | 2017-04-01 07:32 | Pulmonology Consult Note ---
Date of Encounter: 04/01/17 Time of Encounter: 07:31 Assessment and Plan (1) Community acquired pneumonia Current Visit: Yes Status: Acute In conclusion this 66-year-old woman presented with acute respiratory distress secondary to strep pneumo pneumonia complicating obstructive airway disease with acute exacerbation. Her radiographically she had concern for left-sided pleural effusion however when I examined this area with bedside ultrasonography there is only a very small -trivial effusion (without complex features) findings most notable/consistent with consolidated lung. She continues to require subtotal oxygen therapy and ABG notable for combined hypoxemic/ hypercarbic respiratory failure. She is a former smoker but quit approximately 20 years ago. 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 Recs: Continue respiratory fluoroquinolone to treat for strep pneumonia 7 days based upon clinical course Continue aggressive bronchopulmonary toileting including out of bed to chair focal percussor on the left side, early ambulation as tolerated and supervised and incentive spirometry Recommend continuation of IV methylprednisolone 40 mg twice a day in place of oral steroid Continue bronchodilator therapy every 2-4 hours Symbicort 2 puffs twice a day (I have ordered this) Small atrial pleural effusion does not make it amenable to bedside thoracentesis and in fact I do not believe that this is necessary at this time would continue antimicrobial therapy for treatment of pneumonia Mucinex 600 mg twice a day We welcome this patient to follow with us in the pulmonary clinic at discharge I appreciate the consult please call with any questions I did relay my findings to the primary hospitalist Dr. Vance (2) Pleural effusion Current Visit: Yes Status: Acute (3) Acute exacerbation of chronic obstructive airways disease Current Visit: Yes Status: Acute (4) Acute on chronic respiratory failure with hypoxemia Current Visit: Yes Status: Acute (5) Tobacco abuse, in remission Current Visit: No Status: Inactive (6) DVT prophylaxis Current Visit: Yes Status: Acute History of Present Illness Consult date: 04/01/17 Requesting physician: Davian Vance Reason for consult: abnormal CXR/CT Chief complaint: Shortness of Breath History of present illness: This is a pleasant 66-year-old woman with a past medical history of tobacco abuse but in remission since 1996 prior history of lung cancer status post right upper lobe lobectomy asthma on maintenance metered-dose inhaler daily who presented with shortness of breath and cough. Found to be acute in acute respiratory failure has been treated with positive airway pressure antimicrobials bronchodilators and steroids with no with general improvement. Possibility of supraventricular tachyarrhythmia or etiology was following an she has been placed on calcium channel robin. Echocardiogram was essentially unremarkable Microbiological cultures are positive for strep pneumo repeat chest x-ray yesterday notable for possible increasing size of left pleural effusion pulmonary consult to further evaluate this. She smoked for approximately 20 years about a pack a day quitting in 1996 with the discovery of her lung cancer. She is been followed and treated for many years for asthma and takes Symbicort daily for this. 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 No exotic pets, sick exposures or recent travel history Past Med Surg Social Fam HX - Past Medical History Medical history: asthma, cancer, COPD, hyperlipidemia, hypertension, other Psychiatric history: depression - Past Surgical History Surgical History: cancer surgery (Right lower lobectomy, colectomy), hysterectomy, orthopedic, other (Knee surgery), other (Tonsillectomy, brain surgery (11 years ago)) - Social History Smoking Status: Former smoker Smokeless Tobacco Status: No Alcohol use: none Drug use: none - Family History Father Living Status: Hx Family Cardiac Disorders: Yes Hx Family Respiratory Disorders: Yes Mother Adopted: No Living Status: Hx Family Cardiac Disorders: Yes Medications and Allergies Dextroamphetamine/Amphetamine [Adderall 30 mg Tablet] 30 mg PO BID 06/08/16 [ History] Oxycodone HCl/Acetaminophen [Percocet 10-325 mg Tablet] 1 tab PO Q8H PRN [History] Ropinirole HCl [Requip] 6 mg PO HS 10/19/16 [History] Rosuvastatin Calcium [Crestor] 10 mg PO DAILY 10/19/16 [History] Aspirin [Lo-Dose Aspirin EC] 81 mg PO DAILY 12/18/16 [History] Lisinopril-HCTZ 10-12.5 [Prinzide 10-12.5] 1 tab PO DAILY 12/18/16 [History] Albuterol Sulfate [Ventolin Hfa] 2 puff IH QID PRN #2 hfa.aer.ad 12/21/16 [Rx] Ipratropium/Albuterol Neb [Duoneb] 3 ml IH Q4H PRN #30 inhsol 12/21/16 [Rx] Alprazolam [Xanax 1 MG Tablet] 1 mg PO Q6H PRN 01/19/17 [History] Omeprazole [PriLOSEC] 20 mg PO DAILY 01/19/17 [History] Budesonide/Formoterol 160/4.5 [Symbicort 160/4.5] 1 puff IH BIDR 03/28/17 [ History] Nortriptyline [Pamelor] 25 mg PO BID 03/28/17 [History] Allergies Amoxicillin Allergy (Verified 03/28/17 13:19) Rash Penicillins Allergy (Verified 03/28/17 13:19) Rash All Systems: A 10-system review of systems was performed and is negative for pertinent findings except as documented above in the HPI. Physical Examination Vital Signs: Vital Signs, Last 4 Hours Temp Pulse Resp BP Pulse Ox 04/01/17 04:20 26 151/86 99 04/01/17 04:09 98.5 F 82 24 151/86 98 General appearance: appears uncomfortable ENT: oropharynx moist Neck: supple, no lymphadenopathy Effort: mildly labored Auscultation: left: rhonchi, bilateral: diminished breath sounds (Left greater than right), wheezes, rales Cardiovascular: regular rate and rhythm Gastrointestinal: normoactive bowel sounds Extremities: edema normal mental status, non-focal exam, pupils equal and round mood appropriate Results - Laboratory Findings CBC and BMP: 04/01/17 03:25 04/01/17 03:25 ABG ABG pH 7.34 pH Units (7.32-7.45) 04/01/17 04:20 ABG pCO2 75 mmHg (35-45) H* 04/01/17 04:20 ABG pO2 96 mmHg (85-104) 04/01/17 04:20 ABG O2 Saturation 97 % (95-98) 04/01/17 04:20 PT/INR, D-dimer PT 18.4 Seconds (9.4-12.1) H 03/28/17 17:04 Abnormal lab findings: Abnormal lab results MCH 27.6 pg (28.0-33.3) L 04/01/17 03:25 MCHC 30.5 g/dL (31.6-35.5) L 04/01/17 03:25 Immature Gran % 7.9 % (0-4) H 03/30/17 04:11 Metamyelocytes % 2.0 % (0) H 03/29/17 05:08 Myelocytes % 4.0 % (0) H 03/31/17 05:11 Nucleated RBCs/100 WBC 0.3 /100 WBC (0) H 03/31/17 05:11 Reactive Lymphocytes Present (Not Present) A 04/01/17 03:25 Dohle Bodies Present (Not Present) A 03/28/17 17:04 PT 18.4 Seconds (9.4-12.1) H 03/28/17 17:04 APTT 42.5 Seconds (26.0-36.0) H 03/28/17 17:04 ABG pCO2 75 mmHg (35-45) H* 04/01/17 04:20 ABG HCO3 40.5 mEQ/L (21-27) H 04/01/17 04:20 ABG Total CO2 42.8 mEq/L (20-26) H 04/01/17 04:20 ABG Base Excess 11.5 mEq/L (-2.0 to 3.0) H 04/01/17 04:20 Potassium 4.9 mEq/L (3.5-4.5) H 04/01/17 03:25 Carbon Dioxide 31 mEq/L (19-29) H 04/01/17 03:25 BUN 31 mg/dL (7-20) H 04/01/17 03:25 BUN/Creatinine Ratio 39 (6-26) H 04/01/17 03:25 Glucose 186 mg/dL (70-99) H 04/01/17 03:25 POC Glucose 269 (58-89) H 03/31/17 20:44 Hemoglobin A1c 6.2 % (-5.6) H 03/28/17 12:12 Calculated Osmolality 303 (280-300) H 04/01/17 03:25 Lactic Acid 3.2 mmol/L (0.5-2.2) H 03/28/17 23:34 Direct Bilirubin 0.7 mg/dL (0.0-0.5) H 03/28/17 17:04 Albumin 2.5 g/dL (3.5-5.0) L D 03/29/17 05:08 Albumin/Globulin Ratio 0.7 (1.1-2.2) L 03/29/17 05:08 HDL Cholesterol 27 mg/dL (40-59) L 03/29/17 05:08 Entero/Rhino (PCR) DETECTED (Not Detect) A 03/29/17 22:45 - Microbiology Findings Microbiology Findings: Microbiology, Last 48 Hours 03/30/17 16:36 Sputum Culture - Preliminary Sputum Yeast Species 03/28/17 18:34 Sputum Culture - Preliminary Sputum Streptococcus pneumoniae 03/28/17 17:04 Blood Culture - Preliminary Peripheral Venipuncture No growth. - Diagnostic Findings Chest x-ray: report reviewed, image reviewed CT scan - chest: report reviewed, image reviewed - Clinical Findings Intake & Output: Intake & Output 03/31/17 03/31/17 04/01/17 15:59 23:59 07:59 Intake Total 510 / 510 150 / 150 Output Total 350 / 350 1000 / 1000 Balance 160 / 160 150 / 150 -1000 / -1000 Weight 95.4 kg Consult Discharge Plan - Plan Referrals: Janice Hoff MD [Primary Care Provider] - 04/07/17 11:00 am
[2017-04-01] MEDS: Insulin LISPRO 300 UNITS/3 ML VIAL SQ SCH ×4 (07:50→21:14)
[2017-04-01] MEDS: predniSONE 20 MG TABLET PO SCH (07:51)
[2017-04-01] MEDS: Aspirin Enteric Coated 81 MG Tablet PO SCH (07:51)
[2017-04-01] MEDS: Insulin DETEMIR 100 UNIT/ML X5UNITS SQ SCH ×2 (08:25→21:15)
[2017-04-01] MEDS ORDERED: MethylPREDNISolone 40 MG/ML VIAL IVP SCH (09:00)
[2017-04-01] MEDS: GuaiFENesin/Dextromethorphan TABLET PO SCH ×2 (09:42→21:15)
--- NOTE | 2017-04-01 10:37 | Internal Med Progress Note ---
Date of Encounter: 04/01/17 Time of Encounter: 10:37 - Assessment and plan (1) Sepsis Current Visit: Yes Status: Acute Assessment and plan: Patient presented with respiratory distress and lactic acidosis, leukocytosis with left shift and evidence of pneumonia. Lactic acidosis , GREGORIO and leukocytosis have improved. Follow blood cultures, prelim negative Sputum culture with Strep pneumo Resp panel enterovirus Continue levoflox hemoptysis has resolved Continue oxygen supplementation BiPAP when necessary Qualifiers: Sepsis type: sepsis due to unspecified organism Qualified Code(s): A41.9 - Sepsis, unspecified organism (2) Atrial fibrillation Current Visit: Yes Status: Ruled-out Assessment and plan: ruled out Qualifiers: Atrial fibrillation type: paroxysmal Qualified Code(s): I48.0 - Paroxysmal atrial fibrillation (3) Acute exacerbation of chronic obstructive airways disease Current Visit: Yes Status: Acute Assessment and plan: Continue Steroids IV per pulm recommendation patient with significant O2 requirements Continue duonebs Continue singulair (4) Acute on chronic respiratory failure with hypoxemia Current Visit: Yes Status: Acute Assessment and plan: Continue O2 supplement Continue humidified O2 by NC-high flow Will need O2 qualification prior to discharge (5) HTN (hypertension) Current Visit: Yes Status: Chronic Assessment and plan: Controlled , continue meds, titrate prn Qualifiers: Hypertension type: essential hypertension Qualified Code(s): I10 - Essential (primary) hypertension (6) S/P pneumonectomy Current Visit: Yes Status: Chronic Assessment and plan: Chronic, stable (7) Diabetes mellitus Current Visit: Yes Status: Chronic Assessment and plan: A1C 6.2 FS ACHS Increase levemir, continue Sliding scale Qualifiers: Diabetes mellitus type: type 2 Diabetes mellitus complication status: without complication Diabetes mellitus usp insulin use: without terminal gauger use Qualified Code(s): E11.9 - Type 2 diabetes mellitus without complications (8) HCAP (healthcare-associated pneumonia) Current Visit: Yes Status: Acute Assessment and plan: As in sepsis (9) SVT (supraventricular tachycardia) Current Visit: Yes Status: Acute Assessment and plan: Appreciate cardiology input Continue po cardizem ECHO unremarkable - Subjective Interval history: Seen and evaluated at bedside 66 Y/O F being managed for severe sepsis with hypotension, lactic acidosis secondary to HCAP, she also has acute on chronic hypoxemic respiratory failure She has made remarkable improvement but continues to require high O2 Developed SVT 5/3 responded to cardizem drip, chnaged to po ECHO noted, unremarkable Regarding HCAP, resp panel with entero/rhino and sputum culture with strep pneumo Required more O2 yesterday and repeat CXR with suspected L pleurla effusion, pulmonary consulted for eval, appreciate input patient seen at bedside, doc, awake, talking to her family, in mild resp distress - Constitutional Vitals: Temp Pulse Resp BP Pulse Ox 97.6 F 98 18 153/83 92 04/01/17 07:45 04/01/17 07:45 04/01/17 07:55 04/01/17 07:55 04/01/17 07:55 General appearance: Present: cooperative, A&O X 3, pleasant, obese, answers questions appropriately Exam: VSS, O2 sat 92% on 5L by NC. HR 100-106, sinus Gen: Mild resp distress, speaks full sentences, looks clinically better today Neuro: AAOX3, moves all limbs spontaneously, no focal deficits, no speech abnormality or facial asymmetry HEENT: Moist mucosa, no cyanosis, YESENIA Chest: Improved air entry bilaterally, few scatered wheezing, rhonchi has improved significantly Heart: S1, S2, Regular this a.m, no m/g/r Abdomen: Soft, not tender, no palpably enlarged organs Extremities: No edema Internal Medicine: Result - Labs CBC & Chem 7: 04/01/17 03:25 04/01/17 03:25 Labs: Short CBC 04/01/17 Range/Units 03:25 WBC 7.2 (4.3-11.1) K/mcL Hgb 12.6 (11.5-15.4) g/dL Hct 41.3 (35.3-44.9) % Plt Count 144 (140-400) K/mcL Neutrophils # 6.1 (1.6-8.9) K/mcL BMP 04/01/17 03:25 Sodium 141 Potassium 4.9 H Chloride 103 Carbon Dioxide 31 H BUN 31 H Creatinine 0.79 Glucose 186 H Calcium 9.3 - ABG Interpretation ABG results: ABG ABG pH 7.34 pH Units (7.32-7.45) 04/01/17 04:20 ABG pCO2 75 mmHg (35-45) H* 04/01/17 04:20 ABG pO2 96 mmHg (85-104) 04/01/17 04:20 ABG O2 Saturation 97 % (95-98) 04/01/17 04:20 PT/INR, D-dimer PT 18.4 Seconds (9.4-12.1) H 03/28/17 17:04 - Impressions Impressions Chest X-Ray 03/31/17 16:51 IMPRESSION: 1. Increased left pleural effusion and underlying left basilar airspace opacity that could represent atelectasis pneumonia. 2. Persistent though decreased airspace opacity in the mid left lung most likely representing pneumonia. 3. Unchanged right pleural effusion and/or scarring with increased underlying right basilar atelectasis. 4. Pulmonary vascular congestion and mild cardiomegaly. 5. Unchanged widening of the right paratracheal stripe likely due in part to normal vasculature and mediastinal fat based upon the prior CT appearance. Underlying lymphadenopathy is not excluded. D/ / Gerald Tang MD / Gerald Tang MD Interpreting Provider: Gerald Tang MD Consult Discharge Plan - Plan Referrals: Janice Hoff MD [Primary Care Provider] - 04/07/17 11:00 am
[2017-04-01] MEDS: Budesonide/Formoterol 160/4.5 MDI IH SCH ×2 (11:45→20:38)
[2017-04-01] MEDS: *HR* OxyCODONE/APAP 10/325 TABLET PO PRN (11:52)
[2017-04-01] MEDS: Levofloxacin 750 MG/150 ML 750 MG/150 ML BAG IVPB SCH (16:38)
[2017-04-01] MEDS: MethylPREDNISolone 40 MG/ML VIAL IVP SCH (21:15)
[2017-04-02] MEDS: Ipratropium/Albuterol Neb 3 ML IH SCH ×6 (00:06→20:02)
[2017-04-02 05:11] LABS: Hematocrit 40.8 % (35.3-44.9); Hemoglobin 12.6 g/dL (11.5-15.4); Lymphocytes # 0.5 K/mcL (0.6-4.6); Mean Corpuscular HGB Conc 30.9 g/dL (31.6-35.5); Mean Corpuscular Hemoglobin 27.8 pg (28.0-33.3); Mean Corpuscular Volume 90.1 fL (83.0-100.0); Mean Platelet Volume 11.3 fL (9.4-12.4); Platelet Count 137 K/mcL (140-400); Red Blood Count 4.53 M/mcL (3.82-4.97); Red Cell Distribution Width 13.7 % (11.5-14.5)
[2017-04-02 05:24] LABS: BUN/Creatinine Ratio 33 (6-26); Blood Urea Nitrogen 27 mg/dL (7-20); Calcium 9.4 mg/dL (8.6-10.8); Carbon Dioxide 36 mEq/L (19-29); Chloride 97 mEq/L (98-109); Glucose 248 mg/dL (70-99); Osmolality,Calculated 299 (280-300); Potassium 5.2 mEq/L (3.5-4.5); Sodium 138 mEq/L (136-145); eGFR For African Americans > 60 (> 60); eGFR For Non-African Americans > 60 (> 60)
[2017-04-02 05:42] LABS: Monocytes # 0.4 K/mcL (0.0-1.3); Neutrophils # 5.6 K/mcL (1.6-8.9); Platelet Estimate Decreased (Normal)
[2017-04-02] MEDS: *HR* Heparin 5,000 UNIT/ML VIAL SQ SCH ×2 (05:59→17:47)
[2017-04-02] MEDS: Budesonide/Formoterol 160/4.5 MDI IH SCH ×2 (07:55→20:02)
--- NOTE | 2017-04-02 08:20 | Pulmonology Progress Note ---
Date of Encounter: 04/02/17 Time of Encounter: 08:20 Assessment and Plan (1) Community acquired pneumonia Current Visit: Yes Status: Acute Impression: 1. Acute hypoxic hypercarbic respiratory failure 2. Pneumonia secondary to strep pneumo 3. Asthma/COPD with acute exacerbation 4. Obesity with concern for sleep-disordered breathing Recs: 1. Continue to wean supplemental FiO2 to keep saturation around 92%. Perform walking pulse ox test prior to discharge to assess for need of supplemental O2. Continue incentive spirometry out of bed to chair and ambulation under supervision as tolerated. Continue bilevel positive airway pressure support as needed for work of breathing and at night this can be weaned as she continues to clinically improve 2. Continue treatment with Levaquin 7 days based upon clinical course. Continue Mucinex twice a day until discharge. 3. Continue IV dosing of methylprednisolone today transitioned to enteral steroids tomorrow to complete two-week taper; continue Symbicort twice a day; supplemental bronchodilators as needed every 2-6 hours 4. Weight loss encouraged outpatient polysomnogram We welcomed the patient follow us in the outpatient pulmonary clinic in 4-6 weeks at the time of discharge. Thank you for allowing us to participate in the care of this patient pulmonary we will sign off please call with any questions (2) Pleural effusion Current Visit: Yes Status: Acute (3) Acute exacerbation of chronic obstructive airways disease Current Visit: Yes Status: Acute (4) Acute on chronic respiratory failure with hypoxemia Current Visit: Yes Status: Acute (5) Tobacco abuse, in remission Current Visit: No Status: Inactive (6) DVT prophylaxis Current Visit: Yes Status: Acute Subjective Principal diagnosis: Pneumonia Interval history: Patient woke up as I entered the room to speak with her, she said that her breathing is overall much improved. No acute events overnight remains hemodynamically stable on 8L HFNC supplemental oxygen to keep saturations around 92%. Objective PUL Vital signs: Last Vital Signs Temp 97.5 F L 04/02/17 04:42 Pulse 100 04/02/17 04:42 Resp 26 04/02/17 07:59 BP 156/91 04/02/17 04:42 Pulse Ox 94 04/02/17 07:59 General appearance: no acute distress ENT: oropharynx moist Effort: normal Auscultation: bilateral: diminished breath sounds (Much more in the left compared to the right), wheezes (Very faint today compared to yesterday's exam) Cardiovascular: regular rate and rhythm Gastrointestinal: normoactive bowel sounds Extremities: edema normal mental status, non-focal exam mood appropriate Results - Laboratory Findings CBC and BMP: 04/02/17 05:02 04/02/17 05:02 ABG ABG pH 7.34 pH Units (7.32-7.45) 04/01/17 04:20 ABG pCO2 75 mmHg (35-45) H* 04/01/17 04:20 ABG pO2 96 mmHg (85-104) 04/01/17 04:20 ABG O2 Saturation 97 % (95-98) 04/01/17 04:20 PT/INR, D-dimer PT 18.4 Seconds (9.4-12.1) H 03/28/17 17:04 Abnormal lab findings: Abnormal lab results MCH 27.8 pg (28.0-33.3) L 04/02/17 05:02 MCHC 30.9 g/dL (31.6-35.5) L 04/02/17 05:02 Plt Count 137 K/mcL (140-400) L 04/02/17 05:02 Immature Gran % 7.9 % (0-4) H 03/30/17 04:11 Metamyelocytes % 2.0 % (0) H 03/29/17 05:08 Myelocytes % 4.0 % (0) H 04/02/17 05:02 Lymphocytes # 0.5 K/mcL (0.6-4.6) L 04/02/17 05:02 Nucleated RBCs/100 WBC 0.3 /100 WBC (0) H 03/31/17 05:11 Reactive Lymphocytes Present (Not Present) A 04/01/17 03:25 Dohle Bodies Present (Not Present) A 03/28/17 17:04 Platelet Estimate Decreased (Normal) L 04/02/17 05:02 PT 18.4 Seconds (9.4-12.1) H 03/28/17 17:04 APTT 42.5 Seconds (26.0-36.0) H 03/28/17 17:04 ABG pCO2 75 mmHg (35-45) H* 04/01/17 04:20 ABG HCO3 40.5 mEQ/L (21-27) H 04/01/17 04:20 ABG Total CO2 42.8 mEq/L (20-26) H 04/01/17 04:20 ABG Base Excess 11.5 mEq/L (-2.0 to 3.0) H 04/01/17 04:20 Potassium 5.2 mEq/L (3.5-4.5) H 04/02/17 05:02 Chloride 97 mEq/L (98-109) L 04/02/17 05:02 Carbon Dioxide 36 mEq/L (19-29) H 04/02/17 05:02 BUN 27 mg/dL (7-20) H 04/02/17 05:02 BUN/Creatinine Ratio 33 (6-26) H 04/02/17 05:02 Glucose 248 mg/dL (70-99) H 04/02/17 05:02 POC Glucose 266 (58-89) H 04/01/17 21:13 Hemoglobin A1c 6.2 % (-5.6) H 03/28/17 12:12 Lactic Acid 3.2 mmol/L (0.5-2.2) H 03/28/17 23:34 Direct Bilirubin 0.7 mg/dL (0.0-0.5) H 03/28/17 17:04 Albumin 2.5 g/dL (3.5-5.0) L D 03/29/17 05:08 Albumin/Globulin Ratio 0.7 (1.1-2.2) L 03/29/17 05:08 HDL Cholesterol 27 mg/dL (40-59) L 03/29/17 05:08 Entero/Rhino (PCR) DETECTED (Not Detect) A 03/29/17 22:45 - Microbiology Findings Microbiology Findings: Microbiology, Last 48 Hours 03/28/17 18:34 Sputum Culture - Final Sputum Streptococcus pneumoniae 03/30/17 16:36 Sputum Culture - Preliminary Sputum Yeast Species - Clinical Findings Intake & Output: Intake & Output 04/01/17 04/02/17 04/02/17 23:59 07:59 15:59 Intake Total 550 / 550 0 / 0 Output Total 900 / 900 600 / 600 Balance -350 / -350 -600 / -600 Weight 95.1 kg Consult Discharge Plan - Plan Referrals: Janice Hoff MD [Primary Care Provider] - 04/07/17 11:00 am
[2017-04-02] MEDS: Insulin DETEMIR 100 UNIT/ML X5UNITS SQ SCH ×2 (09:54→22:11)
[2017-04-02] MEDS: Insulin LISPRO 300 UNITS/3 ML VIAL SQ SCH ×4 (09:54→22:11)
[2017-04-02] MEDS: GuaiFENesin/Dextromethorphan TABLET PO SCH ×2 (09:56→22:12)
[2017-04-02] MEDS: Aspirin Enteric Coated 81 MG Tablet PO SCH (09:57)
[2017-04-02] MEDS: MethylPREDNISolone 40 MG/ML VIAL IVP SCH ×2 (09:57→22:11)
[2017-04-02] MEDS: *HR* OxyCODONE/APAP 10/325 TABLET PO PRN (10:14)
--- NOTE | 2017-04-02 10:20 | Internal Med Progress Note ---
Date of Encounter: 04/02/17 Time of Encounter: 09:10 - Assessment and plan (1) Sepsis Current Visit: Yes Status: Acute Assessment and plan: Resolved Patient presented with respiratory distress and lactic acidosis, leukocytosis with left shift and evidence of pneumonia. Lactic acidosis , GREGORIO and leukocytosis have improved. Follow blood cultures, prelim negative Sputum culture with Strep pneumo Resp panel enterovirus Continue levoflox hemoptysis has resolved Continue oxygen supplementation BiPAP when necessary Qualifiers: Sepsis type: sepsis due to unspecified organism Qualified Code(s): A41.9 - Sepsis, unspecified organism (2) Atrial fibrillation Current Visit: Yes Status: Ruled-out Assessment and plan: ruled out Qualifiers: Atrial fibrillation type: paroxysmal Qualified Code(s): I48.0 - Paroxysmal atrial fibrillation (3) Acute exacerbation of chronic obstructive airways disease Current Visit: Yes Status: Acute Assessment and plan: Continue Steroids IV per pulm recommendation Start po prednisone a.m patient with significant O2 requirements Continue duonebs Continue singulair, symbicort (4) Acute on chronic respiratory failure with hypoxemia Current Visit: Yes Status: Acute Assessment and plan: Continue O2 supplement Continue humidified O2 by NC-high flow Will need O2 qualification prior to discharge (5) HTN (hypertension) Current Visit: Yes Status: Chronic Assessment and plan: Uncontrolled Change cardizem to ER, 300mg daily Qualifiers: Hypertension type: essential hypertension Qualified Code(s): I10 - Essential (primary) hypertension (6) S/P pneumonectomy Current Visit: Yes Status: Chronic Assessment and plan: Chronic, stable (7) Diabetes mellitus Current Visit: Yes Status: Chronic Assessment and plan: A1C 6.2 FS ACHS Increase levemir, continue Sliding scale Qualifiers: Diabetes mellitus type: type 2 Diabetes mellitus complication status: without complication Diabetes mellitus halfway insulin use: without halfway use Qualified Code(s): E11.9 - Type 2 diabetes mellitus without complications (8) HCAP (healthcare-associated pneumonia) Current Visit: Yes Status: Acute Assessment and plan: As in sepsis (9) SVT (supraventricular tachycardia) Current Visit: Yes Status: Acute Assessment and plan: Appreciate cardiology input Continue po cardizem ECHO unremarkable (10) Hyperkalemia Current Visit: Yes Status: Acute Assessment and plan: Kayexalate Rpt Chem am - Subjective Interval history: Seen and evaluated at bedside 66 Y/O F being managed for severe sepsis with hypotension, lactic acidosis secondary to HCAP, she also has acute on chronic hypoxemic respiratory failure She has made remarkable improvement but continues to require high O2 Developed SVT 5/3 responded to cardizem drip, chnaged to po ECHO noted, unremarkable Regarding HCAP, resp panel with entero/rhino and sputum culture with strep pneumo, goode-sensitive Day 5 on Levoflox Pulmonary eval appreciated O2 and BIPAP prior to discharge - Constitutional Vitals: Temp Pulse Resp BP Pulse Ox 97.7 F 105 20 174/98 92 04/02/17 09:32 04/02/17 09:32 04/02/17 09:32 04/02/17 09:32 04/02/17 09:32 General appearance: Present: cooperative, A&O X 3, pleasant, obese, answers questions appropriately Exam: VSS, O2 sat 92% on 5L by NC. HR 100-106, sinus Gen: Mild resp distress, speaks full sentences, looks clinically better today Neuro: AAOX3, moves all limbs spontaneously, no focal deficits, no speech abnormality or facial asymmetry HEENT: Moist mucosa, no cyanosis, YESENIA Chest: CTAB Heart: S1, S2, Regular this a.m, no m/g/r Abdomen: Soft, not tender, no palpably enlarged organs Extremities: No edema Internal Medicine: Result - Labs CBC & Chem 7: 04/02/17 05:02 04/02/17 05:02 Labs: Short CBC 04/02/17 Range/Units 05:02 WBC 6.8 (4.3-11.1) K/mcL Hgb 12.6 (11.5-15.4) g/dL Hct 40.8 (35.3-44.9) % Plt Count 137 L (140-400) K/mcL Neutrophils # 5.6 (1.6-8.9) K/mcL BMP 04/02/17 05:02 Sodium 138 Potassium 5.2 H Chloride 97 L Carbon Dioxide 36 H BUN 27 H Creatinine 0.83 Glucose 248 H Calcium 9.4 - ABG Interpretation ABG results: ABG ABG pH 7.34 pH Units (7.32-7.45) 04/01/17 04:20 ABG pCO2 75 mmHg (35-45) H* 04/01/17 04:20 ABG pO2 96 mmHg (85-104) 04/01/17 04:20 ABG O2 Saturation 97 % (95-98) 04/01/17 04:20 PT/INR, D-dimer PT 18.4 Seconds (9.4-12.1) H 03/28/17 17:04 Consult Discharge Plan - Plan Referrals: Janice Hoff MD [Primary Care Provider] - 04/07/17 11:00 am
[2017-04-02] MEDS: Diltiazem CD (24hr) 300 MG CAPSULE PO SCH (12:59)
[2017-04-02] MEDS ORDERED: Levofloxacin 750 MG/150 ML 750 MG/150 ML BAG IVPB SCH (16:00)
[2017-04-03] MEDS: Ipratropium/Albuterol Neb 3 ML IH SCH ×6 (00:15→19:36)
[2017-04-03] MEDS: *HR* OxyCODONE/APAP 10/325 TABLET PO PRN ×2 (00:51→21:28)
[2017-04-03 04:11] LABS: Hematocrit 40.2 % (35.3-44.9); Hemoglobin 12.8 g/dL (11.5-15.4); Lymphocytes # 0.6 K/mcL (0.6-4.6); Mean Corpuscular HGB Conc 31.8 g/dL (31.6-35.5); Mean Corpuscular Hemoglobin 28.2 pg (28.0-33.3); Mean Corpuscular Volume 88.5 fL (83.0-100.0); Mean Platelet Volume 11.2 fL (9.4-12.4); Nucleated Red Blood Cells 0.3 /100 WBC (0); Platelet Count 147 K/mcL (140-400); Red Blood Count 4.54 M/mcL (3.82-4.97); Red Cell Distribution Width 13.5 % (11.5-14.5)
[2017-04-03 04:23] LABS: BUN/Creatinine Ratio 36 (6-26); Blood Urea Nitrogen 25 mg/dL (7-20); Calcium 8.9 mg/dL (8.6-10.8); Carbon Dioxide 39 mEq/L (19-29); Chloride 94 mEq/L (98-109); Glucose 185 mg/dL (70-99); Osmolality,Calculated 301 (280-300); Sodium 141 mEq/L (136-145); eGFR For African Americans > 60 (> 60); eGFR For Non-African Americans > 60 (> 60)
[2017-04-03 04:53] LABS: Monocytes # 0.2 K/mcL (0.0-1.3); Neutrophils # 6.8 K/mcL (1.6-8.9); Platelet Estimate Normal (Normal)
[2017-04-03] MEDS: *HR* Heparin 5,000 UNIT/ML VIAL SQ SCH ×2 (06:25→17:00)
[2017-04-03] MEDS: GuaiFENesin/Dextromethorphan TABLET PO SCH ×2 (08:30→21:29)
[2017-04-03] MEDS: Diltiazem CD (24hr) 300 MG CAPSULE PO SCH (08:30)
[2017-04-03] MEDS: Aspirin Enteric Coated 81 MG Tablet PO SCH (08:30)
[2017-04-03] MEDS: predniSONE 20 MG TABLET PO SCH (08:30)
[2017-04-03] MEDS: Insulin LISPRO 300 UNITS/3 ML VIAL SQ SCH ×4 (08:30→21:28)
[2017-04-03] MEDS: Insulin DETEMIR 100 UNIT/ML X5UNITS SQ SCH ×2 (08:31→21:28)
[2017-04-03] MEDS: Budesonide/Formoterol 160/4.5 MDI IH SCH ×2 (08:40→19:36)
--- NOTE | 2017-04-03 10:24 | Internal Med Progress Note ---
Date of Encounter: 04/03/17 Time of Encounter: 10:24 - Assessment and plan (1) Sepsis Current Visit: Yes Status: Resolved Assessment and plan: Resolved Patient presented with respiratory distress and lactic acidosis, leukocytosis with left shift and evidence of pneumonia. Lactic acidosis , GREGORIO and leukocytosis have improved. Follow blood cultures, prelim negative Sputum culture with Strep pneumo Resp panel enterovirus Continue levoflox-Day 6, to complete 7 days of therapy hemoptysis has resolved Continue oxygen supplementation BiPAP when necessary Qualifiers: Sepsis type: sepsis due to unspecified organism Qualified Code(s): A41.9 - Sepsis, unspecified organism (2) Atrial fibrillation Current Visit: Yes Status: Ruled-out Assessment and plan: ruled out Qualifiers: Atrial fibrillation type: paroxysmal Qualified Code(s): I48.0 - Paroxysmal atrial fibrillation (3) Acute exacerbation of chronic obstructive airways disease Current Visit: Yes Status: Acute Assessment and plan: Continue Steroids IV per pulm recommendation Start po prednisone a.m patient with significant O2 requirements Continue duonebs Continue singulair, symbicort patient needs to be qualified for BIPAP tonight She needs HOB elevation at all times PT/OT review today (4) Acute on chronic respiratory failure with hypoxemia Current Visit: Yes Status: Acute Assessment and plan: Continue O2 supplement Continue humidified O2 by NC-high flow Will need O2 qualification prior to discharge (5) HTN (hypertension) Current Visit: Yes Status: Chronic Assessment and plan: Control improved, Continue Cardizem 300mg daily Qualifiers: Hypertension type: essential hypertension Qualified Code(s): I10 - Essential (primary) hypertension (6) S/P pneumonectomy Current Visit: Yes Status: Chronic Assessment and plan: Chronic, stable (7) Diabetes mellitus Current Visit: Yes Status: Chronic Assessment and plan: A1C 6.2 FS ACHS Increase levemir, continue Sliding scale Qualifiers: Diabetes mellitus type: type 2 Diabetes mellitus complication status: without complication Diabetes mellitus [facility] insulin use: without buttermilk drier operator use Qualified Code(s): E11.9 - Type 2 diabetes mellitus without complications (8) HCAP (healthcare-associated pneumonia) Current Visit: Yes Status: Acute Assessment and plan: As in sepsis (9) SVT (supraventricular tachycardia) Current Visit: Yes Status: Acute Assessment and plan: Appreciate cardiology input Continue po cardizem ECHO unremarkable (10) Hyperkalemia Current Visit: Yes Status: Acute Assessment and plan: Resolved, monitor Chem - Subjective Interval history: Seen and evaluated at bedside 66 Y/O F being managed for severe sepsis with hypotension, lactic acidosis secondary to HCAP, she also has acute on chronic hypoxemic respiratory failure She has made remarkable improvement but continues to require high O2 Developed SVT 5/3 responded to cardizem drip, chnaged to po ECHO noted, unremarkable Regarding HCAP, resp panel with entero/rhino and sputum culture with strep pneumo, goode-sensitive Day 6 on Levoflox Pulmonary eval appreciated O2 and BIPAP prior to discharge - Constitutional Vitals: Temp Pulse Resp BP Pulse Ox 97.9 F 85 18 140/80 94 04/03/17 07:12 04/03/17 08:40 04/03/17 08:44 04/03/17 07:12 04/03/17 08:44 General appearance: Present: cooperative, A&O X 3, pleasant, obese, answers questions appropriately Exam: VSS, O2 sat 92% on 5L by NC. HR 100-106, sinus Gen: Mild resp distress, speaks full sentences, looks clinically better today Neuro: AAOX3, moves all limbs spontaneously, no focal deficits, no speech abnormality or facial asymmetry HEENT: Moist mucosa, no cyanosis, YESENIA Chest: CTAB Heart: S1, S2, Regular this a.m, no m/g/r Abdomen: Soft, not tender, no palpably enlarged organs Extremities: No edema Internal Medicine: Result - Labs CBC & Chem 7: 04/03/17 03:37 04/03/17 03:37 Labs: Short CBC 04/03/17 Range/Units 03:37 WBC 7.7 (4.3-11.1) K/mcL Hgb 12.8 (11.5-15.4) g/dL Hct 40.2 (35.3-44.9) % Plt Count 147 (140-400) K/mcL Neutrophils # 6.8 (1.6-8.9) K/mcL BMP 04/03/17 03:37 Sodium 141 Potassium 4.0 D Chloride 94 L Carbon Dioxide 39 H BUN 25 H Creatinine 0.69 Glucose 185 H Calcium 8.9 - ABG Interpretation ABG results: ABG ABG pH 7.34 pH Units (7.32-7.45) 04/01/17 04:20 ABG pCO2 75 mmHg (35-45) H* 04/01/17 04:20 ABG pO2 96 mmHg (85-104) 04/01/17 04:20 ABG O2 Saturation 97 % (95-98) 04/01/17 04:20 PT/INR, D-dimer PT 18.4 Seconds (9.4-12.1) H 03/28/17 17:04 Consult Discharge Plan - Plan Referrals: Janice Hoff MD [Primary Care Provider] - 04/07/17 11:00 am
[2017-04-03] MEDS ORDERED: Levofloxacin 750 MG/150 ML 750 MG/150 ML BAG IVPB SCH (16:00)
[2017-04-03] MEDS: Sennosides/Docusate Sodium TABLET PO SCH (21:29)
[2017-04-04] MEDS: Ipratropium/Albuterol Neb 3 ML IH SCH ×6 (00:15→20:16)
[2017-04-04] MEDS: Nystatin SUSP 5 ML UD.LIQ PO SCH ×5 (01:51→21:42)
[2017-04-04 04:48] LABS: Hemoglobin 12.6 g/dL (11.5-15.4); Mean Corpuscular HGB Conc 31.5 g/dL (31.6-35.5); Mean Corpuscular Hemoglobin 27.7 pg (28.0-33.3); Mean Corpuscular Volume 87.9 fL (83.0-100.0); Mean Platelet Volume 10.5 fL (9.4-12.4); Monocytes # 0.5 K/mcL (0.0-1.3); Platelet Count 138 K/mcL (140-400); Red Blood Count 4.55 M/mcL (3.82-4.97); Red Cell Distribution Width 13.7 % (11.5-14.5)
[2017-04-04 05:00] LABS: BUN/Creatinine Ratio 42 (6-26); Blood Urea Nitrogen 29 mg/dL (7-20); Calcium 8.9 mg/dL (8.6-10.8); Chloride 94 mEq/L (98-109); Glucose 142 mg/dL (70-99); Osmolality,Calculated 298 (280-300); Potassium 4.4 mEq/L (3.5-4.5); Sodium 140 mEq/L (136-145); eGFR For African Americans > 60 (> 60); eGFR For Non-African Americans > 60 (> 60)
[2017-04-04 05:12] LABS: Carbon Dioxide 41 mEq/L (19-29)
[2017-04-04 05:30] LABS: Lymphocytes # 1.6 K/mcL (0.6-4.6); Neutrophils # 6.8 K/mcL (1.6-8.9); Platelet Estimate Normal (Normal)
[2017-04-04] MEDS: *HR* Heparin 5,000 UNIT/ML VIAL SQ SCH ×2 (06:27→16:39)
[2017-04-04] MEDS: Diltiazem CD (24hr) 180 MG CAPSULE PO SCH (08:56)
[2017-04-04] MEDS: Insulin LISPRO 300 UNITS/3 ML VIAL SQ SCH ×4 (08:57→21:40)
[2017-04-04] MEDS: predniSONE 20 MG TABLET PO SCH (08:57)
[2017-04-04] MEDS: Aspirin Enteric Coated 81 MG Tablet PO SCH (08:57)
[2017-04-04] MEDS: Insulin DETEMIR 100 UNIT/ML X5UNITS SQ SCH ×2 (08:57→21:41)
[2017-04-04] MEDS: GuaiFENesin/Dextromethorphan TABLET PO SCH ×2 (08:57→21:41)
[2017-04-04] MEDS: Sennosides/Docusate Sodium TABLET PO SCH ×2 (08:57→21:41)
[2017-04-04] MEDS ORDERED: Furosemide 40 MG TABLET PO SCH (10:45)
--- NOTE | 2017-04-04 10:52 | Internal Med Progress Note ---
Date of Encounter: 04/04/17 Time of Encounter: 10:30 - Assessment and plan (1) Sepsis Current Visit: Yes Status: Resolved Assessment and plan: Resolved. secondary to PNA. Patient presented with respiratory distress and lactic acidosis, leukocytosis with left shift and mid-lung infiltrate in CXR. blood cultures 03/28 are negative 12/29. Sputum culture grew Strep pneumo Resp panel positive for enterovirus Clinically improving. patient completed 7-days of Levaquin (last day 04/03). Qualifiers: Sepsis type: sepsis due to unspecified organism Qualified Code(s): A41.9 - Sepsis, unspecified organism (2) Acute on chronic respiratory failure with hypoxemia Current Visit: Yes Status: Acute Assessment and plan: secondary to PNA, pleural effusion and COPD exacerbation. She states she only uses 4 L of oxygen via NC when "sick" but she gets sick with cough, and shortness of breath at least once every two months. She denies smoking but her family members do smoke outside her home. Before this episode of shortness of breath, there was a septic tube leak under her home but it has been fixed. She also reports that she has a CPAP machine at home but she has never used it because the mask is too big. secondary to COPD exacerbation, pna and pulmonary edema CXR 03/31 showing pulmonary edema, left pleural effusion and mid-left lung infiltrates. Patient failed qualification for BIPAP study 04/03. slowly improving. check CT Chest. check ABG now and at 4am. start IV lasix, fluid restriction and strict I/o. continue oxygen 4L NC. continue nebs, symbicort, mucinex, and prednisone. patient will bring CPAP machine to check home health agency and attempt to have a smaller mask brought to ED. consult RT for pulmonary toilet. (3) Acute exacerbation of chronic obstructive airways disease Current Visit: Yes Status: Acute Assessment and plan: plan as above. (4) Community acquired pneumonia Current Visit: Yes Status: Acute Assessment and plan: plan as above. (5) Atrial fibrillation Current Visit: Yes Status: Ruled-out Assessment and plan: ruled out Qualifiers: Atrial fibrillation type: paroxysmal Qualified Code(s): I48.0 - Paroxysmal atrial fibrillation (6) Chronic back pain Current Visit: No Status: Chronic Qualifiers: Back pain location: low back pain Back pain laterality: bilateral Sciatica presence: without sciatica Qualified Code(s): M54.5 - Low back pain; G89.29 - Other chronic pain (7) Diabetes mellitus Current Visit: Yes Status: Chronic Assessment and plan: A1C 6.2 adequate fasting glucose continue levemir and Sliding scale Qualifiers: Diabetes mellitus type: type 2 Diabetes mellitus complication status: without complication Diabetes mellitus snf insulin use: without shelf stocker use Qualified Code(s): E11.9 - Type 2 diabetes mellitus without complications (8) History of lung cancer Current Visit: Yes Status: Acute (9) HTN (hypertension) Current Visit: Yes Status: Chronic Assessment and plan: well controlled. Continue Cardizem 300mg daily Qualifiers: Hypertension type: essential hypertension Qualified Code(s): I10 - Essential (primary) hypertension (10) Hyperkalemia Current Visit: Yes Status: Acute Assessment and plan: Resolved, monitor Chem (11) Metabolic alkalosis Current Visit: Yes Status: Chronic Assessment and plan: continue to monitor. chronic secondary to COPD. (12) Pleural effusion Current Visit: Yes Status: Acute Assessment and plan: Left pleural effusion. plan as above (13) S/P pneumonectomy Current Visit: Yes Status: Chronic Assessment and plan: Chronic, stable (14) SVT (supraventricular tachycardia) Current Visit: Yes Status: Acute Assessment and plan: Appreciate cardiology input Continue po cardizem ECHO unremarkable - Subjective Interval history: Patient still has shortness of breath at minimal exertion and has noted swelling of all her four extremities today. She agrees on going to the rehab. She states she only uses 4 L of oxygen via NC when "sick" but she gets sick with cough, and shortness of breath at least once every two months. She denies smoking but her family members do smoke outside her home. Before this episode of shortness of breath, there was a septic tube leak under her home but it has been fixed. She also reports that she has a CPAP machine at home but she has never used it because the mask is too big. - Constitutional Vitals: Temp Pulse Resp BP Pulse Ox 97.9 F 87 18 153/91 91 04/04/17 07:31 04/04/17 08:00 04/04/17 07:31 04/04/17 07:31 04/04/17 07:31 General appearance: Present: cooperative, A&O X 3, pleasant, no acute distress, obese, answers questions appropriately - Neck Neck exam general surgery: Present: supple, trachea midline. Absent: lymphadenopathy - Respiratory Respiratory exam: Present: decreased breath sounds, wheezes - Cardiovascular Cardiovascular exam: Present: RRR - GI/Abdominal GI/Abdominal exam: Present: normal bowel sounds, soft. Absent: distended, tenderness - Extremities Exam Additional comments: 1+ edema in all her four extremities. - Neurological Exam Neurological exam: Present: alert, oriented X3, no focal deficits, strengths equal and symetr throughout. Absent: facial droop, speech deficit - Skin Skin exam: Absent: rash Internal Medicine: Result - Labs CBC & Chem 7: 04/04/17 04:34 04/04/17 04:34 Labs: Short CBC 04/04/17 Range/Units 04:34 WBC 8.9 (4.3-11.1) K/mcL Hgb 12.6 (11.5-15.4) g/dL Hct 40.0 (35.3-44.9) % Plt Count 138 L (140-400) K/mcL Neutrophils # 6.8 (1.6-8.9) K/mcL BMP 04/04/17 04:34 Sodium 140 Potassium 4.4 Chloride 94 L Carbon Dioxide 41 H* BUN 29 H Creatinine 0.69 Glucose 142 H Calcium 8.9 - ABG Interpretation ABG results: ABG ABG pH 7.34 pH Units (7.32-7.45) 04/01/17 04:20 ABG pCO2 75 mmHg (35-45) H* 04/01/17 04:20 ABG pO2 96 mmHg (85-104) 04/01/17 04:20 ABG O2 Saturation 97 % (95-98) 04/01/17 04:20 PT/INR, D-dimer PT 18.4 Seconds (9.4-12.1) H 03/28/17 17:04 Consult Discharge Plan - Plan Referrals: Janice Hoff MD [Primary Care Provider] - 04/07/17 11:00 am
[2017-04-04] MEDS: Budesonide/Formoterol 160/4.5 MDI IH SCH ×2 (11:44→20:17)
[2017-04-04] MEDS: Furosemide 40 MG/4 ML VIAL IVP SCH ×2 (12:05→16:39)
[2017-04-04] MEDS ORDERED: acetaZOLAMIDE 250 MG TABLET PO ONE (15:30)
[2017-04-04] MEDS: *HR* OxyCODONE/APAP 10/325 TABLET PO PRN (21:41)
[2017-04-05] MEDS: Ipratropium/Albuterol Neb 3 ML IH SCH ×4 (00:04→11:23)
[2017-04-05 05:39] LABS: ABG Base Excess 15.6 mEq/L (-2.0 to 3.0); ABG HCO3 43.8 mEQ/L (21-27); ABG Oxygen Saturation 91 % (95-98); ABG PCO2 66 mmHg (35-45); ABG PH 7.43 pH Units (7.32-7.45); ABG PO2 59 mmHg (85-104); ABG TCO2 45.8 mEq/L (20-26)
[2017-04-05 05:40] LABS: Blood Gas FiO2 36 %
[2017-04-05] MEDS: *HR* Heparin 5,000 UNIT/ML VIAL SQ SCH (05:42)
[2017-04-05 06:12] LABS: Hematocrit 43.5 % (35.3-44.9); Hemoglobin 14.1 g/dL (11.5-15.4); Mean Corpuscular HGB Conc 32.4 g/dL (31.6-35.5); Mean Corpuscular Hemoglobin 28.1 pg (28.0-33.3); Mean Corpuscular Volume 86.7 fL (83.0-100.0); Mean Platelet Volume 10.9 fL (9.4-12.4); Platelet Count 174 K/mcL (140-400); Red Blood Count 5.02 M/mcL (3.82-4.97); Red Cell Distribution Width 14.3 % (11.5-14.5)
[2017-04-05 06:21] LABS: BUN/Creatinine Ratio 37 (6-26); Blood Urea Nitrogen 32 mg/dL (7-20); Calcium 9.2 mg/dL (8.6-10.8); Carbon Dioxide 35 mEq/L (19-29); Chloride 92 mEq/L (98-109); Glucose 187 mg/dL (70-99); Osmolality,Calculated 296 (280-300); Phosphorous 4.1 mg/dL (2.3-4.7); Sodium 137 mEq/L (136-145); eGFR For African Americans > 60 (> 60); eGFR For Non-African Americans > 60 (> 60)
[2017-04-05 06:28] LABS: Monocytes # 0.3 K/mcL (0.0-1.3); Neutrophils # 11.4 K/mcL (1.6-8.9)
[2017-04-05 06:29] LABS: Platelet Estimate Normal (Normal); Reactive Lymphocytes Present (Not Present)
[2017-04-05 07:50] VITALS: BP 143/79
[2017-04-05] MEDS: Budesonide/Formoterol 160/4.5 MDI IH SCH (08:07)
[2017-04-05] MEDS: Sennosides/Docusate Sodium TABLET PO SCH (08:34)
[2017-04-05] MEDS: Nystatin SUSP 5 ML UD.LIQ PO SCH (08:34)
[2017-04-05] MEDS: GuaiFENesin/Dextromethorphan TABLET PO SCH (08:34)
[2017-04-05] MEDS: Aspirin Enteric Coated 81 MG Tablet PO SCH (08:34)
[2017-04-05] MEDS: Diltiazem CD (24hr) 180 MG CAPSULE PO SCH (08:34)
[2017-04-05] MEDS: Furosemide 40 MG/4 ML VIAL IVP SCH (08:34)
[2017-04-05] MEDS: predniSONE 20 MG TABLET PO SCH (08:34)
[2017-04-05] MEDS: Insulin LISPRO 300 UNITS/3 ML VIAL SQ SCH (08:35)
[2017-04-05] MEDS: Insulin DETEMIR 100 UNIT/ML X5UNITS SQ SCH (08:38)
[2017-04-05] MEDS: *HR* OxyCODONE/APAP 10/325 TABLET PO PRN (08:38)
--- NOTE | 2017-04-05 10:00 | Discharge Summary ---
Date of Encounter: 04/05/17 Time of Encounter: 09:58 - Discharge Diagnosis (1) Sepsis Priority: Primary Status: Resolved Qualifiers: Sepsis type: sepsis due to unspecified organism Qualified Code(s): A41.9 - Sepsis, unspecified organism (2) Acute on chronic respiratory failure with hypoxemia Priority: Primary Status: Acute (3) Acute exacerbation of chronic obstructive airways disease Priority: Primary Status: Acute (4) Community acquired pneumonia Priority: Primary Status: Acute (5) Atrial fibrillation Priority: Secondary Status: Ruled-out Qualifiers: Atrial fibrillation type: paroxysmal Qualified Code(s): I48.0 - Paroxysmal atrial fibrillation (6) Chronic back pain Priority: Secondary Status: Chronic Qualifiers: Back pain location: low back pain Back pain laterality: bilateral Sciatica presence: without sciatica Qualified Code(s): M54.5 - Low back pain; G89.29 - Other chronic pain (7) Diabetes mellitus Priority: Secondary Status: Chronic Qualifiers: Diabetes mellitus type: type 2 Diabetes mellitus complication status: without complication Diabetes mellitus longterm insulin use: without longterm use Qualified Code(s): E11.9 - Type 2 diabetes mellitus without complications (8) History of lung cancer Priority: Secondary Status: Chronic (9) HTN (hypertension) Priority: Secondary Status: Chronic Qualifiers: Hypertension type: essential hypertension Qualified Code(s): I10 - Essential (primary) hypertension (10) Hyperkalemia Priority: Primary Status: Resolved (11) Metabolic alkalosis Priority: Secondary Status: Chronic (12) Pleural effusion Priority: Primary Status: Acute (13) S/P pneumonectomy Priority: Secondary Status: Chronic (14) SVT (supraventricular tachycardia) Priority: Primary Status: Ruled-out - Discharge Medications Prescriptions: Furosemide [Lasix] 40 mg PO BID #60 tab Lisinopril [Zestril] 10 mg PO DAILY #30 tablet Nystatin Cream [Mycostatin Cream] 1 appl TP TID #1 tube OxyCODONE/APAP 10/325 [Percocet 10/325 MG] 1 each PO Q8H PRN #14 tablet PRN Reason: moderate to severe pain 4-10 PredniSONE 40 mg PO AD #9 tablet Home Medications: Dextroamphetamine/Amphetamine [Adderall 30 mg Tablet] 30 mg PO BID 06/08/16 [ History] Oxycodone HCl/Acetaminophen [Percocet 10-325 mg Tablet] 1 tab PO Q8H PRN [History] Ropinirole HCl [Requip] 6 mg PO HS 10/19/16 [History] Rosuvastatin Calcium [Crestor] 10 mg PO DAILY 10/19/16 [History] Aspirin [Lo-Dose Aspirin EC] 81 mg PO DAILY 12/18/16 [History] Albuterol Sulfate [Ventolin Hfa] 2 puff IH QID PRN #2 hfa.aer.ad 12/21/16 [Rx] Omeprazole [PriLOSEC] 20 mg PO DAILY 01/19/17 [History] Budesonide/Formoterol 160/4.5 [Symbicort 160/4.5] 1 puff IH BIDR 03/28/17 [ History] Nortriptyline [Pamelor] 25 mg PO BID 03/28/17 [History] Albuterol Neb [Proventil Neb] 2.5 mg IH Q2H PRN #0 inhsol 04/05/17 [Rx] Alprazolam [Xanax 1 MG Tablet] 0.5 mg PO TID PRN #14 04/05/17 [Rx] Budesonide/Formoterol 160/4.5 [Symbicort 160/4.5] 2 puff IH BIDR inhaler [Rx] Diltiazem CD (24hr) [Cardizem CD] 360 mg PO DAILY cap.er.24h 04/05/17 [Rx] Furosemide [Lasix] 40 mg PO BID #60 tab 04/05/17 [Rx] GuaiFENesin/Dextromethorphan [Mucinex Dm] 1 each PO BID 4 Days 04/05/17 [Rx] Insulin DETEMIR [Levemir] 15 unit SQ BID [id number] 04/05/17 [Rx] Ipratropium/Albuterol Neb [Duoneb] 3 ml IH [id number] inhsol 04/05/17 [Rx] Lisinopril [Zestril] 10 mg PO DAILY #30 tablet 04/05/17 [Rx] Nystatin Cream [Mycostatin Cream] 1 appl TP TID #1 tube 04/05/17 [Rx] OxyCODONE/APAP 10/325 [Percocet 10/325 MG] 1 each PO Q8H PRN #14 tablet [Rx] PredniSONE 40 mg PO AD #9 tablet 04/05/17 [Rx] Sennosides/Docusate Sodium [Senna Plus] 2 each PO BID tablet 04/05/17 [Rx] Allergies/Adverse Reactions: Allergies Amoxicillin Allergy (Verified 03/28/17 13:19) Rash Penicillins Allergy (Verified 03/28/17 13:19) Rash Procedures/tests Complete & Pending: Procedures Performed prior 72 hours Category Date Time Status CT chest wo con [CT] Routine Cat Scan 04/04/17 13:00 Completed Date of admission: 03/28/17 15:00 Primary care physician: Janice Hoff Consults: 03/29/17 17:18 Consult to Cardiology [CONS] Routine Comment: Consulting Provider: Cardiology Allyn Reason for Consult: Suspected new onset Afib/flutter Call Completed: No 03/31/17 17:50 Consult to Pulmonology [CONS] Routine Consulting Provider: Pulm Crit Care [facility] Sleep Allyn Reason for Consult: Thoracentensis Call Completed: No 04/01/17 12:03 Consult to Customer Supply Chain Analyst [CONS] Routine Reason for SW Consult: PATIENT WISHING TO ORDER HOSPITAL BED FOR HOME. CURRENTLY PATIENT IS SLEEPING UPRIGHT ON COUCH DUE TO NOT BEING ABLE TO LIE FLAT. PATIENT CURIOUS IF INSURANCE WOULD COVER COST OF HOSPITAL BED. 04/03/17 10:24 Consult to Occupational Therapy [CONS] Routine Comment: Evaluate, develop and implement POC Reason for Consult: Evaluate Consult to Physical Therapy [CONS] Routine Comment: Evaluate, develop and implement POC Reason for Consult: Evaluate for gait aid/home PT/OT 04/04/17 10:59 Consult to Respiratory Therapy [CONS] Routine Reason for Consult: pulmonary toilet Call Completed: No - Patient Status Disposition: Transfer SNF Condition: Good Functional capacity at discharge: uses cane/walker Overall status at discharge: patient is progressing back to baseline - Discharge Instructions Instructions: Chronic Obstructive Pulmonary Disease (DC) Follow Up With: Janice Hoff MD [Primary Care Provider] - 04/11/17 9:45 am Winston Ramey MD [Partnered Physician] - (in 1 -2 weeks) - Diet and Activity Activity: as per physical therapy, wear oxygen at all times (4L at rest and 5-6 L at exertion) Diet: diabetic diet, low fat, low cholesterol, low salt diet Interval History: patient reports her breathing is better compared to admission. mild cough. no chest pain. Hospital course: Ms. Cabello is a 66 year old female with past medical history of COPD-asthma overlap syndrome, hypertension, lung cancer status post right lower lobectomy, colon cancer status post colectomy, hypertension. LEE but non-compliant with CPAP and diabetes. She states she only uses 4 L of oxygen via NC when "sick" but she gets sick with cough, and shortness of breath at least once every two months. She denies smoking but her family members do smoke outside her home. Before this episode of shortness of breath, there was a septic tube leak under her home but it has been fixed. She also reports that she has a CPAP machine at home but she has never used it because the mask is too big. She presents with a chief complaint of shortness of breath and was found to have lactic acidosis, leukocytosis with left shift and mid-lung infiltrate in CXR. She was admitted with diagnosis of acute on chronic respiratory failure with hypoxemia and hypercapnia secondary to COPD-asthma exacerbation, pneumonia and heart failure with preserved LVEF. She was started on IV fluids, broad- spectrum antibiotics, nebulizations, IV glucocorticoids, oxygen supplementation and BiPAP at bedtime. Patient improved clinically very slowly and was tolerating 4 L of oxygen via nasal cannula well. CXR 03/31 showing pulmonary edema , left pleural effusion and mid-left lung infiltrates. Sputum culture grew Strep pneumo. Blood cultures were negative. Resp panel positive for enterovirus. She completed 7-days of Levaquin while in the hospital (last day ). Patient failed qualification for BIPAP study 04/03. She also received IV Lasix with good diuresis (~5L UOP). CT chest revealed pulmonary emphysema, postoperative scarring on the right lung, consolidation with volume loss of the left lower lobe, air bronchograms, left lower lobe atelectasis with a small left pleural effusion. Patient brought CPAP machine from home, she has never used it. A prescription for a new CPAP mask with supplies was given. Her CPAP setting are 22/16 APAP, RAMP 3. Patient counseled to start of weight loss program, and she agreed. PLAN: 1. check BMP and CBC in 4 days. 2. Follow-up with primary care physician in one week for hypertension, diabetes , asthma-COPD overlap syndrome, chronic respiratory failure, LEE, and weight loss program. 3. Follow-up in the pulmonology clinic in 1-2 weeks. 4. Patient will require a repeat CT of the chest in 4-6 weeks to address resolution of consolidation and pleural effusion. - Time Spent with Patient Total time spent providing and/or coordinating discharge services: Greater than 30 minutes (45 minutes) - Constitutional Vitals: Temp Pulse Resp BP Pulse Ox 97.6 F 79 16 143/79 92 04/05/17 07:45 04/05/17 08:44 04/05/17 08:07 04/05/17 07:45 04/05/17 08:07 General appearance: Present: cooperative, A&O X 3, pleasant, no acute distress, obese, answers questions appropriately - Neck Neck exam general surgery: Present: supple, trachea midline. Absent: lymphadenopathy - Respiratory Additional comments: mild wheezes diffusely, better air entry compared to admission - Cardiovascular Cardiovascular exam: Present: RRR - GI/Abdominal GI/Abdominal exam: Present: normal bowel sounds, soft. Absent: distended, tenderness - Extremities Exam Extremities exam: Present: pedal edema - Back Exam Back exam: Absent: CVA tenderness (L), CVA tenderness (R) - Neurological Exam Neurological exam: Present: alert, oriented X3, no focal deficits, strengths equal and symetr throughout. Absent: facial droop, speech deficit - Skin Skin exam: Absent: rash
--- NOTE | 2017-04-05 10:42 | Physician Discharge Referral ---
ExtendedCare Referral Info Transfer To: [facility] Provider in Charge: eric Provider in Charge after Transfer: PCP Institutional Level of Care: Skilled - Diagnosis (1) Sepsis Status: Resolved (2) Acute on chronic respiratory failure with hypoxemia Status: Acute (3) Acute exacerbation of chronic obstructive airways disease Status: Acute (4) Community acquired pneumonia Status: Acute (5) Atrial fibrillation Status: Ruled-out (6) Chronic back pain Status: Chronic (7) Diabetes mellitus Status: Chronic (8) History of lung cancer Status: Chronic (9) HTN (hypertension) Status: Chronic (10) Hyperkalemia Status: Resolved (11) Metabolic alkalosis Status: Chronic (12) Pleural effusion Status: Acute (13) S/P pneumonectomy Status: Chronic (14) SVT (supraventricular tachycardia) Status: Ruled-out - Transfer Medications Prescriptions: Furosemide [Lasix] 40 mg PO BID #60 tab Lisinopril [Zestril] 10 mg PO DAILY #30 tablet Nystatin Cream [Mycostatin Cream] 1 appl TP TID #1 tube OxyCODONE/APAP 10/325 [Percocet 10/325 MG] 1 each PO Q8H PRN #14 tablet PRN Reason: moderate to severe pain 4-10 PredniSONE 40 mg PO AD #9 tablet Home Medications: Dextroamphetamine/Amphetamine [Adderall 30 mg Tablet] 30 mg PO BID 06/08/16 [ History] Oxycodone HCl/Acetaminophen [Percocet 10-325 mg Tablet] 1 tab PO Q8H PRN [History] Ropinirole HCl [Requip] 6 mg PO HS 10/19/16 [History] Rosuvastatin Calcium [Crestor] 10 mg PO DAILY 10/19/16 [History] Aspirin [Lo-Dose Aspirin EC] 81 mg PO DAILY 12/18/16 [History] Albuterol Sulfate [Ventolin Hfa] 2 puff IH QID PRN #2 hfa.aer.ad 12/21/16 [Rx] Omeprazole [PriLOSEC] 20 mg PO DAILY 01/19/17 [History] Budesonide/Formoterol 160/4.5 [Symbicort 160/4.5] 1 puff IH BIDR 03/28/17 [ History] Nortriptyline [Pamelor] 25 mg PO BID 03/28/17 [History] Albuterol Neb [Proventil Neb] 2.5 mg IH Q2H PRN #0 inhsol 04/05/17 [Rx] Alprazolam [Xanax 1 MG Tablet] 0.5 mg PO TID PRN #14 04/05/17 [Rx] Budesonide/Formoterol 160/4.5 [Symbicort 160/4.5] 2 puff IH BIDR inhaler [Rx] Diltiazem CD (24hr) [Cardizem CD] 360 mg PO DAILY cap.er.24h 04/05/17 [Rx] Furosemide [Lasix] 40 mg PO BID #60 tab 04/05/17 [Rx] GuaiFENesin/Dextromethorphan [Mucinex Dm] 1 each PO BID 4 Days 04/05/17 [Rx] Insulin DETEMIR [Levemir] 15 unit SQ BID [id number] 04/05/17 [Rx] Ipratropium/Albuterol Neb [Duoneb] 3 ml IH [id number] inhsol 04/05/17 [Rx] Lisinopril [Zestril] 10 mg PO DAILY #30 tablet 04/05/17 [Rx] Nystatin Cream [Mycostatin Cream] 1 appl TP TID #1 tube 04/05/17 [Rx] OxyCODONE/APAP 10/325 [Percocet 10/325 MG] 1 each PO Q8H PRN #14 tablet [Rx] PredniSONE 40 mg PO AD #9 tablet 04/05/17 [Rx] Sennosides/Docusate Sodium [Senna Plus] 2 each PO BID tablet 04/05/17 [Rx] Allergies/Adverse Reactions: Allergies Amoxicillin Allergy (Verified 03/28/17 13:19) Rash Penicillins Allergy (Verified 03/28/17 13:19) Rash - Respiratory Orders Oxygen / L per min (4L NC at rest, may increase to 5-6 L at exertion. Keep SaO2 between 90-92%.), Other (pulmonary toilet. CPAP settings are 22/16 APAP, RAMP 3. CPAP at betime and during naptime) Smoking Cessation: Smoking cessation has been advised. For more information, call the [place] Tobacco Quit Line at 7-419-AIBH-NOW. - Lab Orders Lab Orders: Other (include drug levels w/frequency) (CBC and BMP in 4 days) - Advance Directives Code Status: Full Code - Mobility Orders Ambulate - Rehabiliation Orders Rehab Potential: Fair Rehab Orders: Evaluation for Physical Therapy, Evaluation for Occupational Therapy - Treatments Skin tear care topically daily PRN per policy List/Other: 1. weight loss program. 2. Follow-up in the pulmonology clinic in 1-[address] of the chest in 4-6 weeks to address resolution of consolidation and pleural effusion. - Diet Orders No Added Salt (NHAN), No Concentrated Sweets, Cardiac CERTIFICATION: I certify that the transfer of the above named patient to an Extended Care Facility is necessary for the continuing treatment of the diagnosis listed. The above information is true and accurate reflection of patient's current condition. Confidential - Redisclosure prohibited without a patient's written consent.
== END 2017-04-05 11:32 | DRG 871 ==
LOC: EMEROO 11:26 → 2ANU 11:26 → SUATTDRO 15:00 → 2NNU 19:45
PROVIDERS: ADMIT Hospitalist; ATTEND Internal Medicine

== ENCOUNTER 2017-06-11 22:41 | Inpatient (IN) ==
[2017-06-11] MEDS ORDERED: Ipratropium/Albuterol Neb 3 ML IH ONE (22:52)
[2017-06-11] MEDS ORDERED: methylPREDNISolone 125 MG/2 ML VIAL IVP ONE (22:52)
--- NOTE | 2017-06-11 22:56 | Emergency Department Note ---
Disposition Clinical Impression: Acute exacerbation of chronic obstructive pulmonary disease (COPD) Disposition: Admitted As Inpatient Condition: Good Time of Disposition: 00:47 SOB HPI - General Chief Complaint: ED Shortness of Breath/Dyspnea Stated Complaint: LAVERNE Time Seen by Provider: 06/11/17 22:48 Source: patient Mode of arrival: EMS Limitations: no limitations Nursing Notes Reviewed: Yes Vital Signs Reviewed: Yes - History of Present Illness Patient presents to the ED with the chief complaint of shortness of breath. She denies history of asthma and COPD, requiring BiPAP, but no intubations. Reports that in March 2017. She was admitted for her pneumonia. After medical record review. She did meet sepsis criteria. At that time and also had paroxysmal atrial fibrillation. Reports that she is not on any blood thinners. States her shortness of breath has been gradually increasing over the last week. She started with a mildly productive cough today. No chest pain, diaphoresis, changes in vision, dizziness, syncope, abdominal pain, nausea or vomiting. No pain or swelling in her legs. No history of PE, but does have a history of a DVT 10 years ago associated with her chemotherapy for previous lung cancer. States she has had no treatment in the last 10 years and everything seems to have been in remission. States that she feels like she may have pneumonia again. No recent sick contacts or travel. - Related Data Home Medications Medication Instructions Recorded Confirmed Dextroamphetamine/Amphetamine 30 mg PO BID 06/08/16 03/28/17 [Adderall 30 mg Tablet] Oxycodone HCl/Acetaminophen 1 tab PO Q8H PRN 06/08/16 03/28/17 [Percocet 10-325 mg Tablet] Ropinirole HCl [Requip] 6 mg PO HS 10/19/16 03/28/17 Rosuvastatin Calcium [Crestor] 10 mg PO DAILY 10/19/16 03/28/17 Aspirin [Lo-Dose Aspirin EC] 81 mg PO DAILY 12/18/16 03/28/17 Omeprazole [PriLOSEC] 20 mg PO DAILY 01/19/17 03/28/17 Budesonide/Formoterol 160/4.5 1 puff IH BIDR 03/28/17 03/28/17 [Symbicort 160/4.5] Nortriptyline [Pamelor] 25 mg PO BID 03/28/17 03/28/17 Previous Rx's Medication Instructions Recorded Albuterol Sulfate [Ventolin Hfa] 2 puff IH QID PRN #2 hfa.aer.ad 12/21/16 ALPRAZolam [Xanax 1 MG Tablet] 0.5 mg PO TID PRN #14 04/05/17 Albuterol Neb [Proventil Neb] 2.5 mg IH Q2H PRN #0 inhsol 04/05/17 Budesonide/Formoterol 160/4.5 2 puff IH BIDR inhaler 04/05/17 [Symbicort 160/4.5] Chair, Shower [SHOWER CHAIR] 1 each .ROUTE AD #1 each 04/05/17 Diltiazem CD (24hr) [Cardizem CD] 360 mg PO DAILY cap.er.24h 04/05/17 Furosemide [Lasix] 40 mg PO BID #60 tab 04/05/17 GuaiFENesin/Dextromethorphan 1 each PO BID 4 Days 04/05/17 [Mucinex Dm] Insulin DETEMIR [Levemir] 15 unit SQ BID s2mrdod 04/05/17 Ipratropium/Albuterol Neb [Duoneb] 3 ml IH [id number] inhsol 04/05/17 Lisinopril [Zestril] 10 mg PO DAILY #30 tablet 04/05/17 Nebulizer [Aeroeclipse] 1 each MC AD #1 each 04/05/17 Nystatin Cream [Mycostatin Cream] 1 appl TP TID #1 tube 04/05/17 OxyCODONE/APAP 10/325 [Percocet 1 each PO Q8H PRN #14 tablet 04/05/17 10/325 MG] Sennosides/Docusate Sodium [Senna 2 each PO BID tablet 04/05/17 Plus] predniSONE [PredniSONE] 40 mg PO AD #9 tablet 04/05/17 Allergies Allergy/AdvReac Type Severity Reaction Status Date / Time Amoxicillin Allergy Rash Verified 06/11/17 22:46 Penicillins Allergy Rash Verified 06/11/17 22:46 Constitutional: Denies: fever Eyes: Denies: vision change Cardiovascular: Denies: chest pain Respiratory: Reports: cough, dyspnea, wheezes, sputum production. Denies: hemoptysis Gastrointestinal: Denies: nausea, vomiting Genitourinary: Denies: dysuria Musculoskeletal: Denies: back pain, neck pain Integumentary: Denies: rash Past Medical History - Past Medical History Attestation: Yes The following information was validated with the patient. 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 - Social History Smoking Status: Former smoker Smokeless Tobacco Status: No Alcohol use: Reports: none Drug use: Reports: none Physical Exam - General Limitations: no limitations General appearance: alert, in no apparent distress - Head Head exam: atraumatic, normocephalic, normal inspection - Eye Eye exam: Present: normal appearance, PERRL, EOMI - ENT ENT exam: normal exam, normal oropharynx, mucous membranes moist - Neck Neck exam: Present: normal inspection, full ROM, trachea midline - Chest Chest inspection: Present: normal inspection, symmetric chest wall rise - Respiratory Respiratory exam: Present: respiratory distress (Mild), wheezes (Right lung field throughout), other (Rhonchi left lower lobe). Absent: normal lung sounds bilaterally - Cardiovascular Cardiovascular exam: Present: tachycardia, normal heart sounds - Abdominal Exam Abdominal exam: Present: soft, Non-Tender. Absent: tenderness, distention, guarding, rebound, rigidity - Extremities Exam Extremities exam: Present: normal inspection, full ROM, pedal edema (trace). Absent: tenderness - Neurological Exam Neurological exam: Present: alert, oriented X3 - Psychiatric Psychiatric exam: Present: normal affect, normal mood - Skin Skin exam: Present: warm, dry, intact, normal color Course Course Narrative: 67 y/o F presenting in mild respiration is. Seems to be consistent with COPD exacerbation versus pneumonia. Labs initiated. Likely admission. Nebs, IV fluids, steroids. Does not need BiPAP currently, but will continue to reevaluate - Reevaluation(s) Reevaluation #1: Patient was reevaluated after her breathing treatments and steroids. States she is feeling a little bit better, but still feels a little short of breath. She is saturating 92-93% on her home 2 L of oxygen. Discussed outpatient management versus inpatient and she would feel more comfortable with admission. She is completely out of all of her COPD maintenance medications, as well as she does not have any nebulized treatments at home. She was unable to get in with her family care physician until June 20. We will admit her to the hospitalist service. She was accepted for admission and stable condition Time: 00:45 Vital Signs Temperature 98.1 F 06/11/17 22:42 Pulse Rate 121 06/11/17 22:42 Respiratory Rate 22 06/11/17 22:42 Blood Pressure 196/114 06/11/17 22:42 O2 Sat by Pulse Oximetry 88 06/11/17 22:42 Temperature 98.1 F 06/11/17 22:42 Pulse Rate 104 06/12/17 00:37 Respiratory Rate 18 06/12/17 00:37 Blood Pressure 157/102 06/12/17 00:37 O2 Sat by Pulse Oximetry 91 06/12/17 00:37 Oxygen Delivery Oxygen Delivery Nasal Cannula Shortness of Breath/Dyspnea - Medical Records Medical records reviewed: Yes I reviewed the patient's medical records. - Lab Data Lab results reviewed: Yes I reviewed the patient's lab results. Result diagrams: 06/11/17 22:05 06/11/17 22:05 Lab Results 06/11/17 06/11/17 06/11/17 Range/Units 22:05 22:05 22:05 WBC 7.2 (4.3-11.1) K/mcL RBC 5.75 H (3.82-4.97) M/mcL Hgb 15.4 (11.5-15.4) g/dL Hct 48.8 H (35.3-44.9) % MCV 84.9 (83.0-100.0) fL MCH 26.8 L (28.0-33.3) pg MCHC 31.6 (31.6-35.5) g/dL RDW 14.0 (11.5-14.5) % Plt Count 200 (140-400) K/mcL MPV 10.4 (9.4-12.4) fL Immature Gran % 0.4 (0-4) % Seg Neutrophils % 65.5 % Lymphocytes % 24.2 % Monocytes % 5.3 % Eosinophils % 4.0 % Basophils % 0.6 % Neutrophils # 4.7 (1.6-8.9) K/mcL Lymphocytes # 1.8 (0.6-4.6) K/mcL Monocytes # 0.4 (0.0-1.3) K/mcL Eosinophils # 0.3 (0.0-0.6) K/mcL Basophils # 0.0 (0.0-0.2) K/mcL PT 10.8 (9.4-12.1) Seconds INR 1.0 APTT 28.5 (26.0-36.0) Seconds Sodium 140 (136-145) mEq/L Potassium 4.0 (3.5-4.5) mEq/L Chloride 103 (98-109) mEq/L Carbon Dioxide 26 (19-29) mEq/L BUN 14 (7-20) mg/dL Creatinine 0.75 (0.57-1.11) mg/dL Est GFR ( Amer) > 60 (> 60) Est GFR (Non-Af Amer) > 60 (> 60) BUN/Creatinine Ratio 19 (6-26) Glucose 142 H (70-99) mg/dL Calculated Osmolality 293 (280-300) Lactic Acid (0.5-2.2) mmol/L Calcium 9.8 (8.6-10.8) mg/dL Troponin I (0-0.03) ng/mL B-Natriuretic Peptide (0-100) pg/mL 06/11/17 06/11/17 06/11/17 Range/Units 22:05 22:05 23:10 WBC (4.3-11.1) K/mcL RBC (3.82-4.97) M/mcL Hgb (11.5-15.4) g/dL Hct (35.3-44.9) % MCV (83.0-100.0) fL MCH (28.0-33.3) pg MCHC (31.6-35.5) g/dL RDW (11.5-14.5) % Plt Count (140-400) K/mcL MPV (9.4-12.4) fL Immature Gran % (0-4) % Seg Neutrophils % % Lymphocytes % % Monocytes % % Eosinophils % % Basophils % % Neutrophils # (1.6-8.9) K/mcL Lymphocytes # (0.6-4.6) K/mcL Monocytes # (0.0-1.3) K/mcL Eosinophils # (0.0-0.6) K/mcL Basophils # (0.0-0.2) K/mcL PT (9.4-12.1) Seconds INR APTT (26.0-36.0) Seconds Sodium (136-145) mEq/L Potassium (3.5-4.5) mEq/L Chloride (98-109) mEq/L Carbon Dioxide (19-29) mEq/L BUN (7-20) mg/dL Creatinine (0.57-1.11) mg/dL Est GFR ( Amer) (> 60) Est GFR (Non-Af Amer) (> 60) BUN/Creatinine Ratio (6-26) Glucose (70-99) mg/dL Calculated Osmolality (280-300) Lactic Acid 1.8 (0.5-2.2) mmol/L Calcium (8.6-10.8) mg/dL Troponin I 0.00 (0-0.03) ng/mL B-Natriuretic Peptide < 10 (0-100) pg/mL - Radiology Data Radiology results reviewed: Yes I reviewed the patient's radiology results. - EKG Data EKG attestation: Yes I reviewed and interpreted this EKG. EKG results narrative: Sinus tach, rate 116, OR interval 170, QRS 77, QTC 377, normal axis, no acute ischemic changes Attestation Statement - Attestation Attestation: I personally interviewed and examined this patient and my medical decision- making was reviewed with the ED Resident Physician, Dr. Hankins. I agree with the documented findings, disposition and treatment plan as described except to the extent set forth below. Patient is 67-year-old white female with a history of COPD and remote colon and lung cancer who presents to emergency today with gradually worsening breathing and productive cough over the past 12-24 hours. Patient arrives tachycardic and hypoxic on room air requiring supplemental O2 by nasal cannula. Patient denies any form of chest pain pressure or heaviness, no diaphoresis, no fevers or chills, no nausea or posttussive emesis. Patient was hospitalized last in March of this year with pneumonia that met sepsis criteria. I agree patient's physical exam findings as documented. Patient received breathing treatments and steroids and supplemental oxygen by nasal cannula and is improved but still requiring oxygen to prevent hypoxia. Patient's chest x-ray is unremarkable for any acute abnormality and the remainder of her labs look unremarkable. We will admit the patient for acute exacerbation of COPD and persistent hypoxia on room air. Patient agrees with admission and case was discussed with the hospitalist.
[2017-06-11 23:15] LABS: Basophils % 0.6 %; Eosinophils # 0.3 K/mcL (0.0-0.6); Hematocrit 48.8 % (35.3-44.9); Hemoglobin 15.4 g/dL (11.5-15.4); Immature Granulocytes % 0.4 % (0-4); Lymphocytes # 1.8 K/mcL (0.6-4.6); Lymphocytes % 24.2 %; Mean Corpuscular HGB Conc 31.6 g/dL (31.6-35.5); Mean Corpuscular Hemoglobin 26.8 pg (28.0-33.3); Mean Corpuscular Volume 84.9 fL (83.0-100.0); Mean Platelet Volume 10.4 fL (9.4-12.4); Monocytes # 0.4 K/mcL (0.0-1.3); Monocytes % 5.3 %; Neutrophils # 4.7 K/mcL (1.6-8.9); Platelet Count 200 K/mcL (140-400); Red Blood Count 5.75 M/mcL (3.82-4.97); Segmented Neutrophils % 65.5 %
[2017-06-11 23:26] LABS: BUN/Creatinine Ratio 19 (6-26); Blood Urea Nitrogen 14 mg/dL (7-20); Calcium 9.8 mg/dL (8.6-10.8); Carbon Dioxide 26 mEq/L (19-29); Chloride 103 mEq/L (98-109); Glucose 142 mg/dL (70-99); Osmolality,Calculated 293 (280-300); Sodium 140 mEq/L (136-145); eGFR For African Americans > 60 (> 60); eGFR For Non-African Americans > 60 (> 60)
[2017-06-11 23:30] LABS: Prothrombin Time 10.8 Seconds (9.4-12.1)
[2017-06-11 23:33] LABS: Activated Partial Thrombo Time 28.5 Seconds (26.0-36.0)
[2017-06-12] MEDS: *HR* OxyCODONE/APAP 10/325 TABLET PO PRN ×4 (02:22→21:43)
[2017-06-12] MEDS ORDERED: Acetaminophen 325 MG TABLET PO PRN (04:48)
[2017-06-12] MEDS ORDERED: Naloxone 0.4 MG/ML INJ IVP PRN (04:48)
[2017-06-12] MEDS ORDERED: Albuterol 2.5 MG/3 ML NEBULIZER IH PRN (04:48)
[2017-06-12] MEDS ORDERED: *HR* OxyCODONE/APAP 10/325 TABLET PO PRN (04:54)
[2017-06-12] MEDS ORDERED: D5% in Water 1,000 ML IVC PRN (04:56)
[2017-06-12] MEDS ORDERED: Dextrose Gel 15 GM PO PRN ×2 (04:56)
[2017-06-12] MEDS ORDERED: *HR* Dextrose 50 % in Water (Syg) 50 ML SYRINGE IVP PRN (04:56)
[2017-06-12] MEDS ORDERED: 0.9 % Sodium Chloride w KCl 20 MEQ/1,000 ML MLS IVC ONE (05:00)
[2017-06-12] MEDS ORDERED: Ipratropium/Albuterol Neb 3 ML IH SCH (05:00)
--- NOTE | 2017-06-12 05:02 | Internal Med History&Physical ---
Date of Encounter: 06/12/17 Time of Encounter: 04:57 Assessment and Plan (1) Acute exacerbation of chronic obstructive airways disease Current visit: No Status: Acute 1. Will treat with IV steroids, frequent aerosols, oxygen, and antibiotics. 2. Patient has been smoke free for ~ 12 years. 3. Wean oxygen and steroids as able. 4. Patient will need new nebulizer upon discharge. (2) HTN (hypertension) Current visit: No Status: Chronic 1. Continue home meds as appropriate. 2. Monitor BP and adjust meds as necessary. Qualifiers: Hypertension type: essential hypertension Qualified Code(s): I10 - Essential (primary) hypertension (3) Diabetes mellitus Current visit: No Status: Chronic 1. Continue home Levemir and add SSI. 2. Montior glucose while on steroids and adjust as needed. 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 Heparin SQ. Internal Medicine - H&P: HPI Chief complaint: cough; SOB Admitted From: Emergency Dept Plans for Post Hospital Care: Home History of present illness: Ms. Cabello is a 67 year old female who presents with one-week history of worsening cough, shortness of breath, wheezing, and mild productive cough. Her nebulizer machine quit working recently, and she not been able to use her inhalers and aerosols as normal. She denies any fevers, vomiting, or diarrhea. However, she has had worsening productive cough and some ill contacts with her grandchildren. She was hospitalized 2 months ago with pneumonia but she feels as though this is more of an asthma attack. Workup in the ER revealed x- ray which was much improved from her last x-ray when she had pneumonia. She had just some minimal blunting of the right costophrenic angle. However, her clinical presentation revealed significant respiratory difficulty necessitating admission. Upon my assessment of the patient, patient reiterates the above history. She is audibly wheezing and coughing. She is having some conversational dyspnea. She also is requiring some oxygen which she seldom ever uses at home. Past Med Surg Social Fam HX - Past Medical History Attestation: Yes The following information was validated with the patient. Source: patient, old records reviewed Medical history: asthma, cancer (lung, colon), COPD, hyperlipidemia, hypertension, other Psychiatric history: depression - Past Surgical History Surgical History: cancer surgery, hysterectomy, other (neurosurgery) - Social History Smoking Status: Former smoker Packs per day: 1.5 Smokeless Tobacco Status: No Alcohol use: none Drug use: none Occupational status: retired Current living situation: Home Activity Level: Independent ambulation Recent Out of Country Travel Within the Last 8 Weeks: No - Family History Father Living Status: Hx Family Cardiac Disorders: Yes Hx Family Respiratory Disorders: Yes Mother Adopted: No Living Status: Hx Family Cardiac Disorders: Yes Internal Medicine - H&P: Meds Dextroamphetamine/Amphetamine [Adderall 30 mg Tablet] 30 mg PO BID 06/08/16 [ History] Oxycodone HCl/Acetaminophen [Percocet 10-325 mg Tablet] 1 tab PO Q4-6H PRN 06/08 [History] Ropinirole HCl [Requip] 6 mg PO HS 10/19/16 [History] Rosuvastatin Calcium [Crestor] 10 mg PO DAILY 10/19/16 [History] Aspirin [Lo-Dose Aspirin EC] 81 mg PO DAILY 12/18/16 [History] Albuterol Sulfate [Ventolin Hfa] 2 puff IH QID PRN #2 hfa.aer.ad 12/21/16 [Rx] Omeprazole [PriLOSEC] 20 mg PO DAILY 01/19/17 [History] Albuterol Neb [Proventil Neb] 2.5 mg IH Q2H PRN #0 inhsol 04/05/17 [Rx] Budesonide/Formoterol 160/4.5 [Symbicort 160/4.5] 2 puff IH BIDR inhaler [Rx] Diltiazem CD (24hr) [Cardizem CD] 360 mg PO DAILY cap.er.24h 04/05/17 [Rx] GuaiFENesin/Dextromethorphan [Mucinex Dm] 1 each PO BID 4 Days 04/05/17 [Rx] Insulin DETEMIR [Levemir] 15 unit SQ BID [id number] 04/05/17 [Rx] Ipratropium/Albuterol Neb [Duoneb] 3 ml IH [id number] inhsol 04/05/17 [Rx] Lisinopril [Zestril] 10 mg PO DAILY #30 tablet 04/05/17 [Rx] Nebulizer [Aeroeclipse] 1 each AD #1 each 04/05/17 [Rx] ALPRAZolam [Xanax 1 MG Tablet] 1 mg PO TID PRN 06/12/17 [History] Furosemide [Lasix] 40 mg PO BID PRN 06/12/17 [History] Allergies Amoxicillin Allergy (Verified 06/11/17 22:46) Rash Penicillins Allergy (Verified 06/11/17 22:46) Rash - Constitutional Constitutional: malaise, no chills, no fever(s), no night sweats - EENT Eyes: no blurry vision, no change in vision Ears: no ear pain, no tinnitus Nose, mouth and throat: nasal congestion, sore throat, no sinus pressure - Cardiovascular Cardiovascular ROS IM: no chest pain, no diaphoresis, no lightheadedness, no palpitations, no syncope - Respiratory Respiratory: cough, dyspnea, wheezing, chest congestion, excessive phlegm production, change in phlegm color, no hemoptysis - Gastrointestinal Gastrointestinal: no abdominal pain, no diarrhea, no hematemesis, no hematochezia, no melena, no nausea, no vomiting - Genitourinary Genitourinary: no dysuria, no flank pain, no hematuria - Musculoskeletal Musculoskeletal ROS IM: no arthralgias, no back pain - Integumentary Integumentary IM: no rash, no jaundice - Neurological Neurological ROS: no focal weakness, no frequent falls, no headache(s) - Psychiatric Psychiatric: anxiety, no depression - Endocrine Endocrine IM: no polydipsia, no polyuria - Hematologic/Lymphatic Hematologic/Lymphatic: no easy bruising - Allergic/Immunologic Allergic/Immunologic: wheezing, no GI upset with certain foods - Constitutional Vitals: Temp Pulse Resp BP Pulse Ox 98 F 111 19 170/105 92 06/12/17 03:38 06/12/17 03:38 06/12/17 03:38 06/12/17 03:38 06/12/17 03:38 General appearance: Present: cooperative, mild distress, A&O X 3, pleasant - Head Head exam: Present: atraumatic, normal inspection - Eye Eye exam: Present: EOMI, normal appearance, PERRL. Absent: scleral icterus Pupils: Present: normal accommodation - ENT ENT exam: Present: mucous membranes moist, normal exam - Neck Neck exam general surgery: Present: full ROM, supple. Absent: lymphadenopathy, tenderness - Respiratory Respiratory exam: Present: accessory muscle use, prolonged expiratory phase, respiratory distress, wheezes, tachypnea. Absent: chest wall tenderness, CTAB, rales, rhonchi - Cardiovascular Cardiovascular exam: Present: distant heart sounds, RRR, +S1, +S2, tachycardia. Absent: diastolic murmur, JVD, systolic murmur - GI/Abdominal GI/Abdominal exam: Present: normal bowel sounds, soft. Absent: hepatomegaly, mass, splenomegaly, tenderness - Extremities Exam Extremities exam: Present: full ROM, warm. Absent: calf tenderness, joint swelling, pedal edema - Back Exam Back exam: Present: normal inspection. Absent: CVA tenderness (L), CVA tenderness (R) - Neurological Exam Neurological exam: Present: alert, oriented X3, no focal deficits - Psychiatric Psychiatric exam: Present: normal affect, normal mood - Skin Skin exam: Present: dry, warm. Absent: rash Internal Med - H&P Results - Labs CBC & Chem 7: 06/11/17 22:05 06/11/17 22:05 - EKG Data -: EKG Interpreted by Myself Rate: tachycardia - EKG Data EKG comments: 06/12/17 05:07 Sinus tachycardia; no acute ST-T changes - Diagnostic Studies Chest x-ray Status: image reviewed by me (small blunting of right costophrenic angle; no infiltrate; much improved from last CXR)
[2017-06-12] MEDS: *HR* Heparin 5,000 UNIT/ML VIAL SQ SCH ×2 (05:32→17:46)
[2017-06-12] MEDS: Insulin LISPRO 300 UNITS/3 ML VIAL SQ SCH ×3 (08:48→17:46)
[2017-06-12] MEDS: Aspirin Enteric Coated 81 MG Tablet PO SCH (08:52)
[2017-06-12] MEDS: Insulin DETEMIR 100 UNIT/ML X5UNITS SQ SCH ×2 (08:52→21:44)
[2017-06-12] MEDS: levoFLOXacin 500 MG TABLET PO SCH (08:52)
[2017-06-12] MEDS: Diltiazem CD (24hr) 180 MG CAPSULE PO SCH (08:52)
[2017-06-12] MEDS: GuaiFENesin/Dextromethorphan TABLET PO SCH ×2 (08:52→21:43)
[2017-06-12] MEDS: methylPREDNISolone 125 MG/2 ML VIAL IVP SCH ×3 (08:52→23:59)
--- NOTE | 2017-06-12 09:13 | Event Note ---
Date of Encounter: 06/12/17 Time of Encounter: 07:45 Patient seen and examined. On examination, patient sitting upright in bed. Patient stating she is starting to feel slightly better but states she is not back to her baseline. She states her nebulizer machine broke at home. She states that at home, she is on 2-3 L as needed but she states that prior to coming in, she had bumped herself up to 4 L. She is currently tolerating 3 L. On examination, patient with mild to moderate respiratory distress with tight, diffuse expiratory wheezing present. Chest x-ray unremarkable. We will continue to treat for COPD exacerbation. She may have an asthmatic component as well, she has seasonal allergies and states she has been wheezing more this week. Mild hypertension and tachycardia noted, will trend. No leukocytosis. No lactic acidosis. Initially held her furosemide and initially were giving her gentle IV fluids. She is eating and drinking well, will stop IVF at this time. She appears euvolemic on examination. Increased duonebs to be every 4 hours. ITS Impressions Chest X-Ray 06/11/17 22:52 IMPRESSION: Blunting of the right costophrenic angle which may represent chronic pleural effusion or pleural thickening. D/ / Bee Chan MD / Bee Chan MD Interpreting Provider: Bee Chan MD
[2017-06-12] MEDS: Budesonide/Formoterol 160/4.5 MDI IH SCH ×2 (11:15→20:15)
[2017-06-12] MEDS: Ipratropium/Albuterol Neb 3 ML IH SCH ×4 (11:15→23:59)
[2017-06-12] MEDS: ALPRAZolam 1 MG TABLET PO PRN (21:43)
[2017-06-13 03:53] LABS: Basophils % 0.1 %; Hematocrit 45.2 % (35.3-44.9); Hemoglobin 14.1 g/dL (11.5-15.4); Immature Granulocytes % 0.7 % (0-4); Lymphocytes # 0.6 K/mcL (0.6-4.6); Lymphocytes % 4.4 %; Mean Corpuscular HGB Conc 31.2 g/dL (31.6-35.5); Mean Corpuscular Hemoglobin 27.4 pg (28.0-33.3); Mean Corpuscular Volume 87.8 fL (83.0-100.0); Mean Platelet Volume 10.8 fL (9.4-12.4); Monocytes # 0.2 K/mcL (0.0-1.3); Monocytes % 1.4 %; Neutrophils # 12.2 K/mcL (1.6-8.9); Platelet Count 193 K/mcL (140-400); Red Blood Count 5.15 M/mcL (3.82-4.97); Red Cell Distribution Width 14.7 % (11.5-14.5); Segmented Neutrophils % 93.4 %
[2017-06-13] MEDS: Ipratropium/Albuterol Neb 3 ML IH SCH ×6 (03:54→22:52)
[2017-06-13 04:13] LABS: Alanine Aminotransferase 14 Units/L (0-55); Albumin 3.7 g/dL (3.5-5.0); Albumin/Globulin Ratio 1.2 (1.1-2.2); Alkaline Phosphatase 80 Units/L (38-126); Aspartate Amino Transferase 6 Units/L (5-34); BUN/Creatinine Ratio 29 (6-26); Bilirubin,Total 0.5 mg/dL (0.2-1.2); Blood Urea Nitrogen 30 mg/dL (7-20); Calcium 9.9 mg/dL (8.6-10.8); Carbon Dioxide 25 mEq/L (19-29); Chloride 104 mEq/L (98-109); Globulin 3.1 g/dL (2.4-3.5); Glucose 267 mg/dL (70-99); Magnesium 1.9 mg/dL (1.6-2.6); Osmolality,Calculated 300 (280-300); Potassium 4.7 mEq/L (3.5-4.5); Sodium 137 mEq/L (136-145); Total Protein 6.8 g/dL (6.0-8.3); eGFR For African Americans > 60 (> 60); eGFR For Non-African Americans 54 (> 60)
--- NOTE | 2017-06-13 06:18 | Electrocardiograph Report ---
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
[2017-06-13] MEDS: *HR* OxyCODONE/APAP 10/325 TABLET PO PRN ×2 (06:29→21:32)
[2017-06-13] MEDS: *HR* Heparin 5,000 UNIT/ML VIAL SQ SCH ×2 (06:29→17:52)
[2017-06-13] MEDS: Budesonide/Formoterol 160/4.5 MDI IH SCH ×2 (07:47→19:47)
[2017-06-13] MEDS: Diltiazem CD (24hr) 180 MG CAPSULE PO SCH (08:07)
[2017-06-13] MEDS: methylPREDNISolone 125 MG/2 ML VIAL IVP SCH ×2 (08:07→17:53)
[2017-06-13] MEDS: levoFLOXacin 500 MG TABLET PO SCH (08:07)
[2017-06-13] MEDS: Aspirin Enteric Coated 81 MG Tablet PO SCH (08:07)
[2017-06-13] MEDS: Insulin LISPRO 300 UNITS/3 ML VIAL SQ SCH ×4 (08:07→21:13)
[2017-06-13] MEDS: GuaiFENesin/Dextromethorphan TABLET PO SCH ×2 (08:07→21:12)
[2017-06-13] MEDS: Insulin DETEMIR 100 UNIT/ML X5UNITS SQ SCH ×2 (08:08→21:13)
--- NOTE | 2017-06-13 17:38 | Internal Med Progress Note ---
Date of Encounter: 06/13/17 Time of Encounter: 09:15 - Assessment and plan (1) Acute exacerbation of chronic obstructive airways disease Current Visit: No Status: Acute Assessment and plan: Patient reports one-week history of worsening cough shortness of breath, wheezing, and increased cough. She shares her nebulizer machine with her that quit working recently she said that she has had increased need for inhalers and aerosols, however has not been able to use them. Patient's lungs are diminished with expiratory wheezing and posterior heel. Patient has requested a hospital bed stating that she used to have one in the past. She says that due to her inability to lie down and need to sit up in Fowlers position to sleep she requires a hospital bed. Written prescription for the hospital bed, as well as the nebulizer machine and do an abscess before her discharge. Continue IV steroids, nebulizer treatments, oxygen, and antibiotics. Transition to by mouth when patient is ready to go home. (2) HTN (hypertension) Current Visit: Yes Status: Chronic Assessment and plan: Chronic. Continue home medications. Qualifiers: Hypertension type: essential hypertension Qualified Code(s): I10 - Essential (primary) hypertension (3) Diabetes mellitus Current Visit: Yes Status: Chronic Assessment and plan: Chronic. Continue home medications. A1c was 6.2 in Mar, 2017. Continue sliding scale insulin, Accu-Cheks before meals at bedtime, diabetic diet. 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 - Time Spent With Patient less than 15 minutes - Subjective Interval history: Patient was seen and assessed that about 6:15 AM. She is resting quietly in her bed and denies chest pain or complaints. Lung sounds are diminished with expiratory wheezing. Patient states that she is not ready to go home yet. She said that she would like to speak to neonatal social worker about getting a hospital bed due to her inability to lie flat. She also states that her nebulizer is broken and would like to have another one. I have written scripts for both of these and neonatal social worker has been. Have also written for DuoNeb nebs every 6 hours as needed for wheezing. Patient is a nonsmoker, she has had her pneumonia vaccine. She is able to speak in long phrases. We will re-evaluate tomorrow for potential discharge. - Constitutional Vitals: Temp Pulse Resp BP Pulse Ox 97.4 F L 102 16 146/82 96 06/13/17 15:49 06/13/17 15:49 06/13/17 16:29 06/13/17 15:49 06/13/17 16:29 General appearance: Present: cooperative, mild distress, A&O X 3, pleasant, answers questions appropriately - Head Head exam: Present: normal inspection - Eye Eye exam: Present: normal appearance, conjuntiva pink - ENT ENT exam: Present: normal exam. Absent: mucous membranes moist, normal external ear exam - Neck Neck exam general surgery: Present: normal inspection. Absent: lymphadenopathy , tenderness - Respiratory Respiratory exam: Present: decreased breath sounds, wheezes. Absent: chest wall tenderness, CTAB, prolonged expiratory phase, rales, respiratory distress, rhonchi, stridor, tachypnea - Cardiovascular Cardiovascular exam: Present: RRR, +S1, +S2. Absent: diastolic murmur, systolic murmur - GI/Abdominal GI/Abdominal exam: Present: distended, normal bowel sounds, soft. Absent: hepatomegaly, tenderness - Extremities Exam Extremities exam: Present: normal capillary refill, warm, radial pulses palpable and symetrical. Absent: pedal edema, tenderness - Neurological Exam Neurological exam: Present: alert, oriented X3, no focal deficits, strengths equal and symetr throughout. Absent: facial droop, speech deficit - Skin Skin exam: Present: dry, intact, normal color, warm Internal Medicine: Result - Labs CBC & Chem 7: 06/13/17 03:13 06/13/17 03:13 Labs: Short CBC 06/13/17 Range/Units 03:13 WBC 13.1 H D (4.3-11.1) K/mcL Hgb 14.1 (11.5-15.4) g/dL Hct 45.2 H (35.3-44.9) % Plt Count 193 (140-400) K/mcL Neutrophils # 12.2 H (1.6-8.9) K/mcL BMP 06/13/17 03:13 Sodium 137 Potassium 4.7 H Chloride 104 Carbon Dioxide 25 BUN 30 H D Creatinine 1.03 Glucose 267 H Calcium 9.9 Liver Function 06/13/17 Range/Units 03:13 Total Bilirubin 0.5 (0.2-1.2) mg/dL AST 6 (5-34) Units/L ALT 14 (0-55) Units/L Alkaline Phosphatase 80 (38-126) Units/L Albumin 3.7 (3.5-5.0) g/dL - ABG Interpretation ABG results: PT/INR, D-dimer PT 10.8 Seconds (9.4-12.1) 06/11/17 22:05 Consult Discharge Plan - Plan Referrals: Janice Hoff MD [Primary Care Provider] -
[2017-06-13] MEDS: ALPRAZolam 1 MG TABLET PO PRN (21:32)
[2017-06-14] MEDS: methylPREDNISolone 125 MG/2 ML VIAL IVP SCH ×3 (01:49→17:41)
[2017-06-14] MEDS: Ipratropium/Albuterol Neb 3 ML IH SCH ×5 (03:59→20:43)
[2017-06-14] MEDS: *HR* Heparin 5,000 UNIT/ML VIAL SQ SCH ×2 (07:00→17:41)
[2017-06-14] MEDS: Budesonide/Formoterol 160/4.5 MDI IH SCH ×2 (07:52→20:43)
[2017-06-14] MEDS: Insulin LISPRO 300 UNITS/3 ML VIAL SQ SCH ×4 (08:03→21:16)
[2017-06-14] MEDS: GuaiFENesin/Dextromethorphan TABLET PO SCH ×2 (09:23→21:17)
[2017-06-14] MEDS: Aspirin Enteric Coated 81 MG Tablet PO SCH (09:24)
[2017-06-14] MEDS: levoFLOXacin 500 MG TABLET PO SCH (09:24)
[2017-06-14] MEDS: Diltiazem CD (24hr) 180 MG CAPSULE PO SCH (09:24)
[2017-06-14] MEDS: Insulin DETEMIR 100 UNIT/ML X5UNITS SQ SCH ×2 (09:29→21:17)
--- NOTE | 2017-06-14 12:24 | Discharge Summary ---
Date of Encounter: 06/14/17 Time of Encounter: 09:10 - Discharge Diagnosis (1) Acute exacerbation of chronic obstructive airways disease Priority: Primary Status: Acute Comments: Patient states that she feels significantly better today. States if she feels as if she is ready to go home. She reports a productive cough with clear sputum. Lungs remained clear, diminished, with better air movement today. She is a nonsmoker. She is up-to-date on her pneumonia vaccine, she needs second booster shot later this year. She will be sent home with her steroids, continue her Levaquin. I written a prescription for nebulizer as well as duo neb solution. She tells primary nurse she also needs prescriptions first for Spiriva and pro-air, which I will provide. Patient is also going to receive a hospital bed if approved by insurance, due to her inability to lie flat and sleep. (2) HTN (hypertension) Priority: Secondary Status: Chronic Comments: Well controlled. Continue home medications. Qualifiers: Hypertension type: essential hypertension Qualified Code(s): I10 - Essential (primary) hypertension (3) Diabetes mellitus Priority: Secondary Status: Chronic Comments: Well controlled. A1c was 6.2 in Mar, 2017. Continue home medications and Accu- Cheks, diabetic diet at home. Qualifiers: Diabetes mellitus type: type 2 Diabetes mellitus complication status: without complication Diabetes mellitus intermediate insulin use: with intermediate use Qualified Code(s): E11.9 - Type 2 diabetes mellitus without complications ; Z79.4 - senior care (current) use of insulin (4) DVT prophylaxis Priority: Secondary Status: Acute Comments: Heparin subcutaneous daily. - Discharge Medications Prescriptions: Albuterol Sulfate [Proair Hfa] 2 puff IH Q4H PRN #1 inh PRN Reason: Wheezing GuaiFENesin/Dextromethorphan [Mucinex Dm] 1 each PO BID PRN #60 tab PRN Reason: Cough levoFLOXacin [Levaquin] 500 mg PO DAILY #8 tab Tiotropium [Spiriva] 18 mcg IH DAILY #30 capsule Home Medications: Dextroamphetamine/Amphetamine [Adderall 30 mg Tablet] 30 mg PO BID 06/08/16 [ History] Oxycodone HCl/Acetaminophen [Percocet 10-325 mg Tablet] 1 tab PO Q4-6H PRN 06/08 [History] Ropinirole HCl [Requip] 6 mg PO HS 10/19/16 [History] Rosuvastatin Calcium [Crestor] 10 mg PO DAILY 10/19/16 [History] Aspirin [Lo-Dose Aspirin EC] 81 mg PO DAILY 12/18/16 [History] Albuterol Sulfate [Ventolin Hfa] 2 puff IH QID PRN #2 hfa.aer.ad 12/21/16 [Rx] Omeprazole [PriLOSEC] 20 mg PO DAILY 01/19/17 [History] Albuterol Neb [Proventil Neb] 2.5 mg IH Q2H PRN #0 inhsol 04/05/17 [Rx] Budesonide/Formoterol 160/4.5 [Symbicort 160/4.5] 2 puff IH BIDR inhaler [Rx] Diltiazem CD (24hr) [Cardizem CD] 360 mg PO DAILY cap.er.24h 04/05/17 [Rx] Insulin DETEMIR [Levemir] 15 unit SQ BID [id number] 04/05/17 [Rx] Ipratropium/Albuterol Neb [Duoneb] 3 ml IH [id number] inhsol 04/05/17 [Rx] Lisinopril [Zestril] 10 mg PO DAILY #30 tablet 04/05/17 [Rx] ALPRAZolam [Xanax 1 MG Tablet] 1 mg PO TID PRN 06/12/17 [History] Furosemide [Lasix] 40 mg PO BID PRN 06/12/17 [History] Albuterol Sulfate [Proair Hfa] 2 puff IH Q4H PRN #1 inh 06/14/17 [Rx] GuaiFENesin/Dextromethorphan [Mucinex Dm] 1 each PO BID PRN #60 tab 06/14/17 [Rx ] Tiotropium [Spiriva] 18 mcg IH DAILY #30 capsule 06/14/17 [Rx] levoFLOXacin [Levaquin] 500 mg PO DAILY #8 tab 06/14/17 [Rx] Allergies/Adverse Reactions: Allergies Amoxicillin Allergy (Verified 06/11/17 22:46) Rash Penicillins Allergy (Verified 06/11/17 22:46) Rash Date of admission: 06/12/17 15:34 Primary care physician: Janice Hoff Discharging clinician: Lorraine Bee Anticipated date of discharge: 06/14/17 - Patient Status Disposition: Home, Self-Care Functional capacity at discharge: independent ambulation Overall status at discharge: patient is progressing back to baseline - Discharge Instructions Follow Up With: Janice Hoff MD [Primary Care Provider] - Additional Instructions: Take your medications as written. Resume your normal home medications. Follow-up with her primary care provider in the next 7-10 days for reevaluation. Return to the emergency department as needed for any other problems or concerns or if your symptoms return or worsen. Make sure you drink plenty of fluids and stay inside during the heat of the day. Wear your oxygen as needed. - Diet and Activity Activity: increase activity as tolerated, resume usual activities as tolerated, wear oxygen at all times Diet: advance to your usual diet Hospital course: Ms. Cabello is a 67 year old female with past medical history of diabetes, hypertension, and COPD who presented to the emergency department on June 12 with complaint of worsening cough and shortness of breath, increased wheezing. She and her share a nebulizer machine and has quit working recently and she has not been able to use it. She reports increased need for inhalers and aerosols her last few days. Patient's lungs remain diminished but clear today, patient initially had expiratory wheezing in posterior chung. She has been treated with Levaquin, steroids, nebulizers and will continue these at home. Patient has requested a hospital bed, stating that she had one when she lived in [place] and that she needs it again due to her inability to lie in a supine position and not become short of breath and dyspneic. I have provided her with prescriptions for the hospital bed, as well as the nebulizer machine and DuoNeb treatments. She also needed her Spiriva and pro-air inhalers, which I have refilled. She will also be sent home with Mucinex for her cough. Patient states that she feels significantly better and is ready to go home. Chest x-ray on admission showed blunting of the right costophrenic angle which may represent chronic pleural effusion or pleural thickening, no acute processes. Her labs have remained within normal limits, with the exception of leukocytosis at 13.1 yesterday, patient is receiving high-dose steroids. Accu- Cheks and serum glucose have remained elevated, also most likely due to steroid use. BNP was negative on arrival. Patient is requiring 4 L of oxygen to maintain her sats above 92%. Patient states she normally wears 3-1/2 L of oxygen at home. Patient is a nonsmoker, she has had her pneumonia vaccine, needs second part of it later in this year. She reports that she gets flu vaccines when it is time for them. Patient is stable and ready for discharge. - Time Spent with Patient Total time spent providing and/or coordinating discharge services: Less than 30 minutes - Constitutional Vitals: Temp Pulse Resp BP Pulse Ox 97.9 F 99 16 142/82 93 06/14/17 11:04 06/14/17 11:04 06/14/17 11:04 06/14/17 11:04 06/14/17 12:06 General appearance: Present: cooperative, mild distress, A&O X 3, pleasant, answers questions appropriately - Head Head exam: Present: normal inspection - Eye Eye exam: Present: normal appearance, conjuntiva pink - ENT ENT exam: Present: mucous membranes moist, normal exam, normal external ear exam - Neck Neck exam general surgery: Present: normal inspection. Absent: lymphadenopathy , tenderness - Respiratory Respiratory exam: Present: decreased breath sounds, CTAB. Absent: chest wall tenderness, rales, respiratory distress, rhonchi, stridor, wheezes - Cardiovascular Cardiovascular exam: Present: RRR, +S1, +S2. Absent: diastolic murmur, systolic murmur - Extremities Exam Extremities exam: Present: normal capillary refill, normal inspection, warm, radial pulses palpable and symetrical. Absent: pedal edema, tenderness - Neurological Exam Neurological exam: Present: alert, oriented X3. Absent: facial droop, speech deficit - Skin Skin exam: Present: dry, intact, normal color, warm
[2017-06-14] MEDS: ALPRAZolam 1 MG TABLET PO PRN (21:17)
[2017-06-14] MEDS: *HR* OxyCODONE/APAP 10/325 TABLET PO PRN (21:18)
[2017-06-15] MEDS: Ipratropium/Albuterol Neb 3 ML IH SCH ×5 (00:02→15:48)
[2017-06-15] MEDS: methylPREDNISolone 125 MG/2 ML VIAL IVP SCH ×2 (01:11→07:49)
[2017-06-15] MEDS: *HR* Heparin 5,000 UNIT/ML VIAL SQ SCH (06:36)
[2017-06-15] MEDS: Budesonide/Formoterol 160/4.5 MDI IH SCH (07:46)
[2017-06-15] MEDS: Insulin LISPRO 300 UNITS/3 ML VIAL SQ SCH ×2 (07:49→13:30)
[2017-06-15] MEDS: Diltiazem CD (24hr) 180 MG CAPSULE PO SCH (07:50)
[2017-06-15] MEDS: levoFLOXacin 500 MG TABLET PO SCH (07:50)
[2017-06-15] MEDS: GuaiFENesin/Dextromethorphan TABLET PO SCH (07:50)
[2017-06-15] MEDS: Aspirin Enteric Coated 81 MG Tablet PO SCH (07:50)
[2017-06-15] MEDS: Insulin DETEMIR 100 UNIT/ML X5UNITS SQ SCH (08:21)
[2017-06-15 09:16] LABS: Basophils % 0.1 %; Hematocrit 46.9 % (35.3-44.9); Hemoglobin 14.5 g/dL (11.5-15.4); Immature Granulocytes % 1.7 % (0-4); Lymphocytes # 0.5 K/mcL (0.6-4.6); Lymphocytes % 3.3 %; Mean Corpuscular HGB Conc 30.9 g/dL (31.6-35.5); Mean Corpuscular Hemoglobin 27.4 pg (28.0-33.3); Mean Corpuscular Volume 88.5 fL (83.0-100.0); Mean Platelet Volume 11.1 fL (9.4-12.4); Monocytes # 0.2 K/mcL (0.0-1.3); Monocytes % 1.5 %; Neutrophils # 12.9 K/mcL (1.6-8.9); Platelet Count 194 K/mcL (140-400); Segmented Neutrophils % 93.4 %
[2017-06-15 11:45] VITALS: BP 131/81
--- NOTE | 2017-06-15 14:21 | Internal Med Progress Note ---
Date of Encounter: 06/15/17 Time of Encounter: 10:40 - Assessment and plan (1) Acute exacerbation of chronic obstructive airways disease Current Visit: No Status: Acute Assessment and plan: Patient reports one-week history of worsening cough shortness of breath, wheezing, and increased cough. She shares her nebulizer machine with her that quit working recently she said that she has had increased need for inhalers and aerosols, however has not been able to use them. Patient's lungs are diminished with expiratory wheezing and posterior heel. Patient has requested a hospital bed stating that she used to have one in the past. She says that due to her inability to lie down and need to sit up in Fowlers position to sleep she requires a hospital bed. Written prescription for the hospital bed, as well as the nebulizer machine and do an abscess before her discharge. Continue steroids, nebulizer treatments, oxygen, and antibiotics. (2) HTN (hypertension) Current Visit: Yes Status: Chronic Assessment and plan: Chronic. Continue home medications. Qualifiers: Hypertension type: essential hypertension Qualified Code(s): I10 - Essential (primary) hypertension (3) Diabetes mellitus Current Visit: Yes Status: Chronic Assessment and plan: Chronic. Continue home medications and Accu-Cheks schedule A1c was 6.2 in Mar, 2017. Qualifiers: Diabetes mellitus type: type 2 Diabetes mellitus complication status: without complication Diabetes mellitus ocean transportation intermediary insulin use: with ocean transportation intermediary use Qualified Code(s): E11.9 - Type 2 diabetes mellitus without complications ; Z79.4 - residential (current) use of insulin (4) DVT prophylaxis Current Visit: Yes Status: Acute Assessment and plan: Subcutaneous heparin daily. - Time Spent With Patient less than 15 minutes - Subjective Interval history: She was seen and assessed at 8:45 AM. She significantly better than she was yesterday. She is down to 2-1/2 L and satting greater than 92%. She appears to be less short of breath, she has better air movement posterior lung chung with wheezing that remains. Patient states that she wants to go home. soaker soda worker still working on hospital bed, nebulizer and DuoNeb nebs are secured. Prescriptions have been written. Patient will need a prescription for steroid taper. She also states that she used to follow staff design engineer here at the hospital but he left. We have reestablish her pulmonology office, she has an appointment tomorrow at 1045. I also have written her prescription for the increased need for oxygen at 2.5 L. Patient did not discharge yesterday due to qualifying for oxygen at 4 L. - Constitutional Vitals: Temp Pulse Resp BP Pulse Ox 97.8 F 110 14 131/81 90 06/15/17 11:43 06/15/17 11:43 06/15/17 11:43 06/15/17 11:43 06/15/17 11:43 General appearance: Present: cooperative, mild distress, A&O X 3, pleasant, answers questions appropriately - Head Head exam: Present: normal inspection - Eye Eye exam: Present: EOMI, normal appearance, conjuntiva pink - ENT ENT exam: Present: mucous membranes moist, normal exam, normal external ear exam - Neck Neck exam general surgery: Present: normal inspection. Absent: lymphadenopathy , tenderness - Respiratory Respiratory exam: Present: decreased breath sounds, wheezes. Absent: chest wall tenderness, CTAB, prolonged expiratory phase, rales, respiratory distress, rhonchi, stridor - Cardiovascular Cardiovascular exam: Present: RRR, +S1, +S2. Absent: diastolic murmur, systolic murmur - GI/Abdominal GI/Abdominal exam: Present: distended, normal bowel sounds, soft. Absent: hepatomegaly, tenderness - Extremities Exam Extremities exam: Present: normal capillary refill, warm, radial pulses palpable and symetrical. Absent: pedal edema, tenderness - Neurological Exam Neurological exam: Present: alert, oriented X3, no focal deficits. Absent: facial droop, speech deficit Internal Medicine: Result - Labs CBC & Chem 7: 06/15/17 08:57 06/13/17 03:13 Labs: Short CBC 06/15/17 Range/Units 08:57 WBC 13.8 H (4.3-11.1) K/mcL Hgb 14.5 (11.5-15.4) g/dL Hct 46.9 H (35.3-44.9) % Plt Count 194 (140-400) K/mcL Neutrophils # 12.9 H (1.6-8.9) K/mcL - ABG Interpretation ABG results: PT/INR, D-dimer PT 10.8 Seconds (9.4-12.1) 06/11/17 22:05 Consult Discharge Plan - Plan Additional Instructions: Take your medications as written. Resume your normal home medications. Follow-up with her primary care provider in the next 7-10 days for reevaluation. Return to the emergency department as needed for any other problems or concerns or if your symptoms return or worsen. Make sure you drink plenty of fluids and stay inside during the heat of the day. Wear your oxygen as needed. Referrals: Albert Ac MD [Partnered Physician] - 06/16/17 10:45 am (patient call office to confirm oppointment.) Janice Hoff MD [Primary Care Provider] - 06/21/17 1:45 pm Prescriptions: Albuterol Sulfate [Proair Hfa] 2 puff IH Q4H PRN #1 inh PRN Reason: Wheezing GuaiFENesin/Dextromethorphan [Mucinex Dm] 1 each PO BID PRN #60 tab PRN Reason: Cough levoFLOXacin [Levaquin] 500 mg PO DAILY #8 tab Tiotropium [Spiriva] 18 mcg IH DAILY #30 capsule
[2017-06-15] MEDS: *HR* OxyCODONE/APAP 10/325 TABLET PO PRN (14:43)
== END 2017-06-15 16:20 | disposition home or self-care (01) | DRG 191 ==
LOC: EMEROO 22:41 → 3BNU 22:41
PROVIDERS: ADMIT Internal Medicine; ATTEND Nurse Practitioner Family

== ENCOUNTER 2017-09-16 19:48 | Observation (INO) ==
[2017-09-16] MEDS ORDERED: Ipratropium/Albuterol Neb 3 ML IH ONE (19:49)
[2017-09-16] MEDS ORDERED: predniSONE 20 MG TABLET PO ONE (19:49)
--- NOTE | 2017-09-16 20:13 | Emergency Department Note ---
Disposition Clinical Impression: Acute exacerbation of chronic obstructive pulmonary disease (COPD) Disposition: Admitted As Inpatient Condition: Fair Time of Disposition: 21:25 SOB HPI - General Chief Complaint: ED Shortness of Breath/Dyspnea Stated Complaint: LAVERNE x 2 weeks Time Seen by Provider: 09/16/17 19:49 Source: patient, EMS Mode of arrival: EMS Limitations: no limitations Nursing Notes Reviewed: Yes Vital Signs Reviewed: Yes - History of Present Illness 67-year-old female with history of COPD arrives to [facility] emergency department complaining of difficulty breathing 3 days. The patient states that over the course in the past 3 days she has used her oxygen from a when necessary to now up to 4 L nasal cannula. The patient states she has had a productive cough that began roughly 2 weeks ago and has actually gotten much better over the course the past 3 days. The patient denies any previous history of DVT, unilateral leg swelling, hemoptysis, recent surgeries, recent immobilizations, chest pain. The patient admits to previous COPD exacerbations in the past and states this feels similar to that. The patient denies any other complaints at this time and upon arrival to the emergency department was tachypneic and tripoding with accessory muscle use. The patient' s O2 saturation was 88% upon arrival from EMS. The patient still able to speak in 3-4 word sentences. Pt Subjective Complaint: shortness of breath, cough Onset (ago): day(s) (2) Severity: moderate, severe Consistency/Duration: constant, gradually worsening Improves with: oxygen, bronchodilators Worsens with: exertion, movement, coughing Known history of: COPD, recurrent pneumonia Associated symptoms: Reports: cough, wheezing, sputum production Treatment prior to arrival: oxygen, bronchodilator Cough present: Yes Cough Description: Involuntary, Productive Cough Frequency: Persistent Sputum production: Yes Sputum Amount: Small Sputum Color: White, Cream - Related Data Home oxygen amount: 2 liters (When necessary) Home Medications Medication Instructions Recorded Confirmed Dextroamphetamine/Amphetamine 30 mg PO BID 06/08/16 09/17/17 [Adderall 30 mg Tablet] Oxycodone HCl/Acetaminophen 1 tab PO Q4-6H PRN 06/08/16 09/17/17 [Percocet 10-325 mg Tablet] Ropinirole HCl [Requip] 3 mg PO HS 10/19/16 09/17/17 Rosuvastatin Calcium [Crestor] 10 mg PO DAILY 10/19/16 09/17/17 Aspirin [Lo-Dose Aspirin EC] 81 mg PO DAILY 12/18/16 09/17/17 Omeprazole [PriLOSEC] 20 mg PO DAILY 01/19/17 09/17/17 ALPRAZolam [Xanax 1 MG Tablet] 1 mg PO TID PRN 06/12/17 09/17/17 Furosemide [Lasix] 40 mg PO BID PRN 06/12/17 09/17/17 Montelukast [Singulair] 10 mg PO DAILY 08/01/17 09/17/17 Lisinopril/Hydrochlorothiazide 1 tab PO DAILY 09/17/17 09/17/17 [Zestoretic 10-12.5 mg Tablet] Loratadine [Allergy Relief] 10 mg PO DAILY 09/17/17 09/17/17 Previous Rx's Medication Instructions Recorded Budesonide/Formoterol 160/4.5 2 puff IH BIDR inhaler 04/05/17 [Symbicort 160/4.5] Albuterol Sulfate [Proair Hfa] 2 puff IH Q4H PRN #1 inh 06/14/17 Diltiazem CD (24hr) [Cardizem CD] 120 mg PO DAILY #15 08/10/17 GuaiFENesin/Dextromethorphan 1 each PO BID PRN tab.er.12h 09/18/17 [Mucinex Dm] Ipratropium/Albuterol Neb [Duoneb] 3 ml IH Q4HR PRN #5 vial.neb 09/18/17 levoFLOXacin [Levaquin] 500 mg PO DAILY #4 tablet 09/18/17 predniSONE [PredniSONE] 40 mg PO DAILY #8 tablet 09/18/17 Allergies Allergy/AdvReac Type Severity Reaction Status Date / Time Amoxicillin Allergy Rash Verified 06/11/17 22:46 Penicillins Allergy Rash Verified 06/11/17 22:46 All systems ED: reviewed and negative except as stated. Constitutional: Denies: fever, chills, weakness Cardiovascular: Reports: dyspnea on exertion. Denies: chest pain, edema, syncope Respiratory: Reports: cough, dyspnea, wheezes, sputum production. Denies: hemoptysis, stridor Gastrointestinal: Denies: abdominal pain, nausea, vomiting Genitourinary: Denies: urgency, dysuria Musculoskeletal: Denies: back pain, neck pain Neurological: Denies: headache, weakness, numbness Past Medical History - Past Medical History Attestation: Yes The following information was validated with the patient. 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: bilateral tubal ligation - Social History Smoking Status: Former smoker Smokeless Tobacco Status: No Alcohol use: Reports: none Drug use: Reports: none Physical Exam - General Limitations: no limitations General appearance: alert, in distress (Moderate respiratory) - Head Head exam: atraumatic, normocephalic, normal inspection - Eye Eye exam: Present: normal appearance, PERRL, EOMI - ENT ENT exam: normal exam, normal oropharynx, mucous membranes moist - Neck Neck exam: Present: normal inspection, full ROM, trachea midline - Chest Chest inspection: Present: normal inspection, symmetric chest wall rise - Respiratory Respiratory exam: Present: respiratory distress, wheezes, accessory muscle use - Cardiovascular Cardiovascular exam: Present: normal rhythm, tachycardia, normal heart sounds - Abdominal Exam Abdominal exam: Present: soft, Non-Tender. Absent: tenderness, distention, guarding, rebound, rigidity - Extremities Exam Extremities exam: Present: normal inspection, full ROM. Absent: tenderness, pedal edema - Neurological Exam Neurological exam: Present: alert Course Vital Signs Temperature 98.3 F 09/16/17 19:49 Pulse Rate 100 09/16/17 19:49 Respiratory Rate 24 09/16/17 19:49 Blood Pressure 159/88 09/16/17 19:49 O2 Sat by Pulse Oximetry 93 09/16/17 19:49 Temperature 97.5 F L 09/18/17 12:06 Pulse Rate 130 09/18/17 12:06 Respiratory Rate 18 09/18/17 12:06 Blood Pressure 153/82 09/18/17 12:06 O2 Sat by Pulse Oximetry 90 09/18/17 12:06 Oxygen Delivery Oxygen Delivery Nasal Cannula Shortness of Breath/Dyspnea - MDM Narrative Medical decision making narrative: Patient's work-up here in the emergency department demonstrates COPD exacerbation. The patient was hypoxic upon arrival to the emergency department any percent. We will admit the patient to the hospitalist at this time. Patient agrees to plan. Patient will be admitted to the hospitalist service, accepted by Dr. Mcdonough. - Lab Data Lab results reviewed: Yes I reviewed the patient's lab results. Result diagrams: 09/17/17 06:26 09/17/17 06:26 Lab Results 09/16/17 09/16/17 09/16/17 Range/Units 20:43 20:43 20:43 WBC 9.4 (4.3-11.1) K/mcL RBC 4.62 (3.82-4.97) M/mcL Hgb 13.2 (11.5-15.4) g/dL Hct 41.0 (35.3-44.9) % MCV 88.7 (83.0-100.0) fL MCH 28.6 (28.0-33.3) pg MCHC 32.2 (31.6-35.5) g/dL RDW 14.0 (11.5-14.5) % Plt Count 160 (140-400) K/mcL MPV 11.1 (9.4-12.4) fL Immature Gran % 0.5 (0-4) % Seg Neutrophils % 92.8 % Lymphocytes % 4.9 % Monocytes % 1.6 % Eosinophils % 0.1 % Basophils % 0.1 % Neutrophils # 8.7 (1.6-8.9) K/mcL Lymphocytes # 0.5 L (0.6-4.6) K/mcL Monocytes # 0.2 (0.0-1.3) K/mcL Eosinophils # 0.0 (0.0-0.6) K/mcL Basophils # 0.0 (0.0-0.2) K/mcL PT (9.4-12.1) Seconds INR APTT (26.0-36.0) Seconds D-Dimer (0-500) ng/mLFEU Sodium 138 (136-145) mEq/L Potassium 4.0 (3.5-4.5) mEq/L Chloride 101 (98-109) mEq/L Carbon Dioxide 28 (19-29) mEq/L BUN 7 (7-20) mg/dL Creatinine 0.66 (0.57-1.11) mg/dL Est GFR ( Amer) > 60 (> 60) Est GFR (Non-Af Amer) > 60 (> 60) BUN/Creatinine Ratio 11 (6-26) Glucose 215 H (70-99) mg/dL Calculated Osmolality 290 (280-300) Calcium 9.6 (8.6-10.8) mg/dL Magnesium 2.0 (1.6-2.6) mg/dL Troponin I 0.00 (0-0.03) ng/mL B-Natriuretic Peptide (0-100) pg/mL 09/16/17 09/16/17 Range/Units 20:43 20:43 WBC (4.3-11.1) K/mcL RBC (3.82-4.97) M/mcL Hgb (11.5-15.4) g/dL Hct (35.3-44.9) % MCV (83.0-100.0) fL MCH (28.0-33.3) pg MCHC (31.6-35.5) g/dL RDW (11.5-14.5) % Plt Count (140-400) K/mcL MPV (9.4-12.4) fL Immature Gran % (0-4) % Seg Neutrophils % % Lymphocytes % % Monocytes % % Eosinophils % % Basophils % % Neutrophils # (1.6-8.9) K/mcL Lymphocytes # (0.6-4.6) K/mcL Monocytes # (0.0-1.3) K/mcL Eosinophils # (0.0-0.6) K/mcL Basophils # (0.0-0.2) K/mcL PT 11.5 (9.4-12.1) Seconds INR 1.1 APTT 27.7 (26.0-36.0) Seconds D-Dimer 317 (0-500) ng/mLFEU Sodium (136-145) mEq/L Potassium (3.5-4.5) mEq/L Chloride (98-109) mEq/L Carbon Dioxide (19-29) mEq/L BUN (7-20) mg/dL Creatinine (0.57-1.11) mg/dL Est GFR ( Amer) (> 60) Est GFR (Non-Af Amer) (> 60) BUN/Creatinine Ratio (6-26) Glucose (70-99) mg/dL Calculated Osmolality (280-300) Calcium (8.6-10.8) mg/dL Magnesium (1.6-2.6) mg/dL Troponin I (0-0.03) ng/mL B-Natriuretic Peptide 20 (0-100) pg/mL - Radiology Data Radiology results reviewed: Yes I reviewed the patient's radiology results. - EKG Data EKG attestation: Yes I reviewed and interpreted this EKG. EKG results narrative: Heart rate 10 1 bpm. WA interval 168 seconds. QTc 389 ms. Normal axis. Sinus tachycardia. No ST elevation or ST depression noted. EKG similar appearance to EKG from 08/01/2017. No acute changes noted. Attestation Statement - Attestation Attestation: I, Mohamud Quiñones, examined this patient and my medical decision-making was reviewed with the LOGISTICS PLANNER/PA/Advanced Practice Nurse/Resident Physician. I agree with the documented findings, disposition and treatment plan as described except to the extent set forth below. 67-year-old female presents emergency Department with concerns of increasing dyspnea. Patient has a history of COPD with similar symptoms in the past. Patient hypoxic on initial evaluation. She does feel improved after administration of DuoNeb in the emergency department. Initial EKG was negative for STEMI. Troponin negative for elevation. Patient will be admitted to the hospital for further care and evaluation of her dyspnea as she was hypoxic during our evaluation.
[2017-09-16 20:48] LABS: Basophils % 0.1 %; Eosinophils % 0.1 %; Hemoglobin 13.2 g/dL (11.5-15.4); Immature Granulocytes % 0.5 % (0-4); Lymphocytes # 0.5 K/mcL (0.6-4.6); Lymphocytes % 4.9 %; Mean Corpuscular HGB Conc 32.2 g/dL (31.6-35.5); Mean Corpuscular Hemoglobin 28.6 pg (28.0-33.3); Mean Corpuscular Volume 88.7 fL (83.0-100.0); Mean Platelet Volume 11.1 fL (9.4-12.4); Monocytes # 0.2 K/mcL (0.0-1.3); Monocytes % 1.6 %; Neutrophils # 8.7 K/mcL (1.6-8.9); Platelet Count 160 K/mcL (140-400); Red Blood Count 4.62 M/mcL (3.82-4.97); Segmented Neutrophils % 92.8 %
[2017-09-16 21:02] LABS: BUN/Creatinine Ratio 11 (6-26); Blood Urea Nitrogen 7 mg/dL (7-20); Calcium 9.6 mg/dL (8.6-10.8); Carbon Dioxide 28 mEq/L (19-29); Chloride 101 mEq/L (98-109); Glucose 215 mg/dL (70-99); Osmolality,Calculated 290 (280-300); Sodium 138 mEq/L (136-145); eGFR For African Americans > 60 (> 60); eGFR For Non-African Americans > 60 (> 60)
--- NOTE | 2017-09-16 21:50 | Internal Med History&Physical ---
<Ernst Kelly - Last Filed: 09/17/17 00:46> Date of Encounter: 09/16/17 Time of Encounter: 21:49 Assessment and Plan (1) Sepsis Current visit: Yes Status: Acute Met 2 SIRS criteria of tachycardia HR 100 and tachypnea RR 24 Lactic acid 2.4, repeat lactic acid level pending Sepsis bolus given Blood and sputum cultures pending Started on empiric Vanc, Levaquin, and Aztreonam (patient is allergic to PCN) De-escalate antibiotics once cultures resulted. Qualifiers: Sepsis type: sepsis due to unspecified organism Qualified Code(s): A41.9 - Sepsis, unspecified organism (2) HCAP (healthcare-associated pneumonia) Current visit: Yes Status: Acute Patient with productive cough for the past 2 weeks and recent hospitalizations Blood and sputum cultures pending Started on empiric Vanc, Levaquin and Aztreonam (patient is allergic to PCN) De-escalate antibiotics once cultures resulted Duonebs, Mucinex Incentive spirometry (3) Acute on chronic respiratory failure with hypoxia and hypercapnia Current visit: Yes Status: Acute She is currently requiring 4L of NC while at home she is on 2.5L of O2. Upon arrival to the emergency department, patient was tachypneic and tripoding with accessory muscle use. The patient's O2 saturation was 88% and patient still able to speak in 3-4 word sentences. ABG reveals hypercapnia Bipap qhs Continue Duonebs (4) Acute exacerbation of chronic obstructive pulmonary disease (COPD) Current visit: Yes Status: Acute CXR reveals chronic blunting of the right costophrenic angle. Continue steroids, antibiotics, and Duonebs (5) History of lung cancer Current visit: No Status: Chronic Continue to monitor (6) S/P pneumonectomy Current visit: No Status: Chronic Continue to monitor (7) Obstructive sleep apnea Current visit: Yes Status: Chronic During previous hospitalization, she underwent overnight bipap qualification study and qualified for home bipap. Continue bipap at night (8) Essential hypertension Current visit: Yes Status: Chronic Continue home meds (9) Hyperglycemia, drug-induced Current visit: Yes Status: Acute Steroid induced hyperglycemia HGB a1c 6.0 on 08/01/17 Continue accucheck and SSI (10) DVT prophylaxis Current visit: Yes Status: Acute Heparin subq TID Internal Medicine - H&P: HPI Chief complaint: SOB Admitted From: Home History of present illness: Ms. Cabello is a 67 year old female with a PMH of right upper lung lobectomy s/p lung cancer, oxygen dependent COPD, brain aneurysm, hypertension, and LEE that presented complaining of difficulty breathing 4 days. Patient reports a productive cough with white sputum production for the past 2 weeks, chills, multiple sick contacts at home, and wheezing despite oxygen and bronchodilators at home. She is currently requiring 4L of NC while at home she is on 2.5L of O2 at home prn. She reports associated rib pain from coughing and one episode of vomiting. Patient denies fever, chest pain, hemoptysis, diarrhea, constipation, dysuria, recent surgeries, or recent immobilizations. Upon arrival to the emergency department, patient was tachypneic and tripoding with accessory muscle use. The patient's O2 saturation was 88% and patient still able to speak in 3-4 word sentences. Past Med Surg Social Fam HX - Past Medical History Medical history: asthma, cancer (lung, colon), COPD, hyperlipidemia, hypertension, other (brain aneurysm, LEE) Psychiatric history: depression - Past Surgical History Surgical History: appendectomy, cancer surgery (Right upper lung lobectomy, partial colon resection), colectomy, hysterectomy (Tubal ligation), other ( Cerebral thrombectomy, tonsillectomy) - Social History Smoking Status: Former smoker Smokeless Tobacco Status: No Alcohol use: none Drug use: none Current living situation: Home, With Family Activity Level: Independent ambulation Recent Out of Country Travel Within the Last 8 Weeks: No Exposure or Possible Exposure to Illness During Travel: No - Family History Father Living Status: Hx Family Cardiac Disorders: Yes Hx Family Respiratory Disorders: Yes Mother Adopted: No Living Status: Hx Family Cardiac Disorders: Yes Hx Family Cancer: Yes Internal Medicine - H&P: Meds Dextroamphetamine/Amphetamine [Adderall 30 mg Tablet] 30 mg PO BID 06/08/16 [ History] Oxycodone HCl/Acetaminophen [Percocet 10-325 mg Tablet] 1 tab PO Q4-6H PRN 06/08 [History] Ropinirole HCl [Requip] 6 mg PO HS 10/19/16 [History] Rosuvastatin Calcium [Crestor] 10 mg PO DAILY 10/19/16 [History] Aspirin [Lo-Dose Aspirin EC] 81 mg PO DAILY 12/18/16 [History] Omeprazole [PriLOSEC] 20 mg PO DAILY 01/19/17 [History] Budesonide/Formoterol 160/4.5 [Symbicort 160/4.5] 2 puff IH BIDR inhaler [Rx] Ipratropium/Albuterol Neb [Duoneb] 3 ml IH [id number] inhsol 04/05/17 [Rx] Lisinopril [Zestril] 10 mg PO DAILY #30 tablet 04/05/17 [Rx] ALPRAZolam [Xanax 1 MG Tablet] 1 mg PO TID PRN 06/12/17 [History] Furosemide [Lasix] 40 mg PO BID PRN 06/12/17 [History] Albuterol Sulfate [Proair Hfa] 2 puff IH Q4H PRN #1 inh 06/14/17 [Rx] GuaiFENesin/Dextromethorphan [Mucinex Dm] 1 each PO BID PRN #60 tab 06/14/17 [Rx ] Montelukast [Singulair] 10 mg PO DAILY 08/01/17 [History] Diltiazem CD (24hr) [Cardizem CD] 120 mg PO DAILY #15 08/10/17 [Rx] Ipratropium/Albuterol Neb [Duoneb] 3 ml IH Q4HR PRN #5 vial.neb 08/10/17 [Rx] 3 Allergy/AdvReac Type Severity Reaction Status Date / Time Amoxicillin Allergy Rash Verified 06/11/17 22:46 Penicillins Allergy Rash Verified 06/11/17 22:46 All Systems PM: A 10-system review of systems was performed and is negative for pertinent findings except as documented above in the HPI. - Constitutional Constitutional: chills, fatigue, lethargy, weakness, no fever(s), no weight gain , no weight loss - EENT Eyes: no change in vision Nose, mouth and throat: no nasal congestion, no sinus pressure, no sore throat - Cardiovascular Cardiovascular ROS IM: palpitations, no chest pain - Respiratory Respiratory: cough, dyspnea, wheezing, excessive phlegm production, change in phlegm color, pain with cough - Gastrointestinal Gastrointestinal: no abdominal pain, no constipation, no diarrhea, no hematemesis, no hematochezia, no melena, no nausea, no vomiting - Genitourinary Genitourinary: no dysuria, no urinary frequency, no urinary urgency Menstruation: post hysterectomy - Musculoskeletal Musculoskeletal ROS IM: back pain, no numbness, no tingling - Integumentary Integumentary IM: no erythema, no new lesions, no rash - Neurological Neurological ROS: weakness, no confusion, no dizziness, no numbness, no tingling - Psychiatric Psychiatric: no anxiety, no depression - Endocrine Endocrine IM: no polydipsia, no polyphagia, no polyuria - Hematologic/Lymphatic Hematologic/Lymphatic: no easy bleeding, no easy bruising - Constitutional Vitals: Temp Pulse Resp BP Pulse Ox 98.3 F 100 24 159/88 93 09/16/17 19:49 09/16/17 19:49 09/16/17 19:49 09/16/17 19:49 09/16/17 19:49 General appearance: Present: cooperative, A&O X 3, pleasant, answers questions appropriately - Head Head exam: Present: atraumatic, normal inspection, normocephalic - Eye Eye exam: Present: EOMI, PERRL - ENT ENT exam: Present: mucous membranes moist, normal oropharynx - Neck Neck exam general surgery: Present: normal inspection, supple. Absent: tenderness - Respiratory Respiratory exam: Present: decreased breath sounds, prolonged expiratory phase, wheezes, tachypnea. Absent: accessory muscle use, respiratory distress Additional comments: conversational dyspnea - Cardiovascular Cardiovascular exam: Present: +S1, +S2, tachycardia - GI/Abdominal GI/Abdominal exam: Present: normal bowel sounds, soft. Absent: distended, tenderness - Additional comments: no bowden - Extremities Exam Extremities exam: Present: full ROM, normal inspection, pedal edema (1+), warm, radial pulses palpable and symmetrical - Back Exam Back exam: Present: normal inspection. Absent: paraspinal tenderness, tenderness - Neurological Exam Neurological exam: Present: alert, oriented X3, no focal deficits. Absent: speech deficit - Psychiatric Psychiatric exam: Present: normal affect, normal mood - Skin Skin exam: Present: dry, normal color, warm Internal Med - H&P Results - Labs CBC & Chem 7: 09/16/17 20:43 09/16/17 20:43 - Pulse Oximetry Interpretation Digit-Finger O2 Sat by Pulse Oximetry: 96 (on O2 at 4L via NC) Actions taken: placed on BiPAP - EKG Data -: EKG Interpreted by Myself EKG shows normal: sinus rhythm (Sinus tachycardia. HR 101 bpm. MA interval 168 seconds. QTc 389 ms. Normal axis. No ST elevation or ST depression noted) Rate: tachycardia - EKG Data Prior EKG available for review: yes When compared to previous EKG: there is no significant change - Impressions Impressions Chest X-Ray 09/16/17 19:49 IMPRESSION: No acute process. Chronic blunting of the right costophrenic angle. D/ / Swapnil Mackenzie MD / Swapnil Mackenzie MD Interpreting Provider: Swapnil Mackenzie MD <[email or web address] - Last Filed: 09/17/17 01:34> Date of Encounter: 09/17/17 Internal Medicine - H&P: HPI History of present illness: Ms. Cabello is a 67 year old female All Systems PM: A 10-system review of systems was performed and is negative for pertinent findings except as documented above in the HPI. - Constitutional Vitals: Temp Pulse Resp BP Pulse Ox 98.4 F 103 16 143/90 98 09/17/17 00:06 09/17/17 00:06 09/17/17 00:34 09/17/17 00:06 09/17/17 00:34 Internal Med - H&P Results - Labs CBC & Chem 7: 09/16/17 20:43 09/16/17 20:43 - ABG Interpretation ABG results: 09/17/17 00:34 ABG pH 7.42 ABG pCO2 47 H ABG pO2 76 L ABG HCO3 30 H ABG Total CO2 32 H ABG O2 Saturation 95 ABG Base Excess 5 H - Attending Attestation I saw and examined the patient independently. I have discussed with resident Dr Kelly regarding the management plan. I agree with the documentation except below: Patient presents with shortness of breath and increased oxygen requirement. No fever. Chest x-ray shows no acute change. Consider COPD exacerbation but not pneumonia or sepsis. Tachycardia may caused by acute respiratory distress. When I saw patient, her shortness of breath has significantly improved after treatment in the ER. Will continue Levaquin, steroid, and bronchodilator.
[2017-09-16] MEDS ORDERED: 0.9 % Sodium Chloride 1,000 ML IVC ONE (22:09)
[2017-09-16] MEDS ORDERED: D5% in Water 1,000 ML IVC PRN (22:13)
[2017-09-16] MEDS ORDERED: *HR* Dextrose 50 % in Water (Syg) 50 ML SYRINGE IVP PRN (22:13)
[2017-09-16] MEDS ORDERED: Dextrose Gel 15 GM PO PRN ×2 (22:13)
[2017-09-16] MEDS ORDERED: Naloxone 0.4 MG/ML INJ IVP PRN (22:14)
[2017-09-16] MEDS ORDERED: Ondansetron 4 MG/2 ML VIAL IVP PRN (22:14)
[2017-09-16] MEDS ORDERED: Acetaminophen 325 MG TABLET PO PRN (22:14)
[2017-09-16] MEDS ORDERED: Insulin DETEMIR 100 UNIT/ML X5UNITS SQ SCH (22:15)
[2017-09-16] MEDS ORDERED: ALPRAZolam 1 MG TABLET PO PRN (22:17)
[2017-09-16] MEDS ORDERED: GuaiFENesin/Dextromethorphan TABLET PO PRN (22:17)
[2017-09-16] MEDS ORDERED: Furosemide 20 MG TABLET PO PRN (22:17)
[2017-09-16] MEDS ORDERED: Vancomycin 1,250 MG in D5% in Water 250 ML IVPB SCH (23:00)
[2017-09-16] MEDS ORDERED: Vancomycin (wt based) 1,000 MG VIAL IVPB SCH (23:00)
[2017-09-16 23:07] LABS: INR 1.1; Prothrombin Time 11.5 Seconds (9.4-12.1)
[2017-09-16 23:10] LABS: Activated Partial Thrombo Time 27.7 Seconds (26.0-36.0)
[2017-09-17] MEDS ORDERED: Aztreonam 2,000 MG in D5% in Water (Mini-Bag+) 100 ML IVPB SCH
[2017-09-17] MEDS: Ipratropium/Albuterol Neb 3 ML IH SCH ×7 (00:31→23:01)
[2017-09-17 00:37] LABS: ABG Base Excess 5 mEq/L (-2 to 3); ABG HCO3 30 mEq/L (21-27); ABG Oxygen Saturation 95 % (95-98); ABG PCO2 47 mmHg (35-45); ABG PH 7.42 pH Units (7.32-7.45); ABG PO2 76 mmHg (85-104); ABG TCO2 32 mEq/L (20-26); Blood Gas Modality NCPAP
[2017-09-17] MEDS: *HR* OxyCODONE/APAP 10/325 TABLET PO PRN ×4 (01:48→19:53)
[2017-09-17] MEDS: MethylPREDNISolone 40 MG/ML VIAL IVP SCH ×4 (02:04→23:20)
[2017-09-17] MEDS: Insulin LISPRO 300 UNITS/3 ML VIAL SQ SCH ×5 (02:10→21:15)
[2017-09-17] MEDS: Levofloxacin 750 MG/150 ML 750 MG/150 ML BAG IVPB SCH ×2 (03:13→23:19)
[2017-09-17] MEDS: *HR* Heparin 5,000 UNIT/ML VIAL SQ SCH ×3 (06:34→21:15)
[2017-09-17] MEDS: Famotidine 20 MG/2 ML VIAL IVP SCH ×2 (06:36→16:57)
[2017-09-17 07:40] LABS: Alanine Aminotransferase 13 Units/L (0-55); Albumin 3.4 g/dL (3.5-5.0); Albumin/Globulin Ratio 0.9 (1.1-2.2); Alkaline Phosphatase 93 Units/L (38-126); Aspartate Amino Transferase 9 Units/L (5-34); BUN/Creatinine Ratio 14 (6-26); Bilirubin,Total 0.9 mg/dL (0.2-1.2); Blood Urea Nitrogen 10 mg/dL (7-20); Calcium 9.5 mg/dL (8.6-10.8); Carbon Dioxide 28 mEq/L (19-29); Chloride 100 mEq/L (98-109); Globulin 3.7 g/dL (2.4-3.5); Glucose 254 mg/dL (70-99); Osmolality,Calculated 292 (280-300); Potassium 4.3 mEq/L (3.5-4.5); Sodium 137 mEq/L (136-145); Total Protein 7.1 g/dL (6.0-8.3); eGFR For African Americans > 60 (> 60); eGFR For Non-African Americans > 60 (> 60)
[2017-09-17 08:01] LABS: Basophils % 0.2 %; Hemoglobin 12.9 g/dL (11.5-15.4); Immature Granulocytes % 0.9 % (0-4); Lymphocytes # 0.5 K/mcL (0.6-4.6); Lymphocytes % 5.4 %; Mean Corpuscular HGB Conc 31.5 g/dL (31.6-35.5); Mean Corpuscular Hemoglobin 27.8 pg (28.0-33.3); Mean Corpuscular Volume 88.4 fL (83.0-100.0); Mean Platelet Volume 11.4 fL (9.4-12.4); Monocytes # 0.1 K/mcL (0.0-1.3); Monocytes % 0.9 %; Neutrophils # 9.3 K/mcL (1.6-8.9); Platelet Count 188 K/mcL (140-400); Red Blood Count 4.64 M/mcL (3.82-4.97); Red Cell Distribution Width 13.9 % (11.5-14.5); Segmented Neutrophils % 92.6 %
[2017-09-17] MEDS: Budesonide/Formoterol 160/4.5 MDI IH SCH ×2 (08:02→20:05)
[2017-09-17] MEDS: Diltiazem CD (24hr) 120 MG CAPSULE PO SCH (08:12)
[2017-09-17] MEDS: Aspirin Enteric Coated 81 MG Tablet PO SCH (08:12)
--- NOTE | 2017-09-17 10:44 | Internal Med Progress Note ---
Date of Encounter: 09/17/17 Time of Encounter: 10:43 - Assessment and plan (1) Anxiety Current Visit: Yes Status: Chronic Assessment and plan: Continue home meds (2) ADHD (attention deficit hyperactivity disorder) Current Visit: Yes Status: Chronic Assessment and plan: Continue home meds Qualifiers: Attention deficit-hyperactivity disorder type: unspecified Qualified Code(s ): F90.9 - Attention-deficit hyperactivity disorder, unspecified type (3) HTN (hypertension) Current Visit: Yes Status: Chronic Assessment and plan: Controlled, continue home meds Qualifiers: Hypertension type: essential hypertension Qualified Code(s): I10 - Essential (primary) hypertension (4) Acute exacerbation of chronic obstructive pulmonary disease (COPD) Current Visit: Yes Status: Acute Assessment and plan: CXR negative, no pneumonia or sepsis, continue duonebs, steroids and levaquin (5) Acute on chronic respiratory failure with hypoxia and hypercapnia Current Visit: Yes Status: Acute Assessment and plan: as above - Subjective Interval history: Seen and evaluated at bedside, reports she is feeling better and her breathing has improved She denies any other symptoms, she is being managed for COPDE - Constitutional Vitals: Temp Pulse Resp BP Pulse Ox 98.3 F 106 18 136/82 94 09/17/17 07:36 09/17/17 07:36 09/17/17 08:05 09/17/17 07:36 09/17/17 08:05 General appearance: Present: cooperative, A&O X 3, pleasant, answers questions appropriately - Head Head exam: Present: atraumatic, normocephalic - Eye Eye exam: Present: PERRL, conjuntiva pink, sclera anicteric Pupils: Present: PERRL - Neck Neck exam general surgery: Present: supple, trachea midline. Absent: lymphadenopathy - Respiratory Respiratory exam: Present: CTAB. Absent: accessory muscle use, rales, rhonchi, wheezes - Cardiovascular Cardiovascular exam: Present: RRR, +S1, +S2. Absent: diastolic murmur, gallop, rubs, systolic murmur - GI/Abdominal GI/Abdominal exam: Present: normal bowel sounds, soft, no peritoneal signs. Absent: distended, tenderness - Extremities Exam Extremities exam: Present: warm, radial pulses palpable and symmetrical. Absent : calf tenderness, cyanotic, pedal edema - Neurological Exam Neurological exam: Present: alert, CN II-XII intact, oriented X3, no focal deficits. Absent: pronater drift, facial droop, speech deficit - Skin Skin exam: Present: dry, intact Internal Medicine: Result - Labs CBC & Chem 7: 09/17/17 06:26 09/17/17 06:26 Labs: Short CBC 09/17/17 Range/Units 06:26 WBC 10.0 (4.3-11.1) K/mcL Hgb 12.9 (11.5-15.4) g/dL Hct 41.0 (35.3-44.9) % Plt Count 188 (140-400) K/mcL Neutrophils # 9.3 H (1.6-8.9) K/mcL BMP 09/17/17 06:26 Sodium 137 Potassium 4.3 Chloride 100 Carbon Dioxide 28 BUN 10 Creatinine 0.72 Glucose 254 H Calcium 9.5 Liver Function 09/17/17 Range/Units 06:26 Total Bilirubin 0.9 (0.2-1.2) mg/dL AST 9 (5-34) Units/L ALT 13 (0-55) Units/L Alkaline Phosphatase 93 (38-126) Units/L Albumin 3.4 L (3.5-5.0) g/dL - ABG Interpretation ABG results: ABG ABG pH 7.42 pH Units (7.32-7.45) 09/17/17 00:34 ABG pCO2 47 mmHg (35-45) H 09/17/17 00:34 ABG pO2 76 mmHg (85-104) L 09/17/17 00:34 ABG O2 Saturation 95 % (95-98) 09/17/17 00:34 PT/INR, D-dimer PT 11.5 Seconds (9.4-12.1) 09/16/17 20:43 D-Dimer 317 ng/mLFEU (0-500) 09/16/17 20:43 Consult Discharge Plan - Plan Referrals: Janice Hoff MD [Primary Care Provider] -
[2017-09-18] MEDS: Ipratropium/Albuterol Neb 3 ML IH SCH ×3 (04:07→11:25)
[2017-09-18] MEDS: *HR* Heparin 5,000 UNIT/ML VIAL SQ SCH ×2 (06:02→12:39)
[2017-09-18] MEDS: Famotidine 20 MG/2 ML VIAL IVP SCH (06:02)
[2017-09-18] MEDS: *HR* OxyCODONE/APAP 10/325 TABLET PO PRN ×2 (06:09→12:39)
--- NOTE | 2017-09-18 06:40 | Electrocardiograph Report ---
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
[2017-09-18] MEDS: Budesonide/Formoterol 160/4.5 MDI IH SCH (08:02)
[2017-09-18] MEDS: Aspirin Enteric Coated 81 MG Tablet PO SCH (08:37)
[2017-09-18] MEDS: Insulin LISPRO 300 UNITS/3 ML VIAL SQ SCH ×2 (08:37→12:15)
[2017-09-18] MEDS: MethylPREDNISolone 40 MG/ML VIAL IVP SCH (08:37)
[2017-09-18] MEDS: Diltiazem CD (24hr) 120 MG CAPSULE PO SCH (08:37)
--- NOTE | 2017-09-18 11:17 | Discharge Summary ---
Date of Encounter: 09/18/17 Time of Encounter: 11:17 - Discharge Diagnosis (1) Anxiety Priority: Secondary Status: Chronic (2) ADHD (attention deficit hyperactivity disorder) Priority: Secondary Status: Chronic Qualifiers: Attention deficit-hyperactivity disorder type: unspecified Qualified Code(s ): F90.9 - Attention-deficit hyperactivity disorder, unspecified type (3) HTN (hypertension) Priority: Secondary Status: Chronic Qualifiers: Hypertension type: essential hypertension Qualified Code(s): I10 - Essential (primary) hypertension (4) Acute exacerbation of chronic obstructive pulmonary disease (COPD) Priority: Primary Status: Resolved (5) Acute on chronic respiratory failure with hypoxia and hypercapnia Priority: Secondary Status: Acute - Discharge Medications Prescriptions: Ipratropium/Albuterol Neb [Duoneb] 3 ml IH Q4HR PRN #5 vial.neb PRN Reason: Shortness Of Breath levoFLOXacin [Levaquin] 500 mg PO DAILY #4 tablet predniSONE [PredniSONE] 40 mg PO DAILY #8 tablet Home Medications: Dextroamphetamine/Amphetamine [Adderall 30 mg Tablet] 30 mg PO BID 06/08/16 [ History] Oxycodone HCl/Acetaminophen [Percocet 10-325 mg Tablet] 1 tab PO Q4-6H PRN 06/08 [History] Ropinirole HCl [Requip] 3 mg PO HS 10/19/16 [History] Rosuvastatin Calcium [Crestor] 10 mg PO DAILY 10/19/16 [History] Aspirin [Lo-Dose Aspirin EC] 81 mg PO DAILY 12/18/16 [History] Omeprazole [PriLOSEC] 20 mg PO DAILY 01/19/17 [History] Budesonide/Formoterol 160/4.5 [Symbicort 160/4.5] 2 puff IH BIDR inhaler [Rx] ALPRAZolam [Xanax 1 MG Tablet] 1 mg PO TID PRN 06/12/17 [History] Furosemide [Lasix] 40 mg PO BID PRN 06/12/17 [History] Albuterol Sulfate [Proair Hfa] 2 puff IH Q4H PRN #1 inh 06/14/17 [Rx] Montelukast [Singulair] 10 mg PO DAILY 08/01/17 [History] Diltiazem CD (24hr) [Cardizem CD] 120 mg PO DAILY #15 08/10/17 [Rx] Lisinopril/Hydrochlorothiazide [Zestoretic 10-12.5 mg Tablet] 1 tab PO DAILY [History] Loratadine [Allergy Relief] 10 mg PO DAILY 09/17/17 [History] GuaiFENesin/Dextromethorphan [Mucinex Dm] 1 each PO BID PRN tab.er.12h [Rx] Ipratropium/Albuterol Neb [Duoneb] 3 ml IH Q4HR PRN #5 vial.neb 09/18/17 [Rx] levoFLOXacin [Levaquin] 500 mg PO DAILY #4 tablet 09/18/17 [Rx] predniSONE [PredniSONE] 40 mg PO DAILY #8 tablet 09/18/17 [Rx] Allergies/Adverse Reactions: 3 Allergy/AdvReac Type Severity Reaction Status Date / Time Amoxicillin Allergy Rash Verified 06/11/17 22:46 Penicillins Allergy Rash Verified 06/11/17 22:46 Date of admission: 09/16/17 21:40 Primary care physician: Janice Hoff Consults: 09/16/17 22:12 Consult to Nurse Navigator [CONS] Routine Comment: Consult to Nurse Navigator [CONS] Routine Comment: Discharging clinician: Davian Vance Anticipated date of discharge: 09/18/17 - Patient Status Disposition: Home, Self-Care Condition: Fair Functional capacity at discharge: independent ambulation Overall status at discharge: patient is back to baseline - Discharge Instructions Instructions: Prednisone (By mouth), Levofloxacin (By mouth), Ipratropium/ Albuterol (By breathing) Follow Up With: Janice Hoff MD [Primary Care Provider] - 09/26/17 10:45 am () - Diet and Activity Activity: resume usual activities as tolerated, wear oxygen at all times Diet: low fat, low cholesterol, low salt diet Interval History: See below Hospital course: Ms. Cabello is a 67 year old female admitted for COPDE and acute on chronic respiratory failure She is seen at bedside this morning, back to ehr baseline, ambulatory and respiratory symptosm have improved She is clinicallt stable ot be discharged home Resume home meds, continue prednisone and levaquin to complete 5 days plan of care discussed, verbalized understanding - Time Spent with Patient Total time spent providing and/or coordinating discharge services: Greater than 30 minutes - Constitutional Vitals: Temp Pulse Resp BP Pulse Ox 97.8 F 91 18 136/73 90 09/18/17 07:40 09/18/17 07:40 09/18/17 07:40 09/18/17 07:40 09/18/17 07:40 General appearance: Present: cooperative, A&O X 3, pleasant, no acute distress, answers questions appropriately - Head Head exam: Present: atraumatic, normocephalic - Eye Eye exam: Present: PERRL, conjuntiva pink, sclera anicteric Pupils: Present: PERRL - Neck Neck exam general surgery: Present: supple, trachea midline. Absent: lymphadenopathy - Respiratory Respiratory exam: Present: CTAB. Absent: accessory muscle use, rales, rhonchi, wheezes - Cardiovascular Cardiovascular exam: Present: RRR, +S1, +S2. Absent: diastolic murmur, gallop, rubs, systolic murmur - GI/Abdominal GI/Abdominal exam: Present: normal bowel sounds, soft, no peritoneal signs. Absent: distended, tenderness - Extremities Exam Extremities exam: Present: warm, radial pulses palpable and symmetrical. Absent : calf tenderness, cyanotic, pedal edema - Neurological Exam Neurological exam: Present: alert, CN II-XII intact, oriented X3, no focal deficits. Absent: pronater drift, facial droop, speech deficit - Skin Skin exam: Present: dry, intact
[2017-09-18 12:07] VITALS: BP 153/82
== END 2017-09-18 16:00 | disposition home or self-care (01) ==
LOC: EMEROO 19:48 → 3BNU 19:48 → SUATTDRO 21:40 → 3BNU 23:39
PROVIDERS: ADMIT Internal Medicine; ATTEND Internal Medicine

== ENCOUNTER 2017-11-27 22:09 | Inpatient (IN) ==
--- NOTE | 2017-11-27 22:13 | Emergency Department Note ---
Disposition Clinical Impression: COPD exacerbation, Fever, Respiratory distress Disposition: Admitted As Inpatient Condition: Good General Adult HPI - General Chief complaint: ED Shortness of Breath/Dyspnea Stated complaint: shortness of breath Time Seen by Provider: 11/27/17 22:11 - Related Data Home Medications Medication Instructions Recorded Confirmed Dextroamphetamine/Amphetamine 30 mg PO BID 06/08/16 11/28/17 [Adderall 30 mg Tablet] Oxycodone HCl/Acetaminophen 1 tab PO Q4-6H PRN 06/08/16 11/28/17 [Percocet 10-325 mg Tablet] Ropinirole HCl [Requip] 3 mg PO HS 10/19/16 11/28/17 Rosuvastatin Calcium [Crestor] 10 mg PO DAILY 10/19/16 11/28/17 Aspirin [Lo-Dose Aspirin EC] 81 mg PO DAILY 12/18/16 11/28/17 ALPRAZolam [Xanax 1 MG Tablet] 1 mg PO TID PRN 06/12/17 11/28/17 Furosemide [Lasix] 40 mg PO BID PRN 06/12/17 11/28/17 Montelukast [Singulair] 10 mg PO DAILY 08/01/17 11/28/17 Lisinopril/Hydrochlorothiazide 1 tab PO DAILY 09/17/17 11/28/17 [Zestoretic 10-12.5 mg Tablet] Loratadine [Allergy Relief] 10 mg PO DAILY 09/17/17 11/28/17 Previous Rx's Medication Instructions Recorded Budesonide/Formoterol 160/4.5 2 puff IH BIDR inhaler 04/05/17 [Symbicort 160/4.5] Albuterol Sulfate [Proair Hfa] 2 puff IH Q4H PRN #1 inh 06/14/17 Diltiazem CD (24hr) [Cardizem CD] 120 mg PO DAILY #15 08/10/17 GuaiFENesin/Dextromethorphan 1 each PO BID PRN tab.er.12h 09/18/17 [Mucinex Dm] Ipratropium/Albuterol Neb [Duoneb] 3 ml IH Q4HR PRN #5 vial.neb 09/18/17 Acetaminophen [Tylenol] 650 mg PO Q6HR PRN tablet 11/29/17 Albuterol Sulfate [Proventil Hfa] 6.7 gm IH Q4HR #1 hfa.aer.ad 11/29/17 Ipratropium/Albuterol Neb [Duoneb] 3 ml IH [id number] #1 inhsol 11/29/17 levoFLOXacin [Levaquin] 750 mg PO DAILY #5 tablet 11/29/17 predniSONE [PredniSONE] 10 mg PO DAILY #18 tablet 11/29/17 Allergies Allergy/AdvReac Type Severity Reaction Status Date / Time Amoxicillin Allergy Rash Verified 11/28/17 10:08 Penicillins Allergy Rash Verified 11/28/17 10:08 Past Medical History - Past Medical History Medical history: Reports: asthma, cancer, COPD, hyperlipidemia, hypertension, other Surgical history: Reports: appendectomy, cancer surgery (Right upper lung lobectomy, partial colon resection), colectomy, hysterectomy (Tubal ligation), other (Cerebral thrombectomy, tonsillectomy) Psychiatric history: Reports: depression LIBRARY HISTORIAN history: Reports: bilateral tubal ligation - Social History Smoking Status: Former smoker Smokeless Tobacco Status: No Alcohol use: Reports: none Drug use: Reports: none Course Vital Signs Temperature 100.3 F H 11/27/17 22:10 Pulse Rate 100 11/27/17 22:10 Respiratory Rate 26 11/27/17 22:10 Blood Pressure 139/92 11/27/17 22:10 O2 Sat by Pulse Oximetry 96 11/27/17 22:10 Temperature 98.2 F 11/29/17 10:07 Pulse Rate 73 11/29/17 10:07 Respiratory Rate 20 11/29/17 11:27 Blood Pressure 132/76 11/29/17 10:07 O2 Sat by Pulse Oximetry 84 11/29/17 11:27 Oxygen Delivery Oxygen Delivery Nasal Cannula Medical Decision Making - Lab Data Result diagrams: 11/28/17 03:13 11/28/17 03:13 Lab Results 11/27/17 11/27/17 11/27/17 Range/Units 22:30 22:30 22:30 WBC 21.4 H (4.3-11.1) K/mcL RBC 5.17 H (3.82-4.97) M/mcL Hgb 14.4 (11.5-15.4) g/dL Hct 44.9 (35.3-44.9) % MCV 86.8 (83.0-100.0) fL MCH 27.9 L (28.0-33.3) pg MCHC 32.1 (31.6-35.5) g/dL RDW 13.0 (11.5-14.5) % Plt Count 208 (140-400) K/mcL MPV 11.7 (9.4-12.4) fL Immature Gran % 0.5 (0-4) % Seg Neutrophils % 90.7 % Lymphocytes % 4.9 % Monocytes % 3.6 % Eosinophils % 0.1 % Basophils % 0.2 % Neutrophils # 19.4 H (1.6-8.9) K/mcL Lymphocytes # 1.0 (0.6-4.6) K/mcL Monocytes # 0.8 (0.0-1.3) K/mcL Eosinophils # 0.0 (0.0-0.6) K/mcL Basophils # 0.0 (0.0-0.2) K/mcL PT 12.7 H (9.4-12.1) Seconds INR 1.2 APTT 29.2 (26.0-36.0) Seconds Sodium (136-145) mEq/L Potassium (3.5-5.1) mEq/L Chloride (98-107) mEq/L Carbon Dioxide (23-29) mEq/L BUN (8-23) mg/dL Creatinine (0.60-1.20) mg/dL Est GFR ( Amer) (> 60) Est GFR (Non-Af Amer) (> 60) BUN/Creatinine Ratio (6-26) Glucose (70-105) mg/dL Calculated Osmolality (280-300) Lactic Acid (0.5-2.2) mmol/L Calcium (8.6-10.3) mg/dL Phosphorus (2.7-4.5) mg/dL Magnesium (1.6-2.6) mg/dL Total Bilirubin (0.3-1.0) mg/dL Direct Bilirubin (0.0-0.2) mg/dL Indirect Bilirubin (0.0-1.2) mg/dL AST (13-39) Units/L ALT (7-52) Units/L Alkaline Phosphatase (34-104) Units/L Troponin I (< 0.04) ng/mL Serum Total Protein (6.4-8.9) g/dL Albumin (3.5-5.7) g/dL Globulin (2.4-3.5) g/dL Albumin/Globulin Ratio (1.1-2.2) Lipase (11-82) Units/L Urine Color Yellow (Yellow) Urine Clarity Clear (Clear) Urine pH 6.5 (5.0-8.0) pH Units Ur Specific [place] 1.019 (1.010-1.025) Urine Protein Negative (Neg-Trace) mg/dL Urine Glucose (UA) Normal (Normal) mg/dL Urine Ketones Negative (Negative) mg/dL Urine Blood Negative (Negative) Urine Nitrite Negative (Negative) Urine Bilirubin Negative (Negative) Urine Urobilinogen Normal (Normal) mg/dL Ur Leukocyte Esterase Negative (Negative) Ur Culture Indicated? NO (NO) Chlamy pneumoniae PCR (Not Detect) Adenovirus (PCR) (Not Detect) B. pertussis DNA (PCR) (Not Detect) Coronavirus OC43 (PCR) (Not Detect) Coronavirus HKU1 (PCR) (Not Detect) Coronavirus 229E (PCR) (Not Detect) Coronavirus NL63 (PCR) (Not Detect) Human Metapneumovir PCR (Not Detect) Influenza A (H1) PCR (Not Detect) Influ A (H1N1/09) PCR (Not Detect) Influenza A (H3) PCR (Not Detect) Influenza A Untype (PCR) (Not Detect) Influenza Type B (PCR) (Not Detect) M.pneumoniae DNA (PCR) (Not Detect) Parainfluenza 1 (PCR) (Not Detect) Parainfluenza 2 (PCR) (Not Detect) Parainfluenza 3 (PCR) (Not Detect) Parainfluenza 4 (PCR) (Not Detect) RSV (PCR) (Not Detect) Entero/Rhino (PCR) (Not Detect) 11/27/17 11/27/17 11/27/17 Range/Units 22:30 22:30 23:24 WBC (4.3-11.1) K/mcL RBC (3.82-4.97) M/mcL Hgb (11.5-15.4) g/dL Hct (35.3-44.9) % MCV (83.0-100.0) fL MCH (28.0-33.3) pg MCHC (31.6-35.5) g/dL RDW (11.5-14.5) % Plt Count (140-400) K/mcL MPV (9.4-12.4) fL Immature Gran % (0-4) % Seg Neutrophils % % Lymphocytes % % Monocytes % % Eosinophils % % Basophils % % Neutrophils # (1.6-8.9) K/mcL Lymphocytes # (0.6-4.6) K/mcL Monocytes # (0.0-1.3) K/mcL Eosinophils # (0.0-0.6) K/mcL Basophils # (0.0-0.2) K/mcL PT (9.4-12.1) Seconds INR APTT (26.0-36.0) Seconds Sodium 138 (136-145) mEq/L Potassium 3.8 (3.5-5.1) mEq/L Chloride 103 (98-107) mEq/L Carbon Dioxide 27 (23-29) mEq/L BUN 8 (8-23) mg/dL Creatinine 0.65 (0.60-1.20) mg/dL Est GFR ( Amer) > 60 (> 60) Est GFR (Non-Af Amer) > 60 (> 60) BUN/Creatinine Ratio 12 (6-26) Glucose 128 H (70-105) mg/dL Calculated Osmolality 286 (280-300) Lactic Acid 1.5 (0.5-2.2) mmol/L Calcium 9.5 (8.6-10.3) mg/dL Phosphorus 2.1 L (2.7-4.5) mg/dL Magnesium 1.7 (1.6-2.6) mg/dL Total Bilirubin 1.2 H (0.3-1.0) mg/dL Direct Bilirubin 0.2 (0.0-0.2) mg/dL Indirect Bilirubin 1.0 (0.0-1.2) mg/dL AST 11 L (13-39) Units/L ALT 12 (7-52) Units/L Alkaline Phosphatase 84 (34-104) Units/L Troponin I < 0.03 (< 0.04) ng/mL Serum Total Protein 6.9 (6.4-8.9) g/dL Albumin 4.1 (3.5-5.7) g/dL Globulin 2.8 (2.4-3.5) g/dL Albumin/Globulin Ratio 1.5 (1.1-2.2) Lipase 6 L (11-82) Units/L Urine Color (Yellow) Urine Clarity (Clear) Urine pH (5.0-8.0) pH Units Ur Specific [place] (1.010-1.025) Urine Protein (Neg-Trace) mg/dL Urine Glucose (UA) (Normal) mg/dL Urine Ketones (Negative) mg/dL Urine Blood (Negative) Urine Nitrite (Negative) Urine Bilirubin (Negative) Urine Urobilinogen (Normal) mg/dL Ur Leukocyte Esterase (Negative) Ur Culture Indicated? (NO) Chlamy pneumoniae PCR (Not Detect) Adenovirus (PCR) (Not Detect) B. pertussis DNA (PCR) (Not Detect) Coronavirus OC43 (PCR) (Not Detect) Coronavirus HKU1 (PCR) (Not Detect) Coronavirus 229E (PCR) (Not Detect) Coronavirus NL63 (PCR) (Not Detect) Human Metapneumovir PCR (Not Detect) Influenza A (H1) PCR (Not Detect) Influ A (H1N1/09) PCR (Not Detect) Influenza A (H3) PCR (Not Detect) Influenza A Untype (PCR) (Not Detect) Influenza Type B (PCR) (Not Detect) M.pneumoniae DNA (PCR) (Not Detect) Parainfluenza 1 (PCR) (Not Detect) Parainfluenza 2 (PCR) (Not Detect) Parainfluenza 3 (PCR) (Not Detect) Parainfluenza 4 (PCR) (Not Detect) RSV (PCR) (Not Detect) Entero/Rhino (PCR) (Not Detect) 11/28/17 Range/Units 01:27 WBC (4.3-11.1) K/mcL RBC (3.82-4.97) M/mcL Hgb (11.5-15.4) g/dL Hct (35.3-44.9) % MCV (83.0-100.0) fL MCH (28.0-33.3) pg MCHC (31.6-35.5) g/dL RDW (11.5-14.5) % Plt Count (140-400) K/mcL MPV (9.4-12.4) fL Immature Gran % (0-4) % Seg Neutrophils % % Lymphocytes % % Monocytes % % Eosinophils % % Basophils % % Neutrophils # (1.6-8.9) K/mcL Lymphocytes # (0.6-4.6) K/mcL Monocytes # (0.0-1.3) K/mcL Eosinophils # (0.0-0.6) K/mcL Basophils # (0.0-0.2) K/mcL PT (9.4-12.1) Seconds INR APTT (26.0-36.0) Seconds Sodium (136-145) mEq/L Potassium (3.5-5.1) mEq/L Chloride (98-107) mEq/L Carbon Dioxide (23-29) mEq/L BUN (8-23) mg/dL Creatinine (0.60-1.20) mg/dL Est GFR ( Amer) (> 60) Est GFR (Non-Af Amer) (> 60) BUN/Creatinine Ratio (6-26) Glucose (70-105) mg/dL Calculated Osmolality (280-300) Lactic Acid (0.5-2.2) mmol/L Calcium (8.6-10.3) mg/dL Phosphorus (2.7-4.5) mg/dL Magnesium (1.6-2.6) mg/dL Total Bilirubin (0.3-1.0) mg/dL Direct Bilirubin (0.0-0.2) mg/dL Indirect Bilirubin (0.0-1.2) mg/dL AST (13-39) Units/L ALT (7-52) Units/L Alkaline Phosphatase (34-104) Units/L Troponin I (< 0.04) ng/mL Serum Total Protein (6.4-8.9) g/dL Albumin (3.5-5.7) g/dL Globulin (2.4-3.5) g/dL Albumin/Globulin Ratio (1.1-2.2) Lipase (11-82) Units/L Urine Color (Yellow) Urine Clarity (Clear) Urine pH (5.0-8.0) pH Units Ur Specific [place] (1.010-1.025) Urine Protein (Neg-Trace) mg/dL Urine Glucose (UA) (Normal) mg/dL Urine Ketones (Negative) mg/dL Urine Blood (Negative) Urine Nitrite (Negative) Urine Bilirubin (Negative) Urine Urobilinogen (Normal) mg/dL Ur Leukocyte Esterase (Negative) Ur Culture Indicated? (NO) Chlamy pneumoniae PCR Not Detected (Not Detect) Adenovirus (PCR) Not Detected (Not Detect) B. pertussis DNA (PCR) Not Detected (Not Detect) Coronavirus OC43 (PCR) Not Detected (Not Detect) Coronavirus HKU1 (PCR) Not Detected (Not Detect) Coronavirus 229E (PCR) Not Detected (Not Detect) Coronavirus NL63 (PCR) Not Detected (Not Detect) Human Metapneumovir PCR Not Detected (Not Detect) Influenza A (H1) PCR Not Detected (Not Detect) Influ A (H1N1/09) PCR Not Detected (Not Detect) Influenza A (H3) PCR Not Detected (Not Detect) Influenza A Untype (PCR) Not Detected (Not Detect) Influenza Type B (PCR) Not Detected (Not Detect) M.pneumoniae DNA (PCR) Not Detected (Not Detect) Parainfluenza 1 (PCR) Not Detected (Not Detect) Parainfluenza 2 (PCR) Not Detected (Not Detect) Parainfluenza 3 (PCR) Not Detected (Not Detect) Parainfluenza 4 (PCR) Not Detected (Not Detect) RSV (PCR) Not Detected (Not Detect) Entero/Rhino (PCR) Not Detected (Not Detect) Attestation Statement - Attestation Attestation: I examined this patient and my medical decision-making was reviewed with the Resident Physician. I agree with the documented findings, disposition and treatment plan as described except to the extent set forth below. [id number] time provided Patient arrives by EMS complaining of dyspnea. She appears mildly dyspneic but otherwise in no acute distress on exam. Patient seen in conjunction with the resident physician Dr. Edmond
[2017-11-27] MEDS ORDERED: methylPREDNISolone 125 MG/2 ML VIAL IVP ONE (22:31)
[2017-11-27] MEDS ORDERED: Ipratropium/Albuterol Neb 3 ML IH ONE (22:31)
--- NOTE | 2017-11-27 22:32 | Emergency Department Note ---
Disposition Clinical Impression: COPD exacerbation, Respiratory distress Fever Qualifiers: Fever type: unspecified Qualified Code(s): R50.9 - Fever, unspecified Disposition: Admitted As Inpatient Condition: Fair Time of Disposition: 00:51 SOB HPI - General Chief Complaint: ED Shortness of Breath/Dyspnea Stated Complaint: shortness of breath Time Seen by Provider: 11/27/17 22:11 Nursing Notes Reviewed: Yes Vital Signs Reviewed: Yes - History of Present Illness 67-year-old female who presents after acute onset of shortness of breath. Patient states she started to have some cough symptoms 1 day ago. Patient states today she had acute onset of shortness of breath with myalgias. Patient states she was a chronic smoker but quit over 10 years ago. Patient states she smoked for 20 years. Patient states she has never been diagnosed with COPD. Patient states she was treated for pneumonia 2 months ago and was admitted. Patient also has a history of lung cancer and abdominal cancer as well as brain surgery for intracranial hemorrhage all back in 2001. - Related Data Home Medications Medication Instructions Recorded Confirmed Dextroamphetamine/Amphetamine 30 mg PO BID 06/08/16 09/17/17 [Adderall 30 mg Tablet] Oxycodone HCl/Acetaminophen 1 tab PO Q4-6H PRN 06/08/16 09/17/17 [Percocet 10-325 mg Tablet] Ropinirole HCl [Requip] 3 mg PO HS 10/19/16 09/17/17 Rosuvastatin Calcium [Crestor] 10 mg PO DAILY 10/19/16 09/17/17 Aspirin [Lo-Dose Aspirin EC] 81 mg PO DAILY 12/18/16 09/17/17 Omeprazole [PriLOSEC] 20 mg PO DAILY 01/19/17 09/17/17 ALPRAZolam [Xanax 1 MG Tablet] 1 mg PO TID PRN 06/12/17 09/17/17 Furosemide [Lasix] 40 mg PO BID PRN 06/12/17 09/17/17 Montelukast [Singulair] 10 mg PO DAILY 08/01/17 09/17/17 Lisinopril/Hydrochlorothiazide 1 tab PO DAILY 09/17/17 09/17/17 [Zestoretic 10-12.5 mg Tablet] Loratadine [Allergy Relief] 10 mg PO DAILY 09/17/17 09/17/17 Previous Rx's Medication Instructions Recorded Budesonide/Formoterol 160/4.5 2 puff IH BIDR inhaler 04/05/17 [Symbicort 160/4.5] Albuterol Sulfate [Proair Hfa] 2 puff IH Q4H PRN #1 inh 06/14/17 Diltiazem CD (24hr) [Cardizem CD] 120 mg PO DAILY #15 08/10/17 GuaiFENesin/Dextromethorphan 1 each PO BID PRN tab.er.12h 09/18/17 [Mucinex Dm] Ipratropium/Albuterol Neb [Duoneb] 3 ml IH Q4HR PRN #5 vial.neb 09/18/17 levoFLOXacin [Levaquin] 500 mg PO DAILY #4 tablet 09/18/17 predniSONE [PredniSONE] 40 mg PO DAILY #8 tablet 09/18/17 Allergies Allergy/AdvReac Type Severity Reaction Status Date / Time Amoxicillin Allergy Rash Verified 06/11/17 22:46 Penicillins Allergy Rash Verified 06/11/17 22:46 All systems ED: reviewed and negative except as stated. Review of Systems: As Per HPI Constitutional: Reports: fever Eyes: Denies: vision change ENT ED: Reports: congestion Cardiovascular: Reports: dyspnea on exertion. Denies: chest pain, palpitations Respiratory: Reports: cough, dyspnea, wheezes Gastrointestinal: Denies: abdominal pain, nausea, vomiting, diarrhea Genitourinary: Denies: urgency, dysuria Musculoskeletal: Denies: back pain Integumentary: Denies: rash Neurological: Reports: weakness. Denies: headache Endocrine: Reports: fatigue Past Medical History - Past Medical History Attestation: Yes The following information was validated with the patient. 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 - Social History Smoking Status: Former smoker Smokeless Tobacco Status: No Alcohol use: Reports: none Drug use: Reports: none Physical Exam Vital Signs Temperature 100.3 F H 11/27/17 22:10 Pulse Rate 100 11/27/17 22:10 Respiratory Rate 26 11/27/17 22:10 Blood Pressure 139/92 11/27/17 22:10 O2 Sat by Pulse Oximetry 96 11/27/17 22:10 Temperature 100.3 F H 11/27/17 22:10 Pulse Rate 100 11/28/17 00:13 Respiratory Rate 26 11/28/17 00:29 Blood Pressure 138/77 11/28/17 00:29 O2 Sat by Pulse Oximetry 94 11/28/17 00:13 Oxygen Delivery Oxygen Delivery Nasal Cannula 67-year-old female who is alert and oriented 3 and in acute distress secondary to shortness of breath. Patient is febrile to 100.3 degrees Fahrenheit, to get neck, patient has conversational dyspnea. Patient is on 2 L via nasal cannula and is satting at 96%. Patient is nontoxic appearing - General General appearance: alert, in no apparent distress - Head Head exam: atraumatic, normocephalic, normal inspection - Eye Eye exam: Present: normal appearance, PERRL, EOMI - ENT ENT exam: normal exam, normal oropharynx, mucous membranes moist - Neck Neck exam: Present: normal inspection, full ROM, trachea midline - Chest Chest inspection: Present: normal inspection, symmetric chest wall rise - Respiratory Respiratory exam: Present: respiratory distress, wheezes, accessory muscle use - Cardiovascular Cardiovascular exam: Present: normal rhythm, tachycardia - Abdominal Exam Abdominal exam: Present: soft, Non-Tender. Absent: tenderness, distention, guarding, rebound, rigidity - Extremities Exam Extremities exam: Present: normal inspection, full ROM. Absent: tenderness, pedal edema - Back Exam Back exam: Present: normal inspection, full ROM. Absent: tenderness, CVA tenderness (R), CVA tenderness (L) - Skin Skin exam: Present: warm, dry, intact, normal color Course Vital Signs Temperature 100.3 F H 11/27/17 22:10 Pulse Rate 100 11/27/17 22:10 Respiratory Rate 11/27/17 22:10 Blood Pressure 139/92 11/27/17 22:10 O2 Sat by Pulse Oximetry 96 11/27/17 22:10 Temperature 100.3 F H 11/27/17 22:10 Pulse Rate 100 11/28/17 00:13 Respiratory Rate 30 11/28/17 00:13 Blood Pressure 141/73 11/28/17 00:13 O2 Sat by Pulse Oximetry 94 11/28/17 00:13 Oxygen Delivery Oxygen Delivery Nasal Cannula Shortness of Breath/Dyspnea - MDM Narrative Medical decision making narrative: COPD exacerbation secondary to possible pneumonia. Patient has fevers and is tachycardic into Neck. She has SIRS positive and sepsis workup has been initiated upon arrival. Donezepil been initiated 3, methylprednisolone 125 mg IV and IV normal saline initiated. Looking for source of infection. Patient has an elevated white count and 21.4, chest x-ray shows ground glass opacities that are new. Formal read states possible pneumonitis. Lactic acid is negative. Patient to be brought in for treatment for COPD exacerbation. Patient started on levofloxacin. Patient excess this is in for admission. Patient's except for admission by Dr. Lindo the hospitalist - Lab Data Lab results reviewed: Yes I reviewed the patient's lab results. Lab results narrative: Short CBC 11/27/17 Range/Units 22:30 WBC 21.4 H (4.3-11.1) K/mcL Hgb 14.4 (11.5-15.4) g/dL Hct 44.9 (35.3-44.9) % Plt Count 208 (140-400) K/mcL Neutrophils # 19.4 H (1.6-8.9) K/mcL BMP 11/27/17 Range/Units 22:30 Sodium 138 (136-145) mEq/L Potassium 3.8 (3.5-5.1) mEq/L Chloride 103 (98-107) mEq/L Carbon Dioxide 27 (23-29) mEq/L BUN 8 (8-23) mg/dL Creatinine 0.65 (0.60-1.20) mg/dL Glucose 128 H (70-105) mg/dL Calcium 9.5 (8.6-10.3) mg/dL Cardiac Enzymes 11/27/17 Range/Units 22:30 Troponin I < 0.03 (< 0.04) ng/mL Liver Function 11/27/17 Range/Units 22:30 Total Bilirubin 1.2 H (0.3-1.0) mg/dL Direct Bilirubin 0.2 (0.0-0.2) mg/dL AST 11 L (13-39) Units/L ALT 12 (7-52) Units/L Alkaline Phosphatase 84 (34-104) Units/L Albumin 4.1 (3.5-5.7) g/dL Urine 11/27/17 Range/Units 22:30 Urine Color Yellow (Yellow) Urine Clarity Clear (Clear) Urine pH 6.5 (5.0-8.0) pH Units Ur Specific [place] 1.019 (1.010-1.025) Urine Protein Negative (Neg-Trace) mg/dL Urine Glucose (UA) Normal (Normal) mg/dL Result diagrams: 11/27/17 22:30 11/27/17 22:30 Lab Results 11/27/17 11/27/17 11/27/17 Range/Units 22:30 22:30 22:30 WBC 21.4 H (4.3-11.1) K/mcL RBC 5.17 H (3.82-4.97) M/mcL Hgb 14.4 (11.5-15.4) g/dL Hct 44.9 (35.3-44.9) % MCV 86.8 (83.0-100.0) fL MCH 27.9 L (28.0-33.3) pg MCHC 32.1 (31.6-35.5) g/dL RDW 13.0 (11.5-14.5) % Plt Count 208 (140-400) K/mcL MPV 11.7 (9.4-12.4) fL Immature Gran % 0.5 (0-4) % Seg Neutrophils % 90.7 % Lymphocytes % 4.9 % Monocytes % 3.6 % Eosinophils % 0.1 % Basophils % 0.2 % Neutrophils # 19.4 H (1.6-8.9) K/mcL Lymphocytes # 1.0 (0.6-4.6) K/mcL Monocytes # 0.8 (0.0-1.3) K/mcL Eosinophils # 0.0 (0.0-0.6) K/mcL Basophils # 0.0 (0.0-0.2) K/mcL PT 12.7 H (9.4-12.1) Seconds INR 1.2 APTT 29.2 (26.0-36.0) Seconds Sodium (136-145) mEq/L Potassium (3.5-5.1) mEq/L Chloride (98-107) mEq/L Carbon Dioxide (23-29) mEq/L BUN (8-23) mg/dL Creatinine (0.60-1.20) mg/dL Est GFR ( Amer) (> 60) Est GFR (Non-Af Amer) (> 60) BUN/Creatinine Ratio (6-26) Glucose (70-105) mg/dL Calculated Osmolality (280-300) Lactic Acid (0.5-2.2) mmol/L Calcium (8.6-10.3) mg/dL Phosphorus (2.7-4.5) mg/dL Magnesium (1.6-2.6) mg/dL Total Bilirubin (0.3-1.0) mg/dL Direct Bilirubin (0.0-0.2) mg/dL Indirect Bilirubin (0.0-1.2) mg/dL AST (13-39) Units/L ALT (7-52) Units/L Alkaline Phosphatase (34-104) Units/L Troponin I (< 0.04) ng/mL Serum Total Protein (6.4-8.9) g/dL Albumin (3.5-5.7) g/dL Globulin (2.4-3.5) g/dL Albumin/Globulin Ratio (1.1-2.2) Lipase (11-82) Units/L Urine Color Yellow (Yellow) Urine Clarity Clear (Clear) Urine pH 6.5 (5.0-8.0) pH Units Ur Specific [place] 1.019 (1.010-1.025) Urine Protein Negative (Neg-Trace) mg/dL Urine Glucose (UA) Normal (Normal) mg/dL Urine Ketones Negative (Negative) mg/dL Urine Blood Negative (Negative) Urine Nitrite Negative (Negative) Urine Bilirubin Negative (Negative) Urine Urobilinogen Normal (Normal) mg/dL Ur Leukocyte Esterase Negative (Negative) Ur Culture Indicated? NO (NO) 11/27/17 11/27/17 11/27/17 Range/Units 22:30 22:30 23:24 WBC (4.3-11.1) K/mcL RBC (3.82-4.97) M/mcL Hgb (11.5-15.4) g/dL Hct (35.3-44.9) % MCV (83.0-100.0) fL MCH (28.0-33.3) pg MCHC (31.6-35.5) g/dL RDW (11.5-14.5) % Plt Count (140-400) K/mcL MPV (9.4-12.4) fL Immature Gran % (0-4) % Seg Neutrophils % % Lymphocytes % % Monocytes % % Eosinophils % % Basophils % % Neutrophils # (1.6-8.9) K/mcL Lymphocytes # (0.6-4.6) K/mcL Monocytes # (0.0-1.3) K/mcL Eosinophils # (0.0-0.6) K/mcL Basophils # (0.0-0.2) K/mcL PT (9.4-12.1) Seconds INR APTT (26.0-36.0) Seconds Sodium 138 (136-145) mEq/L Potassium 3.8 (3.5-5.1) mEq/L Chloride 103 (98-107) mEq/L Carbon Dioxide 27 (23-29) mEq/L BUN 8 (8-23) mg/dL Creatinine 0.65 (0.60-1.20) mg/dL Est GFR ( Amer) > 60 (> 60) Est GFR (Non-Af Amer) > 60 (> 60) BUN/Creatinine Ratio 12 (6-26) Glucose 128 H (70-105) mg/dL Calculated Osmolality 286 (280-300) Lactic Acid 1.5 (0.5-2.2) mmol/L Calcium 9.5 (8.6-10.3) mg/dL Phosphorus 2.1 L (2.7-4.5) mg/dL Magnesium 1.7 (1.6-2.6) mg/dL Total Bilirubin 1.2 H (0.3-1.0) mg/dL Direct Bilirubin 0.2 (0.0-0.2) mg/dL Indirect Bilirubin 1.0 (0.0-1.2) mg/dL AST 11 L (13-39) Units/L ALT 12 (7-52) Units/L Alkaline Phosphatase 84 (34-104) Units/L Troponin I < 0.03 (< 0.04) ng/mL Serum Total Protein 6.9 (6.4-8.9) g/dL Albumin 4.1 (3.5-5.7) g/dL Globulin 2.8 (2.4-3.5) g/dL Albumin/Globulin Ratio 1.5 (1.1-2.2) Lipase 6 L (11-82) Units/L Urine Color (Yellow) Urine Clarity (Clear) Urine pH (5.0-8.0) pH Units Ur Specific [place] (1.010-1.025) Urine Protein (Neg-Trace) mg/dL Urine Glucose (UA) (Normal) mg/dL Urine Ketones (Negative) mg/dL Urine Blood (Negative) Urine Nitrite (Negative) Urine Bilirubin (Negative) Urine Urobilinogen (Normal) mg/dL Ur Leukocyte Esterase (Negative) Ur Culture Indicated? (NO) - Radiology Data Radiology results reviewed: Yes I reviewed the patient's radiology results. Chest X-Ray 11/27/17 22:30 IMPRESSION: In this patient with a prior history of surgery in the right chest, new ground-glass opacities are present in the medial right lung base, suspected to represent atelectasis or developing pneumonitis. D/ / Krishan Greer MD / Krishan Greer MD Interpreting Provider: Krishan Greer MD - EKG Data EKG attestation: Yes I reviewed and interpreted this EKG. EKG results narrative: EKG taken at 2017 at 2213 hrs. shows a sinus tachycardia at 106 bpm with no acute ST elevations in any leads. Patient has mild ST depression in V6. Previous EKG for comparison shows similar waveform. EKG is taken 2016.
[2017-11-27 22:43] LABS: Basophils % 0.2 %; Eosinophils % 0.1 %; Hematocrit 44.9 % (35.3-44.9); Hemoglobin 14.4 g/dL (11.5-15.4); Immature Granulocytes % 0.5 % (0-4); Lymphocytes % 4.9 %; Mean Corpuscular HGB Conc 32.1 g/dL (31.6-35.5); Mean Corpuscular Hemoglobin 27.9 pg (28.0-33.3); Mean Corpuscular Volume 86.8 fL (83.0-100.0); Mean Platelet Volume 11.7 fL (9.4-12.4); Monocytes # 0.8 K/mcL (0.0-1.3); Monocytes % 3.6 %; Neutrophils # 19.4 K/mcL (1.6-8.9); Platelet Count 208 K/mcL (140-400); Red Blood Count 5.17 M/mcL (3.82-4.97); Segmented Neutrophils % 90.7 %
[2017-11-27 22:46] LABS: Bilirubin,Urine Negative (Negative); Blood,Urine Negative (Negative); Clarity,Urine Clear (Clear); Color,Urine Yellow (Yellow); Glucose,Urine (UA) Normal (Normal); Ketones,Urine Negative (Negative); Leukocyte Esterase,Urine Negative (Negative); Nitrite,Urine Negative (Negative); PH,Urine 6.5 pH Units (5.0-8.0); Protein,Urine Negative (Neg-Trace); Specific Gravity,Urine 1.019 (1.010-1.025); Urobilinogen,Urine Normal (Normal)
[2017-11-27 22:48] LABS: INR 1.2; Prothrombin Time 12.7 Seconds (9.4-12.1)
[2017-11-27 22:51] LABS: Activated Partial Thrombo Time 29.2 Seconds (26.0-36.0)
[2017-11-27 22:58] LABS: Alanine Aminotransferase 12 Units/L (7-52); Albumin 4.1 g/dL (3.5-5.7); Albumin/Globulin Ratio 1.5 (1.1-2.2); Alkaline Phosphatase 84 Units/L (34-104); Aspartate Amino Transferase 11 Units/L (13-39); BUN/Creatinine Ratio 12 (6-26); Bilirubin,Direct 0.2 mg/dL (0.0-0.2); Bilirubin,Total 1.2 mg/dL (0.3-1.0); Blood Urea Nitrogen 8 mg/dL (8-23); Calcium 9.5 mg/dL (8.6-10.3); Carbon Dioxide 27 mEq/L (23-29); Chloride 103 mEq/L (98-107); Globulin 2.8 g/dL (2.4-3.5); Glucose 128 mg/dL (70-105); Lipase 6 Units/L (11-82); Magnesium 1.7 mg/dL (1.6-2.6); Osmolality,Calculated 286 (280-300); Phosphorous 2.1 mg/dL (2.7-4.5); Potassium 3.8 mEq/L (3.5-5.1); Sodium 138 mEq/L (136-145); Total Protein 6.9 g/dL (6.4-8.9); eGFR For African Americans > 60 (> 60); eGFR For Non-African Americans > 60 (> 60)
[2017-11-27] MEDS: 0.9 % Sodium Chloride 1,000 ML IVC SCH (23:08)
[2017-11-28] MEDS ORDERED: Levofloxacin 500 MG/100 ML 500 MG/100 ML BAG IVPB ONE
[2017-11-28] MEDS ORDERED: Naloxone 0.4 MG/ML INJ IVP PRN (01:43)
[2017-11-28] MEDS ORDERED: Acetaminophen 325 MG TABLET PO PRN (01:43)
[2017-11-28] MEDS ORDERED: Ipratropium/Albuterol Neb 3 ML IH PRN (01:46)
[2017-11-28] MEDS ORDERED: GuaiFENesin/Dextromethorphan TABLET PO PRN (01:46)
[2017-11-28] MEDS ORDERED: ALPRAZolam 1 MG TABLET PO PRN (01:46)
[2017-11-28] MEDS: *HR* OxyCODONE/APAP 10/325 TABLET PO PRN ×3 (02:26→16:17)
[2017-11-28] MEDS: 0.9 % Sodium Chloride 1,000 ML IVC SCH ×3 (02:27→04:03)
--- NOTE | 2017-11-28 02:30 | Internal Med History&Physical ---
Date of Encounter: 11/28/17 Time of Encounter: 02:29 Assessment and Plan (1) Pneumonia Current visit: Yes Status: Suspected Patient with pneumonia involving the right middle lobe. We will treat with IV antibiotics. Follow blood cultures. Send sputum for culture. Respiratory infection panel. Urine strep and Legionella antigens. O2 supplementation. High risk for complications. Qualifiers: Pneumonia type: due to Pneumococcus Laterality: right Lung location: middle lobe of lung Qualified Code(s): J13 - Pneumonia due to Streptococcus pneumoniae (2) HTN (hypertension) Current visit: Yes Status: Chronic Continue diltiazem, Prinzide. Qualifiers: Hypertension type: essential hypertension Qualified Code(s): I10 - Essential (primary) hypertension (3) Obstructive sleep apnea Current visit: Yes Status: Chronic Use CPAP while lying down (4) Sepsis Current visit: Yes Status: Suspected Due to pneumonia. Lactic acid is normal. Treat with IV antibiotics. Follow culture results. Qualifiers: Sepsis type: Pneumococcus Qualified Code(s): A40.3 - Sepsis due to Streptococcus pneumoniae Internal Medicine - H&P: HPI Chief complaint: Shortness of breath, cough Admitted From: Emergency Dept Plans for Post Hospital Care: Home History of present illness: Ms. Cabello is a 67 year old female patient with history of lung cancer status post partial resection of right upper lobe, colon cancer, in remission, presented to the ER with complaints of shortness of breath, cough and generalized malaise and body aches. Symptoms began one week back but since yesterday have progressively gotten worse. Patient denies any chest pain or palpitations. Does have sick contacts. She has had subjective fevers and chills. No nausea or vomiting or diarrhea. No hemoptysis. She is not on home oxygen but does use CPAP at night with oxygen. Past Med Surg Social Fam HX - Past Medical History Attestation: Yes The following information was validated with the patient. Source: patient Medical history: cancer (Lung and colon), COPD, hyperlipidemia, hypertension, other (Sleep apnea) Psychiatric history: depression - Past Surgical History Surgical History: appendectomy, cancer surgery, colectomy, hysterectomy, other ( Partial right upper lobe resection, brain surgery for intracranial hemorrhage) - Social History Smoking Status: Former smoker Smokeless Tobacco Status: No Alcohol use: none Drug use: none - Family History Father Living Status: Age at : 86 Cause of : mi Hx Family Cardiac Disorders: Yes (HYPERTENSION.) Hx Family Respiratory Disorders: Yes Mother Adopted: No Living Status: Age at : 76 Cause of : cancer Hx Family Cardiac Disorders: Yes Hx Family Cancer: Yes (colon ca) Internal Medicine - H&P: Meds Dextroamphetamine/Amphetamine [Adderall 30 mg Tablet] 30 mg PO BID 06/08/16 [ History] Oxycodone HCl/Acetaminophen [Percocet 10-325 mg Tablet] 1 tab PO Q4-6H PRN 06/08 [History] Ropinirole HCl [Requip] 3 mg PO HS 10/19/16 [History] Rosuvastatin Calcium [Crestor] 10 mg PO DAILY 10/19/16 [History] Aspirin [Lo-Dose Aspirin EC] 81 mg PO DAILY 12/18/16 [History] Budesonide/Formoterol 160/4.5 [Symbicort 160/4.5] 2 puff IH BIDR inhaler [Rx] ALPRAZolam [Xanax 1 MG Tablet] 1 mg PO TID PRN 06/12/17 [History] Furosemide [Lasix] 40 mg PO BID PRN 06/12/17 [History] Albuterol Sulfate [Proair Hfa] 2 puff IH Q4H PRN #1 inh 06/14/17 [Rx] Montelukast [Singulair] 10 mg PO DAILY 08/01/17 [History] Diltiazem CD (24hr) [Cardizem CD] 120 mg PO DAILY #15 08/10/17 [Rx] Lisinopril/Hydrochlorothiazide [Zestoretic 10-12.5 mg Tablet] 1 tab PO DAILY [History] Loratadine [Allergy Relief] 10 mg PO DAILY 09/17/17 [History] GuaiFENesin/Dextromethorphan [Mucinex Dm] 1 each PO BID PRN tab.er.12h [Rx] Ipratropium/Albuterol Neb [Duoneb] 3 ml IH Q4HR PRN #5 vial.neb 09/18/17 [Rx] 3 Allergy/AdvReac Type Severity Reaction Status Date / Time Amoxicillin Allergy Rash Verified 06/11/17 22:46 Penicillins Allergy Rash Verified 06/11/17 22:46 All Systems PM: A 10-system review of systems was performed and is negative for pertinent findings except as documented above in the HPI. - Constitutional Constitutional: fever(s), malaise, no chills, no night sweats - EENT Eyes: no change in vision, no discharge, no pain, no photophobia Ears: no ear discharge, no ear pain, no tinnitus Nose, mouth and throat: no dysphagia, no nasal discharge, no neck pain, no sore throat - Cardiovascular Cardiovascular ROS IM: no chest pain, no diaphoresis, no dyspnea, no lightheadedness, no palpitations, no syncope - Respiratory Respiratory: cough, dyspnea, no wheezing, no excessive phlegm production - Gastrointestinal Gastrointestinal: no abdominal pain, no diarrhea, no hematemesis, no hematochezia, no melena, no nausea, no vomiting - Genitourinary Genitourinary: no change in urinary stream, no dysuria, no flank pain, no hematuria - Musculoskeletal Musculoskeletal ROS IM: myalgias, no numbness, no tingling - Integumentary Integumentary IM: no rash, no unusual bruising - Neurological Neurological ROS: no confusion, no convulsions, no focal weakness, no numbness, no tingling, no tremor(s) - Hematologic/Lymphatic Hematologic/Lymphatic: no easy bruising - Constitutional Vitals: Temp Pulse Resp BP Pulse Ox 99.0 F 105 17 134/78 92 11/28/17 01:47 11/28/17 01:47 11/28/17 01:47 11/28/17 01:47 11/28/17 01:47 General appearance: Present: cooperative, mild distress, A&O X 3, pleasant, obese, answers questions appropriately - Neck Neck exam general surgery: Present: supple, trachea midline. Absent: lymphadenopathy - Respiratory Respiratory exam: Present: prolonged expiratory phase. Absent: accessory muscle use, rales, rhonchi, wheezes - Cardiovascular Cardiovascular exam: Present: RRR, +S1, +S2. Absent: diastolic murmur, gallop, rubs, systolic murmur - GI/Abdominal GI/Abdominal exam: Present: normal bowel sounds, soft, no peritoneal signs. Absent: distended, tenderness - Extremities Exam Extremities exam: Present: warm, radial pulses palpable and symmetrical. Absent : calf tenderness, cyanotic, pedal edema - Neurological Exam Neurological exam: Present: alert, CN II-XII intact, oriented X3, no focal deficits. Absent: facial droop, speech deficit - Skin Skin exam: Present: dry, intact Internal Med - H&P Results - Labs CBC & Chem 7: 11/27/17 22:30 11/27/17 22:30 - Impressions Impressions Chest X-Ray 11/27/17 22:30 IMPRESSION: In this patient with a prior history of surgery in the right chest, new ground-glass opacities are present in the medial right lung base, suspected to represent atelectasis or developing pneumonitis. D/ / Krishan Greer MD / Krishan Greer MD Interpreting Provider: Krishan Greer MD
[2017-11-28 03:22] LABS: Basophils % 0.1 %; Hematocrit 41.5 % (35.3-44.9); Hemoglobin 13.2 g/dL (11.5-15.4); Immature Granulocytes % 0.9 % (0-4); Lymphocytes # 0.3 K/mcL (0.6-4.6); Lymphocytes % 1.9 %; Mean Corpuscular HGB Conc 31.8 g/dL (31.6-35.5); Mean Corpuscular Hemoglobin 27.8 pg (28.0-33.3); Mean Corpuscular Volume 87.4 fL (83.0-100.0); Mean Platelet Volume 11.4 fL (9.4-12.4); Monocytes # 0.2 K/mcL (0.0-1.3); Monocytes % 0.9 %; Neutrophils # 15.5 K/mcL (1.6-8.9); Platelet Count 179 K/mcL (140-400); Red Blood Count 4.75 M/mcL (3.82-4.97); Segmented Neutrophils % 96.2 %
[2017-11-28 04:11] LABS: Calcium 8.5 mg/dL (8.6-10.3); Chloride 105 mEq/L (98-107); Sodium 138 mEq/L (136-145)
[2017-11-28 04:16] LABS: BUN/Creatinine Ratio 13 (6-26); Blood Urea Nitrogen 9 mg/dL (8-23); Glucose 281 mg/dL (70-105); Osmolality,Calculated 295 (280-300); eGFR For African Americans > 60 (> 60); eGFR For Non-African Americans > 60 (> 60)
[2017-11-28 04:47] LABS: Adenovirus Not Detected (Not Detect); Bordetella Pertussis Not Detected (Not Detect); Chlamydophila pneumoniae Not Detected (Not Detect); Coronavirus 229E Not Detected (Not Detect); Coronavirus HKU1 Not Detected (Not Detect); Coronavirus NL63 Not Detected (Not Detect); Coronavirus OC43 Not Detected (Not Detect); Human Metapneumovirus Not Detected (Not Detect); Human Rhinovirus/Enterovirus Not Detected (Not Detect); Influenza A Subtype 2009 H1 Not Detected (Not Detect); Influenza A Untypeable Not Detected (Not Detect); Influenza B Not Detected (Not Detect); Mycoplasma pneumoniae Not Detected (Not Detect); Parainfluenza Virus 1 Not Detected (Not Detect); Parainfluenza Virus 2 Not Detected (Not Detect); Parainfluenza Virus 3 Not Detected (Not Detect); Parainfluenza Virus 4 Not Detected (Not Detect); Respiratory Syncytial Virus Not Detected (Not Detect)
[2017-11-28 05:03] LABS: Carbon Dioxide 25 mEq/L (23-29)
[2017-11-28] MEDS: *HR* Heparin 5,000 UNIT/ML VIAL SQ SCH ×2 (05:58→16:17)
[2017-11-28] MEDS: Budesonide/Formoterol 160/4.5 MDI IH SCH ×2 (08:21→20:38)
[2017-11-28] MEDS: Diltiazem CD (24hr) 120 MG CAPSULE PO SCH (08:41)
[2017-11-28] MEDS: Aspirin Enteric Coated 81 MG Tablet PO SCH (08:42)
[2017-11-28] MEDS: Loratadine 10 MG TABLET PO SCH (08:42)
[2017-11-28] MEDS: Patient Taking Own Medication 1 EACH PO SCH ×2 (08:42→20:03)
[2017-11-28] MEDS: Ipratropium/Albuterol Neb 3 ML IH SCH ×3 (15:57→20:38)
--- NOTE | 2017-11-28 16:32 | Event Note ---
Date of Encounter: 11/28/17 Time of Encounter: 16:33 Patient seen and examined at the bedside this afternoon. She is significantly improved since her hospitalization from the ER. However she is still not at baseline and is requiring oxygen used all the time which is new for her. She used to be only on nightly CPAP On examination she continues to have diffuse wheezing. I will continue her steroids at this point. Her substances is slowly resolving. Her white count is now 16,000 from almost 21,000. Viral panel is negative rest of the plan of care is to be continued as outlined in history and physical by admitting hospitalist
--- NOTE | 2017-11-28 17:01 | Electrocardiograph Report ---
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
[2017-11-29] MEDS: Ipratropium/Albuterol Neb 3 ML IH SCH ×5 (00:22→16:16)
[2017-11-29] MEDS: *HR* OxyCODONE/APAP 10/325 TABLET PO PRN ×3 (02:31→15:00)
[2017-11-29] MEDS: *HR* Heparin 5,000 UNIT/ML VIAL SQ SCH (06:46)
[2017-11-29] MEDS: Budesonide/Formoterol 160/4.5 MDI IH SCH (08:11)
[2017-11-29] MEDS: Diltiazem CD (24hr) 120 MG CAPSULE PO SCH (08:32)
[2017-11-29] MEDS: Patient Taking Own Medication 1 EACH PO SCH (08:32)
[2017-11-29] MEDS: Aspirin Enteric Coated 81 MG Tablet PO SCH (08:32)
[2017-11-29] MEDS: Loratadine 10 MG TABLET PO SCH (08:32)
[2017-11-29] MEDS ORDERED: predniSONE 20 MG TABLET PO SCH (09:00)
--- NOTE | 2017-11-29 10:18 | Discharge Summary ---
<Andrea Chiu - Last Filed: 11/29/17 13:52> Date of Encounter: 11/29/17 Time of Encounter: 10:16 - Discharge Diagnosis (1) Community acquired pneumonia Priority: Primary Status: Acute Qualifiers: Laterality: right Lung location: middle lobe of lung Qualified Code(s): J18.1 - Lobar pneumonia, unspecified organism (2) Acute exacerbation of chronic obstructive airways disease Priority: Secondary Status: Acute (3) HTN (hypertension) Priority: Secondary Status: Chronic Qualifiers: Hypertension type: essential hypertension Qualified Code(s): I10 - Essential (primary) hypertension (4) Sepsis Priority: Secondary Status: Suspected Qualifiers: Sepsis type: Pneumococcus Qualified Code(s): A40.3 - Sepsis due to Streptococcus pneumoniae (5) Obstructive sleep apnea Priority: Secondary Status: Chronic - Discharge Medications Prescriptions: Albuterol Sulfate [Proventil Hfa] 6.7 gm IH Q4HR #1 hfa.aer.ad Ipratropium/Albuterol Neb [Duoneb] 3 ml IH [id number] #1 inhsol levoFLOXacin [Levaquin] 750 mg PO DAILY #5 tablet predniSONE [PredniSONE] 10 mg PO DAILY #18 tablet Home Medications: Dextroamphetamine/Amphetamine [Adderall 30 mg Tablet] 30 mg PO BID 06/08/16 [ History] Oxycodone HCl/Acetaminophen [Percocet 10-325 mg Tablet] 1 tab PO Q4-6H PRN 06/08 [History] Ropinirole HCl [Requip] 3 mg PO HS 10/19/16 [History] Rosuvastatin Calcium [Crestor] 10 mg PO DAILY 10/19/16 [History] Aspirin [Lo-Dose Aspirin EC] 81 mg PO DAILY 12/18/16 [History] Budesonide/Formoterol 160/4.5 [Symbicort 160/4.5] 2 puff IH BIDR inhaler [Rx] ALPRAZolam [Xanax 1 MG Tablet] 1 mg PO TID PRN 06/12/17 [History] Furosemide [Lasix] 40 mg PO BID PRN 06/12/17 [History] Albuterol Sulfate [Proair Hfa] 2 puff IH Q4H PRN #1 inh 06/14/17 [Rx] Montelukast [Singulair] 10 mg PO DAILY 08/01/17 [History] Diltiazem CD (24hr) [Cardizem CD] 120 mg PO DAILY #15 08/10/17 [Rx] Lisinopril/Hydrochlorothiazide [Zestoretic 10-12.5 mg Tablet] 1 tab PO DAILY [History] Loratadine [Allergy Relief] 10 mg PO DAILY 09/17/17 [History] GuaiFENesin/Dextromethorphan [Mucinex Dm] 1 each PO BID PRN tab.er.12h [Rx] Ipratropium/Albuterol Neb [Duoneb] 3 ml IH Q4HR PRN #5 vial.neb 09/18/17 [Rx] Acetaminophen [Tylenol] 650 mg PO Q6HR PRN tablet 11/29/17 [Rx] Albuterol Sulfate [Proventil Hfa] 6.7 gm IH Q4HR #1 hfa.aer.ad 11/29/17 [Rx] Ipratropium/Albuterol Neb [Duoneb] 3 ml IH [id number] #1 inhsol 11/29/17 [Rx] levoFLOXacin [Levaquin] 750 mg PO DAILY #5 tablet 11/29/17 [Rx] predniSONE [PredniSONE] 10 mg PO DAILY #18 tablet 11/29/17 [Rx] Allergies/Adverse Reactions: 3 Allergy/AdvReac Type Severity Reaction Status Date / Time Amoxicillin Allergy Rash Verified 11/28/17 10:08 Penicillins Allergy Rash Verified 11/28/17 10:08 Date of admission: 11/28/17 01:43 Primary care physician: Janice Hoff Discharging clinician: Andrea Chiu Anticipated date of discharge: 11/29/17 - Patient Status Disposition: Home, Self-Care Condition: Good Functional capacity at discharge: independent ambulation Overall status at discharge: patient is back to baseline - Discharge Instructions Follow Up With: Janice Hoff MD [Primary Care Provider] - 12/06/17 1:45 pm Additional Instructions: Follow-up appointments: If there is not an appointment listed below, please call your physician and schedule a follow-up appointment. If you have congestive heart failure and your symptoms return, make an appointment with your physician. Medication List: Carry an up to date list of medications you are taking at all time. We have given you an updated medication list including any new medications that you have been prescribed. Please provide that list to your primary provider Symptoms: If your condition changes or you experience any of the following symptoms, notify your physician immediately: Unusual or worsening pain, fever, persistent nausea and vomiting, bleeding, increase in swelling (especially in your legs), sudden weight gain, extreme dizziness, chest pain, increased drainage or redness from a wound or incision. Go to the emergency department if you experience a problem with breathing. Weights: If you have a history of swelling or shortness of breath, weigh yourself daily and notify your physician if you have a weight gain of two or more pounds in one day or 5 or more pounds in a week. If you experience any of the warning signs for stroke: Sudden numbness or weakness of the face, arm or leg; especially on one side of the body, sudden confusion, trouble speaking or understanding, sudden trouble seeing in one or both eyes, sudden trouble walking, dizziness, loss of balance or coordination, sudden sever headache with no cause; Call 911 or go to the emergency room. Stroke is a medical emergency. Some risk factors for stroke: Age, cigarette smoking, diabetes, excessive alcohol consumption, family history , high blood pressure, overweight, physical inactivity, prior stroke, heart attack, diagnosis of carotid artery stenosis or other artery disease. If you smoke, STOP: Smoking or tobacco use significantly increases your risk of heart and lung disease. Your chance of disease greatly increases if you continue to smoke. For more information, call the [place] tobacco quit line for smoking cessation QUIT-NOW ( ) - Diet and Activity Activity: increase activity as tolerated, resume usual activities as tolerated Diet: advance to your usual diet Interval History: Patient states she is feeling much better today feels like she can get a full deep breath. She has not had use oxygen at all today she feels like she does not need it. She does use CPAP last night which is normal for her as she does have LEE. Patient remained chest pain or shortness of breath, fevers, chills, dysuria, leg pain or swelling. Patient has no other complaints. There are no overnight events. Patient states she does want to go home she feels that she take care of herself at home now. She does have oxygen as well as CPAP cardiac home. Hospital course: Ms. Cabello is a 67 year old female with history of lung cancer status post partial resection of right upper lobe, colon cancer, in remission, presented to the ER complaining of shortness of breath, cough and generalized malaise and body aches. Symptoms began approximately one week ago but have progressed to 2 days ago to cause her to come in. Patient denied any chest pain or palpitations but did have sick contacts that she does have kids at home. She has injected fevers and chills but no documented fever. She does have home oxygen and does use CPAP at home due to her LEE. Patient was started on Levaquin in the emergency department she has now gotten 2 days here in the hospital. This most likely is due to pneumococcus. Yesterday she had to be on 2 L of oxygen which is normal for her when she has a pneumonia. Patient says she does have oxygen at home. She did meet SIRS criteria by negative lactate. Since then her labs normalized her white count is trending down. Patient clinically looks very well and says a shingle home. Patient says that she is having some family issues where she is to go home and deal with. Patient has home O2 and CPAP. We will send her home on 5 more days of by mouth Levaquin as well as 3 days of steroids. She has gotten 2 days of dosing here. We will also send patient home with a steroid taper for 14 days. Based on her COPD history. Patient is discharged home in stable condition and does have follow- up with her primary care physician. - Time Spent with Patient Total time spent providing and/or coordinating discharge services: Greater than 30 minutes - Constitutional Vitals: Temp Pulse Resp BP Pulse Ox 98.1 F 78 18 137/68 97 11/29/17 06:40 11/29/17 06:40 11/29/17 06:40 11/29/17 06:40 11/29/17 06:40 General appearance: Present: cooperative, mild distress, A&O X 3, pleasant, obese, answers questions appropriately - Head Head exam: Present: atraumatic, normocephalic - Eye Eye exam: Present: PERRL, conjuntiva pink, sclera anicteric Pupils: Present: PERRL - Neck Neck exam general surgery: Present: supple, trachea midline. Absent: lymphadenopathy - Respiratory Respiratory exam: Present: decreased breath sounds, wheezes (Mild chronic wheezes bilaterally in all lobes). Absent: accessory muscle use, rales, respiratory distress, rhonchi - Cardiovascular Cardiovascular exam: Present: RRR, +S1, +S2. Absent: diastolic murmur, gallop, rubs, systolic murmur - GI/Abdominal GI/Abdominal exam: Present: normal bowel sounds, soft, no peritoneal signs. Absent: distended, tenderness - Extremities Exam Extremities exam: Present: warm, radial pulses palpable and symmetrical. Absent : calf tenderness, cyanotic, pedal edema - Neurological Exam Neurological exam: Present: CN II-XII intact, oriented X3, no focal deficits. Absent: pronater drift, facial droop, speech deficit - Skin Skin exam: Present: dry, intact <Aylin Maravilla G - Last Filed: 11/29/17 16:21> Date of Encounter: 11/29/17 Date of admission: 11/28/17 01:43 Primary care physician: Janice Hoff [facility] course: Ms. Cabello is a 67 year old female - Time Spent with Patient Total time spent providing and/or coordinating discharge services: - Constitutional Vitals: Temp Pulse Resp BP Pulse Ox 98.2 F 73 20 132/76 84 11/29/17 10:07 11/29/17 10:07 11/29/17 11:27 11/29/17 10:11/29/17 11:27 - Attending Attestation I saw and evaluated the patient at bedside. I have reviewed the DC Sumary note obtained and documented by the resident and personally participated in the goodwin components. I have discussed the case and management of the patient's care. I agree with the findings and plan of care.
[2017-11-29 11:54] VITALS: BP 132/76
[2017-11-29] MEDS ORDERED: Levofloxacin 500 MG/100 ML 500 MG/100 ML BAG IVPB SCH (15:00)
[2017-11-29] MEDS ORDERED: levoFLOXacin 750 MG TABLET PO ONE (15:24)
== END 2017-11-29 16:41 | disposition home or self-care (01) | DRG 871 ==
LOC: 3NENU 22:09 → EMEROO 22:09 → 3NENU 11-28 00:30 → SUATTDRO 11-28 01:43
PROVIDERS: ADMIT Internal Medicine; ATTEND Internal Medicine

== ENCOUNTER 2018-09-22 19:28 | Inpatient (IN) ==
[2018-09-22] MEDS ORDERED: Ipratropium/Albuterol Neb 3 ML IH ONE (19:33)
[2018-09-22] MEDS ORDERED: predniSONE 20 MG TABLET PO ONE (19:34)
--- NOTE | 2018-09-22 19:54 | Emergency Department Note ---
Disposition Clinical Impression: COPD (chronic obstructive pulmonary disease) Qualifiers: COPD type: COPD with acute exacerbation Qualified Code(s): J44.1 - Chronic obstructive pulmonary disease with (acute) exacerbation Disposition: Admitted As Inpatient Condition: Fair Referrals: Irene Duncan MD [Primary Care Provider] - Forms: ED Satisfaction Letter General Adult HPI - General Chief complaint: ED Shortness of Breath/Dyspnea Stated complaint: SoB Time Seen by Provider: 09/22/18 19:32 Nursing Notes Reviewed: Yes Vital Signs Reviewed: Yes - History of Present Illness HPI Narrative: Patient is a 68-year-old female with history of COPD, lung cancer now in remission, colon cancer, hypertension who presents the emergency department with complaints of shortness of breath and increased work of breathing. Patient states that over the past over the past 2-3 days she has had increased work of breathing, now requiring 4 L of oxygen up from her baseline of 2. She states t hat she has run out of her nebulizer treatment which she attributes to worsening of her symptoms. She also notes fever to 101.4, chills, and a productive cough of dark brown sputum. She otherwise continues use of her albuterol and inhaled Corticosteroid. She states this is similar to previous episodes of pneumonia. She otherwise denies any nausea, vomiting, chest pain, abdominal pain, diarrhea, or weight loss. - Related Data Home Medications Medication Instructions Recorded Confirmed Dextroamphetamine/Amphetamine 30 mg PO BID 06/08/16 11/28/17 [Adderall 30 mg Tablet] Oxycodone HCl/Acetaminophen 1 tab PO Q4-6H PRN 06/08/16 11/28/17 [Percocet 10-325 mg Tablet] Ropinirole HCl [Requip] 3 mg PO HS 10/19/16 11/28/17 Rosuvastatin Calcium [Crestor] 10 mg PO DAILY 10/19/16 11/28/17 Aspirin [Lo-Dose Aspirin EC] 81 mg PO DAILY 12/18/16 11/28/17 ALPRAZolam [Xanax 1 MG Tablet] 1 mg PO TID PRN 06/12/17 11/28/17 Furosemide [Lasix] 40 mg PO BID PRN 06/12/17 11/28/17 Montelukast [Singulair] 10 mg PO DAILY 08/01/17 11/28/17 Lisinopril/Hydrochlorothiazide 1 tab PO DAILY 09/17/17 11/28/17 [Zestoretic 10-12.5 mg Tablet] Loratadine [Allergy Relief] 10 mg PO DAILY 09/17/17 11/28/17 Previous Rx's Medication Instructions Recorded Budesonide/Formoterol 160/4.5 2 puff IH BIDR inhaler 04/05/17 [Symbicort 160/4.5] Albuterol Sulfate [Proair Hfa] 2 puff IH Q4H PRN #1 inh 06/14/17 Diltiazem CD (24hr) [Cardizem CD] 120 mg PO DAILY #15 08/10/17 GuaiFENesin/Dextromethorphan 1 each PO BID PRN tab.er.12h 09/18/17 [Mucinex Dm] Ipratropium/Albuterol Neb [Duoneb] 3 ml IH Q4HR PRN #5 vial.neb 09/18/17 Acetaminophen [Tylenol] 650 mg PO Q6HR PRN tablet 11/29/17 Albuterol Sulfate [Proventil Hfa] 6.7 gm IH Q4HR #1 hfa.aer.ad 11/29/17 Ipratropium/Albuterol Neb [Duoneb] 3 ml IH [id number] #1 inhsol 11/29/17 levoFLOXacin [Levaquin] 750 mg PO DAILY #5 tablet 11/29/17 predniSONE [PredniSONE] 10 mg PO DAILY #18 tablet 11/29/17 Levofloxacin [Levaquin] 750 mg PO QDPC #5 tablet 05/18/18 predniSONE [PredniSONE] 40 mg PO DAILY #10 tablet 05/18/18 Allergies Allergy/AdvReac Type Severity Reaction Status Date / Time Amoxicillin Allergy Rash Verified 11/28/17 10:08 Penicillins Allergy Rash Verified 11/28/17 10:08 All systems ED: reviewed and negative except as stated. Review of Systems: As Per HPI Past Medical History - Past Medical History Medical history: Reports: asthma, cancer, COPD, hyperlipidemia, hypertension, other Surgical history: Reports: appendectomy, cancer surgery (Right upper lung lo bectomy, partial colon resection), colectomy, hysterectomy (Tubal ligation), other (Cerebral thrombectomy, tonsillectomy) Psychiatric history: Reports: depression [employer] OPER[employer] history: Reports: bilateral tubal ligation - Social History Smoking Status: Former smoker Smokeless Tobacco Status: No Alcohol use: Reports: none Drug use: Reports: none Physical Exam - General General appearance: alert, in distress - Head Head exam: atraumatic, normocephalic - Neck Neck exam: Present: normal inspection, trachea midline - Chest Chest inspection: Present: normal inspection - Respiratory Respiratory exam: Present: respiratory distress, wheezes (Diffuse inspiratory and expiratory), other (Able to speak in full sentences but takes a long positives after each. Currently on 4 L O2 with saturation 96%). Absent: accessory muscle use - Expanded Respiratory Exam Location: decreased breath sounds: Left, Right - Cardiovascular Cardiovascular exam: Present: regular rate, normal rhythm, normal heart sounds - Abdominal Exam Abdominal exam: Present: soft, Non-Tender. Absent: distention, guarding, rebound, rigidity - Extremities Exam Extremities exam: Present: pedal edema (1+ bilaterally) - Neurological Exam Neurological exam: Present: alert, oriented X3 - Psychiatric Psychiatric exam: Present: normal affect, normal mood - Skin Skin exam: Present: warm, dry, intact, other (Surgical incision site right posterior back consistent with previous lobectomy) Course Course Narrative: 68-year-old female with COPD with increased O2 requirements now with wet, productive cough and fever at home. Likely will require admission. We will obtain CBC, BMP, chest x-ray, and duonebs. Vital Signs Respiratory Rate 28 09/22/18 19:45 O2 Sat by Pulse Oximetry 95 09/22/18 19:45 Respiratory Rate 28 09/22/18 19:45 O2 Sat by Pulse Oximetry 95 09/22/18 19:45 Medical Decision Making - [facility] Narrative Medical decision making narrative: On initial presentation patient is tachycardic, dyspneic and requiring increased oxygen from baseline. She has productive cough with wheezing but no focal areas of consolidation on examination. CBC, BMP, lactic acid, and chest x-ray reveal no evidence of leukocytosis or pneumonia but given her continued symptoms he likely has pneumonia and not obviously Current symptoms likely related to COPD exacerbation versus pneumonia. Given patient's significant medical history well begin Levaquin to cover for pneumonia. Patient does not feel comfortable being discharged home in her current state. Given her increased oxygen requirements and significant past medical history well admit to the hospitalist. All questions answered. - Medical Records Medical records reviewed: Yes I reviewed the patient's medical records. - Lab Data Lab results reviewed: Yes I reviewed the patient's lab results. Result diagrams: 09/22/18 20:03 Lab Results 09/22/18 09/22/18 Range/Units 20:03 20:03 WBC 6.4 (4.3-11.1) K/mcL RBC 5.07 H (3.82-4.97) M/mcL Hgb 14.2 (11.5-15.4) g/dL Hct 45.6 H (35.3-44.9) % MCV 89.9 (83.0-100.0) fL MCH 28.0 (28.0-33.3) pg MCHC 31.1 L (31.6-35.5) g/dL RDW 12.7 (11.5-14.5) % Plt Count 182 (140-400) K/mcL MPV 11.6 (9.4-12.4) fL Immature Gran % 0.3 (0-4) % Seg Neutrophils % 67.1 % Lymphocytes % 21.8 % Monocytes % 8.3 % Eosinophils % 2.2 % Basophils % 0.3 % Neutrophils # 4.3 (1.6-8.9) K/mcL Lymphocytes # 1.4 (0.6-4.6) K/mcL Monocytes # 0.5 (0.0-1.3) K/mcL Eosinophils # 0.1 (0.0-0.6) K/mcL Basophils # 0.0 (0.0-0.2) K/mcL Lactic Acid 1.0 (0.5-2.2) mmol/L - Radiology Data Radiology results reviewed: Yes I reviewed the patient's radiology results. Chest X-Ray 09/22/18 19:33 IMPRESSION: Postsurgical changes in the right chest appear stable. No acute findings are observed. D/ / Krishan Greer MD / Krishan Greer MD Interpreting Provider: Krishan Greer MD - EKG Data EKG #1 EKG attestation: Yes I reviewed and interpreted this EKG. EKG results narrative: Sinus tachycardia rate of 144. Normal axis [place] 166, QRS 84, QT 304, QTC 471. Intermittent PVCs.
--- NOTE | 2018-09-22 20:14 | Emergency Department Note ---
Disposition Clinical Impression: COPD (chronic obstructive pulmonary disease) Qualifiers: COPD type: COPD with acute exacerbation Qualified Code(s): J44.1 - Chronic obstructive pulmonary disease with (acute) exacerbation Pneumonia Qualifiers: Pneumonia type: due to other aerobic Gram-negative bacteria Disposition: Admitted As Inpatient Condition: Good Referrals: Irene Duncan MD [Primary Care Provider] - General Adult HPI - General Stated complaint: SoB Time Seen by Provider: 09/22/18 19:32 - History of Present Illness HPI Narrative: Attestation note: Patient was seen with the emergency medicine resident/nurse practitioner/physician assistant purchasing manager/transitional resident/medical student: Dr. SUSANNE MCGRAW I have personally performed a face to face evaluation on this patient. I have reviewed and agree with history and physical examination patient management and disposition. Briefly the salient points of the case are as follows: 68-year-old female with right partial pneumonectomy secondary to cancer 11 years ago has had no recent chemoradiation therapy. She has COPD she is home O2 dependent but she normally 2 L/m she got up to 4 L/m over the past several days her nebulizing system at home is broken she has been using inhalers is but she can she has been having fever and chills brown sputum fatigue increasing shortness of breath and chest discomfort. Patient has expiratory wheezes bilaterally she is getting steroids patient is getting triple DuoNeb treatments chest x-ray EKG screening labs. Anticipated admission for COPD flare with possible resultant pneumonia. Providing 30 minutes critical care service this patient. Admission disposition pending - Related Data Home Medications Medication Instructions Recorded Confirmed Dextroamphetamine/Amphetamine 30 mg PO BID 06/08/16 11/28/17 [Adderall 30 mg Tablet] Oxycodone HCl/Acetaminophen 1 tab PO Q4-6H PRN 06/08/16 11/28/17 [Percocet 10-325 mg Tablet] Ropinirole HCl [Requip] 3 mg PO HS 10/19/16 11/28/17 Rosuvastatin Calcium [Crestor] 10 mg PO DAILY 10/19/16 11/28/17 Aspirin [Lo-Dose Aspirin EC] 81 mg PO DAILY 12/18/16 11/28/17 ALPRAZolam [Xanax 1 MG Tablet] 1 mg PO TID PRN 06/12/17 11/28/17 Furosemide [Lasix] 40 mg PO BID PRN 06/12/17 11/28/17 Montelukast [Singulair] 10 mg PO DAILY 08/01/17 11/28/17 Lisinopril/Hydrochlorothiazide 1 tab PO DAILY 09/17/17 11/28/17 [Zestoretic 10-12.5 mg Tablet] Loratadine [Allergy Relief] 10 mg PO DAILY 09/17/17 11/28/17 Previous Rx's Medication Instructions Recorded Budesonide/Formoterol 160/4.5 2 puff IH BIDR inhaler 04/05/17 [Symbicort 160/4.5] Albuterol Sulfate [Proair Hfa] 2 puff IH Q4H PRN #1 inh 06/14/17 Diltiazem CD (24hr) [Cardizem CD] 120 mg PO DAILY #15 08/10/17 GuaiFENesin/Dextromethorphan 1 each PO BID PRN tab.er.12h 09/18/17 [Mucinex Dm] Ipratropium/Albuterol Neb [Duoneb] 3 ml IH Q4HR PRN #5 vial.neb 09/18/17 Acetaminophen [Tylenol] 650 mg PO Q6HR PRN tablet 11/29/17 Albuterol Sulfate [Proventil Hfa] 6.7 gm IH Q4HR #1 hfa.aer.ad 11/29/17 Ipratropium/Albuterol Neb [Duoneb] 3 ml IH [id number] #1 inhsol 11/29/17 levoFLOXacin [Levaquin] 750 mg PO DAILY #5 tablet 11/29/17 predniSONE [PredniSONE] 10 mg PO DAILY #18 tablet 11/29/17 Levofloxacin [Levaquin] 750 mg PO QDPC #5 tablet 05/18/18 predniSONE [PredniSONE] 40 mg PO DAILY #10 tablet 05/18/18 Allergies Allergy/AdvReac Type Severity Reaction Status Date / Time Amoxicillin Allergy Rash Verified 11/28/17 10:08 Penicillins Allergy Rash Verified 11/28/17 10:08 Past Medical History - Past Medical History Medical history: Reports: asthma, cancer, COPD, hyperlipidemia, hypertension, other Surgical history: Reports: appendectomy, cancer surgery (Right upper lung lobectomy, partial colon resection), colectomy, hysterectomy (Tubal ligation), other (Cerebral thrombectomy, tonsillectomy) Psychiatric history: Reports: depression [employer]ER history: Reports: bilateral tubal ligation - Social History Smoking Status: Former smoker Smokeless Tobacco Status: No Alcohol use: Reports: none Drug use: Reports: none Physical Exam - General General appearance: alert, in distress Course Vital Signs Respiratory Rate 28 09/22/18 19:45 O2 Sat by Pulse Oximetry 95 09/22/18 19:45 Respiratory Rate 28 09/22/18 19:45 O2 Sat by Pulse Oximetry 95 09/22/18 19:45
[2018-09-22 20:23] LABS: Basophils % 0.3 %; Eosinophils # 0.1 K/mcL (0.0-0.6); Eosinophils % 2.2 %; Hematocrit 45.6 % (35.3-44.9); Hemoglobin 14.2 g/dL (11.5-15.4); Immature Granulocytes % 0.3 % (0-4); Lymphocytes # 1.4 K/mcL (0.6-4.6); Lymphocytes % 21.8 %; Mean Corpuscular HGB Conc 31.1 g/dL (31.6-35.5); Mean Corpuscular Volume 89.9 fL (83.0-100.0); Mean Platelet Volume 11.6 fL (9.4-12.4); Monocytes # 0.5 K/mcL (0.0-1.3); Monocytes % 8.3 %; Neutrophils # 4.3 K/mcL (1.6-8.9); Platelet Count 182 K/mcL (140-400); Red Blood Count 5.07 M/mcL (3.82-4.97); Red Cell Distribution Width 12.7 % (11.5-14.5); Segmented Neutrophils % 67.1 %
[2018-09-22] MEDS ORDERED: levoFLOXacin 750 MG TABLET PO ONE (20:34)
[2018-09-22 20:35] LABS: BUN/Creatinine Ratio 16 (6-26); Blood Urea Nitrogen 9 mg/dL (8-23); Calcium 9.4 mg/dL (8.6-10.3); Carbon Dioxide 32 mEq/L (23-29); Chloride 101 mEq/L (98-107); Glucose 149 mg/dL (70-105); Osmolality,Calculated 293 (280-300); Potassium 3.7 mEq/L (3.5-5.1); Sodium 141 mEq/L (136-145); eGFR For Non-African Americans > 60 (> 60)
--- NOTE | 2018-09-22 20:35 | Emergency Department Note ---
Disposition Clinical Impression: COPD (chronic obstructive pulmonary disease) Qualifiers: COPD type: COPD with acute exacerbation Qualified Code(s): J44.1 - Chronic obstructive pulmonary disease with (acute) exacerbation Pneumonia Qualifiers: Pneumonia type: due to other aerobic Gram-negative bacteria Disposition: Admitted As Inpatient Condition: Good Referrals: Irene Duncan MD [Primary Care Provider] - Forms: ED Satisfaction Letter General Adult HPI - General Chief complaint: ED Shortness of Breath/Dyspnea Stated complaint: SoB Time Seen by Provider: 09/22/18 19:32 - Related Data Home Medications Medication Instructions Recorded Confirmed Dextroamphetamine/Amphetamine 30 mg PO BID 06/08/16 11/28/17 [Adderall 30 mg Tablet] Oxycodone HCl/Acetaminophen 1 tab PO Q4-6H PRN 06/08/16 11/28/17 [Percocet 10-325 mg Tablet] Ropinirole HCl [Requip] 3 mg PO HS 10/19/16 11/28/17 Rosuvastatin Calcium [Crestor] 10 mg PO DAILY 10/19/16 11/28/17 Aspirin [Lo-Dose Aspirin EC] 81 mg PO DAILY 12/18/16 11/28/17 ALPRAZolam [Xanax 1 MG Tablet] 1 mg PO TID PRN 06/12/17 11/28/17 Furosemide [Lasix] 40 mg PO BID PRN 06/12/17 11/28/17 Montelukast [Singulair] 10 mg PO DAILY 08/01/17 11/28/17 Lisinopril/Hydrochlorothiazide 1 tab PO DAILY 09/17/17 11/28/17 [Zestoretic 10-12.5 mg Tablet] Loratadine [Allergy Relief] 10 mg PO DAILY 09/17/17 11/28/17 Previous Rx's Medication Instructions Recorded Budesonide/Formoterol 160/4.5 2 puff IH BIDR inhaler 04/05/17 [Symbicort 160/4.5] Albuterol Sulfate [Proair Hfa] 2 puff IH Q4H PRN #1 inh 06/14/17 Diltiazem CD (24hr) [Cardizem CD] 120 mg PO DAILY #15 08/10/17 GuaiFENesin/Dextromethorphan 1 each PO BID PRN tab.er.12h 09/18/17 [Mucinex Dm] Ipratropium/Albuterol Neb [Duoneb] 3 ml IH Q4HR PRN #5 vial.neb 09/18/17 Acetaminophen [Tylenol] 650 mg PO Q6HR PRN tablet 11/29/17 Albuterol Sulfate [Proventil Hfa] 6.7 gm IH Q4HR #1 hfa.aer.ad 11/29/17 Ipratropium/Albuterol Neb [Duoneb] 3 ml IH [id number] #1 inhsol 11/29/17 levoFLOXacin [Levaquin] 750 mg PO DAILY #5 tablet 11/29/17 predniSONE [PredniSONE] 10 mg PO DAILY #18 tablet 11/29/17 Levofloxacin [Levaquin] 750 mg PO QDPC #5 tablet 05/18/18 predniSONE [PredniSONE] 40 mg PO DAILY #10 tablet 05/18/18 Allergies Allergy/AdvReac Type Severity Reaction Status Date / Time Amoxicillin Allergy Rash Verified 11/28/17 10:08 Penicillins Allergy Rash Verified 11/28/17 10:08 Past Medical History - Past Medical History Medical history: Reports: asthma, cancer, COPD, hyperlipidemia, hypertension, other Surgical history: Reports: appendectomy, cancer surgery (Right upper lung lobectomy, partial colon resection), colectomy, hysterectomy (Tubal ligation), other (Cerebral thrombectomy, tonsillectomy) Psychiatric history: Reports: depression [employer] history: Reports: bilateral tubal ligation - Social History Smoking Status: Former smoker Smokeless Tobacco Status: No Alcohol use: Reports: none Drug use: Reports: none Physical Exam - General General appearance: alert, in distress Course Vital Signs Respiratory Rate 28 09/22/18 19:45 O2 Sat by Pulse Oximetry 95 09/22/18 19:45 Respiratory Rate 28 09/22/18 19:45 O2 Sat by Pulse Oximetry 95 09/22/18 19:45 Medical Decision Making - Lab Data Result diagrams: 09/22/18 20:03 Lab Results 09/22/18 09/22/18 Range/Units 20:03 20:03 WBC 6.4 (4.3-11.1) K/mcL RBC 5.07 H (3.82-4.97) M/mcL Hgb 14.2 (11.5-15.4) g/dL Hct 45.6 H (35.3-44.9) % MCV 89.9 (83.0-100.0) fL MCH 28.0 (28.0-33.3) pg MCHC 31.1 L (31.6-35.5) g/dL RDW 12.7 (11.5-14.5) % Plt Count 182 (140-400) K/mcL MPV 11.6 (9.4-12.4) fL Immature Gran % 0.3 (0-4) % Seg Neutrophils % 67.1 % Lymphocytes % 21.8 % Monocytes % 8.3 % Eosinophils % 2.2 % Basophils % 0.3 % Neutrophils # 4.3 (1.6-8.9) K/mcL Lymphocytes # 1.4 (0.6-4.6) K/mcL Monocytes # 0.5 (0.0-1.3) K/mcL Eosinophils # 0.1 (0.0-0.6) K/mcL Basophils # 0.0 (0.0-0.2) K/mcL Lactic Acid 1.0 (0.5-2.2) mmol/L Attestation Statement - Attestation Attestation: Care assumed from Dr. Beltran at 20:30 pending CXR, labs admission. Patient presented with dyspnea, productive cough. NAD on exam
[2018-09-22] MEDS ORDERED: GuaiFENesin/Dextromethorphan TABLET PO PRN (21:53)
[2018-09-22] MEDS ORDERED: Acetaminophen 325 MG TABLET PO PRN (21:53)
--- NOTE | 2018-09-22 22:12 | Internal Med History&Physical ---
Date of Encounter: 09/22/18 Time of Encounter: 22:09 Internal Medicine - H&P: HPI Chief complaint: SOB Admitted From: Home Plans for Post Hospital Care: Home History of present illness: Yecenia Cabello is a 68 year old woman with a history of COPD on 2L home O2, lung cancer status post partial resection of right upper lobe, colon cancer in remission and obstructive sleep apnea on CPAP presented to the ER with complaints of shortness of breath, cough productive of brown sputum, subjective fever, chills, chest discomfort and generalized malaise. She states that she has had to increase her O2 to 4L at home as her nebulizer machine at home is not functional. On arrival she was seen to have diffuse expiratory wheezes bilaterally. She received nebulizer treatment, abx and steroids. CXR reviewed independently by me shows a bit more haziness in the right base than usual but no focal consolidation per se. She is now admitted for further care. Past Med Surg Social Fam HX - Past Medical History Medical history: asthma, cancer, COPD, hyperlipidemia, hypertension, other Additional medical history: lung and colon cancer Psychiatric history: depression - Past Surgical History Surgical History: appendectomy, cancer surgery (Right upper lung lobectomy, partial colon resection), colectomy, hysterectomy (Tubal ligation), other (Cerebral thrombectomy, tonsillectomy) Additional surgical history: upper right lobectomy , brain surgery - Social History Smoking Status: Former smoker Smokeless Tobacco Status: No Alcohol use: none Drug use: none - Family History Father Living Status: Hx Family Cardiac Disorders: Yes (HYPERTENSION.) Hx Family Respiratory Disorders: Yes Mother Adopted: No Living Status: Hx Family Cardiac Disorders: Yes Hx Family Cancer: Yes (colon ca) Internal Medicine - H&P: Meds Dextroamphetamine/Amphetamine [Adderall 30 mg Tablet] 30 mg PO BID 06/08/16 [History] Oxycodone HCl/Acetaminophen [Percocet 10-325 mg Tablet] 1 tab PO Q4-6H PRN 06/08/16 [History] Ropinirole HCl [Requip] 3 mg PO HS 10/19/16 [History] Rosuvastatin Calcium [Crestor] 10 mg PO DAILY 10/19/16 [History] Aspirin [Lo-Dose Aspirin EC] 81 mg PO DAILY 12/18/16 [History] Budesonide/Formoterol 160/4.5 [Symbicort 160/4.5] 2 puff IH BIDR inhaler 04/05/17 [Rx] ALPRAZolam [Xanax 1 MG Tablet] 1 mg PO TID PRN 06/12/17 [History] Furosemide [Lasix] 40 mg PO BID PRN 06/12/17 [History] Albuterol Sulfate [Proair Hfa] 2 puff IH Q4H PRN #1 inh 06/14/17 [Rx] Montelukast [Singulair] 10 mg PO DAILY 08/01/17 [History] Diltiazem CD (24hr) [Cardizem CD] 120 mg PO DAILY #15 08/10/17 [Rx] Lisinopril/Hydrochlorothiazide [Zestoretic 10-12.5 mg Tablet] 1 tab PO DAILY 09/17/17 [History] Loratadine [Allergy Relief] 10 mg PO DAILY 09/17/17 [History] GuaiFENesin/Dextromethorphan [Mucinex Dm] 1 each PO BID PRN tab.er.12h 09/18/17 [Rx] Ipratropium/Albuterol Neb [Duoneb] 3 ml IH Q4HR PRN #5 vial.neb 09/18/17 [Rx] Acetaminophen [Tylenol] 650 mg PO Q6HR PRN tablet 11/29/17 [Rx] Albuterol Sulfate [Proventil Hfa] 6.7 gm IH Q4HR #1 hfa.aer.ad 11/29/17 [Rx] Ipratropium/Albuterol Neb [Duoneb] 3 ml IH [id number] #1 inhsol 11/29/17 [Rx] levoFLOXacin [Levaquin] 750 mg PO DAILY #5 tablet 11/29/17 [Rx] predniSONE [PredniSONE] 10 mg PO DAILY #18 tablet 11/29/17 [Rx] Levofloxacin [Levaquin] 750 mg PO QDPC #5 tablet 05/18/18 [Rx] predniSONE [PredniSONE] 40 mg PO DAILY #10 tablet 05/18/18 [Rx] Allergy/AdvReac Type Severity Reaction Status Date / Time Amoxicillin Allergy Rash Verified 11/28/17 10:08 Penicillins Allergy Rash Verified 11/28/17 10:08 All Systems PM: A 10-system review of systems was performed and is negative for pertinent findings except as documented above in the HPI. - Constitutional Vitals: Temp Pulse Resp BP Pulse Ox 98.1 F 103 26 161/84 96 09/22/18 20:41 09/22/18 20:41 09/22/18 21:52 09/22/18 21:52 09/22/18 20:41 Exam: Vitals: Reviewed General: Well-developed white female sitting comfortably in bed in no acute distress Skin: Warm and supple HEENT: Moist mucous membranes. No conjunctivae pallor. Neck: No lymphadenopathy. No JVD. No carotid bruits. No palpable thyroid. Chest: Diminished thoracic expansion. Reduced breath sounds in the right lung field. Scant expiratory wheezes noted. No crackles. Heart: Normal S1 & S2; rhythmic. No rubs or murmurs. Abdomen: Non-distended, soft and non-tender to palpation. No peritoneal reaction. Liver is normal in size. Spleen is not palpable. Extremities: No clubbing, cyanosis or edema. No calf tenderness. Normal distal pulses. Neurological: Awake, alert and oriented to person, place and time. No focal deficits. Psych: Affect appropriate. Internal Med - H&P Results - Labs CBC & Chem 7: 09/22/18 20:03 09/22/18 20:03 Labs: Short CBC 09/22/18 Range/Units 20:03 WBC 6.4 (4.3-11.1) K/mcL Hgb 14.2 (11.5-15.4) g/dL Hct 45.6 H (35.3-44.9) % Plt Count 182 (140-400) K/mcL Neutrophils # 4.3 (1.6-8.9) K/mcL BMP 09/22/18 20:03 Sodium 141 Potassium 3.7 Chloride 101 Carbon Dioxide 32 H BUN 9 Creatinine 0.55 L Glucose 149 H Calcium 9.4 Cardiac Enzymes 09/22/18 Range/Units 20:03 Troponin I < 0.03 (< 0.04) ng/mL - Impressions ITS Impressions Chest X-Ray 09/22/18 19:33 IMPRESSION: Postsurgical changes in the right chest appear stable. No acute findings are observed. D/ / Krishan Greer MD / Krishan Greer MD Interpreting Provider: Krishan Greer MD - Assessment and plan (1) Acute exacerbation of chronic obstructive pulmonary disease (COPD) Current Visit: Yes Status: Acute Assessment and plan: No signs of pneumonia on x-ray, no fever or leukocytosis. Will place on standing duonebs overnight then continue with MICHAEL + LABA/ICS tomorrow. Daily steroids and oral abx are feasible. Screen for influenza. Sputum culture. (2) Acute on chronic respiratory failure with hypoxemia Current Visit: Yes Status: Acute Assessment and plan: Secondary to COPD. Will provide supplemental oxygen as needed. She will need help getting a new nebulizer machine for home use. (3) Former tobacco use Current Visit: No Status: Acute (4) Obesity (BMI 30-39.9) Current Visit: Yes Status: Acute Assessment and plan: Counseled on diet and exercise. (5) Essential hypertension Current Visit: Yes Status: Chronic Assessment and plan: Resume home meds. (6) Obstructive sleep apnea Current Visit: Yes Status: Chronic Assessment and plan: CPAP qhs. (7) DVT prophylaxis Current Visit: Yes Status: Acute Assessment and plan: SubQ heparin - Time Spent With Patient Total time spent is greater than 50% in coordination of care (as documented) at patient's floor/unit and/or counseling patient: Greater than 35 minutes
[2018-09-22] MEDS: Ipratropium/Albuterol Neb 3 ML IH SCH (23:11)
[2018-09-22] MEDS: Budesonide/Formoterol 160/4.5 1 PUFF INH IH SCH (23:11)
[2018-09-23] MEDS: ALPRAZolam 1 MG TABLET PO PRN (00:01)
[2018-09-23] MEDS: Ipratropium/Albuterol Neb 3 ML IH SCH ×2 (03:53→07:35)
[2018-09-23] MEDS: *HR* OxyCODONE/APAP 10/325 TABLET PO PRN ×4 (04:56→21:32)
[2018-09-23] MEDS ORDERED: *HR* Heparin 5,000 UNIT/ML VIAL SQ SCH (06:00)
[2018-09-23] MEDS: Budesonide/Formoterol 160/4.5 1 PUFF INH IH SCH ×2 (07:34→20:34)
--- NOTE | 2018-09-23 08:07 | Internal Med Progress Note ---
Hospitalist Progress Note - Encounter Date of Encounter: 09/23/18 Time of Encounter: 09:01 - Subjective Interval History: Ms Cabello is currently in observation for acute exac COPD. She remains moderate to high risk due to potential for worsening clinical status. Ms Cabello is resting at this time. No fever or chills. Awoke earlier and felt she was "wrapped in [place] lights." Breathing about the same. No GI issues. No CP. - Exam Vitals: Temp Pulse Resp BP Pulse Ox 97.5 F L 108 18 165/97 93 09/23/18 07:51 09/23/18 07:51 09/23/18 07:51 09/23/18 03:06 09/23/18 07:51 Exam: General: Well-developed white female. Alert. Comfortable in bed at this time. Skin: Warm and supple. No rash noted. H: Normocephalic. EENT: Moist mucous membranes. No lesion noted. Neck: No lymphadenopathy. No carotid bruits. Chest: Decreased breath sounds bilaterally - worse on R. Some end exp wheeze and rhonchi noted. Heart: Normal S1 & S2; Not tachycardic. No rubs or murmurs. Abdomen: Non-distended, soft and non-tender to palpation. Extremities: No clubbing, cyanosis or edema. No calf tenderness. Normal distal pulses. Moderate OA. Neurological: Awake, alert and oriented to person, place and time. No focal deficits. Psych: Affect appropriate. - Assessment and Plan (1) Acute on chronic respiratory failure with hypoxemia Current Visit: Yes Status: Acute Assessment and Plan: Acute respiratory failure due to COPD exacerbation Continue aerosols, oxygen, steroids (monitoring for any side effects) and abx. Wean oxygen as able. (2) Acute exacerbation of chronic obstructive pulmonary disease (COPD) Current Visit: Yes Status: Acute Assessment and Plan: Currently on aerosols, steroids and abx Influenza negative Expect will be here for 24-48 hours more. (3) Former tobacco use Current Visit: No Status: Chronic Assessment and Plan: None now. (4) Obstructive sleep apnea Current Visit: Yes Status: Chronic Assessment and Plan: Home CPAP settings. (5) Essential hypertension Current Visit: Yes Status: Chronic Assessment and Plan: Elevated today. Home meds resumed. (6) Obesity (BMI 30-39.9) Current Visit: Yes Status: Chronic Assessment and Plan: Chronic issue (7) Diabetes Current Visit: No Status: Chronic Assessment and Plan: Accuchecks and coverage. (8) ADHD (attention deficit hyperactivity disorder) Current Visit: No Status: Chronic Assessment and Plan: Resume home meds. May need to take her own med. - Time Spent with Patient Total time spent is greater than 50% in coordination of care (as documented) at patient's floor/unit and/or counseling patient: Internal Medicine: Result - Labs CBC & Chem 7: 09/22/18 20:03 09/22/18 20:03 Labs: Short CBC 09/22/18 Range/Units 20:03 WBC 6.4 (4.3-11.1) K/mcL Hgb 14.2 (11.5-15.4) g/dL Hct 45.6 H (35.3-44.9) % Plt Count 182 (140-400) K/mcL Neutrophils # 4.3 (1.6-8.9) K/mcL BMP 09/22/18 20:03 Sodium 141 Potassium 3.7 Chloride 101 Carbon Dioxide 32 H BUN 9 Creatinine 0.55 L Glucose 149 H Calcium 9.4 Cardiac Enzymes 09/22/18 Range/Units 20:03 Troponin I < 0.03 (< 0.04) ng/mL - Impressions Impressions Chest X-Ray 09/22/18 19:33 IMPRESSION: Postsurgical changes in the right chest appear stable. No acute findings are observed. D/ / Krishan Greer MD / Krishan Greer MD Interpreting Provider: Krishan Greer MD Consult Discharge Plan - Plan Referrals: Irene Duncan MD [Primary Care Provider] - (7) Diabetes Qualifiers: Diabetes mellitus type: type 2 Diabetes mellitus alf insulin use: without alf use Diabetes mellitus complication status: without complication Qualified Code(s): E11.9 - Type 2 diabetes mellitus without complications (8) ADHD (attention deficit hyperactivity disorder) Qualifiers: Attention deficit-hyperactivity disorder type: unspecified Qualified Code(s): F90.9 - Attention-deficit hyperactivity disorder, unspecified type
[2018-09-23] MEDS: Loratadine 10 MG TABLET PO SCH (10:02)
[2018-09-23] MEDS: Diltiazem CD (24hr) 120 MG CAPSULE PO SCH (10:02)
[2018-09-23] MEDS: predniSONE 20 MG TABLET PO SCH (10:02)
[2018-09-23] MEDS: Aspirin Enteric Coated 81 MG Tablet PO SCH (10:02)
[2018-09-23] MEDS: levoFLOXacin 500 MG TABLET PO SCH (10:02)
[2018-09-23] MEDS: Albuterol 2.5 MG/3 ML NEBULIZER IH PRN ×2 (15:45→20:34)
[2018-09-23] MEDS: *HR* Heparin 5,000 UNIT/ML VIAL SQ SCH (16:03)
[2018-09-24] MEDS: *HR* Heparin 5,000 UNIT/ML VIAL SQ SCH ×4 (00:37→23:52)
[2018-09-24 03:40] LABS: Hematocrit 43.5 % (35.3-44.9); Hemoglobin 13.4 g/dL (11.5-15.4); Mean Corpuscular HGB Conc 30.8 g/dL (31.6-35.5); Mean Corpuscular Hemoglobin 28.3 pg (28.0-33.3); Mean Corpuscular Volume 91.8 fL (83.0-100.0); Mean Platelet Volume 11.2 fL (9.4-12.4); Platelet Count 224 K/mcL (140-400); Red Blood Count 4.74 M/mcL (3.82-4.97); Red Cell Distribution Width 12.7 % (11.5-14.5)
[2018-09-24 03:58] LABS: BUN/Creatinine Ratio 28 (6-26); Blood Urea Nitrogen 25 mg/dL (8-23); Calcium 9.7 mg/dL (8.6-10.3); Carbon Dioxide 38 mEq/L (23-29); Chloride 98 mEq/L (98-107); Glucose 168 mg/dL (70-105); Magnesium 2.2 mg/dL (1.6-2.6); Osmolality,Calculated 296 (280-300); Sodium 139 mEq/L (136-145); eGFR For Non-African Americans > 60 (> 60)
[2018-09-24] MEDS: Budesonide/Formoterol 160/4.5 1 PUFF INH IH SCH ×2 (07:54→19:53)
[2018-09-24] MEDS: Albuterol 2.5 MG/3 ML NEBULIZER IH PRN ×4 (07:54→23:06)
[2018-09-24] MEDS: *HR* OxyCODONE/APAP 10/325 TABLET PO PRN ×2 (09:25→20:32)
[2018-09-24] MEDS: Aspirin Enteric Coated 81 MG Tablet PO SCH (09:26)
[2018-09-24] MEDS: levoFLOXacin 500 MG TABLET PO SCH (09:26)
[2018-09-24] MEDS: Diltiazem CD (24hr) 120 MG CAPSULE PO SCH (09:26)
[2018-09-24] MEDS: Loratadine 10 MG TABLET PO SCH (09:26)
[2018-09-24] MEDS: predniSONE 20 MG TABLET PO SCH (09:26)
--- NOTE | 2018-09-24 09:51 | Internal Med Progress Note ---
<Jean Nickerson - Last Filed: 09/24/18 18:53> Hospitalist Progress Note - Exam Vitals: Temp Pulse Resp BP Pulse Ox 98.6 F 101 18 134/71 97 09/24/18 15:49 09/24/18 15:49 09/24/18 15:49 09/24/18 15:49 09/24/18 15:49 - Assessment and Plan (1) Acute on chronic respiratory failure with hypoxia and hypercapnia Current Visit: No Status: Acute (2) ADHD (attention deficit hyperactivity disorder) Current Visit: No Status: Chronic (3) Acute on chronic respiratory failure with hypoxemia Current Visit: Yes Status: Acute (4) Acute exacerbation of chronic obstructive pulmonary disease (COPD) Current Visit: Yes Status: Acute (5) Former tobacco use Current Visit: No Status: Chronic (6) Diabetes Current Visit: No Status: Chronic (7) Obstructive sleep apnea Current Visit: Yes Status: Chronic (8) Essential hypertension Current Visit: Yes Status: Chronic (9) Obesity (BMI 30-39.9) Current Visit: Yes Status: Chronic - Time Spent with Patient Total time spent is greater than 50% in coordination of care (as documented) at patient's floor/unit and/or counseling patient: Internal Medicine: Result - Labs CBC & Chem 7: 09/24/18 02:56 09/24/18 02:56 Labs: Short CBC 09/24/18 Range/Units 02:56 WBC 7.9 (4.3-11.1) K/mcL Hgb 13.4 (11.5-15.4) g/dL Hct 43.5 (35.3-44.9) % Plt Count 224 (140-400) K/mcL BMP 09/24/18 02:56 Sodium 139 Potassium 5.0 Chloride 98 Carbon Dioxide 38 H BUN 25 H Creatinine 0.89 Glucose 168 H Calcium 9.7 - ABG Interpretation ABG results: ABG ABG pH 7.27 pH Units (7.32-7.45) L 09/24/18 15:00 ABG pCO2 95 mmHg (35-45) H* 09/24/18 15:00 ABG pO2 63 mmHg (85-104) L 09/24/18 15:00 ABG O2 Saturation 86 % (95-98) L 09/24/18 15:00 - Impressions Impressions Chest CTA 09/24/18 14:08 IMPRESSION: No pulmonary emboli are identified. There are areas of atelectasis noted throughout the lungs bilaterally, with post treatment changes seen in the right lung from previous right upper lobectomy. No new mediastinal or chest lymphadenopathy is identified. No spiculated lung mass is seen. Some patchy areas of air trapping are noted. No pleural effusion or other acute process identified. D/ / Ernst Negrete MD / Ernst Negrete MD Interpreting Provider: Ernst Negrete MD Consult Discharge Plan - Plan Referrals: Juan Ponce [Resident] - 10/03/18 2:00 pm - Attending Attestation I examined this patient and my medical decision-making was reviewed with the Resident Physician on 09/23/18. I agree with the documented findings, disposition and treatment plan as described except to the extent set forth below. Ms Cabello is currently admitted for acute exac COPD. She remains moderate to high risk due to potential for worsening clinical status. Ms Cabello is awake and alert. She says she feels "100% better." She remains on 5 liters of oxygen. No fever or chills. No GI issues. Exam alert Mod dyspnea at rest Mucus membranes dry Heart distant Lungs with some wheezing bilaterally Abd soft ABGs 7.27/95 I/P 1. Acute hypercarbic and hypoxic resp failure - on bipap now. Follow respiratory status. Continue aerosols and steroids. 2. COPD exac Further diagnoses and plan as above. <Dash Antony - Last Filed: 09/24/18 20:34> Hospitalist Progress Note - Encounter Date of Encounter: 09/24/18 Time of Encounter: 10:30 - Subjective Interval History: Ms. Cabello 68-year-old female with a past medical history of COPD on 2 L home oxygen, cancer status post right upper lobe pneumonectomy, cancer in remission, LEE on CPAP who presented to the ER 2 days ago with increased frequency of cough productive sputum along with fever chills or chest discomfort. She was found to be in acute on chronic hypoxic respiratory failure. This morning patient was on order oxygen. Had a ABG this afternoon which showed hypercapnia PCO2 95, pH : 7.27. Is currently on BiPAP for her acute on chronic hypercapnic respiratory failure. - Exam Vitals: Temp Pulse Resp BP Pulse Ox 98.0 F 88 20 137/77 91 09/24/18 07:03 09/24/18 07:03 09/24/18 07:58 09/24/18 07:03 09/24/18 07:58 Exam: General: Well-developed white female. Alert. Comfortable in bed at this time. Skin: Warm and supple. No rash noted. H: Normocephalic. EENT: Moist mucous membranes. No lesion noted. Neck: No lymphadenopathy. No carotid bruits. Chest: Bilateral expiratory wheezing, rales or rhonchi. Heart: Normal S1 & S2; Not tachycardic. No rubs or murmurs. Abdomen: Non-distended, soft and non-tender to palpation. Extremities: No clubbing, cyanosis or edema. No calf tenderness. Normal distal pulses. Moderate OA. Neurological: Awake, alert and oriented to person, place and time. No focal deficits. Psych: Affect appropriate. - Assessment and Plan (1) Acute on chronic respiratory failure with hypoxemia Current Visit: Yes Status: Acute Assessment and Plan: - Likely secondary to her history of COPD. Patient also endorses that she has been noncompliant on her CPAP for the last 2 months because of mask issues. -His exam patient had bilateral expiratory wheezing. No rales or rhonchi. -Most recent CTA was negative for any pulmonary embolus or any consolidative changes in the lungs. -Continue oxygen, steroids and antibiotics.- - Titrate oxygen for SPO2 between 88-90% (2) Acute exacerbation of chronic obstructive pulmonary disease (COPD) Current Visit: Yes Status: Acute Assessment and Plan: plan as above (3) Obstructive sleep apnea Current Visit: Yes Status: Chronic Assessment and Plan: She has a history of LEE. She is on home CPAP but then tells me that she has not used that for the last 2 months because of patient with a mask. - Was recent ABG showed hypercapnic respiratory failure with PCO2 95. -Currently on BiPAP. (4) ADHD (attention deficit hyperactivity disorder) Current Visit: No Status: Chronic Assessment and Plan: Resume home meds. May need to take her own med. (5) Former tobacco use Current Visit: No Status: Chronic Assessment and Plan: patient used to be an ex-smoker but endorses he quit smoking now.. (6) Diabetes Current Visit: No Status: Chronic Assessment and Plan: - Patient has a history of diabetes. Her most recent glucose was 168. - Accuchecks and coverage. (7) Essential hypertension Current Visit: Yes Status: Chronic Assessment and Plan: - Patient has a history of hypertension -Resume her home medications.. (8) Obesity (BMI 30-39.9) Current Visit: Yes Status: Chronic Assessment and Plan: -Patient history of obesity -Consult on better dietary options on discharge. - Time Spent with Patient Total time spent is greater than 50% in coordination of care (as documented) at patient's floor/unit and/or counseling patient: Internal Medicine: Result - Labs CBC & Chem 7: 09/24/18 02:56 09/24/18 02:56 Labs: Short CBC 09/24/18 Range/Units 02:56 WBC 7.9 (4.3-11.1) K/mcL Hgb 13.4 (11.5-15.4) g/dL Hct 43.5 (35.3-44.9) % Plt Count 224 (140-400) K/mcL BMP 09/24/18 02:56 Sodium 139 Potassium 5.0 Chloride 98 Carbon Dioxide 38 H BUN 25 H Creatinine 0.89 Glucose 168 H Calcium 9.7 <Jean Nickerson - Last Filed: 09/24/18 18:53> (2) ADHD (attention deficit hyperactivity disorder) Qualifiers: Attention deficit-hyperactivity disorder type: unspecified Qualified Code(s): F90.9 - Attention-deficit hyperactivity disorder, unspecified type (6) Diabetes Qualifiers: Diabetes mellitus type: type 2 Diabetes mellitus fci insulin use: without biopsychologist use Diabetes mellitus complication status: without complication Qualified Code(s): E11.9 - Type 2 diabetes mellitus without complications <Dash Antony - Last Filed: 09/24/18 20:34> (4) ADHD (attention deficit hyperactivity disorder) Qualifiers: Attention deficit-hyperactivity disorder type: unspecified Qualified Code(s): F90.9 - Attention-deficit hyperactivity disorder, unspecified type (6) Diabetes Qualifiers: Diabetes mellitus type: type 2 Diabetes mellitus biopsychologist insulin use: without biopsychologist use Diabetes mellitus complication status: without complication Qualified Code(s): E11.9 - Type 2 diabetes mellitus without complications
[2018-09-24] MEDS ORDERED: Isovue-370 500 ML INFUS..BTL IV ONE (14:08)
[2018-09-24 15:04] LABS: ABG Base Excess 12 mEq/L (-2 to 3); ABG HCO3 44 mEq/L (21-27); ABG Oxygen Saturation 86 % (95-98); ABG PCO2 95 mmHg (35-45); ABG PH 7.27 pH Units (7.32-7.45); ABG PO2 63 mmHg (85-104); ABG TCO2 47 mEq/L (20-26)
[2018-09-25] MEDS: *HR* OxyCODONE/APAP 10/325 TABLET PO PRN ×2 (00:23→20:09)
[2018-09-25 05:05] LABS: Basophils % 0.5 %; Hematocrit 43.3 % (35.3-44.9); Hemoglobin 13.2 g/dL (11.5-15.4); Immature Granulocytes % 2.2 % (0-4); Lymphocytes # 0.9 K/mcL (0.6-4.6); Lymphocytes % 10.9 %; Mean Corpuscular HGB Conc 30.5 g/dL (31.6-35.5); Mean Corpuscular Hemoglobin 28.1 pg (28.0-33.3); Mean Corpuscular Volume 92.3 fL (83.0-100.0); Mean Platelet Volume 10.8 fL (9.4-12.4); Monocytes # 0.5 K/mcL (0.0-1.3); Monocytes % 5.7 %; Neutrophils # 6.9 K/mcL (1.6-8.9); Platelet Count 232 K/mcL (140-400); Red Blood Count 4.69 M/mcL (3.82-4.97); Segmented Neutrophils % 80.7 %
[2018-09-25 05:33] LABS: BUN/Creatinine Ratio 39 (6-26); Blood Urea Nitrogen 29 mg/dL (8-23); Calcium 9.4 mg/dL (8.6-10.3); Carbon Dioxide 40 mEq/L (23-29); Chloride 97 mEq/L (98-107); Glucose 192 mg/dL (70-105); Osmolality,Calculated 303 (280-300); Potassium 4.6 mEq/L (3.5-5.1); Sodium 141 mEq/L (136-145); eGFR For Non-African Americans > 60 (> 60)
[2018-09-25 06:08] LABS: ABG Base Excess 12 mEq/L (-2 to 3); ABG HCO3 42 mEq/L (21-27); ABG Oxygen Saturation 90 % (95-98); ABG PCO2 78 mmHg (35-45); ABG PH 7.33 pH Units (7.32-7.45); ABG PO2 66 mmHg (85-104); ABG TCO2 44 mEq/L (20-26)
--- NOTE | 2018-09-25 07:28 | Internal Med Progress Note ---
<Zhane Mendoza - Last Filed: 09/25/18 15:34> Hospitalist Progress Note - Exam Vitals: Temp Pulse Resp BP Pulse Ox 98.4 F 96 20 118/76 94 09/25/18 15:08 09/25/18 15:08 09/25/18 15:08 09/25/18 15:08 09/25/18 11:12 - Assessment and Plan (1) ADHD (attention deficit hyperactivity disorder) Current Visit: No Status: Chronic (2) Acute on chronic respiratory failure with hypoxemia Current Visit: Yes Status: Acute (3) Acute exacerbation of chronic obstructive pulmonary disease (COPD) Current Visit: Yes Status: Acute (4) Former tobacco use Current Visit: No Status: Chronic (5) Obstructive sleep apnea Current Visit: Yes Status: Chronic (6) Essential hypertension Current Visit: Yes Status: Chronic (7) Obesity (BMI 30-39.9) Current Visit: Yes Status: Chronic - Time Spent with Patient Total time spent is greater than 50% in coordination of care (as documented) at patient's floor/unit and/or counseling patient: Internal Medicine: Result - Labs CBC & Chem 7: 09/25/18 04:48 09/25/18 04:48 Labs: Short CBC 09/25/18 Range/Units 04:48 WBC 8.6 (4.3-11.1) K/mcL Hgb 13.2 (11.5-15.4) g/dL Hct 43.3 (35.3-44.9) % Plt Count 232 (140-400) K/mcL Neutrophils # 6.9 (1.6-8.9) K/mcL BMP 09/25/18 04:48 Sodium 141 Potassium 4.6 Chloride 97 L Carbon Dioxide 40 H* BUN 29 H Creatinine 0.74 Glucose 192 H Calcium 9.4 - ABG Interpretation ABG results: ABG ABG pH 7.33 pH Units (7.32-7.45) 09/25/18 06:01 ABG pCO2 78 mmHg (35-45) H* 09/25/18 06:01 ABG pO2 66 mmHg (85-104) L 09/25/18 06:01 ABG O2 Saturation 90 % (95-98) L 09/25/18 06:01 - Impressions Impressions Chest CTA 09/24/18 14:08 IMPRESSION: No pulmonary emboli are identified. There are areas of atelectasis noted throughout the lungs bilaterally, with post treatment changes seen in the right lung from previous right upper lobectomy. No new mediastinal or chest lymphadenopathy is identified. No spiculated lung mass is seen. Some patchy areas of air trapping are noted. No pleural effusion or other acute process identified. D/ / Ernst Negrete MD / Ernst Negrete MD Interpreting Provider: Ernst Negrete MD Consult Discharge Plan - Plan Referrals: Juan Ponce [Resident] - 10/03/18 2:00 pm - Attending Attestation I examined this patient and my medical decision-making was reviewed with the Resident Physician Dr Antony. I agree with the documented findings, disposition and treatment plan as described except to the extent set forth below/addl details below. Ms Cabello is currently admitted for acute exac COPD. awake, alert, denies fevers, chills. sob improving. + wheezing, no cough or orthopnea. remains on higher than home o2NC, using bipap nocturnally gen- alert, awake,appears stated age eyes- pupils equal round cv- reg rate and rhythm, normal s1,s2, no murmurs appreciated lungs- ctabl, no wheezing, rhonchi or crackles abd- soft, non tender, non distended, + bs neuro- AAOx3, CN grossly intact, no focal deficits A/P Acute hypercarbic and hypoxic resp failure 2/2 COPD exacerbation - on bipap initially, now o2 nc, cont nocutrnal bipap, likely will need bipap study prior to dc, appears best pco2 in recent past 47 and mostly in 60s, remains higher than baseline on abg this morning, but improving, CTA neg for consolidation, effusion or PE COPD exac-cont iv abx, steroids, nebs Further diagnoses and plan as noted by resident <Dash Antony - Last Filed: 09/25/18 17:39> Hospitalist Progress Note - Encounter Date of Encounter: 09/25/18 Time of Encounter: 09:00 - Subjective Interval History: 09/25 No acute events overnight. Most recent ABG continues to show hypercarbia with PCO2 78, which is a little better than her PCO2 95 as of yesterday afternoon.. She was on BiPAP overnight, currently she is satting at 94% on 5 L of oxygen. We re going to titrate her oxygen today and see if she is able to maintain her sats, perhaps get a 6 minute walk test on her sometime later today. She has been encouraged to continue using incentive spirometry to prevent V/Q mismatch secondary to atelectasis of the lung tissue. 09/24 Ms. Cabello 68-year-old female with a past medical history of COPD on 2 L home oxygen, cancer status post right upper lobe pneumonectomy, cancer in remission, LEE on CPAP who presented to the ER 2 days ago with increased frequency of cough productive sputum along with fever chills or chest discomfort. She was found to be in acute on chronic hypoxic respiratory failure. This morning patient was on order oxygen. Had a ABG this afternoon which showed hypercapnia PCO2 95, pH : 7.27. Is currently on BiPAP for her acute on chronic hypercapnic respiratory failure. - Exam Vitals: Temp Pulse Resp BP Pulse Ox 97.9 F 95 16 178/88 93 09/25/18 04:12 09/25/18 04:12 09/25/18 04:12 09/25/18 04:53 09/25/18 04:12 Exam: General: Well-developed white female sitting comfortably in bed in no acute distress Skin: Warm and supple HEENT: Moist mucous membranes. No conjunctivae pallor. Neck: No lymphadenopathy. No JVD. No carotid bruits. No palpable thyroid. Chest: Diminished thoracic expansion. Reduced breath sounds bialterally . Scant expiratory wheezes noted. No crackles. Heart: Normal S1 & S2; rhythmic. No rubs or murmurs. Abdomen: Non-distended, soft and non-tender to palpation. No peritoneal reaction. Liver is normal in size. Spleen is not palpable. Extremities: No clubbing, cyanosis or edema. No calf tenderness. Normal distal pulses. Neurological: Awake, alert and oriented to person, place and time. No focal deficits. Psych: Affect appropriate. - Assessment and Plan (1) Acute on chronic respiratory failure with hypoxemia Current Visit: Yes Status: Acute Assessment and Plan: - Likely secondary to her history of COPD. Patient also endorses that she has been noncompliant on her CPAP for the last 2 months because of mask issues. -His exam patient had bilateral expiratory wheezing. No rales or rhonchi. -Most recent CTA was negative for any pulmonary embolus, effusion or any consolidative changes in the lungs. - Patient was requiring 5 L of oxygen yesterday morning and was transitioned to a BiPAP which helped with her hypercarbia by lowering her PCO2 from 95->78. She is on a 4.5 L of oxygen -With her history of LEE and COPD and increasing demand for O2 requirement over the last few days, an Echocardiogram would be reasonable to rule in/out Pulmonary HTN -On Day 4 pf levofloxacin and prednisone. Patient is also continuing her home Montelukast 10mg - Titrate oxygen for SPO2 between 88-92% (2) Acute exacerbation of chronic obstructive pulmonary disease (COPD) Current Visit: Yes Status: Acute Assessment and Plan: plan as above (3) Obstructive sleep apnea Current Visit: Yes Status: Chronic Assessment and Plan: She has a history of LEE. She is on home CPAP but then tells me that she has not used that for the last 2 months because of patient with a mask. - Her msot recent ABG showed hypercapnic respiratory failure with PCO2 78, CO2 yesterday evening was 95.. -Currently on BiPAP overnigth and 4.5 L NC in the AM. (4) ADHD (attention deficit hyperactivity disorder) Current Visit: No Status: Chronic Assessment and Plan: Resume home meds. May need to take her own med. (5) Former tobacco use Current Visit: No Status: Chronic Assessment and Plan: patient used to be an ex-smoker but endorses he quit smoking now.. (6) Essential hypertension Current Visit: Yes Status: Chronic Assessment and Plan: - Patient has a history of hypertension -On home dose of lisinopril hydrochlorothiazide (7) Obesity (BMI 30-39.9) Current Visit: Yes Status: Chronic Assessment and Plan: -Patient history of obesity -Consult on better dietary options on discharge. - Time Spent with Patient Total time spent is greater than 50% in coordination of care (as documented) at patient's floor/unit and/or counseling patient: Internal Medicine: Result - Labs CBC & Chem 7: 09/25/18 04:48 09/25/18 04:48 Labs: Short CBC 09/25/18 Range/Units 04:48 WBC 8.6 (4.3-11.1) K/mcL Hgb 13.2 (11.5-15.4) g/dL Hct 43.3 (35.3-44.9) % Plt Count 232 (140-400) K/mcL Neutrophils # 6.9 (1.6-8.9) K/mcL BMP 09/25/18 04:48 Sodium 141 Potassium 4.6 Chloride 97 L Carbon Dioxide 40 H* BUN 29 H Creatinine 0.74 Glucose 192 H Calcium 9.4 - ABG Interpretation ABG results: ABG ABG pH 7.33 pH Units (7.32-7.45) 09/25/18 06:01 ABG pCO2 78 mmHg (35-45) H* 09/25/18 06:01 ABG pO2 66 mmHg (85-104) L 09/25/18 06:01 ABG O2 Saturation 90 % (95-98) L 09/25/18 06:01 - Impressions Impressions Chest CTA 09/24/18 14:08 IMPRESSION: No pulmonary emboli are identified. There are areas of atelectasis noted throughout the lungs bilaterally, with post treatment changes seen in the right lung from previous right upper lobectomy. No new mediastinal or chest lymphadenopathy is identified. No spiculated lung mass is seen. Some patchy areas of air trapping are noted. No pleural effusion or other acute process identified. D/ / Ernst Negrete MD / Ernst Negrete MD Interpreting Provider: Ernst Negrete MD <Zhane Mnedoza Filed: 09/25/18 15:34> (1) ADHD (attention deficit hyperactivity disorder) Qualifiers: Attention deficit-hyperactivity disorder type: unspecified Qualified Code(s): F90.9 - Attention-deficit hyperactivity disorder, unspecified type <Dash Antony - Last Filed: 09/25/18 17:39> (4) ADHD (attention deficit hyperactivity disorder) Qualifiers: Attention deficit-hyperactivity disorder type: unspecified Qualified Code(s): F90.9 - Attention-deficit hyperactivity disorder, unspecified type
[2018-09-25] MEDS: Aspirin Enteric Coated 81 MG Tablet PO SCH (09:02)
[2018-09-25] MEDS: *HR* Heparin 5,000 UNIT/ML VIAL SQ SCH ×3 (09:03→23:08)
[2018-09-25] MEDS: Diltiazem CD (24hr) 120 MG CAPSULE PO SCH (09:03)
[2018-09-25] MEDS: levoFLOXacin 500 MG TABLET PO SCH (09:03)
[2018-09-25] MEDS: Loratadine 10 MG TABLET PO SCH (09:03)
[2018-09-25] MEDS: predniSONE 20 MG TABLET PO SCH (09:03)
[2018-09-25] MEDS: Albuterol 2.5 MG/3 ML NEBULIZER IH PRN (09:44)
[2018-09-25] MEDS: Budesonide/Formoterol 160/4.5 1 PUFF INH IH SCH ×2 (09:44→19:27)
[2018-09-25] MEDS: ALPRAZolam 1 MG TABLET PO PRN (23:17)
[2018-09-26 04:11] LABS: Basophils # 0.1 K/mcL (0.0-0.2); Basophils % 0.7 %; Hematocrit 44.9 % (35.3-44.9); Hemoglobin 13.7 g/dL (11.5-15.4); Immature Granulocytes % 2.7 % (0-4); Lymphocytes # 1.5 K/mcL (0.6-4.6); Lymphocytes % 17.6 %; Mean Corpuscular HGB Conc 30.5 g/dL (31.6-35.5); Mean Corpuscular Volume 91.6 fL (83.0-100.0); Mean Platelet Volume 10.8 fL (9.4-12.4); Monocytes # 0.6 K/mcL (0.0-1.3); Monocytes % 6.3 %; Neutrophils # 6.4 K/mcL (1.6-8.9); Platelet Count 229 K/mcL (140-400); Segmented Neutrophils % 72.7 %
[2018-09-26 04:16] LABS: ABG Base Excess 17 mEq/L (-2 to 3); ABG HCO3 47 mEq/L (21-27); ABG Oxygen Saturation 94 % (95-98); ABG PCO2 80 mmHg (35-45); ABG PH 7.38 pH Units (7.32-7.45); ABG PO2 80 mmHg (85-104); ABG TCO2 50 mEq/L (20-26)
[2018-09-26] MEDS: Budesonide/Formoterol 160/4.5 1 PUFF INH IH SCH ×2 (07:35→20:10)
[2018-09-26] MEDS: Albuterol 2.5 MG/3 ML NEBULIZER IH PRN ×2 (07:37→20:10)
[2018-09-26] MEDS: *HR* Heparin 5,000 UNIT/ML VIAL SQ SCH ×3 (10:16→23:35)
[2018-09-26] MEDS: Diltiazem CD (24hr) 120 MG CAPSULE PO SCH (10:17)
[2018-09-26] MEDS: predniSONE 20 MG TABLET PO SCH (10:17)
[2018-09-26] MEDS: Loratadine 10 MG TABLET PO SCH (10:17)
[2018-09-26] MEDS: levoFLOXacin 500 MG TABLET PO SCH (10:17)
[2018-09-26] MEDS ORDERED: Perflutren Lipid Microsphere 1.3 ML in 0.9 % Sodium Chloride 8.7 ML IVP ONE (10:26)
[2018-09-26] MEDS: Aspirin Enteric Coated 81 MG Tablet PO SCH (11:36)
--- NOTE | 2018-09-26 13:36 | Internal Med Progress Note ---
<Zhane Mendoza - Last Filed: 09/26/18 18:28> Hospitalist Progress Note - Exam Vitals: Temp Pulse Resp BP Pulse Ox 98.4 F 106 19 149/83 94 09/26/18 15:00 09/26/18 15:00 09/26/18 15:00 09/26/18 15:00 09/26/18 15:00 - Assessment and Plan (1) ADHD (attention deficit hyperactivity disorder) Current Visit: No Status: Chronic (2) Acute on chronic respiratory failure with hypoxemia Current Visit: Yes Status: Acute (3) Acute exacerbation of chronic obstructive pulmonary disease (COPD) Current Visit: Yes Status: Acute (4) Former tobacco use Current Visit: No Status: Chronic (5) Obstructive sleep apnea Current Visit: Yes Status: Chronic (6) Essential hypertension Current Visit: Yes Status: Chronic (7) Obesity (BMI 30-39.9) Current Visit: Yes Status: Chronic - Time Spent with Patient Total time spent is greater than 50% in coordination of care (as documented) at patient's floor/unit and/or counseling patient: Internal Medicine: Result - Labs CBC & Chem 7: 09/26/18 03:48 09/25/18 04:48 Labs: Short CBC 09/26/18 Range/Units 03:48 WBC 8.7 (4.3-11.1) K/mcL Hgb 13.7 (11.5-15.4) g/dL Hct 44.9 (35.3-44.9) % Plt Count 229 (140-400) K/mcL Neutrophils # 6.4 (1.6-8.9) K/mcL - ABG Interpretation ABG results: ABG ABG pH 7.38 pH Units (7.32-7.45) 09/26/18 04:10 ABG pCO2 80 mmHg (35-45) H* 09/26/18 04:10 ABG pO2 80 mmHg (85-104) L 09/26/18 04:10 ABG O2 Saturation 94 % (95-98) L 09/26/18 04:10 - Impressions Impressions Echocardiogram 09/26/18 11:53 Impressions: LVEF 65-70%. Mild concentric left ventricular hypertrophy. Normal left ventricular diastolic function. Normal right ventricular structure and function. No significant valvular dysfunction. Unable to estimate RVSP due to lack of TR jet. Left Ventricular Wall Motion: Rest Echo Findings All wall segments showed normal motion. Findings: Study Quality * Technically sub-optimal due to poor echocardiographic windows. ECG Findings * Sinus tachycardia. Left Ventricle * LVEF 65-70%. * Mild concentric left ventricular hypertrophy. * Normal left ventricular diastolic function. Right Ventricle * Normal right ventricular structure and function. Left Atrium * Normal left atrial size. Right Atrium * Normal right atrial size. Interatrial Septum * Interatrial septum not well evaluated. Aortic Valve * Trileaflet aortic valve. * Normal aortic valve structure. * No aortic regurgitation. * No aortic stenosis. Mitral Valve * Normal mitral valve structure. * No mitral regurgitation. * No mitral stenosis. Tricuspid Valve * Normal tricuspid valve structure. * No tricuspid regurgitation. * No tricuspid stenosis. * Unable to estimate RVSP due to lack of TR jet. Pulmonic Valve * Pulmonic valve is not well visualized. Aorta * Normally sized aortic root. Pericardium * The pericardium appears normal. IVC * Normal IVC dimensions and inspiratory collapse. Pulmonary Artery * Pulmonary artery not well visualized. Consult Discharge Plan - Plan Referrals: Juan Ponce [Resident] - 10/03/18 2:00 pm - Attending Attestation I examined this patient and my medical decision-making was reviewed with the Resident Physician Dr Antony. I agree with the documented findings, disposition and treatment plan as described except to the extent set forth below/addl details below. Ms Cabello is currently admitted for acute exac COPD. awake, alert, denies fevers, chills. sob improving. + wheezing, + cough remains on higher than home o2NC, did not have bipap on for entire night and pco2 higher this morning but without somnolence or confusion gen- alert, awake,appears stated age eyes- pupils equal round cv- reg rate and rhythm, normal s1,s2, no murmurs appreciated lungs-+ exp wheezing, diminished bs throughout, no rhonchi or crackles, normal resp effort on o2 nc abd- soft, non tender, non distended, + bs neuro- AAOx3 A/P Acute hypercarbic and hypoxic resp failure 2/2 COPD exacerbation - on bipap initially, now o2 nc, cont nocutrnal bipap, bipap study,, appears best pco2 in recent past 47 and mostly in 60s, remains higher than baseline on abg this morning, CTA neg for consolidation, effusion or PE COPD exac-cont iv abx, steroids, nebs Further diagnoses and plan as noted by resident <Dash Antony - Last Filed: 09/26/18 19:42> Hospitalist Progress Note - Encounter Date of Encounter: 09/26/18 Time of Encounter: 09:30 - Subjective Interval History: 09/26 No acute events overnight. Most recent ABG continues to show hypercarbia with PCO2 80, which is a little better than her PCO2 95 as of two days ago.Patient was on BiPAP intermittently last night therefore she did not qualify for a BiPAP. However I was told by the socially responsible investment adviser that patient does have a BiPAP at home, which I was not aware of. She has been encouraged to continue using incentive spirometry to prevent V/Q mismatch secondary to atelectasis of the lung tissue. 09/25 No acute events overnight. Most recent ABG continues to show hypercarbia with PCO2 78, which is a little better than her PCO2 95 as of yesterday afternoon.. She was on BiPAP overnight, currently she is satting at 94% on 5 L of oxygen. We re going to titrate her oxygen today and see if she is able to maintain her sats, perhaps get a 6 minute walk test on her sometime later today. She has been encouraged to continue using incentive spirometry to prevent V/Q mismatch secondary to atelectasis of the lung tissue. 09/24 Ms. Cabello 68-year-old female with a past medical history of COPD on 2 L home oxygen, cancer status post right upper lobe pneumonectomy, cancer in remission, LEE on CPAP who presented to the ER 2 days ago with increased frequency of cough productive sputum along with fever chills or chest discomfort. She was found to be in acute on chronic hypoxic respiratory failure. This morning patient was on order oxygen. Had a ABG this afternoon which showed hypercapnia PCO2 95, pH : 7.27. Is currently on BiPAP for her acute on chronic hypercapnic respiratory failure. - Exam Vitals: Temp Pulse Resp BP Pulse Ox 98.6 F 97 16 153/81 96 09/26/18 11:56 09/26/18 11:56 09/26/18 11:56 09/26/18 11:56 09/26/18 11:56 Exam: General: Well-developed white female sitting comfortably in bed in no acute distress Skin: Warm and supple HEENT: Moist mucous membranes. No conjunctivae pallor. Neck: No lymphadenopathy. No JVD. No carotid bruits. No palpable thyroid. Chest: Diminished thoracic expansion. Reduced breath sounds bialterally . Scant expiratory wheezes noted. No crackles. Heart: Normal S1 & S2; rhythmic. No rubs or murmurs. Abdomen: Non-distended, soft and non-tender to palpation. No peritoneal reaction. Liver is normal in size. Spleen is not palpable. Extremities: No clubbing, cyanosis or edema. No calf tenderness. Normal distal pulses. Neurological: Awake, alert and oriented to person, place and time. No focal deficits. Psych: Affect appropriate. - Assessment and Plan (1) Acute on chronic respiratory failure with hypoxemia Current Visit: Yes Status: Acute Assessment and Plan: - Likely secondary to her history of COPD. Patient also endorses that she has been noncompliant on her CPAP for the last 2 months because of mask issues. -His exam patient had bilateral expiratory wheezing. No rales or rhonchi. -Most recent CTA was negative for any pulmonary embolus, effusion or any consolidative changes in the lungs. - Patient was requiring 5 L of oxygen yesterday morning and was transitioned to a BiPAP which helped with her hypercarbia by lowering her PCO2 from 95->78. She is on a 4.5 L of oxygen -Echocardiogram was negative for any atrial enlargement. LVEF 65-70%, -On Day 5 of levofloxacin and prednisone. Patient is also continuing her home Montelukast 10mg - Titrate oxygen for SPO2 between 88-92% (2) Acute exacerbation of chronic obstructive pulmonary disease (COPD) Current Visit: Yes Status: Acute Assessment and Plan: plan as above (3) Obstructive sleep apnea Current Visit: Yes Status: Chronic Assessment and Plan: She has a history of LEE. She is on home CPAP but then tells me that she has not used that for the last 2 months because of patient with a mask. - Her most recent ABG showed hypercapnic respiratory failure with PCO2 78, CO2 yesterday evening was 95.. -Currently on BiPAP overnight and 3 L NC in the AM. (4) Former tobacco use Current Visit: No Status: Chronic Assessment and Plan: patient used to be an ex-smoker but endorses he quit smoking now.. (5) Essential hypertension Current Visit: Yes Status: Chronic Assessment and Plan: - Patient has a history of hypertension -On home dose of lisinopril hydrochlorothiazide (6) Obesity (BMI 30-39.9) Current Visit: Yes Status: Chronic Assessment and Plan: -Patient history of obesity -Consult on better dietary options on discharge. (7) ADHD (attention deficit hyperactivity disorder) Current Visit: No Status: Chronic Assessment and Plan: Resume home meds. May need to take her own med. - Time Spent with Patient Total time spent is greater than 50% in coordination of care (as documented) at patient's floor/unit and/or counseling patient: Internal Medicine: Result - Labs CBC & Chem 7: 09/26/18 03:48 09/25/18 04:48 Labs: Short CBC 09/26/18 Range/Units 03:48 WBC 8.7 (4.3-11.1) K/mcL Hgb 13.7 (11.5-15.4) g/dL Hct 44.9 (35.3-44.9) % Plt Count 229 (140-400) K/mcL Neutrophils # 6.4 (1.6-8.9) K/mcL - ABG Interpretation ABG results: ABG ABG pH 7.38 pH Units (7.32-7.45) 09/26/18 04:10 ABG pCO2 80 mmHg (35-45) H* 09/26/18 04:10 ABG pO2 80 mmHg (85-104) L 09/26/18 04:10 ABG O2 Saturation 94 % (95-98) L 09/26/18 04:10 - Impressions Impressions Echocardiogram 09/26/18 11:53 Impressions: LVEF 65-70%. Mild concentric left ventricular hypertrophy. Normal left ventricular diastolic function. Normal right ventricular structure and function. No significant valvular dysfunction. Unable to estimate RVSP due to lack of TR jet. Left Ventricular Wall Motion: Rest Echo Findings All wall segments showed normal motion. Findings: Study Quality * Technically sub-optimal due to poor echocardiographic windows. ECG Findings * Sinus tachycardia. Left Ventricle * LVEF 65-70%. * Mild concentric left ventricular hypertrophy. * Normal left ventricular diastolic function. Right Ventricle * Normal right ventricular structure and function. Left Atrium * Normal left atrial size. Right Atrium * Normal right atrial size. Interatrial Septum * Interatrial septum not well evaluated. Aortic Valve * Trileaflet aortic valve. * Normal aortic valve structure. * No aortic regurgitation. * No aortic stenosis. Mitral Valve * Normal mitral valve structure. * No mitral regurgitation. * No mitral stenosis. Tricuspid Valve * Normal tricuspid valve structure. * No tricuspid regurgitation. * No tricuspid stenosis. * Unable to estimate RVSP due to lack of TR jet. Pulmonic Valve * Pulmonic valve is not well visualized. Aorta * Normally sized aortic root. Pericardium * The pericardium appears normal. IVC * Normal IVC dimensions and inspiratory collapse. Pulmonary Artery * Pulmonary artery not well visualized. <Zhane Mendoza - Last Filed: 09/26/18 18:28> (1) ADHD (attention deficit hyperactivity disorder) Qualifiers: Attention deficit-hyperactivity disorder type: unspecified Qualified Code(s): F90.9 - Attention-deficit hyperactivity disorder, unspecified type <Dash Antony - Last Filed: 09/26/18 19:42> (7) ADHD (attention deficit hyperactivity disorder) Qualifiers: Attention deficit-hyperactivity disorder type: unspecified Qualified Code(s): F90.9 - Attention-deficit hyperactivity disorder, unspecified type
[2018-09-26] MEDS: *HR* OxyCODONE/APAP 10/325 TABLET PO PRN (19:33)
[2018-09-26] MEDS: ALPRAZolam 1 MG TABLET PO PRN (23:47)
[2018-09-27 05:04] LABS: Hematocrit 42.9 % (35.3-44.9); Hemoglobin 13.2 g/dL (11.5-15.4); Mean Corpuscular HGB Conc 30.8 g/dL (31.6-35.5); Mean Corpuscular Hemoglobin 27.9 pg (28.0-33.3); Mean Corpuscular Volume 90.7 fL (83.0-100.0); Mean Platelet Volume 11.2 fL (9.4-12.4); Platelet Count 197 K/mcL (140-400); Red Blood Count 4.73 M/mcL (3.82-4.97); Red Cell Distribution Width 12.9 % (11.5-14.5)
[2018-09-27 05:23] LABS: BUN/Creatinine Ratio 37 (6-26); Blood Urea Nitrogen 25 mg/dL (8-23); Calcium 9.2 mg/dL (8.6-10.3); Carbon Dioxide 38 mEq/L (23-29); Chloride 94 mEq/L (98-107); Glucose 233 mg/dL (70-105); Osmolality,Calculated 298 (280-300); Potassium 4.2 mEq/L (3.5-5.1); Sodium 138 mEq/L (136-145); eGFR For Non-African Americans > 60 (> 60)
[2018-09-27] MEDS: Aspirin Enteric Coated 81 MG Tablet PO SCH (08:17)
[2018-09-27] MEDS: Diltiazem CD (24hr) 120 MG CAPSULE PO SCH (08:17)
[2018-09-27] MEDS: *HR* Heparin 5,000 UNIT/ML VIAL SQ SCH ×2 (08:18→16:48)
[2018-09-27] MEDS: predniSONE 20 MG TABLET PO SCH (08:18)
[2018-09-27] MEDS: levoFLOXacin 500 MG TABLET PO SCH (08:18)
[2018-09-27] MEDS: Loratadine 10 MG TABLET PO SCH (08:18)
--- NOTE | 2018-09-27 08:20 | Internal Med Progress Note ---
Hospitalist Progress Note - Encounter Date of Encounter: 09/27/18 - Subjective Interval History: Sitting comfortably in bed. She says she feels she made 100% turn around from yesterday in her breathing. She still has green productive cough that is lessening. States she would like to go home cause feels so much better. Tolerating BiPAP at night and nc during day. Denies subjective fever/chills, chest pain, sob, blurry vision/diplopia, dizzy/lightheaded, N/V or abdominal pain. - Exam Vitals: Temp Pulse Resp BP Pulse Ox 97.9 F 103 20 139/87 95 09/27/18 07:08 09/27/18 07:08 09/27/18 07:08 09/27/18 07:08 09/27/18 07:08 Exam: General: Awake, alert, appears stated age, no signs acute distress or signs of toxicity HEENT: EOMi, pupils equal and round, moist mucous membranes. Neck: No lymphadenopathy. No JVD. Chest: Symmetric chest rise, non tender to palpation. Resp: Normal resp effort, diminshed breath sounds bilaterally < bases, scattered exp wheezes, no breath sounds R upper lobe, no rhonchi or rales appreciated. Cardiac: RRR, S1/S2+, no murmurs, rubs, gallops appreciated, radial pulse 2+ bilat, no edema. Abdomen: Soft, nontender, non distended, no rebound, guarding, or rigidity. Neurological: Alert, CN's grossly intact, no focal deficits. Psych: Normal affect . Integumentary: Oolitic, warm, dry, intact. - Assessment and Plan (1) Acute on chronic respiratory failure with hypoxemia Current Visit: Yes Status: Acute Assessment and Plan: -Likely 2/2 COPD exacerbation. -CTA chest was negative for any pulmonary embolus, effusion or any consolidative changes in the lungs. -Tolerating BiPAP at night and nc during day which will continue. -Echocardiogram was negative for any atrial enlargement. LVEF 65-70%, -On Day 6 of levofloxacin and prednisone. Also continuing her home Montelukast 10mg -Titrate oxygen for SPO2 between 88-92% -ABG yst metabolic alkolosis with co resp acidosis. pH 7.38, PaCO2 80 -Continue abx, prednisone, and nebs. (2) Acute exacerbation of chronic obstructive pulmonary disease (COPD) Current Visit: Yes Status: Acute Assessment and Plan: plan as above (3) Obstructive sleep apnea Current Visit: Yes Status: Chronic Assessment and Plan: -She has a history of LEE. She is on home CPAP but then tells me that she has not used that for the last 2 months because of patient with a mask. -Her most recent ABG showed metabolic alkalosis with co resp acidosis, pH 7.38, PaCO2 80 -Currently on BiPAP at night and 4L nc day. (4) Essential hypertension Current Visit: Yes Status: Chronic Assessment and Plan: -Hx of HTN -On home dose of lisinopril/HCTZ and diltiazem (5) Obesity (BMI 30-39.9) Current Visit: Yes Status: Chronic Assessment and Plan: -BMI 36.8 -Recommend lifestyle modifications at ar. (6) ADHD (attention deficit hyperactivity disorder) Current Visit: No Status: Chronic Assessment and Plan: Resume home meds. May need to take her own med. (7) Former tobacco use Current Visit: No Status: Chronic Assessment and Plan: Former smoker DVT Prophylaxis: Heparin - Time Spent with Patient Total time spent is greater than 50% in coordination of care (as documented) at patient's floor/unit and/or counseling patient: less than 15 minutes Plan of Care Discussed with: patient Internal Medicine: Result - Labs CBC & Chem 7: 09/27/18 04:30 09/27/18 04:30 Labs: Short CBC 09/27/18 Range/Units 04:30 WBC 8.9 (4.3-11.1) K/mcL Hgb 13.2 (11.5-15.4) g/dL Hct 42.9 (35.3-44.9) % Plt Count 197 (140-400) K/mcL BMP 09/27/18 04:30 Sodium 138 Potassium 4.2 Chloride 94 L Carbon Dioxide 38 H BUN 25 H Creatinine 0.67 Glucose 233 H Calcium 9.2 - ABG Interpretation ABG results: ABG ABG pH 7.38 pH Units (7.32-7.45) 09/26/18 04:10 ABG pCO2 80 mmHg (35-45) H* 09/26/18 04:10 ABG pO2 80 mmHg (85-104) L 09/26/18 04:10 ABG O2 Saturation 94 % (95-98) L 09/26/18 04:10 - Impressions Impressions Echocardiogram 09/26/18 11:53 Impressions: LVEF 65-70%. Mild concentric left ventricular hypertrophy. Normal left ventricular diastolic function. Normal right ventricular structure and function. No significant valvular dysfunction. Unable to estimate RVSP due to lack of TR jet. Left Ventricular Wall Motion: Rest Echo Findings All wall segments showed normal motion. Findings: Study Quality * Technically sub-optimal due to poor echocardiographic windows. ECG Findings * Sinus tachycardia. Left Ventricle * LVEF 65-70%. * Mild concentric left ventricular hypertrophy. * Normal left ventricular diastolic function. Right Ventricle * Normal right ventricular structure and function. Left Atrium * Normal left atrial size. Right Atrium * Normal right atrial size. Interatrial Septum * Interatrial septum not well evaluated. Aortic Valve * Trileaflet aortic valve. * Normal aortic valve structure. * No aortic regurgitation. * No aortic stenosis. Mitral Valve * Normal mitral valve structure. * No mitral regurgitation. * No mitral stenosis. Tricuspid Valve * Normal tricuspid valve structure. * No tricuspid regurgitation. * No tricuspid stenosis. * Unable to estimate RVSP due to lack of TR jet. Pulmonic Valve * Pulmonic valve is not well visualized. Aorta * Normally sized aortic root. Pericardium * The pericardium appears normal. IVC * Normal IVC dimensions and inspiratory collapse. Pulmonary Artery * Pulmonary artery not well visualized. Consult Discharge Plan - Plan Referrals: Juan Ponce [Resident] - 10/03/18 2:00 pm (6) ADHD (attention deficit hyperactivity disorder) Qualifiers: Attention deficit-hyperactivity disorder type: unspecified Qualified Code(s): F90.9 - Attention-deficit hyperactivity disorder, unspecified type
[2018-09-27] MEDS: *HR* OxyCODONE/APAP 10/325 TABLET PO PRN ×2 (08:29→17:12)
[2018-09-27] MEDS: Budesonide/Formoterol 160/4.5 1 PUFF INH IH SCH (10:54)
--- NOTE | 2018-09-27 14:56 | Discharge Summary ---
<Sanjay Thompson - Last Filed: 09/27/18 15:19> - NOTES TO OUTPATIENT PROVIDER Notes to Outpatient Provider: Was admitted on 09/22/18 for COPD exacerbation, received 5 days levofloxacin and steroids. Dc on 09/27/18 with 5 additional days levofloxacin, medrol dose coleen, duonebs q4h, and 4L continuous O2. Will need CPAP supplies during your clinic visit. Orders not resulted at time of discharge: Pending orders 09/22/18 22:15 Culture,Sputum with Gram Stain [RM] Stat Date of Encounter: 09/27/18 Time of Encounter: 10:00 - Discharge Diagnosis (1) Acute on chronic respiratory failure with hypoxemia Priority: Primary Status: Acute Assessment and Plan: -Likely 2/2 COPD exacerbation. -CTA chest was negative for any pulmonary embolus, effusion or any consolidative changes in the lungs. -Tolerating BiPAP at night and nc during day which will continue. -Echocardiogram was negative for any atrial enlargement. LVEF 65-70%, -On Day 6 of levofloxacin and prednisone. Also continuing her home Montelukast 10mg -Titrate oxygen for SPO2 between 88-92% -ABG yst metabolic alkolosis with co resp acidosis. pH 7.38, PaCO2 80 -Continue abx, prednisone, and nebs. (2) Acute exacerbation of chronic obstructive pulmonary disease (COPD) Priority: Secondary Status: Acute Assessment and Plan: plan as above (3) Obstructive sleep apnea Priority: Secondary Status: Chronic Assessment and Plan: -She has a history of LEE. She is on home CPAP but has not used it for 2 months because she has not had a mask. -Her most recent ABG showed metabolic alkalosis with co resp acidosis, pH 7.38, PaCO2 80 -Currently on BiPAP at night and 4L nc day. (4) Essential hypertension Priority: Secondary Status: Chronic Assessment and Plan: -Hx of HTN -On home dose of lisinopril/HCTZ and diltiazem (5) ADHD (attention deficit hyperactivity disorder) Priority: Secondary Status: Chronic Assessment and Plan: Resume home meds. May need to take her own med. Qualifiers: Attention deficit-hyperactivity disorder type: unspecified Qualified Code(s): F90.9 - Attention-deficit hyperactivity disorder, unspecified type (6) Former tobacco use Priority: Secondary Status: Chronic Assessment and Plan: Former smoker (7) Obesity (BMI 30-39.9) Priority: Secondary Status: Chronic Assessment and Plan: -BMI 36.8 -Recommend lifestyle modifications at al. Hospital course: Ms. Cabello is a 68 year old female who presented to the ER with complaints of shortness of breath, cough productive of brown sputum, subjective fever, chills, chest discomfort and generalized malaise. She states that she has had to increase her O2 to 4L at home as her nebulizer machine at home is not functional. On arrival she was seen to have diffuse expiratory wheezes bilaterally. She received nebulizer treatment, abx and steroids and admitted with COPD exacerbation. CTA chest was negative for any pulmonary embolus, effusion or any consolidative changes in the lungs. Echocardiogram was negative for any atrial enlargement. LVEF 65-70%. Received 5 days of levofloxacin and prednisone. 6 min walk required 4L O2. She will be discharged with 5 additional days levofloxacin, a medrol dose coleen, and scheduled duonebs q4H. At time of dc she is breathing much better and productive cough lessening. Will fu with pcp next week. Discharge discussed with: patient - Time Spent with Patient Total time spent providing and/or coordinating discharge services: Less than 30 minutes - Discharge Medications Prescriptions: Ipratropium/Albuterol Neb [Duoneb] 3 ml IH [id number] 30 Days #120 inhsol levoFLOXacin [Levaquin] 500 mg PO DAILY 5 Days #5 tablet MethylPREDNISolone [MethylPREDNISolone Dose Pack] 4 mg PO TAPER #21 tab Home Medications: Oxycodone HCl/Acetaminophen [Percocet 10-325 mg Tablet] 1 tab PO Q4-6H PRN 06/08/16 [History] Ropinirole HCl [Requip] 3 mg PO HS 10/19/16 [History] Rosuvastatin Calcium [Crestor] 10 mg PO DAILY 10/19/16 [History] Aspirin [Lo-Dose Aspirin EC] 81 mg PO DAILY 12/18/16 [History] Budesonide/Formoterol 160/4.5 [Symbicort 160/4.5] 2 puff IH BIDR inhaler 04/05/17 [Rx] Furosemide [Lasix] 40 mg PO BID PRN 06/12/17 [History] Albuterol Sulfate [Proair Hfa] 2 puff IH Q4H PRN #1 inh 06/14/17 [Rx] Montelukast [Singulair] 10 mg PO DAILY 08/01/17 [History] Diltiazem CD (24hr) [Cardizem CD] 120 mg PO DAILY #15 08/10/17 [Rx] Loratadine [Allergy Relief] 10 mg PO DAILY 09/17/17 [History] GuaiFENesin/Dextromethorphan [Mucinex Dm] 1 each PO BID PRN tab.er.12h 09/18/17 [Rx] Acetaminophen [Tylenol] 650 mg PO Q6HR PRN tablet 11/29/17 [Rx] Ipratropium/Albuterol Neb [Duoneb] 3 ml IH [id number] 30 Days #120 inhsol 09/27/18 [Rx] MethylPREDNISolone [MethylPREDNISolone Dose Pack] 4 mg PO TAPER #21 tab 09/27/18 [Rx] levoFLOXacin [Levaquin] 500 mg PO DAILY 5 Days #5 tablet 09/27/18 [Rx] Allergies/Adverse Reactions: Allergy/AdvReac Type Severity Reaction Status Date / Time Amoxicillin Allergy Rash Verified 11/28/17 10:08 Penicillins Allergy Rash Verified 11/28/17 10:08 Date of admission: 09/23/18 11:51 Primary care physician: Irene Duncan MD Consults: 09/24/18 10:50 Consult to Nurse Navigator [CONS] Routine Comment: COPD 09/24/18 19:04 Consult to Respiratory Therapy [CONS] Routine Reason for Consult: Bipap Call Completed: Yes Discharging clinician: Sanjay Thompson Anticipated date of discharge: 09/27/18 - Constitutional Vitals: Temp Pulse Resp BP Pulse Ox 97.6 F 93 18 163/85 91 09/27/18 11:34 09/27/18 11:34 09/27/18 11:34 09/27/18 11:34 09/27/18 14:24 Exam: General: Awake, alert, appears stated age, no signs acute distress or signs of toxicity HEENT: EOMi, pupils equal and round, moist mucous membranes. Neck: No lymphadenopathy. No JVD. Chest: Symmetric chest rise, non tender to palpation. Resp: Normal resp effort, diminshed breath sounds bilaterally < bases, scattered exp wheezes, no breath sounds R upper lobe, no rhonchi or rales appreciated. Cardiac: RRR, S1/S2+, no murmurs, rubs, gallops appreciated, radial pulse 2+ bilat, no edema. Abdomen: Soft, nontender, non distended, no rebound, guarding, or rigidity. Neurological: Alert, CN's grossly intact, no focal deficits. Psych: Normal affect . Integumentary: [place], warm, dry, intact. - Patient Status Disposition: Home, Self-Care Condition: Good Functional capacity at discharge: independent ambulation Overall status at discharge: patient is progressing back to baseline - Discharge Instructions Instructions: Chronic Obstructive Pulmonary Disease (DC) Follow Up With: Juan Ponce [Resident] - 10/03/18 2:00 pm - Diet and Activity Activity: increase activity as tolerated, resume usual activities as tolerated, wear oxygen at all times Diet: regular diet <Zhane Mendoza - Last Filed: 09/27/18 17:04> Orders not resulted at time of discharge: Pending orders 09/22/18 22:15 Culture,Sputum with Gram Stain [RM] Stat Date of Encounter: 09/27/18 - Discharge Diagnosis (1) ADHD (attention deficit hyperactivity disorder) Status: Chronic Qualifiers: Attention deficit-hyperactivity disorder type: unspecified Qualified Code(s): F90.9 - Attention-deficit hyperactivity disorder, unspecified type (2) Acute on chronic respiratory failure with hypoxemia Status: Acute (3) Acute exacerbation of chronic obstructive pulmonary disease (COPD) Status: Acute (4) Former tobacco use Status: Chronic (5) Obstructive sleep apnea Status: Chronic (6) Essential hypertension Status: Chronic (7) Obesity (BMI 30-39.9) Status: Chronic Hospital course: Ms. Cabello is a 68 year old female - Time Spent with Patient Total time spent providing and/or coordinating discharge services: Date of admission: 09/23/18 11:51 Primary care physician: Irene Duncan MD Consults: 09/24/18 10:50 Consult to Nurse Navigator [CONS] Routine Comment: COPD 09/24/18 19:04 Consult to Respiratory Therapy [CONS] Routine Reason for Consult: Bipap Call Completed: Yes - Constitutional Vitals: Temp Pulse Resp BP Pulse Ox 98.5 F 103 20 150/78 95 09/27/18 15:00 09/27/18 15:00 09/27/18 15:00 09/27/18 15:00 09/27/18 15:00 - Attending Attestation I examined this patient and my medical decision-making was reviewed with the Resident Physician Dr Thompson. I agree with the documented findings, disposition and treatment plan as described except to the extent set forth below/addl details below. Ms Cabello was currently admitted for acute exac COPD. CTA chest ruled out other etiologies of presenting cough,s putum, wheezing. No focal consolidation no PE. She has clinically improved with IV abx, steroids, nebs. Clarificaiton to resident documentation- as there has been much confusion about wether she has a cpap or bipap machine at home- SW has confirmed pt has home bipap, she is missing her mask and is to be sent with one on dc and provider company will see her tomorrow to see her/machine. She is recommended outpt sleep study to assess for LEE. She has home o2 with new rx given 6 min walk test day of dc. She does have a home nebulizer machine and neb solution as confirmed by pt and SW. awake, alert, denies fevers, chills. "100% better". No sob on o2 nc or with ambulation. cough and wheezing improving gen- alert, awake,appears stated age cv- reg rate and rhythm, normal s1,s2, no murmurs appreciated, no le edema lungs- faint posterior exp wheezing, improved aeration in all chung, no rhonchi or crackles, normal resp effort on o2 nc abd- soft, non tender, non distended, + bs neuro- AAOx3 A/P Acute hypercarbic and hypoxic resp failure 2/2 COPD exacerbation, imrpoved - on bipap initially, now o2 nc, hs bipap, has machine at home,appears best pco2 in recent past 47 and mostly in 60s, remains higher than baseline but clinically significantly improved CTA neg for consolidation, effusion or PE, outpt sleep testing recommended COPD exac-cont oral abx course and steroid taper on dc, ensured has neb and supplies for continued treatments, home o2 in place Further diagnoses and plan as noted by resident dc to home in stable condition with outpt pcp fu Addendum entered and electronically signed by Zhane Mendoza 09/27/18 17:05: HTN- on home meds, labile bps, at times elevated abvoe goal, fu with pcp at scheduled appt for further monitoring and management
[2018-09-27 15:02] VITALS: BP 150/78
--- NOTE | 2018-09-28 18:29 | Electrocardiograph Report ---
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
== END 2018-09-27 17:13 | disposition home or self-care (01) | DRG 190 ==
LOC: 3BNU 19:28 → EMEROOARM 19:28 → SUATTDRO 21:15 → 3BNU 22:21 → SUATTDRO 09-23 11:51
PROVIDERS: ADMIT Internal Medicine; ATTEND Internal Medicine

== ENCOUNTER 2018-11-08 09:36 | Inpatient (IN) ==
[2018-11-08] MEDS ORDERED: Ipratropium/Albuterol Neb 3 ML IH ONE (10:06)
[2018-11-08] MEDS ORDERED: Azithromycin 250 MG TABLET PO ONE (10:06)
[2018-11-08] MEDS ORDERED: predniSONE 20 MG TABLET PO ONE (10:06)
[2018-11-08 10:27] LABS: Basophils % 0.5 %; Eosinophils # 0.3 K/mcL (0.0-0.6); Eosinophils % 4.9 %; Hemoglobin 12.7 g/dL (11.5-15.4); Immature Granulocytes % 0.5 % (0-4); Lymphocytes # 1.1 K/mcL (0.6-4.6); Lymphocytes % 17.1 %; Mean Corpuscular Volume 90.5 fL (83.0-100.0); Mean Platelet Volume 10.7 fL (9.4-12.4); Monocytes # 0.3 K/mcL (0.0-1.3); Monocytes % 5.3 %; Neutrophils # 4.6 K/mcL (1.6-8.9); Platelet Count 165 K/mcL (140-400); Red Blood Count 4.53 M/mcL (3.82-4.97); Red Cell Distribution Width 14.5 % (11.5-14.5); Segmented Neutrophils % 71.7 %
--- NOTE | 2018-11-08 10:32 | Emergency Department Note ---
Disposition Clinical Impression: COPD exacerbation Disposition: Admitted As Inpatient Condition: Fair General Adult HPI - General Chief complaint: ED Shortness of Breath/Dyspnea Stated complaint: SOB Time Seen by Provider: 11/08/18 09:43 Source: patient, EMS Limitations: no limitations - History of Present Illness Pain Scale: 5 - Related Data Home Medications Medication Instructions Recorded Confirmed Oxycodone HCl/Acetaminophen 1 tab PO Q4-6H PRN 06/08/16 11/08/18 [Percocet 10-325 mg Tablet] Ropinirole HCl [Requip] 3 mg PO HS 10/19/16 11/08/18 Rosuvastatin Calcium [Crestor] 10 mg PO DAILY 10/19/16 11/08/18 Aspirin [Lo-Dose Aspirin EC] 81 mg PO DAILY 12/18/16 11/08/18 Furosemide [Lasix] 40 mg PO BID PRN 06/12/17 11/08/18 Montelukast [Singulair] 10 mg PO DAILY 08/01/17 11/08/18 Loratadine [Allergy Relief] 10 mg PO DAILY 09/17/17 11/08/18 ALPRAZolam [Xanax 1 MG Tablet] 1 mg PO DAILY PRN 11/08/18 11/08/18 Previous Rx's Medication Instructions Recorded Budesonide/Formoterol 160/4.5 2 puff IH BIDR inhaler 04/05/17 [Symbicort 160/4.5] Albuterol Sulfate [Proair Hfa] 2 puff IH Q4H PRN #1 inh 06/14/17 Diltiazem CD (24hr) [Cardizem CD] 120 mg PO DAILY #15 08/10/17 GuaiFENesin/Dextromethorphan 1 each PO BID PRN tab.er.12h 09/18/17 [Mucinex Dm] Acetaminophen [Tylenol] 650 mg PO Q6HR PRN tablet 11/29/17 Allergies Allergy/AdvReac Type Severity Reaction Status Date / Time Amoxicillin Allergy Rash Verified 11/28/17 10:08 Penicillins Allergy Rash Verified 11/28/17 10:08 Past Medical History - Past Medical History Medical history: Reports: asthma, cancer, COPD, hyperlipidemia, hypertension, other Surgical history: Reports: appendectomy, cancer surgery, colectomy, hysterectomy, other Psychiatric history: Reports: depression 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 - Social History Smoking Status: Former smoker Smokeless Tobacco Status: No Alcohol use: Reports: none Drug use: Reports: none Physical Exam - General Limitations: no limitations General appearance: alert, in no apparent distress Course Vital Signs Temperature 98.4 F 11/08/18 09:41 Pulse Rate 109 11/08/18 09:41 Respiratory Rate 20 11/08/18 09:41 Blood Pressure 166/91 11/08/18 09:41 O2 Sat by Pulse Oximetry 86 11/08/18 09:41 Temperature 97.5 F L 11/08/18 18:58 Pulse Rate 108 11/08/18 18:58 Respiratory Rate 17 11/08/18 18:58 Blood Pressure 145/77 11/08/18 18:58 O2 Sat by Pulse Oximetry 98 11/08/18 18:58 Oxygen Delivery Oxygen Delivery Nasal Cannula Medical Decision Making - Lab Data Result diagrams: 11/08/18 10:13 11/08/18 10:13 Lab Results 11/08/18 11/08/18 11/08/18 Range/Units 10:13 10:13 10:13 WBC 6.4 (4.3-11.1) K/mcL RBC 4.53 (3.82-4.97) M/mcL Hgb 12.7 (11.5-15.4) g/dL Hct 41.0 (35.3-44.9) % MCV 90.5 (83.0-100.0) fL MCH 28.0 (28.0-33.3) pg MCHC 31.0 L (31.6-35.5) g/dL RDW 14.5 (11.5-14.5) % Plt Count 165 (140-400) K/mcL MPV 10.7 (9.4-12.4) fL Immature Gran % 0.5 (0-4) % Seg Neutrophils % 71.7 % Lymphocytes % 17.1 % Monocytes % 5.3 % Eosinophils % 4.9 % Basophils % 0.5 % Neutrophils # 4.6 (1.6-8.9) K/mcL Lymphocytes # 1.1 (0.6-4.6) K/mcL Monocytes # 0.3 (0.0-1.3) K/mcL Eosinophils # 0.3 (0.0-0.6) K/mcL Basophils # 0.0 (0.0-0.2) K/mcL Sodium 141 (136-145) mEq/L Potassium 3.8 (3.5-5.1) mEq/L Chloride 105 (98-107) mEq/L Carbon Dioxide 30 H (23-29) mEq/L BUN 13 (8-23) mg/dL Creatinine 0.58 L (0.60-1.20) mg/dL Est GFR ( Amer) > 60 (> 60) Est GFR (Non-Af Amer) > 60 (> 60) BUN/Creatinine Ratio 22 (6-26) Glucose 158 H (70-105) mg/dL Calculated Osmolality 295 (280-300) Calcium 8.9 (8.6-10.3) mg/dL Troponin I < 0.03 (< 0.04) ng/mL B-Natriuretic Peptide 18 (Less than 100) pg/mL Attestation Statement - Attestation Attestation: I examined this patient and my medical decision-making was reviewed with the ASTROPHYSICS TEACHER/PA/Advanced Practice Nurse/Resident Physician. I agree with the documented findings, disposition and treatment plan as described except to the extent set forth below. I did review the patient's previous record with history of COPD and recent admission 2 months ago and does also have a history of lung cancer 11 years ago and presents with shortness of breath, cough productive of green and brown colored sputum but no hemoptysis, she denies any chest pain. No pain or swelling of the lower extremities. On my exam she does have well-healed surgical scar right posterior chest, bilateral wheezing and rhonchi, she did have hypoxemia when presented with 86% saturation which now has gone up to the high 90s on nasal cannula oxygen. She does use oxygen as needed at home. She has stopped smoking in the distant past 12 years ago. Evaluation with labs and chest x-ray, steroids, antibiotics, DuoNeb. Will be reevaluated after treatment and test results. [id number]
[2018-11-08 10:47] LABS: BUN/Creatinine Ratio 22 (6-26); Blood Urea Nitrogen 13 mg/dL (8-23); Calcium 8.9 mg/dL (8.6-10.3); Carbon Dioxide 30 mEq/L (23-29); Chloride 105 mEq/L (98-107); Glucose 158 mg/dL (70-105); Osmolality,Calculated 295 (280-300); Potassium 3.8 mEq/L (3.5-5.1); Sodium 141 mEq/L (136-145); eGFR For Non-African Americans > 60 (> 60)
[2018-11-08 10:48] LABS: Troponin I < 0.03 ng/mL (< 0.04)
[2018-11-08] MEDS ORDERED: Piperacillin/Tazobactam 3.375 GM in 0.9 % Sodium Chloride Mini Bag 100 ML IVPB ONE (11:55)
--- NOTE | 2018-11-08 11:57 | Emergency Department Note ---
Disposition Clinical Impression: COPD exacerbation, Respiratory distress, Hypoxemia Disposition: Admitted As Inpatient Condition: Fair Time of Disposition: 15:56 SOB HPI - General Chief Complaint: ED Shortness of Breath/Dyspnea Stated Complaint: SOB Time Seen by Provider: 11/08/18 09:43 Source: patient, EMS Limitations: no limitations Vital Signs Reviewed: Yes - History of Present Illness 68-year-old female with history of COPD and at home oxygen at 2 L presenting for a 3 day history of shortness of breath. Patient states that 4 weeks ago she was admitted to the hospital for pneumonia. Since discharge she states she has not been 100%, requiring 2-3 L of oxygen at home. She says over the last 3 days her oxygen requirement has gone up to 5 L. patient states that she has shortness of breath at baseline, however she is able to tolerate some low activity normally. Recently she states that her shortness of breath is only tolerable at rest if she tries to walk or perform any of her daily activities or shortness of breath exacerbates and she has difficulty. She has also noted diffuse wheezing. Denies fevers reports chills. Denies chest pain. Denies any history of CHF. Patient was mildly tachycardic and tachypneic on presentation. Pulse ox was 86% on presentation. - Related Data Home Medications Medication Instructions Recorded Confirmed Oxycodone HCl/Acetaminophen 1 tab PO Q4-6H PRN 06/08/16 11/08/18 [Percocet 10-325 mg Tablet] Ropinirole HCl [Requip] 3 mg PO HS 10/19/16 11/08/18 Rosuvastatin Calcium [Crestor] 10 mg PO DAILY 10/19/16 11/08/18 Aspirin [Lo-Dose Aspirin EC] 81 mg PO DAILY 12/18/16 11/08/18 Furosemide [Lasix] 40 mg PO BID PRN 06/12/17 11/08/18 Montelukast [Singulair] 10 mg PO DAILY 08/01/17 11/08/18 Loratadine [Allergy Relief] 10 mg PO DAILY 09/17/17 11/08/18 ALPRAZolam [Xanax 1 MG Tablet] 1 mg PO DAILY PRN 11/08/18 11/08/18 Previous Rx's Medication Instructions Recorded Budesonide/Formoterol 160/4.5 2 puff IH BIDR inhaler 04/05/17 [Symbicort 160/4.5] Albuterol Sulfate [Proair Hfa] 2 puff IH Q4H PRN #1 inh 06/14/17 Diltiazem CD (24hr) [Cardizem CD] 120 mg PO DAILY #15 08/10/17 GuaiFENesin/Dextromethorphan 1 each PO BID PRN tab.er.12h 09/18/17 [Mucinex Dm] Acetaminophen [Tylenol] 650 mg PO Q6HR PRN tablet 11/29/17 Allergies Allergy/AdvReac Type Severity Reaction Status Date / Time Amoxicillin Allergy Rash Verified 11/28/17 10:08 Penicillins Allergy Rash Verified 11/28/17 10:08 Constitutional: Reports: chills. Denies: fever Eyes: Denies: vision change ENT ED: Denies: throat pain Cardiovascular: Denies: chest pain Respiratory: Reports: dyspnea Gastrointestinal: Denies: abdominal pain, nausea, vomiting Genitourinary: Denies: dysuria Musculoskeletal: Denies: back pain Integumentary: Denies: rash Neurological: Denies: headache Past Medical History - Past Medical History Medical history: Reports: asthma, cancer, COPD, hyperlipidemia, hypertension, other Surgical history: Reports: appendectomy, cancer surgery, colectomy, hysterectomy, other Psychiatric history: Reports: depression [employer] history: Reports: bilateral tubal ligation - Social History Smoking Status: Former smoker Smokeless Tobacco Status: No Alcohol use: Reports: none Drug use: Reports: none Physical Exam - General Limitations: no limitations General appearance: alert, in no apparent distress - Head Head exam: atraumatic, normocephalic - Eye Eye exam: Present: normal appearance - Neck Neck exam: Present: normal inspection, trachea midline - Chest Chest inspection: Present: normal inspection, symmetric chest wall rise - Respiratory Respiratory exam: Present: normal lung sounds bilaterally. Absent: wheezes - Cardiovascular Cardiovascular exam: Present: tachycardia, +S1, +S2 - Abdominal Exam Abdominal exam: Present: soft, Non-Tender. Absent: guarding, rigidity - Extremities Exam Extremities exam: Present: normal inspection - Neurological Exam Neurological exam: Present: alert, oriented X3 - Psychiatric Psychiatric exam: Present: normal affect, normal mood - Skin Skin exam: Present: warm, dry, intact Course Course Narrative: Patient was hemodynamically stable on presentation. She was started on oxygen and her O2 sats increased to 96%. She is no longer tachycardic. Patient received steroids and breathing treatment. We will escalate antibiotic therapy to vancomycin and Zosyn as patient was admitted to the hospital approximately 4 weeks ago. 12:00 Chest x-ray shows evidence for COPD, labs overall negative. Mild elevation in CO2. Due to patient's hypoxia and recent hospital patient, she will be admitted for IV and by therapy. 12:55 Spoke with hospitalist who agreed to admit the patient. Patient agrees with this plan as well. Patient is currently hemodynamically stable and saturating well. Vital Signs Temperature 98.4 F 11/08/18 09:41 Pulse Rate 109 11/08/18 09:41 Respiratory Rate 20 11/08/18 09:41 Blood Pressure 166/91 11/08/18 09:41 O2 Sat by Pulse Oximetry 86 11/08/18 09:41 Temperature 97.5 F L 11/08/18 18:58 Pulse Rate 108 11/08/18 18:58 Respiratory Rate 17 11/08/18 18:58 Blood Pressure 145/77 11/08/18 18:58 O2 Sat by Pulse Oximetry 98 11/08/18 18:58 Oxygen Delivery Oxygen Delivery Nasal Cannula Shortness of Breath/Dyspnea - [facility] Narrative Medical decision making narrative: Chest X-Ray 11/08/18 10:06 IMPRESSION: Chronic changes related to COPD as well as right upper lobectomy. No acute cardiopulmonary process is seen. D/ / Ernst Negrete MD / Ernst Negrete MD Interpreting Provider: Ernst Negrete MD - Medical Records Medical records reviewed: Yes I reviewed the patient's medical records. - Lab Data Lab results reviewed: Yes I reviewed the patient's lab results. Result diagrams: 11/08/18 10:13 11/08/18 10:13 Lab Results 11/08/18 11/08/18 11/08/18 Range/Units 10:13 10:13 10:13 WBC 6.4 (4.3-11.1) K/mcL RBC 4.53 (3.82-4.97) M/mcL Hgb 12.7 (11.5-15.4) g/dL Hct 41.0 (35.3-44.9) % MCV 90.5 (83.0-100.0) fL MCH 28.0 (28.0-33.3) pg MCHC 31.0 L (31.6-35.5) g/dL RDW 14.5 (11.5-14.5) % Plt Count 165 (140-400) K/mcL MPV 10.7 (9.4-12.4) fL Immature Gran % 0.5 (0-4) % Seg Neutrophils % 71.7 % Lymphocytes % 17.1 % Monocytes % 5.3 % Eosinophils % 4.9 % Basophils % 0.5 % Neutrophils # 4.6 (1.6-8.9) K/mcL Lymphocytes # 1.1 (0.6-4.6) K/mcL Monocytes # 0.3 (0.0-1.3) K/mcL Eosinophils # 0.3 (0.0-0.6) K/mcL Basophils # 0.0 (0.0-0.2) K/mcL Sodium 141 (136-145) mEq/L Potassium 3.8 (3.5-5.1) mEq/L Chloride 105 (98-107) mEq/L Carbon Dioxide 30 H (23-29) mEq/L BUN 13 (8-23) mg/dL Creatinine 0.58 L (0.60-1.20) mg/dL Est GFR ( Amer) > 60 (> 60) Est GFR (Non-Af Amer) > 60 (> 60) BUN/Creatinine Ratio 22 (6-26) Glucose 158 H (70-105) mg/dL Calculated Osmolality 295 (280-300) Calcium 8.9 (8.6-10.3) mg/dL Troponin I < 0.03 (< 0.04) ng/mL B-Natriuretic Peptide 18 (Less than 100) pg/mL - Radiology Data Radiology results reviewed: Yes I reviewed the patient's radiology results. - EKG Data EKG attestation: Yes I reviewed and interpreted this EKG. EKG results narrative: EKG shows sinus tachycardia with a heart rate of 100. There are a few PVCs present. Normal axis and normal RV progression. No acute ST elevations or depressions noted. No T-wave inversions. No changes from previous EKG dated 09/22/2018.
[2018-11-08] MEDS ORDERED: Acetaminophen 325 MG TABLET PO PRN (13:48)
[2018-11-08] MEDS ORDERED: Naloxone 0.4 MG/ML INJ IVP PRN (13:48)
--- NOTE | 2018-11-08 13:48 | Internal Med History&Physical ---
<Hiram Thompson - Last Filed: 11/08/18 14:23> Date of Encounter: 11/08/18 Time of Encounter: 13:46 Internal Medicine - H&P: HPI Chief complaint: Shortness of breath Admitted From: Emergency Dept Plans for Post Hospital Care: Home History of present illness: Ms. Cabello is a 68 year old female with past medical history of COPD (wears 2L oxygen at home PRN), history of lung cancer s/p resection of right upper lobe 11 years ago, history of colon cancer s/p partial colectomy 11 years ago, LEE on CPAP, hypertension, asthma, degenerative disc disease. Of note, patient was recently hospitalized from 09/22-09/27 and was treated at that time for acute exacerbation of COPD. She finished her course of Levaquin at that time, and was supposed to have outpatient follow-up with pulmonology but did not make it to her appointment. He states that when she went home, she did not feel as if her respiratory status had fully improved. She states that for the past 2-3 days, she has progressively become more shortness of breath even while wearing her oxygen. She also noted to have significant audible wheezing and she decided to come to the hospital. She denies nausea, vomiting. She reports intermittent episodes of diarrhea which is normal for her since her colectomy. She denies fevers, chills, chest pain. Past Med Surg Social Fam HX - Past Medical History Medical history: asthma, cancer, COPD, hyperlipidemia, hypertension, other Additional medical history: lung and colon cancer Psychiatric history: depression - Past Surgical History Surgical History: appendectomy, cancer surgery, colectomy, hysterectomy, other Additional surgical history: upper right lobectomy , brain surgery - Social History Smoking Status: Former smoker Smokeless Tobacco Status: No Alcohol use: none Drug use: none - Family History Father Living Status: Hx Family Cardiac Disorders: Yes (HYPERTENSION/CHF) Hx Family Respiratory Disorders: Yes (COPD/Emphysema/Asthma) Mother Adopted: No Living Status: Hx Family Cardiac Disorders: Yes Hx Family Cancer: Yes (colon ca) Internal Medicine - H&P: Meds Oxycodone HCl/Acetaminophen [Percocet 10-325 mg Tablet] 1 tab PO Q4-6H PRN 06/08/16 [History] Ropinirole HCl [Requip] 3 mg PO HS 10/19/16 [History] Rosuvastatin Calcium [Crestor] 10 mg PO DAILY 10/19/16 [History] Aspirin [Lo-Dose Aspirin EC] 81 mg PO DAILY 12/18/16 [History] Budesonide/Formoterol 160/4.5 [Symbicort 160/4.5] 2 puff IH BIDR inhaler 04/05/17 [Rx] Furosemide [Lasix] 40 mg PO BID PRN 06/12/17 [History] Albuterol Sulfate [Proair Hfa] 2 puff IH Q4H PRN #1 inh 06/14/17 [Rx] Montelukast [Singulair] 10 mg PO DAILY 08/01/17 [History] Diltiazem CD (24hr) [Cardizem CD] 120 mg PO DAILY #15 08/10/17 [Rx] Loratadine [Allergy Relief] 10 mg PO DAILY 09/17/17 [History] GuaiFENesin/Dextromethorphan [Mucinex Dm] 1 each PO BID PRN tab.er.12h 09/18/17 [Rx] Acetaminophen [Tylenol] 650 mg PO Q6HR PRN tablet 11/29/17 [Rx] MethylPREDNISolone [MethylPREDNISolone Dose Pack] 4 mg PO TAPER #21 tab 09/27/18 [Rx] Allergy/AdvReac Type Severity Reaction Status Date / Time Amoxicillin Allergy Rash Verified 11/28/17 10:08 Penicillins Allergy Rash Verified 11/28/17 10:08 All Systems PM: A 10-system review of systems was performed and is negative for pertinent findings except as documented above in the HPI. - Constitutional Constitutional: as per HPI - EENT Eyes: as per HPI Ears: as per HPI Nose, mouth and throat: as per HPI - Breasts Breasts: as per HPI - Cardiovascular Cardiovascular ROS IM: as per HPI - Respiratory Respiratory: as per HPI - Gastrointestinal Gastrointestinal: as per HPI - Genitourinary Genitourinary: as per HPI Menstruation: as per HPI - Musculoskeletal Musculoskeletal ROS IM: as per HPI - Integumentary Integumentary IM: as per HPI - Neurological Neurological ROS: as per HPI - Psychiatric Psychiatric: as per HPI - Endocrine Endocrine IM: as per HPI - Hematologic/Lymphatic Hematologic/Lymphatic: as per HPI - Allergic/Immunologic Allergic/Immunologic: as per HPI - Constitutional Vitals: Temp Pulse Resp BP Pulse Ox 98.4 F 109 22 150/87 94 11/08/18 09:41 11/08/18 13:27 11/08/18 13:27 11/08/18 13:27 11/08/18 13:27 Exam: General: alert and oriented x3, pleasant, appears to be in mild respiratory distress with audible wheezing present. CV: distant heart sounds, hard to hear due to wheezing. no edema present. respiratory: significant audible wheezing that can be heard without a stethoscope, present in all lung chung. No crackles noted. Abdomen: soft, non distended, non tender, bowel sounds present. no organomegaly. Extremities: no cyanosis or edema present. Internal Med - H&P Results - Labs CBC & Chem 7: 11/08/18 10:13 11/08/18 10:13 Labs: Short CBC 11/08/18 Range/Units 10:13 WBC 6.4 (4.3-11.1) K/mcL Hgb 12.7 (11.5-15.4) g/dL Hct 41.0 (35.3-44.9) % Plt Count 165 (140-400) K/mcL Neutrophils # 4.6 (1.6-8.9) K/mcL BMP 11/08/18 10:13 Sodium 141 Potassium 3.8 Chloride 105 Carbon Dioxide 30 H BUN 13 Creatinine 0.58 L Glucose 158 H Calcium 8.9 Cardiac Enzymes 11/08/18 Range/Units 10:13 Troponin I < 0.03 (< 0.04) ng/mL - Impressions ITS Impressions Chest X-Ray 11/08/18 10:06 IMPRESSION: Chronic changes related to COPD as well as right upper lobectomy. No acute cardiopulmonary process is seen. D/ / Ernst Negrete MD / Ernst Negrete MD Interpreting Provider: Ernst Negrete MD - Assessment and plan (1) Acute exacerbation of chronic obstructive airways disease Current Visit: No Status: Acute Assessment and plan: 68F with asthma/COPD with recent exacerbation arrives with increased shortness of breath, audible wheezing that has been progressively getting worse. CXR showed no obvious consolidation. had outpatient appointment with pulmonology but failed to follow up. continued to have shortness of breath after being discharged from her last exacerbation. This is likely due to COPD, but could be a component of reactive airway disease as well. Plan: Levaquin day 1 scheduled DuoNebs solumedrol consult to pulmonology-[facility] (2) Acute on chronic respiratory failure with hypoxemia Current Visit: No Status: Acute Assessment and plan: plan as above (3) Chronic back pain Current Visit: No Status: Chronic Qualifiers: Back pain location: low back pain Back pain laterality: bilateral Sciatica presence: without sciatica Qualified Code(s): M54.5 - Low back pain; G89.29 - Other chronic pain (4) Anxiety Current Visit: No Status: Chronic Assessment and plan: resume home meds once verified (5) HTN (hypertension) Current Visit: No Status: Chronic Assessment and plan: resume home meds once verified. PRN hydralazine Qualifiers: Hypertension type: essential hypertension Qualified Code(s): I10 - Essential (primary) hypertension (6) History of lung cancer Current Visit: No Status: Resolved Assessment and plan: s/p Right upper lobectomy. (7) S/P pneumonectomy Current Visit: No Status: Chronic (8) History of colon cancer Current Visit: No Status: Resolved Assessment and plan: S/p partial colectomy (9) DVT prophylaxis Current Visit: No Status: Acute Assessment and plan: Heparin SQ - Time Spent With Patient Total time spent is greater than 50% in coordination of care (as documented) at patient's floor/unit and/or counseling patient: <Loulou Figueroa - Last Filed: 11/08/18 16:02> Date of Encounter: 11/08/18 Time of Encounter: 14:45 Internal Medicine - H&P: HPI History of present illness: Ms. Cabello is a 68 year old female All Systems PM: A 10-system review of systems was performed and is negative for pertinent findings except as documented above in the HPI. - Constitutional Vitals: Temp Pulse Resp BP Pulse Ox 98.9 F 112 19 171/86 93 11/08/18 14:20 11/08/18 14:20 11/08/18 14:20 11/08/18 14:20 11/08/18 14:20 General appearance: Present: cooperative, mild distress, A&O X 3, pleasant, answers questions appropriately - ENT ENT exam: Present: mucous membranes moist - Neck Neck exam general surgery: Present: supple, trachea midline. Absent: lymphadenopathy - Respiratory Respiratory exam: Present: prolonged expiratory phase, rhonchi, wheezes. Absent: accessory muscle use, rales - Cardiovascular Cardiovascular exam: Present: RRR, +S1, +S2. Absent: diastolic murmur, gallop, rubs, systolic murmur - GI/Abdominal GI/Abdominal exam: Present: normal bowel sounds, soft, no peritoneal signs. Absent: distended, tenderness - Extremities Exam Extremities exam: Present: warm, radial pulses palpable and symmetrical. Absent: calf tenderness, cyanotic, pedal edema - Neurological Exam Neurological exam: Present: CN II-XII intact, oriented X3, no focal deficits, strengths equal and symetr throughout. Absent: facial droop, speech deficit - Skin Skin exam: Present: dry, intact Internal Med - H&P Results - Labs CBC & Chem 7: 11/08/18 10:13 11/08/18 10:13 Labs: Short CBC 11/08/18 Range/Units 10:13 WBC 6.4 (4.3-11.1) K/mcL Hgb 12.7 (11.5-15.4) g/dL Hct 41.0 (35.3-44.9) % Plt Count 165 (140-400) K/mcL Neutrophils # 4.6 (1.6-8.9) K/mcL BMP 11/08/18 10:13 Sodium 141 Potassium 3.8 Chloride 105 Carbon Dioxide 30 H BUN 13 Creatinine 0.58 L Glucose 158 H Calcium 8.9 Cardiac Enzymes 11/08/18 Range/Units 10:13 Troponin I < 0.03 (< 0.04) ng/mL - Impressions ITS Impressions Chest X-Ray 11/08/18 10:06 IMPRESSION: Chronic changes related to COPD as well as right upper lobectomy. No acute cardiopulmonary process is seen. D/ / Ernst Negrete MD / Ernst Negrete MD Interpreting Provider: Ernst Negrete MD - Assessment and plan (1) Acute exacerbation of chronic obstructive airways disease Current Visit: Yes Status: Acute (2) Chronic back pain Current Visit: No Status: Chronic Qualifiers: Back pain location: low back pain Back pain laterality: bilateral Sciatica presence: without sciatica Qualified Code(s): M54.5 - Low back pain; G89.29 - Other chronic pain (3) Anxiety Current Visit: No Status: Chronic (4) Acute on chronic respiratory failure with hypoxemia Current Visit: No Status: Acute (5) HTN (hypertension) Current Visit: No Status: Chronic Qualifiers: Hypertension type: essential hypertension Qualified Code(s): I10 - Essential (primary) hypertension (6) History of lung cancer Current Visit: No Status: Resolved (7) S/P pneumonectomy Current Visit: No Status: Chronic (8) History of colon cancer Current Visit: No Status: Resolved (9) DVT prophylaxis Current Visit: No Status: Acute - Time Spent With Patient Total time spent is greater than 50% in coordination of care (as documented) at patient's floor/unit and/or counseling patient: - Attending Attestation I saw evaluated and examined this patient and my medical decision-making was reviewed with the Resident Physician, Hiram Thompson. I agree with the documented findings, disposition and treatment plan as described except to any changes set forth below. We independently had [id number] contact with the patient. 68-year-old female patient with history of COPD/asthma who presented to the ER with complaints of shortness of breath. Patient does have home oxygen but she only uses it as needed. She had been hospitalized here for an episode of COPD exacerbation in August. She was scheduled for follow-up with pulmonology but has not made it there yet. She denies any fevers or chills. No nausea or vomiting. She reported severe wheezing earlier this morning. She presently takes Symbicort and pro-air. She has a history of colon cancer and lung cancer and had right upper lung lobectomy several years back. Acute exacerbation of COPD: Will place patient on IV steroids. IV Levaquin. Bronchodilators. Consult pulmonology. Patient does have a complement of underlying asthma and reactive airway disease. Consider starting Singulair and anticholinergics. Acute on chronic respiratory failure with hypoxemia: Continue O2 supplementation. Patient will need evaluation for continuous home oxygen prior to discharge. Chronic back pain: Continue Percocet. Essential hypertension: Uncontrolled. Resume home medications. Patient takes Cardizem at home. Will resume. DVT prophylaxis with subcutaneous heparin
[2018-11-08 16:14] LABS: ABG Base Excess 4 mEq/L (-2 to 3); ABG HCO3 31 mEq/L (21-27); ABG Oxygen Saturation 71 % (95-98); ABG PCO2 56 mmHg (35-45); ABG PH 7.35 pH Units (7.32-7.45); ABG PO2 40 mmHg (85-104); ABG TCO2 33 mEq/L (20-26)
--- NOTE | 2018-11-08 16:24 | Pulmonology Consult Note ---
Date of Encounter: 11/08/18 Time of Encounter: 15:00 Assessment and Plan (1) Acute and chronic respiratory failure Current Visit: Yes Status: Acute Patient presenting with acute on chronic hypoxic And hypercapnic respiratory failure due to COPD exacerbation. To continue bronchodilators steroids agree with broad-spectrum antibiotics. To keep oxygen saturation at 88%. Patient will need BiPAP therapy while she is napping during the day or during the night. Qualifiers: Respiratory failure complication: hypoxia and hypercapnia Qualified Code(s): J96.21 - Acute and chronic respiratory failure with hypoxia; J96.22 - Acute and chronic respiratory failure with hypercapnia (2) Acute exacerbation of chronic obstructive airways disease Current Visit: Yes Status: Acute Patient presenting with acute exacerbation of COPD to continue bronchodilators, steroids, broad-spectrum antibiotics. Counseled about the importance of using BiPAP for PE at home since COPD and LEE overlap syndrome poses high risk for COPD exacerbation development of pulmonary hypertension. Patient needs to use her BiPAP therapy. On discharge this time she needs to go on Monday azithromycin and prolonged two-week taper of prednisone eventually tapered to 10 mg once daily until she sees outpatient pulmonology in 4 weeks. She needs optimization off for COPD regimen once she is out of COPD exacerbation.To discharge home on Symbicort, albuterol nebulizer when necessary, Spiriva. (3) History of lung cancer Current Visit: No Status: Resolved Imaging did not show any convincing evidence of recurrence. (4) Obstructive sleep apnea Current Visit: No Status: Chronic LEE on BIPAP to continue use 14/8 cm H2O History of Present Illness Consult date: 11/08/18 Requesting physician: Hiram Thompson Reason for consult: dyspnea, COPD (COPD exacerbation ) Chief complaint: Shortness of breadth History of present illness: 68-year-old female with past medical history significant for COPD she wears oxygen 2-3 litres/minute patient has some diastolic dysfunction. With past medical history of lung cancer supported by right upper lobectomy, LEE with COPD overlap syndrome on BiPAP therapy at home supposed to follow-up with outpatient pulmonology after last COPD exacerbation patient did not make it to the appointment. The Past 2-3 days patient has progressive shortness of breath on exertion not getting better with regular bronchodilator regimen patient also had some cough with increased sputum production denies much change in color. Patient denies any fever or chills or any other constitutional symptoms. Patient denies any significant pedal edema denies much orthopnea or paroxysmal nocturnal dyspnea. Patient denies any nausea vomiting, denies any GERD symptoms, denies any focal neurological symptoms. Patient is here for recurrent COPD exacerbation for the past 4-5 months. Patient is here for acute on chronic respiratory failure hypoxia and hypercapnia due to COPD exacerbation. Past Med Surg Social Fam HX - Past Medical History Medical history: asthma, cancer, COPD, hyperlipidemia, hypertension, other Additional medical history: lung and colon cancer Psychiatric history: depression - Past Surgical History Surgical History: appendectomy, cancer surgery, colectomy, hysterectomy, other Additional surgical history: upper right lobectomy , brain surgery - Social History Smoking Status: Former smoker Smokeless Tobacco Status: No Alcohol use: none Drug use: none - Family History Father Living Status: Hx Family Cardiac Disorders: Yes (HYPERTENSION/CHF) Hx Family Respiratory Disorders: Yes (COPD/Emphysema/Asthma) Mother Adopted: No Living Status: Hx Family Cardiac Disorders: Yes Hx Family Cancer: Yes (colon ca) Medications and Allergies Oxycodone HCl/Acetaminophen [Percocet 10-325 mg Tablet] 1 tab PO Q4-6H PRN 06/08/16 [History] Ropinirole HCl [Requip] 3 mg PO HS 10/19/16 [History] Rosuvastatin Calcium [Crestor] 10 mg PO DAILY 10/19/16 [History] Aspirin [Lo-Dose Aspirin EC] 81 mg PO DAILY 12/18/16 [History] Budesonide/Formoterol 160/4.5 [Symbicort 160/4.5] 2 puff IH BIDR inhaler 04/05/17 [Rx] Furosemide [Lasix] 40 mg PO BID PRN 06/12/17 [History] Albuterol Sulfate [Proair Hfa] 2 puff IH Q4H PRN #1 inh 06/14/17 [Rx] Montelukast [Singulair] 10 mg PO DAILY 08/01/17 [History] Diltiazem CD (24hr) [Cardizem CD] 120 mg PO DAILY #15 08/10/17 [Rx] Loratadine [Allergy Relief] 10 mg PO DAILY 09/17/17 [History] GuaiFENesin/Dextromethorphan [Mucinex Dm] 1 each PO BID PRN tab.er.12h 09/18/17 [Rx] Acetaminophen [Tylenol] 650 mg PO Q6HR PRN tablet 11/29/17 [Rx] MethylPREDNISolone [MethylPREDNISolone Dose Pack] 4 mg PO TAPER #21 tab 09/27/18 [Rx] Allergy/AdvReac Type Severity Reaction Status Date / Time Amoxicillin Allergy Rash Verified 11/28/17 10:08 Penicillins Allergy Rash Verified 11/28/17 10:08 All Systems: The remainder of the systems were reviewed and are negative Physical Examination Vital Signs: Vital Signs, Last 4 Hours Temp Pulse Resp BP Pulse Ox 11/08/18 14:20 98.9 F 112 19 171/86 93 11/08/18 13:27 109 22 150/87 94 11/08/18 12:25 100 26 162/98 94 Effort: mildly labored Auscultation: bilateral: wheezes (bilateral scattered wheezes ) Results - Laboratory Findings CBC and BMP: 11/08/18 10:13 11/08/18 10:13 ABG ABG pH 7.35 pH Units (7.32-7.45) 11/08/18 16:08 ABG pCO2 56 mmHg (35-45) H 11/08/18 16:08 ABG pO2 40 mmHg (85-104) L* 11/08/18 16:08 ABG O2 Saturation 71 % (95-98) L 11/08/18 16:08 Abnormal lab findings: Abnormal lab results MCHC 31.0 g/dL (31.6-35.5) L 11/08/18 10:13 ABG pCO2 56 mmHg (35-45) H 11/08/18 16:08 ABG pO2 40 mmHg (85-104) L* 11/08/18 16:08 ABG HCO3 31 mEq/L (21-27) H 11/08/18 16:08 ABG Total CO2 33 mEq/L (20-26) H 11/08/18 16:08 ABG O2 Saturation 71 % (95-98) L 11/08/18 16:08 ABG Base Excess 4 mEq/L (-2 to 3) H 11/08/18 16:08 Carbon Dioxide 30 mEq/L (23-29) H 11/08/18 10:13 Creatinine 0.58 mg/dL (0.60-1.20) L 11/08/18 10:13 Glucose 158 mg/dL (70-105) H 11/08/18 10:13 - Clinical Findings Intake & Output: Intake & Output 11/08/18 11/08/18 11/08/18 07:59 15:59 23:59 Intake Total 100 / 100 Balance 100 / 100 Weight 92.618 kg Consult Discharge Plan - Plan Referrals: NONE,PCP [Primary Care Provider] -
[2018-11-08] MEDS: Ipratropium/Albuterol Neb 3 ML IH SCH ×2 (16:26→22:06)
[2018-11-08] MEDS: Levofloxacin 500 MG/100 ML 500 MG/100 ML BAG IVPB SCH ×2 (18:11→18:45)
[2018-11-08] MEDS: methylPREDNISolone 125 MG/2 ML VIAL IVP SCH ×2 (18:11→23:34)
[2018-11-08] MEDS: *HR* OxyCODONE/APAP 10/325 TABLET PO PRN (18:11)
[2018-11-08] MEDS: *HR* Heparin 5,000 UNIT/ML VIAL SQ SCH (18:12)
[2018-11-08] MEDS ORDERED: Furosemide 40 MG TABLET PO PRN (20:35)
[2018-11-08] MEDS ORDERED: ALPRAZolam 1 MG TABLET PO ONE (21:02)
[2018-11-08] MEDS: Budesonide/Formoterol 160/4.5 1 PUFF INH IH SCH (22:06)
[2018-11-08 22:56] LABS: Adenovirus Not Detected (Not Detect); Bordetella Pertussis Not Detected (Not Detect); Chlamydophila pneumoniae Not Detected (Not Detect); Coronavirus 229E Not Detected (Not Detect); Coronavirus HKU1 Not Detected (Not Detect); Coronavirus NL63 Not Detected (Not Detect); Coronavirus OC43 Not Detected (Not Detect); Human Metapneumovirus Not Detected (Not Detect); Human Rhinovirus/Enterovirus Not Detected (Not Detect); Influenza A Subtype 2009 H1 Not Detected (Not Detect); Influenza A Untypeable Not Detected (Not Detect); Influenza B Not Detected (Not Detect); Mycoplasma pneumoniae Not Detected (Not Detect); Parainfluenza Virus 1 Not Detected (Not Detect); Parainfluenza Virus 2 Not Detected (Not Detect); Parainfluenza Virus 3 Not Detected (Not Detect); Parainfluenza Virus 4 Not Detected (Not Detect); Respiratory Syncytial Virus Not Detected (Not Detect)
[2018-11-09] MEDS: Ipratropium/Albuterol Neb 3 ML IH SCH ×4 (04:13→22:35)
[2018-11-09 05:03] LABS: Basophils % 0.2 %; Hematocrit 40.6 % (35.3-44.9); Hemoglobin 12.7 g/dL (11.5-15.4); Immature Granulocytes % 1.2 % (0-4); Lymphocytes # 0.4 K/mcL (0.6-4.6); Lymphocytes % 6.5 %; Mean Corpuscular HGB Conc 31.3 g/dL (31.6-35.5); Mean Corpuscular Hemoglobin 28.3 pg (28.0-33.3); Mean Corpuscular Volume 90.6 fL (83.0-100.0); Mean Platelet Volume 11.4 fL (9.4-12.4); Monocytes % 0.5 %; Neutrophils # 5.3 K/mcL (1.6-8.9); Platelet Count 171 K/mcL (140-400); Red Blood Count 4.48 M/mcL (3.82-4.97); Red Cell Distribution Width 14.5 % (11.5-14.5); Segmented Neutrophils % 91.6 %
[2018-11-09] MEDS: methylPREDNISolone 125 MG/2 ML VIAL IVP SCH ×3 (05:24→18:14)
[2018-11-09] MEDS: *HR* Heparin 5,000 UNIT/ML VIAL SQ SCH ×2 (05:24→18:14)
[2018-11-09 05:26] LABS: BUN/Creatinine Ratio 24 (6-26); Blood Urea Nitrogen 17 mg/dL (8-23); Calcium 9.5 mg/dL (8.6-10.3); Carbon Dioxide 29 mEq/L (23-29); Chloride 101 mEq/L (98-107); Glucose 278 mg/dL (70-105); Osmolality,Calculated 294 (280-300); Potassium 4.5 mEq/L (3.5-5.1); Sodium 136 mEq/L (136-145); eGFR For Non-African Americans > 60 (> 60)
--- NOTE | 2018-11-09 09:13 | Internal Med Progress Note ---
Hospitalist Progress Note - Encounter Date of Encounter: 11/09/18 Time of Encounter: 09:11 - Subjective Interval History: She is reporting that for the past 2-3 days she has become progressively shortness of breath even while wearing her oxygen. She also noted to have significant audible wheezing. She notes that this occurred while unpacking [employer] ornaments which were started in her shed. She reports a history of severe COPD and asthma. The shortness of breath and wheezing have worsened since an elevation of the dust and debris from unpacking her ornaments. This morning she is thinking at bedside with conversational dyspnea. There is diff use wheezing scattered throughout bilateral lobes anteriorly and posteriorly. She reports that she improved overnight but only minimally. - Exam Vitals: Temp Pulse Resp BP Pulse Ox 97.5 F L 103 18 142/74 94 11/09/18 07:46 11/09/18 07:46 11/09/18 07:46 11/09/18 07:46 11/09/18 07:46 Exam: PHYSICAL EXAMINATION: GENERAL: The patient is an obese elderly female, mild respiratory distress, and O 3 HEENT: Head is normocephalic and atraumatic. EOMI, PERRLA NECK: Supple. No carotid bruits. No lymphadenopathy or thyromegaly. LUNGS: Diminished throughout with minimal air movement as well as bilateral ant erior and posterior expiratory wheezing. Dyspnea with conversation, symmetrical chest expansion with accessory muscle usage HEART: Regular rate and rhythm, S1, S2 without murmur. ABDOMEN: Soft, nontender, and nondistended. Positive bowel sounds. No hepatosplenomegaly was noted. PSYCHIATRIC: Appears anxious - Assessment and Plan (1) Acute exacerbation of chronic obstructive airways disease Current Visit: Yes Status: Acute Assessment and Plan: Acute exacerbation of COPD Clinically, patient remained stable overnight with minimal improvement Continuing to require 4 L nasal cannula and intermittent BiPAP for respiratory support Coarse expiratory wheezing bilaterally throughout anterior and posterior lungs Continues to have conversational dyspnea and accessory muscle usage He also has a history of reactive airway disease and notes recent exposure to dust and debris; further complicating course Plan: Levaquin day 2 scheduled DuoNebs solumedrol NS fluticasone daily consult to pulmonology-appreciate recs Will need long-term steroid taper over the course of 2 weeks; goal is to taper to 10 mg daily living up to pulmonology follow-up Per pulmonology recommendations will need Monday, Monday, Monday and azithromycin until follow-up (2) Chronic back pain Current Visit: No Status: Chronic Assessment and Plan: As needed oxycodone (3) Anxiety Current Visit: No Status: Chronic Assessment and Plan: resume alprazolam (4) Acute on chronic respiratory failure with hypoxemia Current Visit: No Status: Acute Assessment and Plan: as above (5) HTN (hypertension) Current Visit: No Status: Chronic Assessment and Plan: Mildly hypertensive this morning with SBP 142/74 Continue PRN hydralazine (6) History of lung cancer Current Visit: No Status: Resolved Assessment and Plan: s/p Right upper lobectomy F/U with onc outpatient (7) S/P pneumonectomy Current Visit: No Status: Chronic (8) History of colon cancer Current Visit: No Status: Resolved Assessment and Plan: S/p partial colectomy (9) DVT prophylaxis Current Visit: No Status: Acute Assessment and Plan: Continue Heparin SQ - Time Spent with Patient Total time spent is greater than 50% in coordination of care (as documented) at patient's floor/unit and/or counseling patient: less than 15 minutes Plan of Care Discussed with: patient Internal Medicine: Result - Labs CBC & Chem 7: 11/09/18 03:11 11/09/18 03:11 Labs: Short CBC 11/08/18 11/09/18 Range/Units 10:13 03:11 WBC 6.4 5.8 (4.3-11.1) K/mcL Hgb 12.7 12.7 (11.5-15.4) g/dL Hct 41.0 40.6 (35.3-44.9) % Plt Count 165 171 (140-400) K/mcL Neutrophils # 4.6 5.3 (1.6-8.9) K/mcL BMP 11/08/18 11/09/18 10:13 03:11 Sodium 141 136 Potassium 3.8 4.5 Chloride 105 101 Carbon Dioxide 30 H 29 BUN 13 17 Creatinine 0.58 L 0.70 Glucose 158 H 278 H Calcium 8.9 9.5 Cardiac Enzymes 11/08/18 Range/Units 10:13 Troponin I < 0.03 (< 0.04) ng/mL - ABG Interpretation ABG results: ABG ABG pH 7.35 pH Units (7.32-7.45) 11/08/18 16:08 ABG pCO2 56 mmHg (35-45) H 11/08/18 16:08 ABG pO2 40 mmHg (85-104) L* 11/08/18 16:08 ABG O2 Saturation 71 % (95-98) L 11/08/18 16:08 - Impressions Impressions Chest X-Ray 11/08/18 10:06 IMPRESSION: Chronic changes related to COPD as well as right upper lobectomy. No acute cardiopulmonary process is seen. D/ / Ernst Negrete MD / Ernst Negrete MD Interpreting Provider: Ernst Negrete MD Consult Discharge Plan - Plan Referrals: NONE,PCP [Primary Care Provider] - ___ (2) Chronic back pain Qualifiers: Back pain location: low back pain Back pain laterality: bilateral Sciatica presence: without sciatica Qualified Code(s): M54.5 - Low back pain; G89.29 - Other chronic pain (5) HTN (hypertension) Qualifiers: Hypertension type: essential hypertension Qualified Code(s): I10 - Essential (primary) hypertension
--- NOTE | 2018-11-09 09:35 | Pulmonology Progress Note ---
<Juan Ponce S - Last Filed: 11/09/18 10:12> Date of Encounter: 11/09/18 Time of Encounter: 09:34 Assessment and Plan (1) Acute exacerbation of chronic obstructive airways disease Current Visit: Yes Status: Acute Pt presented with COPD exacerbation after being exposed to dust - she has had increasing mucus and sputum production, yellow/brown in color CXR on admission showed chronic changes related to COPD, RUL lobectomy - no acute cardiopulmonary process Respiratory infxn panel negative Admission ABG - pH 7.35, pCO2 56, pO2 40, HCO3 31 At this time does NOT meet sepsis criteria Plan: - continue bronchodilators as scheduled - IV steroids for now, then taper prolonged 2 wk taper with eventual taper to 10mg until pulmonology follow up - continue levaquin - continue symbicort and albuterol nevbs when d/c - spiriva prn - keep O2 sat >88% - BiPAP during naps and at nighttime - see pulmonology as an outpatient in 4 wks (2) Acute on chronic respiratory failure with hypoxemia Current Visit: No Status: Acute See plan as above. (3) History of lung cancer Current Visit: No Status: Chronic s/p lobectomy (4) Former tobacco use Current Visit: No Status: Chronic Quit 12 yrs ago (5) Atrial fibrillation Current Visit: No Status: Ruled-out Management as per primary - on [facility] Qualifiers: Atrial fibrillation type: paroxysmal Qualified Code(s): I48.0 - Paroxysmal atrial fibrillation (6) Obesity (BMI 30-39.9) Current Visit: No Status: Chronic BMI 37 (7) Obstructive sleep apnea Current Visit: Yes Status: Acute BiPAP as needed during the day for nights adn at bedtime Subjective Principal diagnosis: AECOPD Interval history: Pt is seen at bedside. She is still experiencing SOB and having some trouble breathing, however, it has improved. She states she has no active chest pain. No N/V, no abd pain. She is using BiPAP as instructed. Objective PUL Vital signs: Last Vital Signs Temp 97.5 F L 11/09/18 07:46 Pulse 103 11/09/18 07:46 Resp 18 11/09/18 07:46 BP 142/74 11/09/18 07:46 Pulse Ox 94 11/09/18 07:46 General appearance: no acute distress, alert, appears uncomfortable Eyes: nonicteric ENT: oropharynx moist Effort: mildly labored Auscultation: bilateral: diminished breath sounds, wheezes Cardiovascular: other (tacycardic) Gastrointestinal: normoactive bowel sounds, soft, non-tender, non-distended Integumentary: normal Extremities: edema normal mental status, non-focal exam mood appropriate, affect normal Results - Laboratory Findings CBC and BMP: 11/09/18 03:11 11/09/18 03:11 ABG ABG pH 7.35 pH Units (7.32-7.45) 11/08/18 16:08 ABG pCO2 56 mmHg (35-45) H 11/08/18 16:08 ABG pO2 40 mmHg (85-104) L* 11/08/18 16:08 ABG O2 Saturation 71 % (95-98) L 11/08/18 16:08 Abnormal lab findings: Abnormal lab results MCHC 31.3 g/dL (31.6-35.5) L 11/09/18 03:11 Lymphocytes # 0.4 K/mcL (0.6-4.6) L 11/09/18 03:11 ABG pCO2 56 mmHg (35-45) H 11/08/18 16:08 ABG pO2 40 mmHg (85-104) L* 11/08/18 16:08 ABG HCO3 31 mEq/L (21-27) H 11/08/18 16:08 ABG Total CO2 33 mEq/L (20-26) H 11/08/18 16:08 ABG O2 Saturation 71 % (95-98) L 11/08/18 16:08 ABG Base Excess 4 mEq/L (-2 to 3) H 11/08/18 16:08 Glucose 278 mg/dL (70-105) H 11/09/18 03:11 - Clinical Findings Intake & Output: Intake & Output 11/08/18 11/09/18 11/09/18 23:59 07:59 15:59 Output Total 1000 / 1000 300 / 300 Balance -1000 / -1000 -300 / -300 Weight 93.894 kg Consult Discharge Plan - Plan Referrals: Juan Ponce [Resident] - 11/21/18 3:00 pm <Sameera King - Last Filed: 11/09/18 13:40> Date of Encounter: 11/09/18 Assessment and Plan (1) Acute and chronic respiratory failure Current Visit: Yes Status: Acute Qualifiers: Respiratory failure complication: hypoxia and hypercapnia Qualified Code(s): J96.21 - Acute and chronic respiratory failure with hypoxia; J96.22 - Acute and chronic respiratory failure with hypercapnia (2) Acute exacerbation of chronic obstructive airways disease Current Visit: Yes Status: Acute (3) History of lung cancer Current Visit: No Status: Resolved (4) Obstructive sleep apnea Current Visit: No Status: Chronic Objective PUL Vital signs: Last Vital Signs Temp 97.7 F 11/09/18 11:22 Pulse 104 11/09/18 11:22 Resp 18 11/09/18 11:22 BP 143/74 11/09/18 11:22 Pulse Ox 97 11/09/18 11:22 Results - Laboratory Findings CBC and BMP: 11/09/18 03:11 11/09/18 03:11 ABG ABG pH 7.35 pH Units (7.32-7.45) 11/08/18 16:08 ABG pCO2 56 mmHg (35-45) H 11/08/18 16:08 ABG pO2 40 mmHg (85-104) L* 11/08/18 16:08 ABG O2 Saturation 71 % (95-98) L 11/08/18 16:08 Abnormal lab findings: Abnormal lab results MCHC 31.3 g/dL (31.6-35.5) L 11/09/18 03:11 Lymphocytes # 0.4 K/mcL (0.6-4.6) L 11/09/18 03:11 ABG pCO2 56 mmHg (35-45) H 11/08/18 16:08 ABG pO2 40 mmHg (85-104) L* 11/08/18 16:08 ABG HCO3 31 mEq/L (21-27) H 11/08/18 16:08 ABG Total CO2 33 mEq/L (20-26) H 11/08/18 16:08 ABG O2 Saturation 71 % (95-98) L 11/08/18 16:08 ABG Base Excess 4 mEq/L (-2 to 3) H 11/08/18 16:08 Glucose 278 mg/dL (70-105) H 11/09/18 03:11 - Clinical Findings Intake & Output: Intake & Output 11/08/18 11/09/18 11/09/18 23:59 07:59 15:59 Intake Total 100 / 100 240 / 240 Output Total 1000 / 1000 300 / 300 Balance -900 / -900 -300 / -300 240 / 240 Weight 93.894 kg - Attending Attestation I saw and evaluated this patient and my medical decision-making was reviewed with the Resident Physician. I agree with the documented findings, disposition and treatment plan as described except to the extent set forth below. We independently had [id number] contact with the patient Patient seen and examined at bedside Labs, radiology, chart personally reviewed. patient today she is doing well tolerating BiPAP well to continue diuresis as tolerated. To continue bronchodilators steroids and antibiotics will follow-up as an outpatient in 4 weeks spoke with primary that she should be discharged on prolonged steroid taper over 2 weeks to a chronic prednisone 10 mg dose still sees us in [place] pulmonology after she completes a course of antibiotics she should be on Monday azithromycin 250 mg. I counseled the patient about the importance of using BiPAP therapy at home patient is motivated to use that. I counseled her extensively about salt and water restriction because of the underlying diastolic heart failure that will lead to recurrent hospital admission. Patient verbalized understanding anticipating discharge maybe tomorrow or day after tomorrow pulmonary will sign off please call with questions.
[2018-11-09] MEDS: Aspirin Enteric Coated 81 MG Tablet PO SCH (10:06)
[2018-11-09] MEDS: Diltiazem CD (24hr) 120 MG CAPSULE PO SCH (10:06)
[2018-11-09] MEDS: *HR* OxyCODONE/APAP 10/325 TABLET PO PRN ×2 (10:06→18:15)
[2018-11-09] MEDS: Loratadine 10 MG TABLET PO SCH (10:06)
[2018-11-09] MEDS: Fluticasone Propionate Nasal 50 MCG/SPRAY BOTTLE NS SCH (10:07)
[2018-11-09] MEDS: Budesonide/Formoterol 160/4.5 1 PUFF INH IH SCH ×2 (10:44→22:35)
[2018-11-09] MEDS: Levofloxacin 500 MG/100 ML 500 MG/100 ML BAG IVPB SCH (13:14)
[2018-11-09] MEDS ORDERED: Naloxone 0.4 MG/ML INJ IVP PRN (15:16)
[2018-11-09] MEDS: ALPRAZolam 1 MG TABLET PO PRN (19:23)
[2018-11-10] MEDS: methylPREDNISolone 125 MG/2 ML VIAL IVP SCH ×2 (01:24→05:48)
[2018-11-10] MEDS: Ipratropium/Albuterol Neb 3 ML IH SCH ×4 (04:02→21:22)
[2018-11-10] MEDS: *HR* Heparin 5,000 UNIT/ML VIAL SQ SCH ×2 (05:48→16:53)
[2018-11-10] MEDS: Diltiazem CD (24hr) 120 MG CAPSULE PO SCH (08:54)
[2018-11-10] MEDS: Loratadine 10 MG TABLET PO SCH (08:54)
[2018-11-10] MEDS: Fluticasone Propionate Nasal 50 MCG/SPRAY BOTTLE NS SCH (08:55)
[2018-11-10] MEDS: Aspirin Enteric Coated 81 MG Tablet PO SCH (08:55)
[2018-11-10] MEDS: *HR* OxyCODONE/APAP 10/325 TABLET PO PRN ×3 (08:58→23:25)
--- NOTE | 2018-11-10 10:15 | Internal Med Progress Note ---
Hospitalist Progress Note - Encounter Date of Encounter: 11/10/18 Time of Encounter: 10:13 - Subjective Interval History: Admitted for acute exacerbation of COPD with progressive shortness of breath, cough and audible wheezing. This morning, patient resting comfortable in bed on BiPAP. She is intermittent BiPAP and tolerated nasal cannula without dyspnea at rest. She reports that he feels like her breathing is improved. She denies any cough or wheezing at this time. - Exam Vitals: Temp Pulse Resp BP Pulse Ox 97.7 F 98 16 157/97 98 11/10/18 07:17 11/10/18 07:17 11/10/18 07:17 11/10/18 07:17 11/10/18 07:17 Exam: PHYSICAL EXAMINATION: GENERAL: The patient is an obese elderly female, mild respiratory distress, and O 3 HEENT: Head is normocephalic and atraumatic. EOMI, PERRLA NECK: Supple. No carotid bruits. No lymphadenopathy or thyromegaly. LUNGS: Remain diminished throughout with minimal air movement. No wheezing evident upper auscultation, she is no longer having conversational dyspnea, does continue to have prolonged expiratory phase HEART: Regular rate and rhythm, S1, S2 without murmur. ABDOMEN: Soft, nontender, and nondistended. Positive bowel sounds. No hepatosplenomegaly was noted. PSYCHIATRIC: Appears anxious - Assessment and Plan (1) Acute exacerbation of chronic obstructive airways disease Current Visit: Yes Status: Acute Assessment and Plan: Acute exacerbation of COPD Clinically, patient remained stable overnight with minimal improvement Continuing to require 4 L nasal cannula and intermittent BiPAP for respiratory support Coarse expiratory wheezing bilaterally throughout anterior and posterior lungs Continues to have conversational dyspnea and accessory muscle usage He also has a history of reactive airway disease and notes recent exposure to dust and debris; further complicating course 11/10--clinically, patient appears to have improved overnight. She does continue to have minimal air movement with decreased lung sounds bilaterally AP and L. However, patient is without wheezing and/or coughing. She is resting comfortably at this time on 3-1/2 L nasal cannula without acute respiratory d istress. Plan is to slowly wean oxygen to room air as the patient does not wear oxygen chronically at home. Discussed with patient the need for long steroid taper with the need for chronic steroids thereafter. Additionally, I discussed with the patient the need M,W,F, azithromycin until pulmonology follow-up. I will start azithromycin today and transition to Monday, Monday, Monday azithromycin at discharge. Plan: Azithromycin daily then Monday, Monday, Monday at [place] scheduled DuoNebs Prednisone daily NS fluticasone daily consult to pulmonology-appreciate recs Will need long-term steroid taper over the course of 2 weeks; goal is to taper to 10 mg daily living up to pulmonology follow-up BiPAP and sleeping (2) Chronic back pain Current Visit: No Status: Chronic Assessment and Plan: As needed oxycodone (3) Anxiety Current Visit: No Status: Chronic Assessment and Plan: resume alprazolam (4) Acute on chronic respiratory failure with hypoxemia Current Visit: No Status: Acute Assessment and Plan: as above (5) HTN (hypertension) Current Visit: No Status: Chronic Assessment and Plan: Uncontrolled Start low-dose Maurizio I Avoid beta blockers with severe COPD Continue PRN hydralazine (6) History of lung cancer Current Visit: No Status: Resolved Assessment and Plan: s/p Right upper lobectomy F/U with onc outpatient (7) S/P pneumonectomy Current Visit: No Status: Chronic (8) History of colon cancer Current Visit: No Status: Resolved Assessment and Plan: S/p partial colectomy (9) DVT prophylaxis Current Visit: No Status: Acute Assessment and Plan: Continue Heparin SQ - Time Spent with Patient Total time spent is greater than 50% in coordination of care (as documented) at patient's floor/unit and/or counseling patient: less than 15 minutes Plan of Care Discussed with: patient Internal Medicine: Result - Labs CBC & Chem 7: 11/09/18 03:11 11/09/18 03:11 - ABG Interpretation ABG results: ABG ABG pH 7.35 pH Units (7.32-7.45) 11/08/18 16:08 ABG pCO2 56 mmHg (35-45) H 11/08/18 16:08 ABG pO2 40 mmHg (85-104) L* 11/08/18 16:08 ABG O2 Saturation 71 % (95-98) L 11/08/18 16:08 Consult Discharge Plan - Plan Referrals: Juan Ponce [Resident] - 11/21/18 3:00 pm (2) Chronic back pain Qualifiers: Back pain location: low back pain Back pain laterality: bilateral Sciatica presence: without sciatica Qualified Code(s): M54.5 - Low back pain; G89.29 - Other chronic pain (5) HTN (hypertension) Qualifiers: Hypertension type: essential hypertension Qualified Code(s): I10 - Essential (primary) hypertension
[2018-11-10] MEDS: Budesonide/Formoterol 160/4.5 1 PUFF INH IH SCH ×2 (10:50→21:23)
[2018-11-10] MEDS: Azithromycin 250 MG TABLET PO SCH (13:20)
[2018-11-10] MEDS: predniSONE 20 MG TABLET PO SCH (13:21)
[2018-11-10] MEDS: ALPRAZolam 1 MG TABLET PO PRN (21:57)
[2018-11-11] MEDS: Ipratropium/Albuterol Neb 3 ML IH SCH ×4 (04:11→22:11)
[2018-11-11] MEDS: *HR* Heparin 5,000 UNIT/ML VIAL SQ SCH ×2 (05:33→17:54)
[2018-11-11] MEDS: *HR* OxyCODONE/APAP 10/325 TABLET PO PRN ×3 (08:25→23:48)
[2018-11-11] MEDS: Diltiazem CD (24hr) 120 MG CAPSULE PO SCH (08:26)
[2018-11-11] MEDS: Aspirin Enteric Coated 81 MG Tablet PO SCH (08:26)
[2018-11-11] MEDS: Azithromycin 250 MG TABLET PO SCH (08:26)
[2018-11-11] MEDS: predniSONE 20 MG TABLET PO SCH (08:26)
[2018-11-11] MEDS: Loratadine 10 MG TABLET PO SCH (08:26)
[2018-11-11] MEDS: Fluticasone Propionate Nasal 50 MCG/SPRAY BOTTLE NS SCH (08:27)
[2018-11-11] MEDS: Budesonide/Formoterol 160/4.5 1 PUFF INH IH SCH ×2 (10:59→22:11)
--- NOTE | 2018-11-11 12:21 | Internal Med Progress Note ---
Hospitalist Progress Note - Encounter Date of Encounter: 11/11/18 Time of Encounter: 12:19 - Subjective Interval History: Admitted for acute exacerbation of COPD with progressive shortness of breath, cough and audible wheezing. This morning, patient resting comfortable in bed on BiPAP. Wheezing and dyspnea persist but she reports that it is improving. She currently only wears O2 at home PRN, however, she is requiring 3-4 LNC for respiratory support. She would benefit from additional steroids, aerosol treatment and abx overnight. I believe that given her current state she would not be safe for d/c. - Exam Vitals: Temp Pulse Resp BP Pulse Ox 97.8 F 88 16 147/81 98 11/11/18 11:42 11/11/18 11:42 11/11/18 11:42 11/11/18 11:42 11/11/18 11:42 Exam: PHYSICAL EXAMINATION: GENERAL: The patient is an obese elderly female, mild respiratory distress, and O 3 HEENT: Head is normocephalic and atraumatic. EOMI, PERRLA NECK: Supple. No carotid bruits. No lymphadenopathy or thyromegaly. LUNGS: Remain diminished throughout with minimal air movement, course expiratory wheezing today. Conversational dyspnea increasing overnight, continue to have prolonged expiratory phase HEART: Regular rate and rhythm, S1, S2 without murmur. ABDOMEN: Soft, nontender, and nondistended. Positive bowel sounds. No hepatosplenomegaly was noted. PSYCHIATRIC: Appears anxious - Assessment and Plan (1) Acute exacerbation of chronic obstructive airways disease Current Visit: Yes Status: Acute Assessment and Plan: Acute exacerbation of COPD Clinically, patient remained stable overnight with minimal improvement Continuing to require 4 L nasal cannula and intermittent BiPAP for respiratory support Coarse expiratory wheezing bilaterally throughout anterior and posterior lungs Continues to have conversational dyspnea and accessory muscle usage He also has a history of reactive airway disease and notes recent exposure to dust and debris; further complicating course 11/10--clinically, patient appears to have improved overnight. She does continue to have minimal air movement with decreased lung sounds bilaterally AP and L. However, patient is without wheezing and/or coughing. She is resting comfortably at this time on 3-1/2 L nasal cannula without acute respiratory distress. Plan is to slowly wean oxygen to room air as the patient does not we ar oxygen chronically at home. Discussed with patient the need for long steroid taper with the need for chronic steroids thereafter. Additionally, I discussed with the patient the need M,W,F, azithromycin until pulmonology follow-up. I will start azithromycin today and transition to Monday, Monday, Monday azithromycin at discharge. 11/11--Clinically seems to have worsened overnight. She remains diminished throughout all lung chung AP&L, and is again having course expiratory wheezing. She was unable to tolerate a decrease in steroids dosing. I will resume IV steroids at 40mg Q6H and closely monitor. Plan: Azithromycin daily then Monday, Monday, Monday at [place] scheduled DuoNebs solumedrol 40mg IVP Q6H NS fluticasone daily consult to pulmonology-appreciate recs Will need long-term steroid taper over the course of 2 weeks; goal is to taper to 10 mg daily living up to pulmonology follow-up BiPAP and sleeping (2) Chronic back pain Current Visit: No Status: Chronic Assessment and Plan: As needed oxycodone (3) Anxiety Current Visit: No Status: Chronic Assessment and Plan: resume alprazolam (4) Acute on chronic respiratory failure with hypoxemia Current Visit: No Status: Acute Assessment and Plan: as above (5) HTN (hypertension) Current Visit: No Status: Chronic Assessment and Plan: Uncontrolled Start low-dose Maurizio I Avoid beta blockers with severe COPD Continue PRN hydralazine (6) History of lung cancer Current Visit: No Status: Resolved Assessment and Plan: s/p Right upper lobectomy F/U with onc outpatient (7) S/P pneumonectomy Current Visit: No Status: Chronic (8) History of colon cancer Current Visit: No Status: Resolved Assessment and Plan: S/p partial colectomy (9) DVT prophylaxis Current Visit: No Status: Acute Assessment and Plan: Continue Heparin SQ - Time Spent with Patient Total time spent is greater than 50% in coordination of care (as documented) at patient's floor/unit and/or counseling patient: less than 15 minutes Plan of Care Discussed with: patient Internal Medicine: Result - Labs CBC & Chem 7: 11/09/18 03:11 11/09/18 03:11 - ABG Interpretation ABG results: ABG ABG pH 7.35 pH Units (7.32-7.45) 11/08/18 16:08 ABG pCO2 56 mmHg (35-45) H 11/08/18 16:08 ABG pO2 40 mmHg (85-104) L* 11/08/18 16:08 ABG O2 Saturation 71 % (95-98) L 11/08/18 16:08 Consult Discharge Plan - Plan Referrals: Juan Ponce [Resident] - 11/21/18 3:00 pm (2) Chronic back pain Qualifiers: Back pain location: low back pain Back pain laterality: bilateral Sciatica presence: without sciatica Qualified Code(s): M54.5 - Low back pain; G89.29 - Other chronic pain (5) HTN (hypertension) Qualifiers: Hypertension type: essential hypertension Qualified Code(s): I10 - Essential (primary) hypertension
[2018-11-11 14:24] LABS: Hematocrit 45.1 % (35.3-44.9); Hemoglobin 13.4 g/dL (11.5-15.4); Mean Corpuscular HGB Conc 29.7 g/dL (31.6-35.5); Mean Corpuscular Volume 94.2 fL (83.0-100.0); Mean Platelet Volume 11.2 fL (9.4-12.4); Platelet Count 220 K/mcL (140-400); Red Blood Count 4.79 M/mcL (3.82-4.97); Red Cell Distribution Width 14.7 % (11.5-14.5)
[2018-11-11 14:44] LABS: BUN/Creatinine Ratio 47 (6-26); Blood Urea Nitrogen 37 mg/dL (8-23); Calcium 9.3 mg/dL (8.6-10.3); Carbon Dioxide 32 mEq/L (23-29); Chloride 97 mEq/L (98-107); Glucose 386 mg/dL (70-105); Osmolality,Calculated 305 (280-300); Potassium 4.7 mEq/L (3.5-5.1); Sodium 135 mEq/L (136-145); eGFR For Non-African Americans > 60 (> 60)
--- NOTE | 2018-11-11 15:44 | Electrocardiograph Report ---
[facility] Test Date: 2018-11-08 Pat Name: Yecenia Cabello Department: EXAMC6 Room: 48 Gender: F [employer]: : 1950 Requested By: Anupama Beauchamp Order Number: [id number] Reading MD: Jhonathan Jason Measurements Intervals [place] Rate: 100 P: 68 VA: 158 QRS: 48 QRSD: 78 T: 71 QT: 334 QTc: 431 Interpretive Statements Sinus tachycardia Multiform ventricular premature complexes Borderline low voltage, extremity leads Electronically Signed On 11-11-2018 15:42:54 EST by Jhonathan Jason
[2018-11-11] MEDS: MethylPREDNISolone 40 MG/ML VIAL IVP SCH ×2 (17:45→23:42)
[2018-11-11] MEDS: ALPRAZolam 1 MG TABLET PO PRN (23:48)
[2018-11-12] MEDS: Ipratropium/Albuterol Neb 3 ML IH SCH ×4 (03:58→21:55)
[2018-11-12] MEDS: *HR* Heparin 5,000 UNIT/ML VIAL SQ SCH ×2 (05:25→17:53)
[2018-11-12] MEDS: MethylPREDNISolone 40 MG/ML VIAL IVP SCH ×3 (05:26→17:49)
[2018-11-12] MEDS ORDERED: D5% in Water 1,000 ML IVC PRN (07:55)
[2018-11-12] MEDS ORDERED: Dextrose Gel 15 GM/37.5 ML TUBE PO PRN ×2 (07:55)
[2018-11-12] MEDS ORDERED: *HR* Dextrose 50 % in Water (Syg) 50 ML SYRINGE IVP PRN (07:55)
[2018-11-12] MEDS: Azithromycin 250 MG TABLET PO SCH (08:29)
[2018-11-12] MEDS: *HR* OxyCODONE/APAP 10/325 TABLET PO PRN (08:30)
[2018-11-12] MEDS: Diltiazem CD (24hr) 120 MG CAPSULE PO SCH (08:30)
[2018-11-12] MEDS: Aspirin Enteric Coated 81 MG Tablet PO SCH (08:30)
[2018-11-12] MEDS: Loratadine 10 MG TABLET PO SCH (08:30)
[2018-11-12] MEDS: Fluticasone Propionate Nasal 50 MCG/SPRAY BOTTLE NS SCH (08:31)
[2018-11-12] MEDS: Budesonide/Formoterol 160/4.5 1 PUFF INH IH SCH ×2 (10:40→21:55)
[2018-11-12] MEDS: Insulin LISPRO 300 UNITS/3 ML VIAL SQ SCH ×3 (12:03→21:53)
--- NOTE | 2018-11-12 12:29 | Internal Med Progress Note ---
Hospitalist Progress Note - Encounter Date of Encounter: 11/12/18 Time of Encounter: 12:17 - Subjective Interval History: Admitted for acute exacerbation of COPD with progressive shortness of breath, cough and audible wheezing. This morning, patient resting comfortable in bed on BiPAP. Wheezing and dyspnea have improved, however, she does continue to have dyspnea greater than her reported baseline. She currently only wears O2 at home PRN, however, she is requiring 3-4 LNC for respiratory support. She would benefit from additional steroids, aerosol treatment and abx. I believe that given her current state she would not be safe for d/c. However, she is requesting d/c today. - Exam Vitals: Temp Pulse Resp BP Pulse Ox 98.1 F 98 16 153/87 92 11/12/18 10:39 11/12/18 10:39 11/12/18 10:40 11/12/18 10:39 11/12/18 10:40 Exam: PHYSICAL EXAMINATION: GENERAL: The patient is an obese elderly female, mild respiratory distress, and O 3 HEENT: Head is normocephalic and atraumatic. EOMI, PERRLA NECK: Supple. No carotid bruits. No lymphadenopathy or thyromegaly. LUNGS: Remain diminished throughout with minimal air movement, no wheezing or rales today. No conversational dyspnea, continue to have prolonged expiratory phase which is likely chronic given advanced disease. HEART: Regular rate and rhythm, S1, S2 without murmur. ABDOMEN: Soft, nontender, and nondistended. Positive bowel sounds. No hepatosplenomegaly was noted. PSYCHIATRIC: Appears anxious - Assessment and Plan (1) Acute exacerbation of chronic obstructive airways disease Current Visit: Yes Status: Acute Assessment and Plan: Acute exacerbation of COPD Clinically, patient remained stable overnight with minimal improvement Continuing to require 4 L nasal cannula and intermittent BiPAP for respiratory support Coarse expiratory wheezing bilaterally throughout anterior and posterior lungs Continues to have conversational dyspnea and accessory muscle usage He also has a history of reactive airway disease and notes recent exposure to dust and debris; further complicating course 11/12--Improving overnight with increase in IV steroids. She no longer has wheezing and appears to have improved. She is able to tolerate 3.5 LNC. She reports that she currently has an Rx for home O2 which she only wears PRN. I have informed her that she will need to wear her O2 continuously. Upon D/C she will need oral steroids with a long taper to 10mg daily maintenance dosing. Additionally, she will need M,W,F Azithromycin. She is reliant on BIPAP at HS. f/u with pulm in 4 weeks after d/c. (2) Chronic back pain Current Visit: No Status: Chronic Assessment and Plan: As needed oxycodone (3) Anxiety Current Visit: No Status: Chronic Assessment and Plan: resume alprazolam (4) Acute on chronic respiratory failure with hypoxemia Current Visit: No Status: Acute Assessment and Plan: as above (5) HTN (hypertension) Current Visit: No Status: Chronic Assessment and Plan: Uncontrolled Start low-dose Maurizio I Avoid beta blockers with severe COPD Continue PRN hydralazine (6) History of lung cancer Current Visit: No Status: Resolved Assessment and Plan: s/p Right upper lobectomy F/U with onc outpatient (7) S/P pneumonectomy Current Visit: No Status: Chronic (8) History of colon cancer Current Visit: No Status: Resolved Assessment and Plan: S/p partial colectomy (9) DVT prophylaxis Current Visit: No Status: Acute Assessment and Plan: Continue Heparin SQ - Time Spent with Patient Total time spent is greater than 50% in coordination of care (as documented) at patient's floor/unit and/or counseling patient: less than 15 minutes Plan of Care Discussed with: patient Internal Medicine: Result - Labs CBC & Chem 7: 11/11/18 13:39 11/11/18 13:39 Labs: Short CBC 11/11/18 Range/Units 13:39 WBC 13.1 H D (4.3-11.1) K/mcL Hgb 13.4 (11.5-15.4) g/dL Hct 45.1 H (35.3-44.9) % Plt Count 220 (140-400) K/mcL BMP 11/11/18 13:39 Sodium 135 L Potassium 4.7 Chloride 97 L Carbon Dioxide 32 H BUN 37 H Creatinine 0.79 Glucose 386 H Calcium 9.3 - ABG Interpretation ABG results: ABG ABG pH 7.35 pH Units (7.32-7.45) 11/08/18 16:08 ABG pCO2 56 mmHg (35-45) H 11/08/18 16:08 ABG pO2 40 mmHg (85-104) L* 11/08/18 16:08 ABG O2 Saturation 71 % (95-98) L 11/08/18 16:08 Consult Discharge Plan - Plan Referrals: Juan Ponce [Resident] - 11/21/18 3:00 pm (2) Chronic back pain Qualifiers: Back pain location: low back pain Back pain laterality: bilateral Sciatica presence: without sciatica Qualified Code(s): M54.5 - Low back pain; G89.29 - Other chronic pain (5) HTN (hypertension) Qualifiers: Hypertension type: essential hypertension Qualified Code(s): I10 - Essential (primary) hypertension
[2018-11-13] MEDS: MethylPREDNISolone 40 MG/ML VIAL IVP SCH ×2 (00:30→05:27)
[2018-11-13] MEDS: *HR* OxyCODONE/APAP 10/325 TABLET PO PRN ×2 (02:59→17:39)
[2018-11-13] MEDS: Ipratropium/Albuterol Neb 3 ML IH SCH ×4 (03:46→21:33)
[2018-11-13] MEDS: ALPRAZolam 1 MG TABLET PO PRN (04:01)
[2018-11-13] MEDS: *HR* Heparin 5,000 UNIT/ML VIAL SQ SCH ×2 (05:27→17:44)
[2018-11-13] MEDS: Diltiazem CD (24hr) 120 MG CAPSULE PO SCH (08:49)
[2018-11-13] MEDS: Loratadine 10 MG TABLET PO SCH (08:49)
[2018-11-13] MEDS: Azithromycin 250 MG TABLET PO SCH (08:49)
[2018-11-13] MEDS: Aspirin Enteric Coated 81 MG Tablet PO SCH (08:49)
[2018-11-13] MEDS: Fluticasone Propionate Nasal 50 MCG/SPRAY BOTTLE NS SCH (08:50)
[2018-11-13] MEDS: Insulin LISPRO 300 UNITS/3 ML VIAL SQ SCH ×4 (08:51→20:58)
[2018-11-13] MEDS: Budesonide/Formoterol 160/4.5 1 PUFF INH IH SCH ×2 (10:45→21:32)
--- NOTE | 2018-11-13 10:56 | Discharge Summary ---
Date of Encounter: 11/13/18 Time of Encounter: 10:53 - Discharge Diagnosis (1) Acute exacerbation of chronic obstructive airways disease Priority: Primary Status: Acute (2) Acute on chronic respiratory failure with hypoxemia Priority: Primary Status: Acute (3) HTN (hypertension) Priority: Secondary Status: Chronic Qualifiers: Hypertension type: essential hypertension Qualified Code(s): I10 - Essential (primary) hypertension (4) Chronic back pain Priority: Secondary Status: Chronic Qualifiers: Back pain location: low back pain Back pain laterality: bilateral Sciatica presence: without sciatica Qualified Code(s): M54.5 - Low back pain; G89.29 - Other chronic pain (5) Anxiety Status: Chronic (6) History of lung cancer Status: Resolved (7) S/P pneumonectomy Status: Chronic (8) History of colon cancer Status: Resolved Hospital course: Ms. Cabello is a 68 year old female - Time Spent with Patient Total time spent providing and/or coordinating discharge services: Greater than 30 minutes (40 minutes..) - Discharge Medications Prescriptions: Azithromycin [Zithromax] 500 mg PO DAILY 3 Days #3 tablet PredniSONE [Deltasone] 30 mg PO QAM 5 Days #5 tablet Home Medications: Oxycodone HCl/Acetaminophen [Percocet 10-325 mg Tablet] 1 tab PO Q4-6H PRN 06/08/16 [History] Ropinirole HCl [Requip] 3 mg PO HS 10/19/16 [History] Rosuvastatin Calcium [Crestor] 10 mg PO DAILY 10/19/16 [History] Aspirin [Lo-Dose Aspirin EC] 81 mg PO DAILY 12/18/16 [History] Budesonide/Formoterol 160/4.5 [Symbicort 160/4.5] 2 puff IH BIDR inhaler 04/05/17 [Rx] Furosemide [Lasix] 40 mg PO BID PRN 06/12/17 [History] Albuterol Sulfate [Proair Hfa] 2 puff IH Q4H PRN #1 inh 06/14/17 [Rx] Montelukast [Singulair] 10 mg PO DAILY 08/01/17 [History] Diltiazem CD (24hr) [Cardizem CD] 120 mg PO DAILY #15 08/10/17 [Rx] Loratadine [Allergy Relief] 10 mg PO DAILY 09/17/17 [History] GuaiFENesin/Dextromethorphan [Mucinex Dm] 1 each PO BID PRN tab.er.12h 09/18/17 [Rx] Acetaminophen [Tylenol] 650 mg PO Q6HR PRN tablet 11/29/17 [Rx] ALPRAZolam [Xanax 1 MG Tablet] 1 mg PO DAILY PRN 11/08/18 [History] Azithromycin [Zithromax] 500 mg PO DAILY 3 Days #3 tablet 11/13/18 [Rx] PredniSONE [Deltasone] 30 mg PO QAM 5 Days #5 tablet 11/13/18 [Rx] Allergies/Adverse Reactions: Allergy/AdvReac Type Severity Reaction Status Date / Time Amoxicillin Allergy Rash Verified 11/28/17 10:08 Penicillins Allergy Rash Verified 11/28/17 10:08 Date of admission: 11/09/18 15:17 Primary care physician: PCP NONE Consults: 11/08/18 14:58 Consult to Pulmonology [CONS] Routine Consulting Provider: [facility] [place] Reason for Consult: Hx of Asthma/COPD. multiple exacerbations. had outpatient appointment and did not show up. Call Completed: Yes 11/08/18 15:19 Consult to Respiratory Therapy [CONS] Routine Reason for Consult: patient needs CPAP at night Call Completed: No 11/09/18 11:33 Consult to Nurse Navigator [CONS] Routine Comment: COPD Discharging clinician: Phong Gallego Anticipated date of discharge: 11/13/18 - Constitutional Vitals: Temp Pulse Resp BP Pulse Ox 98.1 F 91 16 165/79 97 11/13/18 07:24 11/13/18 07:24 11/13/18 07:24 11/13/18 07:24 11/13/18 07:24 General appearance: Present: cooperative, A&O X 3, pleasant, answers questions appropriately Exam: xx - Patient Status Disposition: Home, Self-Care Condition: Fair Functional capacity at discharge: independent ambulation - Discharge Instructions Follow Up With: Juan Ponce [Resident] - 11/21/18 3:00 pm Additional Instructions: FOLLOW-UP WITH DR. FOREMAN -- NEXT WEEK.. OXYGEN AT 3 L/MIN; KEEP PULSE-OX IN 90-95% RANGE.. CPAP -- BEFORE.. - Diet and Activity Activity: increase activity as tolerated Diet: low fat, low cholesterol - VTE Deep Vein Thrombosis/Pulmonary Embolism Present on Admission: No
[2018-11-13] MEDS ORDERED: MethylPREDNISolone 40 MG/ML VIAL IVP SCH (18:00)
--- NOTE | 2018-11-13 23:51 | Internal Med Progress Note ---
Hospitalist Progress Note - Encounter Date of Encounter: 11/13/18 Time of Encounter: 19:00 - Subjective Interval History: SUBJECTIVE: The patient feels progressively better. Her breathing is not labored anymore. She does have mild cough but not wheezing. She uses supplemental oxygen at 3 L/min. She was using oxygen only with CPAP at nighttime at home. We concerned about her having periods of drowsiness/sleepiness every lathe hand. It was particularly pronounced in the last 2 days. OBJECTIVE: Skin: Free of rash and discoloration. ENMT: Oral/pharyngeal mucosa is normal in appearance. Eyes: Sclera is white. There is no discharge from eyes. Respiratory: Normal breath sounds; no crackles or wheezes. CV: Heart is regular; no gallop or murmur. GI: Abdomen is soft and not tender. There is no palpable mass or visceromegaly. Neuro: There is no focal deficits. ADDITIONAL DATA: Pulse ox on 3 L/min nasal cannula was 94% in the morning. I can see that her BMP from 2 days ago showed bicarb of 32; 30 admission. ASSESSMENT AND PLAN: COPD exacerbation with acute on chronic respiratory failure (hypoxia and hypercapnia). Continue Zithromax and nebulizer treatments with DuoNeb/Symbicort. We will substitute IV Solu-Medrol with oral prednisone. I will decrease her dose of Percocet and Ativan. Hypertension. Under control. To continue lisinopril. Chronic low back pain. We will keep her on when necessary lower dose of Percocet. Anxiety. We will keep her on when necessary lower dose of Ativan. DISPOSITION: Hopefully we will discharge her home tomorrow. The patient will have BiPAP qualification this coming night. - Exam Vitals: Temp Pulse Resp BP Pulse Ox 98.8 F 93 20 145/77 90 11/13/18 20:33 11/13/18 20:33 11/13/18 21:32 11/13/18 20:33 11/13/18 21:32 Exam: xx - Assessment and Plan (1) Acute exacerbation of chronic obstructive airways disease Current Visit: Yes Status: Acute (2) Acute on chronic respiratory failure with hypoxia and hypercapnia Current Visit: Yes Status: Acute (3) HTN (hypertension) Current Visit: No Status: Chronic (4) Chronic back pain Current Visit: No Status: Chronic (5) Anxiety Current Visit: No Status: Chronic (6) History of lung cancer Current Visit: No Status: Resolved (7) S/P pneumonectomy Current Visit: No Status: Chronic (8) History of colon cancer Current Visit: No Status: Resolved - Time Spent with Patient Total time spent is greater than 50% in coordination of care (as documented) at patient's floor/unit and/or counseling patient: Internal Medicine: Result - Labs CBC & Chem 7: 11/11/18 13:39 11/11/18 13:39 - ABG Interpretation ABG results: ABG ABG pH 7.35 pH Units (7.32-7.45) 11/08/18 16:08 ABG pCO2 56 mmHg (35-45) H 11/08/18 16:08 ABG pO2 40 mmHg (85-104) L* 11/08/18 16:08 ABG O2 Saturation 71 % (95-98) L 11/08/18 16:08 - VTE Deep Vein Thrombosis/Pulmonary Embolism Present on Admission: No Consult Discharge Plan - Plan Additional Instructions: FOLLOW-UP WITH DR. FOREMAN -- NEXT WEEK.. OXYGEN AT 3 L/MIN; KEEP PULSE-OX IN 90-95% RANGE.. CPAP -- BEFORE.. Referrals: Juan Ponce [Resident] - 11/21/18 3:00 pm Prescriptions: Azithromycin [Zithromax] 500 mg PO DAILY 3 Days #3 tablet PredniSONE [Deltasone] 30 mg PO QAM 5 Days #5 tablet (3) HTN (hypertension) Qualifiers: Hypertension type: essential hypertension Qualified Code(s): I10 - Essential (primary) hypertension (4) Chronic back pain Qualifiers: Back pain location: low back pain Back pain laterality: bilateral Sciatica presence: without sciatica Qualified Code(s): M54.5 - Low back pain; G89.29 - Other chronic pain
[2018-11-14] MEDS ORDERED: *HR* OxyCODONE/APAP 5/325 TABLET PO PRN (00:03)
[2018-11-14] MEDS ORDERED: ALPRAZolam 0.5 MG TABLET PO PRN (00:04)
[2018-11-14] MEDS: Ipratropium/Albuterol Neb 3 ML IH SCH ×3 (04:10→15:45)
[2018-11-14] MEDS: *HR* Heparin 5,000 UNIT/ML VIAL SQ SCH (05:58)
[2018-11-14] MEDS: Azithromycin 250 MG TABLET PO SCH (08:07)
[2018-11-14] MEDS: Insulin LISPRO 300 UNITS/3 ML VIAL SQ SCH ×2 (08:07→12:23)
[2018-11-14] MEDS: Aspirin Enteric Coated 81 MG Tablet PO SCH (08:07)
[2018-11-14] MEDS: Diltiazem CD (24hr) 120 MG CAPSULE PO SCH (08:07)
[2018-11-14] MEDS: Loratadine 10 MG TABLET PO SCH (08:07)
[2018-11-14] MEDS: Fluticasone Propionate Nasal 50 MCG/SPRAY BOTTLE NS SCH (08:07)
[2018-11-14] MEDS ORDERED: Lisinopril 20 MG TABLET PO SCH (09:00)
[2018-11-14] MEDS ORDERED: predniSONE 20 MG TABLET PO SCH (09:00)
[2018-11-14] MEDS: Budesonide/Formoterol 160/4.5 1 PUFF INH IH SCH (10:29)
[2018-11-14 14:52] VITALS: BP 151/85
--- NOTE | 2018-11-14 16:05 | Discharge Summary ---
Date of Encounter: 11/14/18 Time of Encounter: 16:03 - Discharge Diagnosis (1) Acute exacerbation of chronic obstructive airways disease Priority: Primary Status: Acute (2) Acute on chronic respiratory failure with hypoxia and hypercapnia Priority: Primary Status: Acute (3) HTN (hypertension) Priority: Secondary Status: Chronic Qualifiers: Hypertension type: essential hypertension Qualified Code(s): I10 - Essential (primary) hypertension (4) Chronic back pain Priority: Secondary Status: Chronic Qualifiers: Back pain location: low back pain Back pain laterality: bilateral Sciatica presence: without sciatica Qualified Code(s): M54.5 - Low back pain; G89.29 - Other chronic pain (5) Anxiety Priority: Secondary Status: Chronic (6) History of lung cancer Priority: Secondary Status: Chronic (7) S/P pneumonectomy Priority: Secondary Status: Chronic (8) History of colon cancer Priority: Secondary Status: Chronic Hospital course: Ms. Cabello is a 68 year old female Discharge discussed with: patient, nurse - Time Spent with Patient Total time spent providing and/or coordinating discharge services: Greater than 30 minutes (45 minutes..) - Discharge Medications Prescriptions: Azithromycin [Zithromax] 500 mg PO DAILY 3 Days #3 tablet PredniSONE [Deltasone] 30 mg PO QAM 5 Days #5 tablet Home Medications: Oxycodone HCl/Acetaminophen [Percocet 10-325 mg Tablet] 1 tab PO Q4-6H PRN 06/08/16 [History] Ropinirole HCl [Requip] 3 mg PO HS 10/19/16 [History] Rosuvastatin Calcium [Crestor] 10 mg PO DAILY 10/19/16 [History] Aspirin [Lo-Dose Aspirin EC] 81 mg PO DAILY 12/18/16 [History] Budesonide/Formoterol 160/4.5 [Symbicort 160/4.5] 2 puff IH BIDR inhaler 04/05/17 [Rx] Furosemide [Lasix] 40 mg PO BID PRN 06/12/17 [History] Albuterol Sulfate [Proair Hfa] 2 puff IH Q4H PRN #1 inh 06/14/17 [Rx] Montelukast [Singulair] 10 mg PO DAILY 08/01/17 [History] Diltiazem CD (24hr) [Cardizem CD] 120 mg PO DAILY #15 08/10/17 [Rx] Loratadine [Allergy Relief] 10 mg PO DAILY 09/17/17 [History] GuaiFENesin/Dextromethorphan [Mucinex Dm] 1 each PO BID PRN tab.er.12h 09/18/17 [Rx] Acetaminophen [Tylenol] 650 mg PO Q6HR PRN tablet 11/29/17 [Rx] ALPRAZolam [Xanax 1 MG Tablet] 1 mg PO DAILY PRN 11/08/18 [History] Azithromycin [Zithromax] 500 mg PO DAILY 3 Days #3 tablet 11/13/18 [Rx] PredniSONE [Deltasone] 30 mg PO QAM 5 Days #5 tablet 11/13/18 [Rx] Allergies/Adverse Reactions: Allergy/AdvReac Type Severity Reaction Status Date / Time Amoxicillin Allergy Rash Verified 11/28/17 10:08 Penicillins Allergy Rash Verified 11/28/17 10:08 Date of admission: 11/09/18 15:17 Primary care physician: PCP NONE Consults: 11/08/18 14:58 Consult to Pulmonology [CONS] Routine Consulting Provider: [facility] [place] Reason for Consult: Hx of Asthma/COPD. multiple exacerbations. had outpatient appointment and did not show up. Call Completed: Yes 11/08/18 15:19 Consult to Respiratory Therapy [CONS] Routine Reason for Consult: patient needs CPAP at night Call Completed: No 11/09/18 11:33 Consult to Nurse Navigator [CONS] Routine Comment: COPD Discharging clinician: Phong Gallego Anticipated date of discharge: 11/14/18 - Constitutional Vitals: Temp Pulse Resp BP Pulse Ox 97.5 F L 91 18 151/85 97 11/14/18 14:49 11/14/18 14:49 11/14/18 14:49 11/14/18 14:49 11/14/18 14:49 General appearance: Present: cooperative, A&O X 3, pleasant, answers questions appropriately - Patient Status Disposition: Home, Self-Care Condition: Fair - Discharge Instructions Follow Up With: Juan Ponce [Resident] - 11/21/18 3:00 pm Additional Instructions: FOLLOW-UP WITH DR. FOREMAN -- NEXT WEEK.. OXYGEN AT 3 L/MIN; KEEP PULSE-OX IN 90-95% RANGE.. BIPAP -- to use hospital settings - Diet and Activity Activity: increase activity as tolerated Diet: low fat, low cholesterol - VTE Deep Vein Thrombosis/Pulmonary Embolism Present on Admission: No
== END 2018-11-14 18:25 | disposition home or self-care (01) | DRG 190 ==
LOC: 3BNU 09:36 → EMEROOARM 09:36 → 3BNU 14:17 → SUATTDRO 11-09 15:17
PROVIDERS: ADMIT Internal Medicine; ATTEND Internal Medicine

== ENCOUNTER 2019-07-06 04:24 | Inpatient (IN) ==
--- NOTE | 2019-07-06 04:40 | Emergency Department Note ---
Disposition Clinical Impression: COPD exacerbation Disposition: Admitted As Inpatient Condition: Fair Time of Disposition: 06:08 General Adult HPI - General Chief complaint: ED Shortness of Breath/Dyspnea Stated complaint: LAVERNE Time Seen by Provider: 07/06/19 04:25 Source: patient, EMS Limitations: no limitations Nursing Notes Reviewed: Yes Vital Signs Reviewed: Yes - History of Present Illness Pain Scale: 0 - Related Data Home Medications Medication Instructions Recorded Confirmed Loratadine [Allergy Relief] 10 mg PO DAILY 09/17/17 07/06/19 OxyCODONE/APAP 10/325 [Percocet 1 each PO Q6H PRN 02/02/19 07/06/19 10/325 MG] Diltiazem [Cardizem] 30 mg PO DAILY 07/06/19 07/06/19 Furosemide [Lasix] 20 mg PO PRN PRN 07/06/19 07/06/19 GuaiFENesin/Dextromethorphan 1 each PO HS 07/06/19 07/06/19 [Mucinex Dm] Lisinopril-HCTZ 10-12.5 [Prinzide 1 each PO DAILY 07/06/19 07/06/19 10-12.5] Ropinirole HCl [Requip] 3 mg PO BID 07/06/19 07/06/19 Allergies Allergy/AdvReac Type Severity Reaction Status Date / Time Amoxicillin Allergy Rash Verified 07/06/19 04:29 swelling Penicillins Allergy Rash Verified 07/06/19 04:29 swelling Past Medical History - Past Medical History Medical history: Reports: asthma, cancer, COPD, hyperlipidemia, hypertension, other Surgical history: Reports: appendectomy, cancer surgery, colectomy, hysterectomy, other Psychiatric history: Reports: depression 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 - Social History Smoking Status: Former smoker Smokeless Tobacco Status: No Alcohol use: Reports: none Drug use: Reports: none Physical Exam - General Limitations: no limitations General appearance: alert, in no apparent distress Course Vital Signs Temperature 99.7 F H 07/06/19 04:29 Pulse Rate 99 07/06/19 04:29 Respiratory Rate 24 07/06/19 04:29 Blood Pressure 164/92 07/06/19 04:29 O2 Sat by Pulse Oximetry 95 07/06/19 04:29 Temperature 99.7 F H 07/06/19 04:29 Pulse Rate 111 07/06/19 06:27 Respiratory Rate 20 07/06/19 06:27 Blood Pressure 167/96 07/06/19 06:27 O2 Sat by Pulse Oximetry 94 07/06/19 06:27 Oxygen Delivery Oxygen Delivery Nasal Cannula Medical Decision Making - Medical Records Medical records reviewed: Yes I reviewed the patient's medical records. - Lab Data Lab results reviewed: Yes I reviewed the patient's lab results. Result diagrams: 07/06/19 04:40 07/06/19 04:43 Lab Results 07/06/19 07/06/19 Range/Units 04:40 04:43 WBC 6.5 (4.3-11.1) K/mcL RBC 4.84 (3.82-4.97) M/mcL Hgb 13.4 (11.5-15.4) g/dL Hct 43.2 (35.3-44.9) % MCV 89.3 (83.0-100.0) fL MCH 27.7 L (28.0-33.3) pg MCHC 31.0 L (31.6-35.5) g/dL RDW 14.3 (11.5-14.5) % Plt Count 146 (140-400) K/mcL MPV 10.7 (9.4-12.4) fL Immature Gran % 0.3 (0-4) % Seg Neutrophils % 69.4 % Lymphocytes % 19.4 % Monocytes % 5.2 % Eosinophils % 5.2 % Basophils % 0.5 % Neutrophils # 4.5 (1.6-8.9) K/mcL Lymphocytes # 1.3 (0.6-4.6) K/mcL Monocytes # 0.3 (0.0-1.3) K/mcL Eosinophils # 0.3 (0.0-0.6) K/mcL Basophils # 0.0 (0.0-0.2) K/mcL Immature Plt Fraction 4.5 (1.1-6.1) % Sodium 140 (136-145) mEq/L Potassium 3.7 (3.5-5.1) mEq/L Chloride 103 (98-107) mEq/L Carbon Dioxide 30 H (23-29) mEq/L BUN 11 (8-23) mg/dL Creatinine 0.58 L (0.60-1.20) mg/dL Est GFR ( Amer) > 60 (> 60) Est GFR (Non-Af Amer) > 60 (> 60) BUN/Creatinine Ratio 19 (6-26) Glucose 147 H (70-105) mg/dL Calculated Osmolality 292 (280-300) Calcium 9.3 (8.6-10.3) mg/dL Troponin I < 0.03 (< 0.04) ng/mL - Radiology Data Radiology results reviewed: Yes I reviewed the patient's radiology results. Chest X-Ray 07/06/19 04:43 IMPRESSION: No acute cardiopulmonary findings. Stable chronic blunting of the right costophrenic sulcus and postsurgical changes of the mediastinum. D/ / Deep Bruno / Deep Bruno Interpreting Provider: Deep Bruno - EKG Data EKG #1 EKG attestation: Yes I reviewed and interpreted this EKG. EKG results narrative: EKG shows a normal sinus rhythm with ventricular rate of 94. No significant ST segment elevation or depression. No arrhythmia or ectopy. No significant change from prior EKG dated 02/02/2019. Attestation Statement - Attestation Attestation: I, Julio Cesar Isabel MD, personally evaluated this patient and discussed their management with the resident physician. I reviewed the resident's note and agree with the documented findings, medical decision making, and plan of care. I reviewed the residents documentation and agree with the residents assessment and plan of care. I have personally had face to face time with the patient. I personally supervised and was present for the goodwin/critical portions of the following procedures completed by the resident: EKG interpretation. 69-year-old female with history of COPD presents to the emergency department by EMS with a complaint of increasing shortness of breath over the past 2 weeks. Symptoms became worse today. No definite fever but she did feel warm today. No chest pain. There has been some increased cough with some sputum production. Patient has home oxygen as well as CPAP. She uses inhalers and also nebulizers at home. Her last admission was about 7 months ago. She has never had to be intubated. She also has a history of lung cancer and has had a right upper lobectomy. On examination patient is a well-developed well-nourished well-appearing elderly female in no acute distress. She is alert and oriented 3. There is no cyanosis or diaphoresis. Breath sounds are decreased bilaterally with scattered diffuse bilateral expiratory wheezes. Heart regular rate and rhythm. Abdomen is soft and nontender with normal bowel sounds. EKG shows a normal sinus rhythm with ventricular rate of 94. No significant ST segment elevation or depression. No arrhythmia or ectopy. No significant meyers e from prior EKG dated 02/02/2019. Chest x-ray shows no acute infiltrate. Labs reviewed. Patient received triple DuoNeb treatments and prednisone 60 mg by mouth. She did have some improvement but still has some scattered wheezes and shortness of breath and does not feel comfortable going home. The hospitalist, Dr. Singh, was consulted and accepted admission of the patient.
[2019-07-06] MEDS ORDERED: Ipratropium/Albuterol Neb 3 ML IH ONE (04:43)
[2019-07-06] MEDS ORDERED: predniSONE 20 MG TABLET PO ONE (04:43)
[2019-07-06] MEDS ORDERED: Azithromycin 250 MG TABLET PO ONE (04:50)
[2019-07-06 04:51] LABS: Basophils % 0.5 %; Eosinophils # 0.3 K/mcL (0.0-0.6); Eosinophils % 5.2 %; Hematocrit 43.2 % (35.3-44.9); Hemoglobin 13.4 g/dL (11.5-15.4); Immature Granulocytes % 0.3 % (0-4); Immature Platelets 4.5 % (1.1-6.1); Lymphocytes # 1.3 K/mcL (0.6-4.6); Lymphocytes % 19.4 %; Mean Corpuscular Hemoglobin 27.7 pg (28.0-33.3); Mean Corpuscular Volume 89.3 fL (83.0-100.0); Mean Platelet Volume 10.7 fL (9.4-12.4); Monocytes # 0.3 K/mcL (0.0-1.3); Monocytes % 5.2 %; Neutrophils # 4.5 K/mcL (1.6-8.9); Platelet Count 146 K/mcL (140-400); Red Blood Count 4.84 M/mcL (3.82-4.97); Red Cell Distribution Width 14.3 % (11.5-14.5); Segmented Neutrophils % 69.4 %; White Blood Count 6.5 K/mcL (4.3-11.1)
--- NOTE | 2019-07-06 04:51 | Emergency Department Note ---
Disposition Clinical Impression: COPD exacerbation Disposition: Admitted As Inpatient Condition: Fair Time of Disposition: 06:08 General Adult HPI - General Chief complaint: ED Shortness of Breath/Dyspnea Stated complaint: LAVERNE Time Seen by Provider: 07/06/19 04:25 Source: patient, EMS Mode of arrival: EMS Limitations: no limitations Nursing Notes Reviewed: Yes Vital Signs Reviewed: Yes - History of Present Illness HPI Narrative: Patient is a 61-year-old female with a past medical history of asthma, RUL lobectomy, COPD on 5 L nasal cannula at home presents to the ED for presentation of shortness of breath has been going on over the past 3 weeks but worsening she is also had a productive cough over the past 2 days. She states she feels like this is her COPD. Her last hospitalization was 7 months ago. She has never required intubation during her hospitalizations. She states she was trying her home nebulizer again minimal improvement she did receive a breathing treatment b y squad with improvement. She is denying any nausea, diaphoresis or chest pain. Pain Scale: 0 - Related Data Home Medications Medication Instructions Recorded Confirmed Loratadine [Allergy Relief] 10 mg PO DAILY 09/17/17 07/06/19 OxyCODONE/APAP 10/325 [Percocet 1 each PO Q6H PRN 02/02/19 07/06/19 10/325 MG] Diltiazem [Cardizem] 30 mg PO DAILY 07/06/19 07/06/19 Furosemide [Lasix] 20 mg PO PRN PRN 07/06/19 07/06/19 GuaiFENesin/Dextromethorphan 1 each PO HS 07/06/19 07/06/19 [Mucinex Dm] Lisinopril-HCTZ 10-12.5 [Prinzide 1 each PO DAILY 07/06/19 07/06/19 10-12.5] Ropinirole HCl [Requip] 3 mg PO BID 07/06/19 07/06/19 Allergies Allergy/AdvReac Type Severity Reaction Status Date / Time Amoxicillin Allergy Rash Verified 07/06/19 04:29 swelling Penicillins Allergy Rash Verified 07/06/19 04:29 swelling All systems ED: reviewed and negative except as stated. Review of Systems: As Per HPI Constitutional: Denies: fever, chills Cardiovascular: Denies: chest pain, palpitations, dyspnea on exertion, edema, syncope, paroxysmal nocturnal dyspnea Respiratory: Reports: cough, dyspnea, sputum production. Denies: wheezes, hemoptysis Gastrointestinal: Denies: abdominal pain, nausea, vomiting, diarrhea Genitourinary: Denies: urgency Past Medical History - Past Medical History Attestation: Yes The following information was validated with the patient. 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 Speaks in full sentences. HEAD: Normocephalic; atraumatic EYES: PERRL, no scleral icterus NOSE: The nose is normal in appearance without rhinorrhea NECK: No JVD or distended neck veins RESP: Normal chest excursion with respiration; breath sounds clear and equal bilaterally; wheezes in the bilaterally, no rhonchi or rales CARD: Regular rhythm, without murmurs, rub or gallop ABD: Non-distended; non-tender, soft, without rigidity, rebound or guarding,no pulsatile mass CHEST: No pain with palpation SKIN: Normal for age and race; warm and dry without diaphoresis ; no apparent lesions EXTREMITIES: Pulses are 2 plus and equal times 4 extremities, no peripheral edema or calf muscle pain - General Limitations: no limitations General appearance: alert, in no apparent distress Course Course Narrative: Patient underwent evaluation treatment for possibly COPD exacerbation. On arrival she received a breathing treatment by squad in which she stated i mprovement. She received 3 DuoNeb's in the ED as well as a dose of steroids and antibiotic for COPD exacerbation which she continues to feel improved. She is on her baseline requirement of oxygen which is anywhere from 3-5 L at home with a saturation from 94-99%. Discussed with sugar decision-making discharge versus admission and patient was actually requesting admission she states she is sirena rned that she goes home she may come back due to this libertarian have been going on for 3 weeks and she felt she is having a lot of difficulty breathing while at home. Vital Signs Temperature 99.7 F H 07/06/19 04:29 Pulse Rate 99 07/06/19 04:29 Respiratory Rate 24 07/06/19 04:29 Blood Pressure 164/92 07/06/19 04:29 O2 Sat by Pulse Oximetry 95 07/06/19 04:29 Temperature 99.7 F H 07/06/19 04:29 Pulse Rate 111 07/06/19 06:27 Respiratory Rate 20 07/06/19 06:27 Blood Pressure 167/96 07/06/19 06:27 O2 Sat by Pulse Oximetry 94 07/06/19 06:27 Oxygen Delivery Oxygen Delivery Nasal Cannula Medical Decision Making - Medical Records Medical records reviewed: Yes I reviewed the patient's medical records. - Lab Data Lab results reviewed: Yes I reviewed the patient's lab results. Result diagrams: 07/06/19 04:40 07/06/19 04:43 Lab Results 07/06/19 07/06/19 Range/Units 04:40 04:43 WBC 6.5 (4.3-11.1) K/mcL RBC 4.84 (3.82-4.97) M/mcL Hgb 13.4 (11.5-15.4) g/dL Hct 43.2 (35.3-44.9) % MCV 89.3 (83.0-100.0) fL MCH 27.7 L (28.0-33.3) pg MCHC 31.0 L (31.6-35.5) g/dL RDW 14.3 (11.5-14.5) % Plt Count 146 (140-400) K/mcL MPV 10.7 (9.4-12.4) fL Immature Gran % 0.3 (0-4) % Seg Neutrophils % 69.4 % Lymphocytes % 19.4 % Monocytes % 5.2 % Eosinophils % 5.2 % Basophils % 0.5 % Neutrophils # 4.5 (1.6-8.9) K/mcL Lymphocytes # 1.3 (0.6-4.6) K/mcL Monocytes # 0.3 (0.0-1.3) K/mcL Eosinophils # 0.3 (0.0-0.6) K/mcL Basophils # 0.0 (0.0-0.2) K/mcL Immature Plt Fraction 4.5 (1.1-6.1) % Sodium 140 (136-145) mEq/L Potassium 3.7 (3.5-5.1) mEq/L Chloride 103 (98-107) mEq/L Carbon Dioxide 30 H (23-29) mEq/L BUN 11 (8-23) mg/dL Creatinine 0.58 L (0.60-1.20) mg/dL Est GFR ( Amer) > 60 (> 60) Est GFR (Non-Af Amer) > 60 (> 60) BUN/Creatinine Ratio 19 (6-26) Glucose 147 H (70-105) mg/dL Calculated Osmolality 292 (280-300) Calcium 9.3 (8.6-10.3) mg/dL Troponin I < 0.03 (< 0.04) ng/mL - Radiology Data Radiology results reviewed: Yes I reviewed the patient's radiology results. Chest X-Ray 07/06/19 04:43 IMPRESSION: No acute cardiopulmonary findings. Stable chronic blunting of the right costophrenic sulcus and postsurgical changes of the mediastinum. D/ / Deep Bruno / Deep Bruno Interpreting Provider: Deep Burno - EKG Data EKG #1 EKG attestation: Yes I reviewed and interpreted this EKG. EKG results narrative: EKG done at 4:45 shows sinus rhythm at 94 bpm. Normal axis. Intervals within normal limits. No signs of ischemia. Unchanged from prior EKG in January 2019.
[2019-07-06 05:14] LABS: BUN/Creatinine Ratio 19 (6-26); Blood Urea Nitrogen 11 mg/dL (8-23); Calcium 9.3 mg/dL (8.6-10.3); Carbon Dioxide 30 mEq/L (23-29); Chloride 103 mEq/L (98-107); Glucose 147 mg/dL (70-105); Osmolality,Calculated 292 (280-300); Potassium 3.7 mEq/L (3.5-5.1); Sodium 140 mEq/L (136-145); eGFR For African Americans > 60 (> 60); eGFR For Non-African Americans > 60 (> 60)
[2019-07-06 05:15] LABS: Troponin I < 0.03 ng/mL (< 0.04)
--- NOTE | 2019-07-06 07:04 | Internal Med History&Physical ---
Date of Encounter: 07/06/19 Time of Encounter: 07:40 Internal Medicine - H&P: HPI Chief complaint: shortness of breath Admitted From: Home Plans for Post Hospital Care: Home History of present illness: Ms. Cabello is a 69 year old female who presented from home due to sob She notes that she has had sob over the last couple weeks and it has progressively worsened. She has had similar sob in past. She is prescribed 5L of oxygen and she has been wearing 3 L at home and is hoping to "get off of oxygen". She has been having episodes where she is on 3L and exerting herself and gets very short of breath and panics. It is occurring while awake, but also has had episodes while sleeping on 3L NC. In recent days she has developed wheezing, + cough increased from baseline with sputum but color unknown. Symptoms worse with any exertion, better with rest and increased O2 to 5L. She has had no fevers, chills, malaise or other complaints. She feels like herself other jauregui. She is currently not short of breath. She denies any cp, pressure, palpitations, calf pain or recent immobilization. She has no PCP and knows she needs to establish one. She is using albuterol nebs but felt the duoneb given worked better for her. gen- no fevers, chills, weight changes cv- no cp, pressure, orthopnea, le edema, presyncope pulm- as above msk- no calf pain, unequal calf size or LE pain she remains full code she has stopped taking xanax since last admit Past Med Surg Social Fam HX - Past Medical History Medical history: asthma, cancer, COPD (5L NC home rx continuous), hyperlipidemia, hypertension, other Additional medical history: lung and colon cancer Psychiatric history: depression - Past Surgical History Surgical History: appendectomy, cancer surgery, colectomy, hysterectomy, other Additional surgical history: brain surgery, Right upper lobectomy - Social History Smoking Status: Former smoker Smokeless Tobacco Status: No Alcohol use: none Drug use: none - Family History Father Living Status: Hx Family Cardiac Disorders: Yes (HYPERTENSION/CHF) Hx Family Respiratory Disorders: Yes (COPD/Emphysema/Asthma) Mother Adopted: No Living Status: Hx Family Cardiac Disorders: Yes Hx Family Cancer: Yes (colon ca) Internal Medicine - H&P: Italo Ferrelldine [Allergy Relief] 10 mg PO DAILY 09/17/17 [History] OxyCODONE/APAP 10/325 [Percocet 10/325 MG] 1 each PO Q6H PRN 02/02/19 [History] Diltiazem [Cardizem] 30 mg PO DAILY 07/06/19 [History] Furosemide [Lasix] 20 mg PO PRN PRN 07/06/19 [History] GuaiFENesin/Dextromethorphan [Mucinex Dm] 1 each PO HS 07/06/19 [History] Lisinopril-HCTZ 10-12.5 [Prinzide 10-12.5] 1 each PO DAILY 07/06/19 [History] Ropinirole HCl [Requip] 3 mg PO BID 07/06/19 [History] Allergy/AdvReac Type Severity Reaction Status Date / Time Amoxicillin Allergy Rash Verified 07/06/19 04:29 swelling Penicillins Allergy Rash Verified 07/06/19 04:29 swelling All Systems PM: A 10-system review of systems was performed and is negative for pertinent findings except as documented above in the HPI. - Constitutional Vitals: Temp Pulse Resp BP Pulse Ox 99.7 F H 111 20 167/96 94 07/06/19 04:29 07/06/19 06:27 07/06/19 06:27 07/06/19 06:27 07/06/19 06:27 Exam: General: awake, alert, appears stated age HEENT:EOM intact, pupils equal, round, moist mucus membranes Neck: supple, trachea midline Cardiovascular:regular rate and rhythm, normal S1 & S2, no rubs, murmurs or gal lops. no lower extremity edema Lungs:dimnsihed throughout, diffuse exp wheezing, no crackles or rhonchi. Normal respiratory effort on o2 nc Abdomen:Soft, non-tender, non-distended, no rigidity, + bowel sounds Neurological: AAOx3 Skin:Normal color, no rash, no pallor Internal Med - H&P Results - Labs CBC & Chem 7: 07/06/19 04:40 07/06/19 04:43 Labs: Short CBC 07/06/19 Range/Units 04:40 WBC 6.5 (4.3-11.1) K/mcL Hgb 13.4 (11.5-15.4) g/dL Hct 43.2 (35.3-44.9) % Plt Count 146 (140-400) K/mcL Neutrophils # 4.5 (1.6-8.9) K/mcL BMP 07/06/19 04:43 Sodium 140 Potassium 3.7 Chloride 103 Carbon Dioxide 30 H BUN 11 Creatinine 0.58 L Glucose 147 H Calcium 9.3 Cardiac Enzymes 07/06/19 Range/Units 04:43 Troponin I < 0.03 (< 0.04) ng/mL - Impressions ITS Impressions Chest X-Ray 07/06/19 04:43 IMPRESSION: No acute cardiopulmonary findings. Stable chronic blunting of the right costophrenic sulcus and postsurgical changes of the mediastinum. D/ / Deep Bruno / Deep Bruno Interpreting Provider: Deep Bruno - Assessment and Plan (1) COPD exacerbation Current Visit: Yes Status: Acute (2) Chronic respiratory failure Current Visit: Yes Status: Chronic Qualifiers: Respiratory failure complication: hypoxia Qualified Code(s): J96.11 - Chronic respiratory failure with hypoxia (3) HTN (hypertension) Current Visit: No Status: Chronic Qualifiers: Hypertension type: essential hypertension Qualified Code(s): I10 - Essential (primary) hypertension - Summary of Assessment and Plan Summary of Assessment and Plan: COPDE Chronic Resp Failure which is at baseline w sats stable on home O2 5L -azithro + PO steroids + prn and scheduled nebs -cont home mucinex -would benefit from duoneb rx on dc HTN- cont home meds and monitor Chronic Back pain- cont home opiate vte ppx lovenox full code would like ot establish care with a pcp though she isn't sure where
[2019-07-06] MEDS ORDERED: Acetaminophen 325 MG TABLET PO PRN (08:07)
[2019-07-06] MEDS ORDERED: Naloxone 0.4 MG/ML INJ IVP PRN (08:07)
[2019-07-06] MEDS ORDERED: Ipratropium Neb 0.5 MG NEBULIZER IH PRN (08:15)
[2019-07-06] MEDS: Loratadine 10 MG TABLET PO SCH (10:03)
[2019-07-06] MEDS: *HR* Enoxaparin 40 MG/0.4 ML SYRINGE SQ SCH (10:07)
[2019-07-06] MEDS: *HR* OxyCODONE/APAP 10/325 TABLET PO PRN ×2 (10:07→22:56)
[2019-07-06] MEDS: Ipratropium/Albuterol Neb 3 ML IH SCH ×4 (11:15→23:30)
[2019-07-06] MEDS: GuaiFENesin/Dextromethorphan TABLET PO SCH (21:11)
[2019-07-07] MEDS: Ipratropium/Albuterol Neb 3 ML IH SCH ×6 (04:08→23:51)
[2019-07-07] MEDS: Azithromycin 500 MG in D5% in Water 250 ML IVPB SCH (06:10)
[2019-07-07] MEDS: *HR* Enoxaparin 40 MG/0.4 ML SYRINGE SQ SCH (06:10)
[2019-07-07] MEDS: Loratadine 10 MG TABLET PO SCH (08:05)
[2019-07-07] MEDS: predniSONE 20 MG TABLET PO SCH (08:05)
[2019-07-07] MEDS: *HR* OxyCODONE/APAP 10/325 TABLET PO PRN (08:42)
--- NOTE | 2019-07-07 10:50 | Internal Med Progress Note ---
Hospitalist Progress Note - Encounter Date of Encounter: 07/07/19 Time of Encounter: 10:48 - Subjective Interval History: Ms. Cabello is a 69 year old female who presented from home due to sob. She notes that she has had sob over the last couple weeks and it has progressively worsened. She has had similar sob in past. She is prescribed 5L of oxygen and sh nate has been wearing 3 L at home and is hoping to "get off of oxygen". She has been having episodes where she is on 3L and exerting herself and gets very short of breath and panics. It is occurring while awake, but also has had episodes while sleeping on 3L NC. In recent days she has developed wheezing, + cough increased from baseline with sputum but color unknown. Symptoms worse with any exertion, better with rest and increased O2 to 5L. She has had no fevers, chills, malaise or other complaints. She feels like herself other jauregui. She is currently not short of breath. - Exam Vitals: Temp Pulse Resp BP Pulse Ox 97.6 F 95 18 145/85 97 07/07/19 08:06 07/07/19 08:06 07/07/19 08:06 07/07/19 08:06 07/07/19 08:06 Exam: General: awake, alert, appears stated age HEENT:EOM intact, pupils equal, round, moist mucus membranes Neck: supple, trachea midline Cardiovascular:regular rate and rhythm, normal S1 & S2, no rubs, murmurs or gallops. no lower extremity edema Lungs:dimnsihed throughout, diffuse exp wheezing, no crackles or rhonchi. Normal respiratory effort on o2 nc Abdomen:Soft, non-tender, non-distended, no rigidity, + bowel sounds Neurological: AAOx3 Skin:Normal color, no rash, no pallor - Assessment and Plan (1) COPD exacerbation Current Visit: Yes Status: Acute Assessment and Plan: 69-year-old female with known history of COPD presented with progressively worsening shortness of breath over last couple weeks, associated with cough. Chest x-ray has no acute changes. Symptoms are consistent with COPD exacerbation. However, her home medication does not include any bronchodilators, unsure this is a mistake or is the truth. She was started on IV azithromycin, by mouth prednisone, short acting bronchodilators. She currently still wheezing, dyspnea with minimal disease activity, requiring continuing hospitalization and treatment. Symbicort was also started based on severity of her symptoms. (2) HTN (hypertension) Current Visit: No Status: Chronic Assessment and Plan: BP controlled, continue home medications. (3) Chronic respiratory failure Current Visit: Yes Status: Chronic Assessment and Plan: Management the same as above. DVT Prophylaxis: Lovenox subcutaneous. - Time Spent with Patient Total time spent is greater than 50% in coordination of care (as documented) at patient's floor/unit and/or counseling patient: Greater than 35 minutes Plan of Care Discussed with: patient Internal Medicine: Result - Labs CBC & Chem 7: 07/06/19 04:40 07/06/19 04:43 Consult Discharge Plan - Plan Referrals: NONE,PCP [Primary Care Provider] - __ (2) HTN (hypertension) Qualifiers: Hypertension type: essential hypertension Qualified Code(s): I10 - Essential (primary) hypertension (3) Chronic respiratory failure Qualifiers: Respiratory failure complication: hypoxia Qualified Code(s): J96.11 - Chronic respiratory failure with hypoxia
[2019-07-07] MEDS: Budesonide/Formoterol 160/4.5 1 PUFF INH IH SCH ×2 (11:27→19:47)
[2019-07-07] MEDS: GuaiFENesin/Dextromethorphan TABLET PO SCH (20:17)
[2019-07-07] MEDS: *HR* OxyCODONE/APAP 5/325 TABLET PO PRN (20:18)
[2019-07-08] MEDS: Ipratropium/Albuterol Neb 3 ML IH SCH ×6 (03:21→23:31)
[2019-07-08 05:02] LABS: Basophils % 0.3 %; Eosinophils % 0.4 %; Hematocrit 44.2 % (35.3-44.9); Immature Granulocytes % 0.8 % (0-4); Lymphocytes % 14.3 %; Mean Corpuscular HGB Conc 29.4 g/dL (31.6-35.5); Mean Corpuscular Hemoglobin 27.2 pg (28.0-33.3); Mean Corpuscular Volume 92.5 fL (83.0-100.0); Mean Platelet Volume 10.9 fL (9.4-12.4); Monocytes # 0.4 K/mcL (0.0-1.3); Monocytes % 5.5 %; Neutrophils # 5.6 K/mcL (1.6-8.9); Platelet Count 160 K/mcL (140-400); Red Blood Count 4.78 M/mcL (3.82-4.97); Red Cell Distribution Width 14.3 % (11.5-14.5); Segmented Neutrophils % 78.7 %; White Blood Count 7.1 K/mcL (4.3-11.1)
[2019-07-08 05:21] LABS: BUN/Creatinine Ratio 32 (6-26); Blood Urea Nitrogen 21 mg/dL (8-23); Calcium 9.5 mg/dL (8.6-10.3); Carbon Dioxide 38 mEq/L (23-29); Chloride 96 mEq/L (98-107); Glucose 116 mg/dL (70-105); Osmolality,Calculated 290 (280-300); Potassium 4.6 mEq/L (3.5-5.1); Sodium 138 mEq/L (136-145); eGFR For African Americans > 60 (> 60); eGFR For Non-African Americans > 60 (> 60)
[2019-07-08] MEDS: *HR* Enoxaparin 40 MG/0.4 ML SYRINGE SQ SCH (05:35)
[2019-07-08] MEDS: Azithromycin 500 MG in D5% in Water 250 ML IVPB SCH (05:36)
[2019-07-08] MEDS: Budesonide/Formoterol 160/4.5 1 PUFF INH IH SCH ×2 (07:33→20:02)
[2019-07-08] MEDS: Loratadine 10 MG TABLET PO SCH (09:01)
[2019-07-08] MEDS: predniSONE 20 MG TABLET PO SCH (09:01)
[2019-07-08] MEDS: *HR* OxyCODONE/APAP 5/325 TABLET PO PRN ×2 (09:04→22:36)
[2019-07-08] MEDS ORDERED: Tiotropium 18 MCG inhalation IH SCH (10:00)
--- NOTE | 2019-07-08 11:08 | Internal Med Progress Note ---
Hospitalist Progress Note - Encounter Date of Encounter: 07/08/19 Time of Encounter: 11:08 - Subjective Interval History: Patient was seen and examined at bedside. Patient states she does not feel well today is having difficulty catching her breath. Currently on 4 L nasal cannula- which she states is her home oxygen level. She does have some scattered wheezes and a dry nonproductive cough. Discussed treatment plan with the patient which includes increasing steroids and well monitor respiratory state. - Exam Vitals: Temp Pulse Resp BP Pulse Ox 98.1 F 67 16 141/77 97 07/08/19 10:34 07/08/19 10:34 07/08/19 10:34 07/08/19 10:34 07/08/19 10:34 Exam: General: awake, alert, appears stated age HEENT:EOM intact, pupils equal, round, moist mucus membranes Neck: supple, trachea midline Cardiovascular:regular rate and rhythm, normal S1 & S2, no rubs, murmurs or gallops. no lower extremity edema Lungs:dimnsihed throughout, diffuse exp wheezing, no crackles or rhonchi. Normal respiratory effort on 4LNC Abdomen:Soft, non-tender, non-distended, no rigidity, + bowel sounds Neurological: AAOx3 Skin:Normal color, no rash, no pallor - Assessment and Plan (1) HTN (hypertension) Current Visit: No Status: Chronic Assessment and Plan: BP controlled, continue home medications. (2) COPD exacerbation Current Visit: Yes Status: Acute Assessment and Plan: 69-year-old female with known history of COPD presented with progressively worsening shortness of breath over last couple weeks, associated with cough. Chest x-ray has no acute changes. Symptoms are consistent with COPD exacerbation. However, her home medication does not include any bronchod ilators, unsure this is a mistake or is the truth. She was started on IV azithromycin, by mouth prednisone, short acting bronchodilators. She currently still wheezing, dyspnea with minimal disease ac tivity, requiring continuing hospitalization and treatment. Symbicort was also started based on severity of her symptoms. 07/08 Continues to have diffuse scattered wheezes-complains of shortness of breath- we will increase her steroid-place her on IV steroid at 40 mg twice a day Continue with IV azithromycin as well as bronchodilators (3) Chronic respiratory failure Current Visit: Yes Status: Chronic Assessment and Plan: Secondary to COPD exacerbation Management the same as above. - Time Spent with Patient Total time spent is greater than 50% in coordination of care (as documented) at patient's floor/unit and/or counseling patient: Internal Medicine: Result - Labs CBC & Chem 7: 07/08/19 03:55 07/08/19 03:55 Labs: Short CBC 07/08/19 Range/Units 03:55 WBC 7.1 (4.3-11.1) K/mcL Hgb 13.0 (11.5-15.4) g/dL Hct 44.2 (35.3-44.9) % Plt Count 160 (140-400) K/mcL Neutrophils # 5.6 (1.6-8.9) K/mcL BMP 07/08/19 03:55 Sodium 138 Potassium 4.6 Chloride 96 L Carbon Dioxide 38 H BUN 21 Creatinine 0.65 Glucose 116 H Calcium 9.5 Consult Discharge Plan - Plan Referrals: NONE,PCP [Primary Care Provider] - (1) HTN (hypertension) Qualifiers: Hypertension type: essential hypertension Qualified Code(s): I10 - Essential (primary) hypertension (3) Chronic respiratory failure Qualifiers: Respiratory failure complication: hypoxia Qualified Code(s): J96.11 - Chronic respiratory failure with hypoxia
--- NOTE | 2019-07-08 17:02 | Electrocardiograph Report ---
[address] [address] Test Date: 2019-07-06 Pat Name: Yecenia Cabello Department: EXAM1 Room: 3B33 Gender: Home Visitor: : 1950 Requested By: Donis Carbajal Order Number: [id number] Reading MD: Lucy Briceno Measurements Intervals [place] Rate: 94 P: 65 AL: 173 QRS: 41 QRSD: 80 T: 55 QT: 352 QTc: 441 Interpretive Statements Sinus rhythm Low voltage, precordial leads Electronically Signed On 07-08-2019 17:00:13 EDT by Lucy Briceno
[2019-07-08] MEDS: MethylPREDNISolone 40 MG/ML VIAL IVP SCH (17:20)
[2019-07-08] MEDS: GuaiFENesin/Dextromethorphan TABLET PO SCH (22:32)
[2019-07-09] MEDS: Ipratropium/Albuterol Neb 3 ML IH SCH ×3 (04:03→11:20)
[2019-07-09 04:19] LABS: Basophils % 0.2 %; Hematocrit 44.3 % (35.3-44.9); Hemoglobin 13.5 g/dL (11.5-15.4); Immature Granulocytes % 0.6 % (0-4); Lymphocytes # 0.4 K/mcL (0.6-4.6); Lymphocytes % 6.8 %; Mean Corpuscular HGB Conc 30.5 g/dL (31.6-35.5); Mean Corpuscular Hemoglobin 27.6 pg (28.0-33.3); Mean Corpuscular Volume 90.6 fL (83.0-100.0); Mean Platelet Volume 10.9 fL (9.4-12.4); Monocytes # 0.1 K/mcL (0.0-1.3); Monocytes % 1.7 %; Neutrophils # 5.7 K/mcL (1.6-8.9); Platelet Count 158 K/mcL (140-400); Red Blood Count 4.89 M/mcL (3.82-4.97); Red Cell Distribution Width 13.9 % (11.5-14.5); Segmented Neutrophils % 90.7 %; White Blood Count 6.3 K/mcL (4.3-11.1)
[2019-07-09 04:37] LABS: BUN/Creatinine Ratio 32 (6-26); Blood Urea Nitrogen 23 mg/dL (8-23); Calcium 9.8 mg/dL (8.6-10.3); Carbon Dioxide 40 mEq/L (23-29); Chloride 93 mEq/L (98-107); Glucose 176 mg/dL (70-105); Osmolality,Calculated 292 (280-300); Sodium 137 mEq/L (136-145); eGFR For African Americans > 60 (> 60); eGFR For Non-African Americans > 60 (> 60)
[2019-07-09] MEDS: *HR* Enoxaparin 40 MG/0.4 ML SYRINGE SQ SCH (05:40)
[2019-07-09] MEDS: Azithromycin 500 MG in D5% in Water 250 ML IVPB SCH (05:40)
[2019-07-09] MEDS: MethylPREDNISolone 40 MG/ML VIAL IVP SCH (05:41)
[2019-07-09 06:54] VITALS: BP 155/79
[2019-07-09] MEDS: Budesonide/Formoterol 160/4.5 1 PUFF INH IH SCH (07:24)
[2019-07-09] MEDS: Loratadine 10 MG TABLET PO SCH (08:46)
[2019-07-09] MEDS: *HR* OxyCODONE/APAP 5/325 TABLET PO PRN (08:53)
--- NOTE | 2019-07-09 10:00 | Discharge Summary ---
- NOTES TO OUTPATIENT PROVIDER Notes to Outpatient Provider: Patient presented with COPD exacerbation continue with steroid taper patient has been noncompliant with oxygen use-educated on importance of continuous oxygen Date of Encounter: 07/09/19 Time of Encounter: 09:56 - Discharge Diagnosis (1) HTN (hypertension) Priority: Secondary Status: Chronic Qualifiers: Hypertension type: essential hypertension Qualified Code(s): I10 - Essential (primary) hypertension (2) COPD exacerbation Priority: Primary Status: Acute (3) Chronic respiratory failure Priority: Primary Status: Chronic Qualifiers: Respiratory failure complication: hypoxia Qualified Code(s): J96.11 - Chronic respiratory failure with hypoxia Hospital course: Ms. Cabello is a 69 year old female past medical history of COPD lung and colon cancer patient is oxygen dependent 5 L nasal cannula continuous. Patient attempted to wean herself off oxygen and had decreased oxygen level down to 3 L nasal cannula she began to experience dyspnea and increased wheezing and coughing. As her symptoms worsen she did increase her oxygen back to 5 L however she did not experience any improvement in symptoms. She presented to [facility] with the above complaints chest x-ray showed nothing acute-lab work was unremarkable-she was given azithromycin and place on oral steroids during admission she continued to experience increasing shortness of breath and wheezing she was initially transitioned to IV steroids and her respiratory status improved-discussed with the patient the importance of follow-up we will make an appointment with pulmonology as well as establish her with the primary care provider. I will give her prescriptions for inhalers -rescue inhaler and Symbicort-as well as DuoNeb's- long steroid taper patient requesting presription for requip which I will give her a short prescription -She has oxygen as well as BiPAP at home - Currently she is hemodynamically stable and ready for discharge . - Time Spent with Patient Total time spent providing and/or coordinating discharge services: - Discharge Medications Prescriptions: New Ipratropium/Albuterol Neb [Duoneb] 3 ml IH Q6HR PRN #30 inhsol PRN Reason: Shortness Of Breath/Wheezing GuaiFENesin/Dextromethorphan [Mucinex Dm] 1 each PO HS tab.er.12h predniSONE [PredniSONE] 40 mg PO BIDWM 2 Days #5 tablet predniSONE [PredniSONE] 10 mg PO DAILY #30 tablet Budesonide/Formoterol 160/4.5 [Symbicort 160/4.5] 2 puff IH BIDR #1 inh Albuterol Sulfate [Proair Respiclick] 90 mcg IH Q4-6H PRN #1 aer.pow.ba PRN Reason: Shortness Of Breath/Wheezing Continued Loratadine [Allergy Relief] 10 mg PO DAILY Lisinopril-HCTZ 10-12.5 [Prinzide 10-12.5] 1 each PO DAILY Furosemide [Lasix] 20 mg PO DAILY PRN PRN Reason: Edema Diltiazem HCl [Tiazac] 120 mg PO DAILY Ropinirole HCl [Requip] 3 mg PO BID 14 Days #28 tablet Home Medications: Loratadine [Allergy Relief] 10 mg PO DAILY 09/17/17 [History] Furosemide [Lasix] 20 mg PO DAILY PRN 07/06/19 [History] Lisinopril-HCTZ 10-12.5 [Prinzide 10-12.5] 1 each PO DAILY 07/06/19 [History] Diltiazem HCl [Tiazac] 120 mg PO DAILY 07/07/19 [History] Albuterol Sulfate [Proair Respiclick] 90 mcg IH Q4-6H PRN #1 aer.pow.ba 07/09/19 [Rx] Budesonide/Formoterol 160/4.5 [Symbicort 160/4.5] 2 puff IH BIDR #1 inh 07/09/19 [Rx] GuaiFENesin/Dextromethorphan [Mucinex Dm] 1 each PO HS tab.er.12h 07/09/19 [Rx] Ipratropium/Albuterol Neb [Duoneb] 3 ml IH Q6HR PRN #30 inhsol 07/09/19 [Rx] Ropinirole HCl [Requip] 3 mg PO BID 14 Days #28 tablet 07/09/19 [Rx] predniSONE [PredniSONE] 10 mg PO DAILY #30 tablet 07/09/19 [Rx] predniSONE [PredniSONE] 40 mg PO BIDWM 2 Days #5 tablet 07/09/19 [Rx] Allergies/Adverse Reactions: Allergy/AdvReac Type Severity Reaction Status Date / Time Amoxicillin Allergy Rash Verified 07/07/19 13:55 swelling Penicillins Allergy Rash Verified 07/07/19 13:55 swelling Date of admission: 07/08/19 15:16 Primary care physician: PCP NONE Consults: 07/08/19 08:19 Consult to Nurse Navigator [CONS] Routine Comment: COPD Discharging clinician: Ashley Joe Anticipated date of discharge: 07/09/19 - Constitutional Vitals: Temp Pulse Resp BP Pulse Ox 97.8 F 97 20 155/79 95 07/09/19 06:52 07/09/19 06:52 07/09/19 07:24 07/09/19 06:52 07/09/19 07:24 Exam: General: awake, alert, appears stated age HEENT:EOM intact, pupils equal, round, moist mucus membranes Neck: supple, trachea midline Cardiovascular:regular rate and rhythm, normal S1 & S2, no rubs, murmurs or gallops. no lower extremity edema Lungs:dimnsihed throughout, no wheezing , no crackles or rhonchi. Normal respiratory effort on 5LNC Abdomen:Soft, non-tender, non-distended, no rigidity, + bowel sounds Neurological: AAOx3 Skin:Normal color, no rash, no pallor - Patient Status Disposition: Home, Self-Care Condition: Fair Functional capacity at discharge: independent ambulation Overall status at discharge: patient is back to baseline - Discharge Instructions Follow Up With: [facility] [Provider Group] (Appointment has been requested. Office will call with date and time of appointment. ) Xu Yusuf DO [Resident] - 07/16/19 1:20 pm (Please arrive at 1pm to complete new patient paperwork. Please bring photo I.D, insurance cards, and any medications you are currently taking in the bottles. ) Additional Instructions: Follow up with pulmonology appointment has been made prior to discharge Follow-up with residency clinic appointment has been made prior to discharge - Diet and Activity Activity: wear oxygen at all times, wear oxygen at night Diet: advance to your usual diet
== END 2019-07-09 13:45 | disposition home or self-care (01) | DRG 191 ==
LOC: EMEROOARM 04:24 → 3BNU 04:24 → SUATTDRO 06:27 → 3BNU 06:50
PROVIDERS: ADMIT Internal Medicine; ATTEND Internal Medicine

== ENCOUNTER 2019-07-31 05:43 | Inpatient (IN) ==
[2019-07-31] MEDS ORDERED: Ipratropium/Albuterol Neb 3 ML IH ONE (06:00)
[2019-07-31] MEDS ORDERED: methylPREDNISolone 125 MG/2 ML VIAL IVP ONE (06:00)
[2019-07-31 06:28] LABS: Basophils % 0.2 %; Eosinophils % 0.1 %; Hematocrit 44.8 % (35.3-44.9); Hemoglobin 14.2 g/dL (11.5-15.4); Immature Granulocytes % 0.9 % (0-4); Lymphocytes # 0.9 K/mcL (0.6-4.6); Lymphocytes % 5.9 %; Mean Corpuscular HGB Conc 31.7 g/dL (31.6-35.5); Mean Corpuscular Volume 88.4 fL (83.0-100.0); Mean Platelet Volume 11.3 fL (9.4-12.4); Monocytes # 0.5 K/mcL (0.0-1.3); Monocytes % 3.5 %; Neutrophils # 13.2 K/mcL (1.6-8.9); Platelet Count 173 K/mcL (140-400); Red Blood Count 5.07 M/mcL (3.82-4.97); Red Cell Distribution Width 15.1 % (11.5-14.5); Segmented Neutrophils % 89.4 %; White Blood Count 14.8 K/mcL (4.3-11.1)
[2019-07-31 06:37] LABS: INR 1.3; Prothrombin Time 14.4 Seconds (9.4-12.1)
[2019-07-31 06:40] LABS: Activated Partial Thrombo Time 30.4 Seconds (26.0-36.0)
[2019-07-31] MEDS ORDERED: levoFLOXacin 750 MG/150 ML 750 MG/150 ML BAG IVPB ONE (07:17)
[2019-07-31] MEDS ORDERED: Isovue-370 500 ML BOTTLE IVP ONE (07:21)
[2019-07-31 07:24] LABS: Alanine Aminotransferase 13 Units/L (7-52); Albumin 3.9 g/dL (3.5-5.7); Albumin/Globulin Ratio 1.3 (1.1-2.2); Alkaline Phosphatase 92 Units/L (34-104); Aspartate Amino Transferase 10 Units/L (13-39); BUN/Creatinine Ratio 17 (6-26); Bilirubin,Direct 0.4 mg/dL (0.0-0.2); Bilirubin,Indirect 1.2 mg/dL (0.0-1.2); Bilirubin,Total 1.6 mg/dL (0.3-1.0); Blood Urea Nitrogen 11 mg/dL (8-23); Calcium 9.5 mg/dL (8.6-10.3); Carbon Dioxide 27 mEq/L (23-29); Chloride 100 mEq/L (98-107); Globulin 2.9 g/dL (2.4-3.5); Glucose 188 mg/dL (70-105); Osmolality,Calculated 286 (280-300); Potassium 3.8 mEq/L (3.5-5.1); Sodium 136 mEq/L (136-145); Total Protein 6.8 g/dL (6.4-8.9); Troponin I 0.07 ng/mL (< 0.04); eGFR For African Americans > 60 (> 60); eGFR For Non-African Americans > 60 (> 60)
--- NOTE | 2019-07-31 07:58 | Emergency Department Note ---
Disposition Clinical Impression: Elevated troponin Pneumonia Qualifiers: Pneumonia type: due to unspecified organism Laterality: right Lung location: lower lobe of lung Qualified Code(s): J18.1 - Lobar pneumonia, unspecified organism COPD (chronic obstructive pulmonary disease) Qualifiers: COPD type: COPD with acute exacerbation Qualified Code(s): J44.1 - Chronic obstructive pulmonary disease with (acute) exacerbation Disposition: Still a Patient Condition: Fair Forms: ED Satisfaction Letter Time of Disposition: 08:11 SOB HPI - General Chief Complaint: ED Shortness of Breath/Dyspnea Stated Complaint: Angelica Time Seen by Provider: 07/31/19 05:47 Source: patient, EMS Limitations: no limitations Nursing Notes Reviewed: Yes Vital Signs Reviewed: Yes - History of Present Illness 69-year-old female patient with a history of COPD and right lobectomy secondary to lung cancer presents to the referral for evaluation of shortness of breath. He has a history of COPD and is on oxygen at home. Currently she is on 2 L/m but they are going to consider decreasing her oxygen requirement at home. She denies any fevers. States that she had chills yesterday. She recently was admitted. She has had pneumonia in the past. Pt Subjective Complaint: shortness of breath, cough Severity: moderate Consistency/Duration: gradually worsening Improves with: oxygen, rest Associated symptoms: Reports: pain with inspiration, cough, wheezing, sputum production. Denies: hemoptysis Treatment prior to arrival: oxygen, bronchodilator Cough present: Yes Sputum production: Yes Sputum Amount: Small Sputum Color: Yellow - Related Data Home oxygen amount: 2 liters Home Medications Medication Instructions Recorded Confirmed Loratadine [Allergy Relief] 10 mg PO DAILY 09/17/17 07/31/19 Furosemide [Lasix] 20 mg PO DAILY PRN 07/06/19 07/31/19 Lisinopril-HCTZ 10-12.5 [Prinzide 1 each PO DAILY 07/06/19 07/31/19 10-12.5] Diltiazem HCl [Tiazac] 120 mg PO DAILY 07/07/19 07/31/19 Previous Rx's Medication Instructions Recorded Albuterol Sulfate [Proair 90 mcg IH Q4-6H PRN #1 aer.pow.ba 07/09/19 Respiclick] Budesonide/Formoterol 160/4.5 2 puff IH BIDR #1 inh 07/09/19 [Symbicort 160/4.5] GuaiFENesin/Dextromethorphan 1 each PO HS tab.er.12h 07/09/19 [Mucinex Dm] Ipratropium/Albuterol Neb [Duoneb] 3 ml IH Q6HR PRN #30 inhsol 07/09/19 Ropinirole HCl [Requip] 3 mg PO BID 14 Days #28 tablet 07/09/19 predniSONE [PredniSONE] 10 mg PO DAILY #30 tablet 07/09/19 predniSONE [PredniSONE] 40 mg PO BIDWM 2 Days #5 tablet 07/09/19 Allergies Allergy/AdvReac Type Severity Reaction Status Date / Time Amoxicillin Allergy Rash Verified 07/07/19 13:55 swelling Penicillins Allergy Rash Verified 07/07/19 13:55 swelling All systems ED: reviewed and negative except as stated. Constitutional: Reports: chills. Denies: fever, weakness, weight change Eyes: Denies: eye pain, eye discharge, vision change ENT ED: Denies: ear pain, throat pain, dental pain, hearing loss, epistaxis, congestion, dysphagia Cardiovascular: Denies: chest pain, palpitations, dyspnea on exertion, edema, syncope Respiratory: Reports: cough, dyspnea, wheezes. Denies: hemoptysis, stridor Gastrointestinal: Denies: abdominal pain, nausea, vomiting, diarrhea, constipation, hematemesis, melena, hematochezia Genitourinary: Denies: dysuria, frequency, hematuria, discharge Musculoskeletal: Denies: back pain, neck pain, arthralgia, myalgia Integumentary: Denies: rash, abrasion, lesions Neurological: Denies: headache, weakness, numbness, paresthesias, confusion, abnormal gait, vertigo Psychiatric: Denies: anxiety, depression, suicidal thoughts, homicidal thoughts, auditory hallucinations, visual hallucinations Endocrine: Denies: fatigue Past Medical History - Past Medical History Attestation: Yes The following information was validated with the patient. Source: patient, old records reviewed, nursing notes reviewed Medical history: Reports: asthma, cancer, COPD, hyperlipidemia, hypertension, other Surgical history: Reports: appendectomy, cancer surgery, colectomy, hysterectomy, other Psychiatric history: Reports: no psych history [employer] history: Reports: bilateral tubal ligation - Social History Smoking Status: Former smoker Smokeless Tobacco Status: No Alcohol use: Reports: none Drug use: Reports: none Physical Exam - General Limitations: no limitations General appearance: alert - Head Head exam: atraumatic, normocephalic, normal inspection - Eye Eye exam: Present: normal appearance, PERRL, EOMI - ENT ENT exam: normal exam, normal oropharynx, mucous membranes moist - Neck Neck exam: Present: normal inspection, full ROM, trachea midline. Absent: tenderness - Chest Chest inspection: Present: normal inspection, symmetric chest wall rise - Respiratory Respiratory exam: Present: normal lung sounds bilaterally, respiratory distress, wheezes - Cardiovascular Cardiovascular exam: Present: regular rate, normal rhythm, tachycardia, normal heart sounds - Abdominal Exam Abdominal exam: Present: soft, Non-Tender, normal bowel sounds. Absent: tenderness, distention, guarding, rebound, rigidity - Extremities Exam Extremities exam: Present: normal inspection, full ROM, normal capillary refill. Absent: tenderness, pedal edema, joint swelling - Expanded Lower Extremity Exam Neurovascular/Tendon exam: Absent: motor deficit, sensory deficit, tendon deficit - Back Exam Back exam: Present: normal inspection, full ROM. Absent: tenderness, CVA tenderness (R), CVA tenderness (L) - Neurological Exam Neurological exam: Present: alert, oriented X3, CN II-XII intact Course Course Narrative: Patient was placed in examination room. H&P obtained. Nurse's notes reviewed. Patient was given DuoNeb treatment along with Solu-Medrol 125 mg IV. Patient had a chest x-ray which did show right middle right lower lobe infiltrate. Patient did meet systemic inflammatory response syndrome. However, based on the fact that she meets SIRS and the fact that she has a focal infection she does meet sepsis criteria at 07 15. Her lactic acid was normal. She has been recently admitted in the last 30 days. I did prescribe Levaquin and vancomycin here. I Did obtain a CTA to rule out pulmonary embolism and the results are pending. Patient's troponin was 0.07. It has always been within normal limits. This will need to be trended out and repeated to ensure that this is truly from ischemia and not from the fact that she was hypoxic and tachycardic. Patient does not require admission however I am awaiting the CT scan result prior. Signed out to and please see her note for disposition - Reevaluation(s) Reevaluation #1: Patient is resting comfortably. Feeling much better now. Breathing easier. Time: 07:45 Vital Signs Temperature 99.1 F 07/31/19 05:45 Pulse Rate 116 07/31/19 05:45 Respiratory Rate 18 07/31/19 05:45 Blood Pressure 159/88 07/31/19 05:45 O2 Sat by Pulse Oximetry 96 07/31/19 05:45 Temperature 99.1 F 07/31/19 05:45 Pulse Rate 130 07/31/19 07:43 Respiratory Rate 20 07/31/19 07:43 Blood Pressure 172/93 07/31/19 07:43 O2 Sat by Pulse Oximetry 92 07/31/19 07:43 Oxygen Delivery Oxygen Delivery Nasal Cannula Shortness of Breath/Dyspnea - Medical Records Medical records reviewed: Yes I reviewed the patient's medical records. - Lab Data Lab results reviewed: Yes I reviewed the patient's lab results. Result diagrams: 07/31/19 06:07 07/31/19 06:07 Lab Results 07/31/19 07/31/19 07/31/19 Range/Units 06:07 06:07 06:07 WBC 14.8 H (4.3-11.1) K/mcL RBC 5.07 H (3.82-4.97) M/mcL Hgb 14.2 (11.5-15.4) g/dL Hct 44.8 (35.3-44.9) % MCV 88.4 (83.0-100.0) fL MCH 28.0 (28.0-33.3) pg MCHC 31.7 (31.6-35.5) g/dL RDW 15.1 H (11.5-14.5) % Plt Count 173 (140-400) K/mcL MPV 11.3 (9.4-12.4) fL Immature Gran % 0.9 (0-4) % Seg Neutrophils % 89.4 % Lymphocytes % 5.9 % Monocytes % 3.5 % Eosinophils % 0.1 % Basophils % 0.2 % Neutrophils # 13.2 H (1.6-8.9) K/mcL Lymphocytes # 0.9 (0.6-4.6) K/mcL Monocytes # 0.5 (0.0-1.3) K/mcL Eosinophils # 0.0 (0.0-0.6) K/mcL Basophils # 0.0 (0.0-0.2) K/mcL PT 14.4 H (9.4-12.1) Seconds INR 1.3 APTT 30.4 (26.0-36.0) Seconds Sodium 136 (136-145) mEq/L Potassium 3.8 (3.5-5.1) mEq/L Chloride 100 (98-107) mEq/L Carbon Dioxide 27 (23-29) mEq/L BUN 11 (8-23) mg/dL Creatinine 0.66 (0.60-1.20) mg/dL Est GFR ( Amer) > 60 (> 60) Est GFR (Non-Af Amer) > 60 (> 60) BUN/Creatinine Ratio 17 (6-26) Glucose 188 H (70-105) mg/dL Calculated Osmolality 286 (280-300) Lactic Acid (0.5-2.2) mmol/L Calcium 9.5 (8.6-10.3) mg/dL Total Bilirubin 1.6 H (0.3-1.0) mg/dL Direct Bilirubin 0.4 H (0.0-0.2) mg/dL Indirect Bilirubin 1.2 (0.0-1.2) mg/dL AST 10 L (13-39) Units/L ALT 13 (7-52) Units/L Alkaline Phosphatase 92 (34-104) Units/L Troponin I 0.07 H* (< 0.04) ng/mL B-Natriuretic Peptide (Less than 100) pg/mL Serum Total Protein 6.8 (6.4-8.9) g/dL Albumin 3.9 (3.5-5.7) g/dL Globulin 2.9 (2.4-3.5) g/dL Albumin/Globulin Ratio 1.3 (1.1-2.2) 07/31/19 07/31/19 Range/Units 06:07 06:56 WBC (4.3-11.1) K/mcL RBC (3.82-4.97) M/mcL Hgb (11.5-15.4) g/dL Hct (35.3-44.9) % MCV (83.0-100.0) fL MCH (28.0-33.3) pg MCHC (31.6-35.5) g/dL RDW (11.5-14.5) % Plt Count (140-400) K/mcL MPV (9.4-12.4) fL Immature Gran % (0-4) % Seg Neutrophils % % Lymphocytes % % Monocytes % % Eosinophils % % Basophils % % Neutrophils # (1.6-8.9) K/mcL Lymphocytes # (0.6-4.6) K/mcL Monocytes # (0.0-1.3) K/mcL Eosinophils # (0.0-0.6) K/mcL Basophils # (0.0-0.2) K/mcL PT (9.4-12.1) Seconds INR APTT (26.0-36.0) Seconds Sodium (136-145) mEq/L Potassium (3.5-5.1) mEq/L Chloride (98-107) mEq/L Carbon Dioxide (23-29) mEq/L BUN (8-23) mg/dL Creatinine (0.60-1.20) mg/dL Est GFR ( Amer) (> 60) Est GFR (Non-Af Amer) (> 60) BUN/Creatinine Ratio (6-26) Glucose (70-105) mg/dL Calculated Osmolality (280-300) Lactic Acid 1.0 (0.5-2.2) mmol/L Calcium (8.6-10.3) mg/dL Total Bilirubin (0.3-1.0) mg/dL Direct Bilirubin (0.0-0.2) mg/dL Indirect Bilirubin (0.0-1.2) mg/dL AST (13-39) Units/L ALT (7-52) Units/L Alkaline Phosphatase (34-104) Units/L Troponin I (< 0.04) ng/mL B-Natriuretic Peptide 48 (Less than 100) pg/mL Serum Total Protein (6.4-8.9) g/dL Albumin (3.5-5.7) g/dL Globulin (2.4-3.5) g/dL Albumin/Globulin Ratio (1.1-2.2) - Radiology Data Radiology results reviewed: Yes I reviewed the patient's radiology results. EXAMINATION: ONE XRAY VIEW OF THE CHEST 07/31/2019 6:36 am COMPARISON: 07/06/2019 HISTORY: ORDERING SYSTEM PROVIDED HISTORY: dyspnea FINDINGS: Airspace disease primarily within the right middle and lower lung. Cardiomegaly. Clear left lung. AC joint degenerative changes right greater than left. XR/XR chest 1V portable IMPRESSION: Right middle and lower lung airspace disease favoring pneumonia. Continued radiographic follow-up is advised. D/ / David Prasad / David Prasad Interpreting Provider: David Prasad - EKG Data EKG attestation: Yes I reviewed and interpreted this EKG. EKG results narrative: EKG shows a sinus tachycardia at 111 bpm , normal axis, normal intervals, no acute ST elevations to suggest infarction. Critical Care Time Critical Care Time: Yes Total Critical Care Time: 30 Attestation: The high probability of a clinically significant, sudden or life threatening deterioration of the patient's condition required my full and direct attention, intervention and personal management.
[2019-07-31] MEDS: 0.9 % Sodium Chloride 1,000 ML IVC SCH ×2 (08:50→12:48)
--- NOTE | 2019-07-31 09:32 | Emergency Department Note ---
Disposition Clinical Impression: Elevated troponin, Sepsis Pneumonia Qualifiers: Pneumonia type: due to unspecified organism Laterality: right Lung location: lower lobe of lung Qualified Code(s): J18.1 - Lobar pneumonia, unspecified organism COPD (chronic obstructive pulmonary disease) Qualifiers: COPD type: COPD with acute exacerbation Qualified Code(s): J44.1 - Chronic obstructive pulmonary disease with (acute) exacerbation Disposition: Admitted As Inpatient Condition: Fair Referrals: NONE,PCP [Primary Care Provider] - Forms: ED Satisfaction Letter Time of Disposition: 09:32 General Adult HPI - General Chief complaint: ED Shortness of Breath/Dyspnea Stated complaint: Angelica Time Seen by Provider: 07/31/19 05:47 Source: patient, EMS Limitations: no limitations Nursing Notes Reviewed: Yes Vital Signs Reviewed: Yes - History of Present Illness Pain Scale: 6 - Related Data Home Medications Medication Instructions Recorded Confirmed Loratadine [Allergy Relief] 10 mg PO DAILY 09/17/17 07/31/19 Furosemide [Lasix] 20 mg PO DAILY PRN 07/06/19 07/31/19 Lisinopril-HCTZ 10-12.5 [Prinzide 1 each PO DAILY 07/06/19 07/31/19 10-12.5] Diltiazem HCl [Tiazac] 120 mg PO DAILY 07/07/19 07/31/19 Previous Rx's Medication Instructions Recorded Albuterol Sulfate [Proair 90 mcg IH Q4-6H PRN #1 aer.pow.ba 07/09/19 Respiclick] Budesonide/Formoterol 160/4.5 2 puff IH BIDR #1 inh 07/09/19 [Symbicort 160/4.5] GuaiFENesin/Dextromethorphan 1 each PO HS tab.er.12h 07/09/19 [Mucinex Dm] Ipratropium/Albuterol Neb [Duoneb] 3 ml IH Q6HR PRN #30 inhsol 07/09/19 Ropinirole HCl [Requip] 3 mg PO BID 14 Days #28 tablet 07/09/19 predniSONE [PredniSONE] 10 mg PO DAILY #30 tablet 07/09/19 predniSONE [PredniSONE] 40 mg PO BIDWM 2 Days #5 tablet 07/09/19 Allergies Allergy/AdvReac Type Severity Reaction Status Date / Time Amoxicillin Allergy Rash Verified 07/07/19 13:55 swelling Penicillins Allergy Rash Verified 07/07/19 13:55 swelling All systems ED: reviewed and negative except as stated. Constitutional: Reports: chills. Denies: fever, weakness, weight change Eyes: Denies: eye pain, eye discharge, vision change ENT ED: Denies: ear pain, throat pain, dental pain, hearing loss, epistaxis, congestion, dysphagia Cardiovascular: Denies: chest pain, palpitations, dyspnea on exertion, edema, syncope Respiratory: Reports: cough, dyspnea, wheezes. Denies: hemoptysis, stridor Gastrointestinal: Denies: abdominal pain, nausea, vomiting, diarrhea, constipation, hematemesis, melena, hematochezia Genitourinary: Denies: dysuria, frequency, hematuria, discharge Musculoskeletal: Denies: back pain, neck pain, arthralgia, myalgia Integumentary: Denies: rash, abrasion, lesions Neurological: Denies: headache, weakness, numbness, paresthesias, confusion, abnormal gait, vertigo Psychiatric: Denies: anxiety, depression, suicidal thoughts, homicidal thoughts, auditory hallucinations, visual hallucinations Endocrine: Denies: fatigue Past Medical History - Past Medical History Medical history: Reports: asthma, cancer, COPD, hyperlipidemia, hypertension, other Surgical history: Reports: appendectomy, cancer surgery, colectomy, hysterectomy, other Psychiatric history: Reports: no psych history 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 It was reviewed. No PE. She does have the right-sided infiltrate. Leukocytosis and tachycardia and will meet sepsis criteria. She was given Levaquin and lincomycin. Lactic was normal. Blood cultures were drawn. Patient is accepted by Dr. Paris to the hospitalist service. Time: 09:31 Vital Signs Temperature 99.1 F 07/31/19 05:45 Pulse Rate 116 07/31/19 05:45 Respiratory Rate 18 07/31/19 05:45 Blood Pressure 159/88 07/31/19 05:45 O2 Sat by Pulse Oximetry 96 07/31/19 05:45 Temperature 99.1 F 07/31/19 05:45 Pulse Rate 106 07/31/19 08:53 Respiratory Rate 24 07/31/19 08:53 Blood Pressure 133/88 07/31/19 08:53 O2 Sat by Pulse Oximetry 93 07/31/19 08:53 Oxygen Delivery Oxygen Delivery Nasal Cannula Medical Decision Making - Lab Data Result diagrams: 07/31/19 06:07 07/31/19 06:07 Lab Results 07/31/19 07/31/19 07/31/19 Range/Units 06:07 06:07 06:07 WBC 14.8 H (4.3-11.1) K/mcL RBC 5.07 H (3.82-4.97) M/mcL Hgb 14.2 (11.5-15.4) g/dL Hct 44.8 (35.3-44.9) % MCV 88.4 (83.0-100.0) fL MCH 28.0 (28.0-33.3) pg MCHC 31.7 (31.6-35.5) g/dL RDW 15.1 H (11.5-14.5) % Plt Count 173 (140-400) K/mcL MPV 11.3 (9.4-12.4) fL Immature Gran % 0.9 (0-4) % Seg Neutrophils % 89.4 % Lymphocytes % 5.9 % Monocytes % 3.5 % Eosinophils % 0.1 % Basophils % 0.2 % Neutrophils # 13.2 H (1.6-8.9) K/mcL Lymphocytes # 0.9 (0.6-4.6) K/mcL Monocytes # 0.5 (0.0-1.3) K/mcL Eosinophils # 0.0 (0.0-0.6) K/mcL Basophils # 0.0 (0.0-0.2) K/mcL PT 14.4 H (9.4-12.1) Seconds INR 1.3 APTT 30.4 (26.0-36.0) Seconds Sodium 136 (136-145) mEq/L Potassium 3.8 (3.5-5.1) mEq/L Chloride 100 (98-107) mEq/L Carbon Dioxide 27 (23-29) mEq/L BUN 11 (8-23) mg/dL Creatinine 0.66 (0.60-1.20) mg/dL Est GFR ( Amer) > 60 (> 60) Est GFR (Non-Af Amer) > 60 (> 60) BUN/Creatinine Ratio 17 (6-26) Glucose 188 H (70-105) mg/dL Calculated Osmolality 286 (280-300) Lactic Acid (0.5-2.2) mmol/L Calcium 9.5 (8.6-10.3) mg/dL Total Bilirubin 1.6 H (0.3-1.0) mg/dL Direct Bilirubin 0.4 H (0.0-0.2) mg/dL Indirect Bilirubin 1.2 (0.0-1.2) mg/dL AST 10 L (13-39) Units/L ALT 13 (7-52) Units/L Alkaline Phosphatase 92 (34-104) Units/L Troponin I 0.07 H* (< 0.04) ng/mL B-Natriuretic Peptide (Less than 100) pg/mL Serum Total Protein 6.8 (6.4-8.9) g/dL Albumin 3.9 (3.5-5.7) g/dL Globulin 2.9 (2.4-3.5) g/dL Albumin/Globulin Ratio 1.3 (1.1-2.2) 07/31/19 07/31/19 07/31/19 Range/Units 06:07 06:56 08:42 WBC (4.3-11.1) K/mcL RBC (3.82-4.97) M/mcL Hgb (11.5-15.4) g/dL Hct (35.3-44.9) % MCV (83.0-100.0) fL MCH (28.0-33.3) pg MCHC (31.6-35.5) g/dL RDW (11.5-14.5) % Plt Count (140-400) K/mcL MPV (9.4-12.4) fL Immature Gran % (0-4) % Seg Neutrophils % % Lymphocytes % % Monocytes % % Eosinophils % % Basophils % % Neutrophils # (1.6-8.9) K/mcL Lymphocytes # (0.6-4.6) K/mcL Monocytes # (0.0-1.3) K/mcL Eosinophils # (0.0-0.6) K/mcL Basophils # (0.0-0.2) K/mcL PT (9.4-12.1) Seconds INR APTT (26.0-36.0) Seconds Sodium (136-145) mEq/L Potassium (3.5-5.1) mEq/L Chloride (98-107) mEq/L Carbon Dioxide (23-29) mEq/L BUN (8-23) mg/dL Creatinine (0.60-1.20) mg/dL Est GFR ( Amer) (> 60) Est GFR (Non-Af Amer) (> 60) BUN/Creatinine Ratio (6-26) Glucose (70-105) mg/dL Calculated Osmolality (280-300) Lactic Acid 1.0 1.0 (0.5-2.2) mmol/L Calcium (8.6-10.3) mg/dL Total Bilirubin (0.3-1.0) mg/dL Direct Bilirubin (0.0-0.2) mg/dL Indirect Bilirubin (0.0-1.2) mg/dL AST (13-39) Units/L ALT (7-52) Units/L Alkaline Phosphatase (34-104) Units/L Troponin I (< 0.04) ng/mL B-Natriuretic Peptide 48 (Less than 100) pg/mL Serum Total Protein (6.4-8.9) g/dL Albumin (3.5-5.7) g/dL Globulin (2.4-3.5) g/dL Albumin/Globulin Ratio (1.1-2.2) Critical Care Time Critical Care Time: Yes Total Critical Care Time: 35 Attestation: Critical care performed: Time is exclusive of separately billable procedures. Time includes: direct patient care, patient reassessment, coordination of patient care, interpretation of data (laboratory data, radiology data, and respiratory data), review of patient's medical records, medical consultation and documentation of patient care. Procedures included in critical care time: Procedures excluded from critical care time:
[2019-07-31] MEDS ORDERED: Acetaminophen 325 MG TABLET PO PRN (09:43)
[2019-07-31] MEDS ORDERED: Ondansetron 4 MG/2 ML VIAL IVP PRN (09:43)
--- NOTE | 2019-07-31 09:46 | Internal Med History&Physical ---
Date of Encounter: 07/31/19 Time of Encounter: 09:33 Internal Medicine - H&P: HPI Chief complaint: SOB, cough Admitted From: Emergency Dept History of present illness: Yecenia Cabello is a 69 F w hx COPD on 5L, lung cancer s/p RUL lobectomy, colon cancer s/p colectomy and chemoradiation, HTN, HLD, who p/w SOB. Patient yesterday woke up feeling "like someone beat me up" sore all over, with SOB at rest, as well as cough productive of increased sputum, and chills and sweats. Pt states this has happened many times before, but this one seemed to come on rather quickly. Denies known sick contacts. No CP, N/V, abd pain, diarrhea, or leg swelling. In the ED, pt vitals T 99, HR 110-120s, RR 18-20, SBP 160-170s, satting 92-96% on 4L. Labs notable for WBC 15, Hb 14, INR 1.3, Cr 0.66, BG 190, TBili 1.6, DBili 0.4, trop 0.07, lactate 1. CXR with RML/RLL airspace disease c/f pna, confirmed on CTPE which was negative for PE. Cultures obtained, given NS 1L and dose of Levaquin and Vanc, and admitted. Past medical, surgical, social, and family histories reviewed and updated as below. Past Med Surg Social Fam HX - Past Medical History Medical history: asthma, cancer, COPD, hyperlipidemia, hypertension, other Additional medical history: lung and colon cancer Psychiatric history: no psych history - Past Surgical History Surgical History: appendectomy, cancer surgery, colectomy, hysterectomy, other Additional surgical history: brain surgery due to blood clot, Right upper lobectomy - Social History Smoking Status: Former smoker Smokeless Tobacco Status: No Alcohol use: none Drug use: none - Family History Father Living Status: Hx Family Cardiac Disorders: Yes (HYPERTENSION/CHF) Hx Family Respiratory Disorders: Yes (COPD/Emphysema/Asthma) Mother Adopted: No Living Status: Hx Family Cardiac Disorders: Yes Hx Family Cancer: Yes (colon ca) Internal Medicine - H&P: Meds Loratadine [Allergy Relief] 10 mg PO DAILY 09/17/17 [History] Furosemide [Lasix] 20 mg PO DAILY PRN 07/06/19 [History] Lisinopril-HCTZ 10-12.5 [Prinzide 10-12.5] 1 each PO DAILY 07/06/19 [History] Diltiazem HCl [Tiazac] 120 mg PO DAILY 07/07/19 [History] Albuterol Sulfate [Proair Respiclick] 90 mcg IH Q4-6H PRN #1 aer.pow.ba 07/09/19 [Rx] Budesonide/Formoterol 160/4.5 [Symbicort 160/4.5] 2 puff IH BIDR #1 inh 07/09/19 [Rx] GuaiFENesin/Dextromethorphan [Mucinex Dm] 1 each PO HS tab.er.12h 07/09/19 [Rx] Ipratropium/Albuterol Neb [Duoneb] 3 ml IH Q6HR PRN #30 inhsol 07/09/19 [Rx] Ropinirole HCl [Requip] 3 mg PO BID 14 Days #28 tablet 07/09/19 [Rx] predniSONE [PredniSONE] 10 mg PO DAILY #30 tablet 07/09/19 [Rx] predniSONE [PredniSONE] 40 mg PO BIDWM 2 Days #5 tablet 07/09/19 [Rx] Allergy/AdvReac Type Severity Reaction Status Date / Time Amoxicillin Allergy Rash Verified 07/07/19 13:55 swelling Penicillins Allergy Rash Verified 07/07/19 13:55 swelling All Systems PM: A 10-system review of systems was performed and is negative for pertinent findings except as documented above in the HPI. - Constitutional Vitals: Temp Pulse Resp BP Pulse Ox 99.1 F 106 24 133/88 93 07/31/19 05:45 07/31/19 08:53 07/31/19 08:53 07/31/19 08:53 07/31/19 08:53 Exam: General: NAD, good eye contact, chronically ill appearing, diaphoretic, tachypneic and with increased work of breathing, audible wheezing, taking breaths between each sentence Head: Atraumatic, normocephalic. Face symmetric Eyes: EOMI, sclerae anicteric ENT: Mucous membranes moist. Normal oral mucosa. Trachea midline. Thoracic: Scar R back. Diffuse expiratory wheezes b/l, with significant inspiratory coarse sounds R lower half of lung field +egophony Cardio: Normal S1 and S2, regular rate, tachycardic Abdomen: Soft, nontender, nondistended. Bowel sounds present. No rebound Extremities: Warm, well perfused. DP pulses 2+ b/l. No clubbing, cyanosis. No edema Skin: Intact. No rashes, bruises, or ulcers Neuro: Awake, fully oriented. Good memory, concentration, attention. Speech fluent. CN II-XII grossly intact. Strength 5/5 in b/l UE and LE Internal Med - H&P Results - Labs CBC & Chem 7: 07/31/19 06:07 07/31/19 06:07 Labs: Short CBC 07/31/19 07/31/19 07/31/19 Range/Units 06:07 06:07 06:07 WBC 14.8 H (4.3-11.1) K/mcL RBC 5.07 H (3.82-4.97) M/mcL Hgb 14.2 (11.5-15.4) g/dL Hct 44.8 (35.3-44.9) % MCV 88.4 (83.0-100.0) fL MCH 28.0 (28.0-33.3) pg MCHC 31.7 (31.6-35.5) g/dL RDW 15.1 H (11.5-14.5) % Plt Count 173 (140-400) K/mcL MPV 11.3 (9.4-12.4) fL Immature Gran % 0.9 (0-4) % Seg Neutrophils % 89.4 % Lymphocytes % 5.9 % Monocytes % 3.5 % Eosinophils % 0.1 % Basophils % 0.2 % Neutrophils # 13.2 H (1.6-8.9) K/mcL Lymphocytes # 0.9 (0.6-4.6) K/mcL Monocytes # 0.5 (0.0-1.3) K/mcL Eosinophils # 0.0 (0.0-0.6) K/mcL Basophils # 0.0 (0.0-0.2) K/mcL PT 14.4 H (9.4-12.1) Seconds INR 1.3 APTT 30.4 (26.0-36.0) Seconds Sodium 136 (136-145) mEq/L Potassium 3.8 (3.5-5.1) mEq/L Chloride 100 (98-107) mEq/L Carbon Dioxide 27 (23-29) mEq/L BUN 11 (8-23) mg/dL Creatinine 0.66 (0.60-1.20) mg/dL Est GFR ( Amer) > 60 (> 60) Est GFR (Non-Af Amer) > 60 (> 60) BUN/Creatinine Ratio 17 (6-26) Glucose 188 H (70-105) mg/dL Calculated Osmolality 286 (280-300) Lactic Acid (0.5-2.2) mmol/L Calcium 9.5 (8.6-10.3) mg/dL Total Bilirubin 1.6 H (0.3-1.0) mg/dL Direct Bilirubin 0.4 H (0.0-0.2) mg/dL Indirect Bilirubin 1.2 (0.0-1.2) mg/dL AST 10 L (13-39) Units/L ALT 13 (7-52) Units/L Alkaline Phosphatase 92 (34-104) Units/L Troponin I 0.07 H* (< 0.04) ng/mL B-Natriuretic Peptide (Less than 100) pg/mL Serum Total Protein 6.8 (6.4-8.9) g/dL Albumin 3.9 (3.5-5.7) g/dL Globulin 2.9 (2.4-3.5) g/dL Albumin/Globulin Ratio 1.3 (1.1-2.2) 07/31/19 07/31/19 07/31/19 Range/Units 06:07 06:56 08:42 WBC (4.3-11.1) K/mcL RBC (3.82-4.97) M/mcL Hgb (11.5-15.4) g/dL Hct (35.3-44.9) % MCV (83.0-100.0) fL MCH (28.0-33.3) pg MCHC (31.6-35.5) g/dL RDW (11.5-14.5) % Plt Count (140-400) K/mcL MPV (9.4-12.4) fL Immature Gran % (0-4) % Seg Neutrophils % % Lymphocytes % % Monocytes % % Eosinophils % % Basophils % % Neutrophils # (1.6-8.9) K/mcL Lymphocytes # (0.6-4.6) K/mcL Monocytes # (0.0-1.3) K/mcL Eosinophils # (0.0-0.6) K/mcL Basophils # (0.0-0.2) K/mcL PT (9.4-12.1) Seconds INR APTT (26.0-36.0) Seconds Sodium (136-145) mEq/L Potassium (3.5-5.1) mEq/L Chloride (98-107) mEq/L Carbon Dioxide (23-29) mEq/L BUN (8-23) mg/dL Creatinine (0.60-1.20) mg/dL Est GFR ( Amer) (> 60) Est GFR (Non-Af Amer) (> 60) BUN/Creatinine Ratio (6-26) Glucose (70-105) mg/dL Calculated Osmolality (280-300) Lactic Acid 1.0 1.0 (0.5-2.2) mmol/L Calcium (8.6-10.3) mg/dL Total Bilirubin (0.3-1.0) mg/dL Direct Bilirubin (0.0-0.2) mg/dL Indirect Bilirubin (0.0-1.2) mg/dL AST (13-39) Units/L ALT (7-52) Units/L Alkaline Phosphatase (34-104) Units/L Troponin I (< 0.04) ng/mL B-Natriuretic Peptide 48 (Less than 100) pg/mL Serum Total Protein (6.4-8.9) g/dL Albumin (3.5-5.7) g/dL Globulin (2.4-3.5) g/dL Albumin/Globulin Ratio (1.1-2.2) BMP 07/31/19 06:07 Sodium 136 Potassium 3.8 Chloride 100 Carbon Dioxide 27 BUN 11 Creatinine 0.66 Glucose 188 H Calcium 9.5 Cardiac Enzymes 07/31/19 Range/Units 06:07 Troponin I 0.07 H* (< 0.04) ng/mL Liver Function 07/31/19 Range/Units 06:07 Total Bilirubin 1.6 H (0.3-1.0) mg/dL Direct Bilirubin 0.4 H (0.0-0.2) mg/dL AST 10 L (13-39) Units/L ALT 13 (7-52) Units/L Alkaline Phosphatase 92 (34-104) Units/L Albumin 3.9 (3.5-5.7) g/dL - Impressions ITS Impressions Chest X-Ray 07/31/19 06:01 IMPRESSION: Right middle and lower lung airspace disease favoring pneumonia. Continued radiographic follow-up is advised. D/ / David Prasad / Daivd Prasad Interpreting Provider: David Prasad Chest CTA 07/31/19 07:21 IMPRESSION: No evidence of pulmonary embolism. Multifocal mixed airspace opacities within the right middle and lower lobes, new from previous study of 02/01/2019. Findings are concerning for multifocal pneumonia. Plain film follow-up to resolution recommended. D/ / Arnaud Pope MD / Arnaud Pope MD Interpreting Provider: Arnaud Pope MD - Summary of Assessment and Plan Summary of Assessment and Plan: Yecenia Cabello is a 69 F w hx COPD on 5L, lung cancer s/p RUL lobectomy, colon cancer s/p colectomy, HTN, HLD, who p/w SOB, productive cough, CT showing R ML/RLL infiltrate, concerning for PNA causing COPD exacerbation and sepsis. HCAP: seen on CT - UAg's, procal, RVP - empiric levaquin Sepsis: SIRS 3/4 (afebrile), suspected PNA as above, lactate wnl - BCx x2 pending - fluid boluses prn - empiric abx as above COPD in acute exacerbation: - nebs q4h&prn - prednisone 40 daily x5d, s/p solumedrol 125 in ED - home inhalers Indirect hyperbilirubinemia: - repeat LFTs - LDH - consider RUQ US if not downtrending tomorrow given hx lung and colon cancers Elevated trop: likely demand given above, trend trops and monitor tele Chronic hypoxic respiratory failure: home 5L O2 HTN: home lisinopril 10, hctz 12.5, cardizem 120 RLS: home requip 3 bid Obesity: BMI 35 PPx: lovenox Tele: yes Activity: up ad mikael FEN: regular, no MIVF Lines: PIV Consults: Code: Full ("work on me with as much as you can for as long as you can") Dispo: obs for PNA causing COPD and sepsis, anticipate 1-2 days, will be homegoing
[2019-07-31 10:06] LABS: Lactate Dehydrogenase 153 Units/L (140-271)
[2019-07-31] MEDS: Budesonide/Formoterol 160/4.5 1 PUFF INH IH SCH ×2 (11:52→19:40)
[2019-07-31] MEDS: Ipratropium/Albuterol Neb 3 ML IH SCH ×3 (11:52→19:40)
[2019-07-31 14:47] LABS: Adenovirus Not Detected (Not Detect); Coronavirus 229E Not Detected (Not Detect); Coronavirus HKU1 Not Detected (Not Detect); Coronavirus NL63 Not Detected (Not Detect); Coronavirus OC43 Not Detected (Not Detect); Human Metapneumovirus Not Detected (Not Detect); Human Rhinovirus/Enterovirus Not Detected (Not Detect); Influenza A Subtype 2009 H1 Not Detected (Not Detect); Influenza A Untypeable Not Detected (Not Detect); Influenza B Not Detected (Not Detect); Parainfluenza Virus 1 Not Detected (Not Detect); Parainfluenza Virus 2 Not Detected (Not Detect); Parainfluenza Virus 3 Not Detected (Not Detect); Parainfluenza Virus 4 Not Detected (Not Detect); Respiratory Syncytial Virus Not Detected (Not Detect)
[2019-07-31 14:48] LABS: Bordetella Pertussis Not Detected (Not Detect); Chlamydophila pneumoniae Not Detected (Not Detect); Mycoplasma pneumoniae Not Detected (Not Detect)
[2019-07-31 16:20] VITALS: BP 129/81
--- NOTE | 2019-07-31 20:09 | Event Note ---
Date of Encounter: 07/31/19 Time of Encounter: 20:07 Notified by nurse of patient requesting to leave AMA. Discussed with patient at bedside who remains fully alert and oriented. Advised leaving against medical advice could result in worsening of symptoms and or and patient verbalizes understanding. Nurse to remove patient IVs. Stressed importance of following up with PCP as soon as possible and provided [facility] [phone]. Signed AMA paperwork with patient and nurse.
[2019-08-01] MEDS ORDERED: *HR* Enoxaparin 40 MG/0.4 ML SYRINGE SQ SCH (06:00)
[2019-08-01] MEDS ORDERED: levoFLOXacin 750 MG TABLET PO SCH (09:00)
[2019-08-01] MEDS ORDERED: Diltiazem CD (24hr) 120 MG CAPSULE PO SCH (09:00)
[2019-08-01] MEDS ORDERED: predniSONE 20 MG TABLET PO SCH (09:00)
--- NOTE | 2019-08-01 11:38 | Electrocardiograph Report ---
[place] [facility] Test Date: 2019-07-31 Pat Name: Yecenia Cabello Department: EXAM1 Room: 33 Gender: F Respiratory Therapist: : [id number] Requested By: [id number] Order Number: [id number] Reading MD: Milton Joseph Measurements Intervals [place] Rate: 111 P: 6 MT: 131 QRS: 12 QRSD: 85 T: 59 QT: 316 QTc: 430 Interpretive Statements Sinus tachycardia Low voltage, precordial leads Electronically Signed On 08-01-2019 11:36:40 EDT by Milton Joseph
== END 2019-07-31 21:19 | disposition left against medical advice (07) | DRG 871 ==
LOC: EMEROOARM 05:43 → 2ANU 05:43
PROVIDERS: ADMIT Internal Medicine; ATTEND Internal Medicine

== ENCOUNTER 2019-10-04 22:05 | Inpatient (IN) ==
[2019-10-04] MEDS ORDERED: Ipratropium/Albuterol Neb 3 ML IH ONE (22:12)
[2019-10-04 22:35] LABS: Basophils % 0.6 %; Eosinophils # 0.5 K/mcL (0.0-0.6); Eosinophils % 7.3 %; Hematocrit 43.3 % (35.3-44.9); Immature Granulocytes % 0.5 % (0-4); Lymphocytes # 1.3 K/mcL (0.6-4.6); Mean Corpuscular HGB Conc 32.3 g/dL (31.6-35.5); Mean Corpuscular Hemoglobin 29.1 pg (28.0-33.3); Mean Platelet Volume 10.5 fL (9.4-12.4); Monocytes # 0.3 K/mcL (0.0-1.3); Monocytes % 5.2 %; Neutrophils # 4.4 K/mcL (1.6-8.9); Platelet Count 175 K/mcL (140-400); Red Blood Count 4.81 M/mcL (3.82-4.97); Red Cell Distribution Width 13.6 % (11.5-14.5); Segmented Neutrophils % 66.4 %; White Blood Count 6.6 K/mcL (4.3-11.1)
[2019-10-04 22:58] LABS: BUN/Creatinine Ratio 21 (6-26); Blood Urea Nitrogen 12 mg/dL (8-23); Calcium 9.5 mg/dL (8.6-10.3); Carbon Dioxide 30 mEq/L (23-29); Chloride 105 mEq/L (98-107); Glucose 153 mg/dL (70-105); Osmolality,Calculated 299 (280-300); Potassium 3.1 mEq/L (3.5-5.1); Sodium 143 mEq/L (136-145); eGFR For African Americans > 60 (> 60); eGFR For Non-African Americans > 60 (> 60)
[2019-10-04 22:59] LABS: Troponin I < 0.03 ng/mL (< 0.04)
[2019-10-04] MEDS ORDERED: Azithromycin 500 MG in 0.9 % Sodium Chloride 250 ML IVPB ONE (23:24)
[2019-10-05] MEDS ORDERED: Furosemide 20 MG TABLET PO PRN (01:00)
[2019-10-05] MEDS ORDERED: methylPREDNISolone 125 MG/2 ML VIAL IVP ONE (01:02)
[2019-10-05] MEDS ORDERED: Ipratropium/Albuterol Neb 3 ML IH SCH (01:02)
[2019-10-05] MEDS ORDERED: Potassium Chloride Elixir 20 MEQ/15 ML UDC PO ONE (01:43)
[2019-10-05] MEDS ORDERED: *HR* Promethazine 25 MG/ML VIAL IVP ONE (02:45)
[2019-10-05] MEDS ORDERED: *HR* LORazepam 2 MG/ML VIAL IVP ONE ×3 (03:49→17:22)
[2019-10-05] MEDS: Levalbuterol Neb 1.25 MG/3 ML IH SCH ×4 (04:11→21:34)
[2019-10-05] MEDS: Ipratropium Neb 0.5 MG NEBULIZER IH SCH ×4 (04:11→21:34)
[2019-10-05] MEDS: *HR* Heparin 5,000 UNIT/ML VIAL SQ SCH ×2 (04:43→17:46)
[2019-10-05 04:52] LABS: VBG HCO3 32 mEq/L (21-27); VBG PCO2 72 mmHg (41-51); VBG PH 7.26 pH Units (7.32-7.42); VBG PO2 240 mmHg (25-50)
[2019-10-05] MEDS ORDERED: MethylPREDNISolone 40 MG/ML VIAL IVP SCH (08:00)
[2019-10-05] MEDS: Diltiazem CD (24hr) 120 MG CAPSULE PO SCH (09:13)
[2019-10-05] MEDS: predniSONE 20 MG TABLET PO SCH (09:13)
[2019-10-05] MEDS: Loratadine 10 MG TABLET PO SCH (09:13)
[2019-10-05 09:42] LABS: VBG HCO3 32 mEq/L (21-27); VBG PCO2 72 mmHg (41-51); VBG PH 7.25 pH Units (7.32-7.42); VBG PO2 85 mmHg (25-50)
[2019-10-05] MEDS: Budesonide/Formoterol 160/4.5 1 PUFF INH IH SCH ×2 (10:30→21:32)
[2019-10-05 13:28] LABS: BUN/Creatinine Ratio 16 (6-26); Blood Urea Nitrogen 11 mg/dL (8-23); Calcium 9.8 mg/dL (8.6-10.3); Carbon Dioxide 32 mEq/L (23-29); Chloride 101 mEq/L (98-107); Glucose 233 mg/dL (70-105); Osmolality,Calculated 297 (280-300); Potassium 5.1 mEq/L (3.5-5.1); Sodium 140 mEq/L (136-145); eGFR For African Americans > 60 (> 60); eGFR For Non-African Americans > 60 (> 60)
[2019-10-05] MEDS ORDERED: Cefepime HCl 2,000 MG in Water for inj. (sterile) 20 ML IVP ONE (23:25)
[2019-10-06 01:23] LABS: Hematocrit 39.6 % (35.3-44.9); Hemoglobin 12.8 g/dL (11.5-15.4); Mean Corpuscular HGB Conc 32.3 g/dL (31.6-35.5); Mean Corpuscular Hemoglobin 29.4 pg (28.0-33.3); Mean Platelet Volume 11.2 fL (9.4-12.4); Platelet Count 163 K/mcL (140-400); Red Blood Count 4.35 M/mcL (3.82-4.97); Red Cell Distribution Width 13.7 % (11.5-14.5); White Blood Count 9.1 K/mcL (4.3-11.1)
[2019-10-06 01:45] LABS: BUN/Creatinine Ratio 33 (6-26); Blood Urea Nitrogen 23 mg/dL (8-23); Calcium 9.5 mg/dL (8.6-10.3); Carbon Dioxide 33 mEq/L (23-29); Chloride 100 mEq/L (98-107); Glucose 194 mg/dL (70-105); Osmolality,Calculated 297 (280-300); Potassium 4.6 mEq/L (3.5-5.1); Sodium 139 mEq/L (136-145); eGFR For African Americans > 60 (> 60); eGFR For Non-African Americans > 60 (> 60)
[2019-10-06] MEDS: Ipratropium Neb 0.5 MG NEBULIZER IH SCH ×2 (04:27→11:06)
[2019-10-06] MEDS: Levalbuterol Neb 1.25 MG/3 ML IH SCH ×2 (04:28→11:06)
[2019-10-06] MEDS: *HR* Heparin 5,000 UNIT/ML VIAL SQ SCH ×2 (05:22→18:32)
[2019-10-06] MEDS ORDERED: *HR* LORazepam 2 MG/ML VIAL IVP ONE (06:24)
[2019-10-06] MEDS: Diltiazem CD (24hr) 120 MG CAPSULE PO SCH (07:30)
[2019-10-06] MEDS: Loratadine 10 MG TABLET PO SCH (07:30)
[2019-10-06] MEDS: predniSONE 20 MG TABLET PO SCH (07:30)
[2019-10-06] MEDS ORDERED: Levalbuterol Neb 1.25 MG/3 ML IH PRN (10:42)
[2019-10-06] MEDS: Budesonide/Formoterol 160/4.5 1 PUFF INH IH SCH ×2 (11:04→22:18)
[2019-10-06 12:07] LABS: ABG Base Excess 9 mEq/L (-2 to 3); ABG HCO3 38 mEq/L (21-27); ABG Oxygen Saturation 91 % (95-98); ABG PCO2 66 mmHg (35-45); ABG PH 7.37 pH Units (7.32-7.45); ABG PO2 65 mmHg (85-104); ABG TCO2 40 mEq/L (20-26)
[2019-10-06] MEDS: Ipratropium/Albuterol Neb 3 ML IH SCH ×2 (15:50→22:18)
[2019-10-06] MEDS ORDERED: *HR* LORazepam 0.5 MG TABLET PO ONE (17:52)
[2019-10-06] MEDS ORDERED: Menthol 9.1 MG LOZENGE PO PRN (19:36)
[2019-10-07] MEDS: Ipratropium/Albuterol Neb 3 ML IH SCH ×4 (03:44→22:08)
[2019-10-07 04:44] LABS: Hematocrit 40.2 % (35.3-44.9); Hemoglobin 12.8 g/dL (11.5-15.4); Mean Corpuscular HGB Conc 31.8 g/dL (31.6-35.5); Mean Corpuscular Hemoglobin 29.2 pg (28.0-33.3); Mean Corpuscular Volume 91.6 fL (83.0-100.0); Mean Platelet Volume 11.4 fL (9.4-12.4); Platelet Count 166 K/mcL (140-400); Red Blood Count 4.39 M/mcL (3.82-4.97); Red Cell Distribution Width 13.5 % (11.5-14.5); White Blood Count 8.1 K/mcL (4.3-11.1)
[2019-10-07 05:04] LABS: BUN/Creatinine Ratio 40 (6-26); Blood Urea Nitrogen 27 mg/dL (8-23); Calcium 9.2 mg/dL (8.6-10.3); Carbon Dioxide 35 mEq/L (23-29); Chloride 97 mEq/L (98-107); Glucose 164 mg/dL (70-105); Osmolality,Calculated 293 (280-300); Potassium 3.9 mEq/L (3.5-5.1); Sodium 137 mEq/L (136-145); eGFR For African Americans > 60 (> 60); eGFR For Non-African Americans > 60 (> 60)
[2019-10-07] MEDS: Loratadine 10 MG TABLET PO SCH (07:56)
[2019-10-07] MEDS: Diltiazem CD (24hr) 120 MG CAPSULE PO SCH (07:56)
[2019-10-07] MEDS: predniSONE 20 MG TABLET PO SCH (07:56)
[2019-10-07] MEDS: *HR* Heparin 5,000 UNIT/ML VIAL SQ SCH ×2 (07:57→18:31)
[2019-10-07] MEDS: Budesonide/Formoterol 160/4.5 1 PUFF INH IH SCH ×2 (10:39→22:07)
[2019-10-07] MEDS ORDERED: Acetaminophen 325 MG TABLET PO PRN (15:08)
[2019-10-07] MEDS ORDERED: *HR* LORazepam 2 MG/ML VIAL IVP ONE (21:10)
[2019-10-08] MEDS: Ipratropium/Albuterol Neb 3 ML IH SCH ×3 (04:22→15:44)
[2019-10-08] MEDS: *HR* Heparin 5,000 UNIT/ML VIAL SQ SCH (05:22)
[2019-10-08 05:58] LABS: Hematocrit 40.6 % (35.3-44.9); Hemoglobin 12.7 g/dL (11.5-15.4); Mean Corpuscular HGB Conc 31.3 g/dL (31.6-35.5); Mean Corpuscular Hemoglobin 29.3 pg (28.0-33.3); Mean Corpuscular Volume 93.5 fL (83.0-100.0); Mean Platelet Volume 11.5 fL (9.4-12.4); Platelet Count 150 K/mcL (140-400); Red Blood Count 4.34 M/mcL (3.82-4.97); Red Cell Distribution Width 13.5 % (11.5-14.5); White Blood Count 6.8 K/mcL (4.3-11.1)
[2019-10-08 06:15] LABS: BUN/Creatinine Ratio 34 (6-26); Blood Urea Nitrogen 24 mg/dL (8-23); Calcium 9.1 mg/dL (8.6-10.3); Carbon Dioxide 36 mEq/L (23-29); Chloride 95 mEq/L (98-107); Glucose 229 mg/dL (70-105); Osmolality,Calculated 295 (280-300); Sodium 137 mEq/L (136-145); eGFR For African Americans > 60 (> 60); eGFR For Non-African Americans > 60 (> 60)
[2019-10-08] MEDS: predniSONE 20 MG TABLET PO SCH (07:27)
[2019-10-08] MEDS: Diltiazem CD (24hr) 120 MG CAPSULE PO SCH (07:27)
[2019-10-08] MEDS: Loratadine 10 MG TABLET PO SCH (07:27)
[2019-10-08] MEDS: Budesonide/Formoterol 160/4.5 1 PUFF INH IH SCH (10:43)
[2019-10-08] MEDS ORDERED: Isovue-370 500 ML BOTTLE IVP ONE (11:09)
[2019-10-08] MEDS ORDERED: hydrOXYzine pamoate 25 MG CAPSULE PO PRN (11:23)
[2019-10-08 12:18] LABS: ABG Base Excess 10 mEq/L (-2 to 3); ABG HCO3 38 mEq/L (21-27); ABG Oxygen Saturation 91 % (95-98); ABG PCO2 63 mmHg (35-45); ABG PO2 64 mmHg (85-104); ABG TCO2 40 mEq/L (20-26)
[2019-10-08 15:20] VITALS: BP 159/83
== END 2019-10-08 16:07 | disposition home health service (06) | DRG 190 ==
LOC: 2ANU 22:05 → EMEROOARM 22:05 → SUATTDRO 10-05 00:28 → 2ANU 10-05 00:58
PROVIDERS: ADMIT Internal Medicine; ATTEND Family Medicine

== ENCOUNTER 2019-12-02 20:37 | Inpatient (IN) ==
[2019-12-02] MEDS ORDERED: methylPREDNISolone 125 MG/2 ML VIAL IVP ONE (21:01)
[2019-12-02] MEDS ORDERED: Ipratropium/Albuterol Neb 3 ML IH ONE (21:01)
[2019-12-02 21:45] LABS: VBG HCO3 33 mEq/L (21-27); VBG PCO2 56 mmHg (41-51); VBG PH 7.37 pH Units (7.32-7.42); VBG PO2 187 mmHg (25-50)
[2019-12-02 21:48] LABS: Basophils # 0.1 K/mcL (0.0-0.2); Eosinophils # 0.5 K/mcL (0.0-0.6); Eosinophils % 6.4 %; Hematocrit 43.2 % (35.3-44.9); Hemoglobin 13.9 g/dL (11.5-15.4); Lymphocytes # 1.5 K/mcL (0.6-4.6); Lymphocytes % 21.2 %; Mean Corpuscular HGB Conc 32.2 g/dL (31.6-35.5); Mean Platelet Volume 10.4 fL (9.4-12.4); Monocytes # 0.4 K/mcL (0.0-1.3); Monocytes % 5.9 %; Neutrophils # 4.6 K/mcL (1.6-8.9); Platelet Count 178 K/mcL (140-400); Red Cell Distribution Width 13.5 % (11.5-14.5); Segmented Neutrophils % 64.5 %; White Blood Count 7.1 K/mcL (4.3-11.1)
[2019-12-02 22:03] LABS: BUN/Creatinine Ratio 14 (6-26); Blood Urea Nitrogen 11 mg/dL (8-23); Calcium 9.7 mg/dL (8.6-10.3); Carbon Dioxide 30 mEq/L (23-29); Chloride 104 mEq/L (98-107); Glucose 106 mg/dL (70-105); Osmolality,Calculated 292 (280-300); Potassium 3.9 mEq/L (3.5-5.1); Sodium 141 mEq/L (136-145); eGFR For African Americans > 60 (> 60); eGFR For Non-African Americans > 60 (> 60)
[2019-12-02 22:04] LABS: Troponin I < 0.03 ng/mL (< 0.04)
[2019-12-02] MEDS ORDERED: levoFLOXacin 750 MG TABLET PO STA (23:52)
[2019-12-02] MEDS ORDERED: *HR* OxyCODONE/APAP 5/325 TABLET PO STA (23:52)
[2019-12-02] MEDS: Albuterol 2.5 MG/3 ML NEBULIZER IH SCH ×2 (23:57→23:58)
[2019-12-03] MEDS ORDERED: Furosemide 40 MG/4 ML VIAL IVP ONE (02:17)
[2019-12-03] MEDS ORDERED: Naloxone 0.4 MG/ML INJ IVP PRN (02:43)
[2019-12-03] MEDS ORDERED: Ondansetron 4 MG/2 ML VIAL IVP PRN (02:43)
[2019-12-03] MEDS: Levalbuterol Neb 1.25 MG/3 ML IH PRN ×4 (03:14→15:16)
[2019-12-03 04:52] LABS: Basophils % 0.5 %; Eosinophils % 0.5 %; Hematocrit 45.4 % (35.3-44.9); Hemoglobin 14.5 g/dL (11.5-15.4); Immature Granulocytes % 1.3 % (0-4); Lymphocytes # 0.3 K/mcL (0.6-4.6); Lymphocytes % 4.1 %; Mean Corpuscular HGB Conc 31.9 g/dL (31.6-35.5); Mean Corpuscular Hemoglobin 29.5 pg (28.0-33.3); Mean Corpuscular Volume 92.3 fL (83.0-100.0); Mean Platelet Volume 10.8 fL (9.4-12.4); Monocytes % 0.5 %; Neutrophils # 7.6 K/mcL (1.6-8.9); Platelet Count 166 K/mcL (140-400); Red Blood Count 4.92 M/mcL (3.82-4.97); Red Cell Distribution Width 13.5 % (11.5-14.5); Segmented Neutrophils % 93.1 %; White Blood Count 8.2 K/mcL (4.3-11.1)
[2019-12-03 05:07] LABS: BUN/Creatinine Ratio 17 (6-26); Blood Urea Nitrogen 15 mg/dL (8-23); Calcium 9.9 mg/dL (8.6-10.3); Carbon Dioxide 27 mEq/L (23-29); Chloride 96 mEq/L (98-107); Glucose 314 mg/dL (70-105); Magnesium 1.7 mg/dL (1.6-2.6); Osmolality,Calculated 301 (280-300); Potassium 4.4 mEq/L (3.5-5.1); Sodium 139 mEq/L (136-145); eGFR For African Americans > 60 (> 60); eGFR For Non-African Americans > 60 (> 60)
[2019-12-03] MEDS: *HR* Heparin 5,000 UNIT/ML VIAL SQ SCH ×3 (05:10→20:47)
[2019-12-03] MEDS: Diltiazem CD (24hr) 120 MG CAPSULE PO SCH (07:44)
[2019-12-03] MEDS: Loratadine 10 MG TABLET PO SCH (07:44)
[2019-12-03] MEDS ORDERED: 0.9 % Sodium Chloride 1,000 ML IV ONE (07:49)
[2019-12-03] MEDS: Budesonide/Formoterol 160/4.5 1 PUFF INH IH SCH ×2 (07:50→20:11)
[2019-12-03] MEDS ORDERED: methylPREDNISolone 125 MG/2 ML VIAL IVP SCH (08:00)
[2019-12-03 09:14] LABS: Adenovirus Not Detected (Not Detect); Bordetella Pertussis Not Detected (Not Detect); Chlamydophila pneumoniae Not Detected (Not Detect); Coronavirus 229E Not Detected (Not Detect); Coronavirus HKU1 Not Detected (Not Detect); Coronavirus NL63 Not Detected (Not Detect); Coronavirus OC43 Not Detected (Not Detect); Human Metapneumovirus Not Detected (Not Detect); Human Rhinovirus/Enterovirus Not Detected (Not Detect); Influenza A Subtype 2009 H1 Not Detected (Not Detect); Influenza B Not Detected (Not Detect); Mycoplasma pneumoniae Not Detected (Not Detect); Parainfluenza Virus 1 Not Detected (Not Detect); Parainfluenza Virus 2 Not Detected (Not Detect); Parainfluenza Virus 3 Not Detected (Not Detect); Parainfluenza Virus 4 Not Detected (Not Detect); Respiratory Syncytial Virus Not Detected (Not Detect)
[2019-12-03] MEDS: MethylPREDNISolone 40 MG/ML VIAL IVP SCH ×2 (12:17→17:32)
[2019-12-03] MEDS: levoFLOXacin 750 MG/150 ML 750 MG/150 ML BAG IVPB SCH (15:41)
[2019-12-03] MEDS ORDERED: 0.9 % Sodium Chloride 1,000 ML IVC ONE (15:44)
[2019-12-03] MEDS ORDERED: Isovue-370 500 ML BOTTLE IVP ONE (16:16)
[2019-12-03] MEDS ORDERED: *HR* Dextrose 50 % in Water (Syg) 50 ML SYRINGE IVP PRN (16:31)
[2019-12-03] MEDS ORDERED: D5% in Water 1,000 ML IVC PRN (16:31)
[2019-12-03] MEDS ORDERED: Dextrose Gel 15 GM/37.5 ML TUBE PO PRN ×2 (16:31)
[2019-12-03] MEDS: Insulin LISPRO 300 UNITS/3 ML VIAL SQ SCH (17:34)
[2019-12-03] MEDS ORDERED: Menthol 9.1 MG LOZENGE PO PRN (22:51)
[2019-12-03] MEDS ORDERED: Acetaminophen 325 MG TABLET PO ONE (23:49)
[2019-12-04] MEDS ORDERED: levoFLOXacin 750 MG/150 ML 750 MG/150 ML BAG IVPB SCH (00:01)
[2019-12-04] MEDS: MethylPREDNISolone 40 MG/ML VIAL IVP SCH (05:00)
[2019-12-04] MEDS: *HR* Heparin 5,000 UNIT/ML VIAL SQ SCH ×3 (05:01→21:49)
[2019-12-04 05:44] LABS: Basophils % 0.1 %; Hemoglobin 13.3 g/dL (11.5-15.4); Immature Granulocytes % 0.8 % (0-4); Lymphocytes # 0.7 K/mcL (0.6-4.6); Lymphocytes % 4.7 %; Mean Corpuscular HGB Conc 31.7 g/dL (31.6-35.5); Mean Corpuscular Hemoglobin 29.6 pg (28.0-33.3); Mean Corpuscular Volume 93.5 fL (83.0-100.0); Mean Platelet Volume 10.9 fL (9.4-12.4); Monocytes # 0.4 K/mcL (0.0-1.3); Monocytes % 2.8 %; Neutrophils # 14.3 K/mcL (1.6-8.9); Platelet Count 174 K/mcL (140-400); Red Blood Count 4.49 M/mcL (3.82-4.97); Red Cell Distribution Width 13.9 % (11.5-14.5); Segmented Neutrophils % 91.6 %
[2019-12-04 05:50] LABS: White Blood Count 15.6 K/mcL (4.3-11.1)
[2019-12-04 06:03] LABS: BUN/Creatinine Ratio 31 (6-26); Blood Urea Nitrogen 27 mg/dL (8-23); Calcium 9.6 mg/dL (8.6-10.3); Carbon Dioxide 30 mEq/L (23-29); Chloride 99 mEq/L (98-107); Glucose 188 mg/dL (70-105); Osmolality,Calculated 296 (280-300); Potassium 4.7 mEq/L (3.5-5.1); Sodium 138 mEq/L (136-145); eGFR For African Americans > 60 (> 60); eGFR For Non-African Americans > 60 (> 60)
[2019-12-04] MEDS: Loratadine 10 MG TABLET PO SCH (07:33)
[2019-12-04] MEDS: Diltiazem CD (24hr) 120 MG CAPSULE PO SCH (07:34)
[2019-12-04] MEDS: levoFLOXacin 750 MG/150 ML 750 MG/150 ML BAG IVPB SCH (07:34)
[2019-12-04] MEDS: Insulin LISPRO 300 UNITS/3 ML VIAL SQ SCH ×6 (07:35→16:18)
[2019-12-04] MEDS: Levalbuterol Neb 1.25 MG/3 ML IH PRN ×5 (07:56→23:14)
[2019-12-04] MEDS: Budesonide/Formoterol 160/4.5 1 PUFF INH IH SCH ×2 (07:56→19:37)
[2019-12-04 08:37] LABS: Estimated Average Glucose 134 mg/dl
[2019-12-04] MEDS ORDERED: Insulin DETEMIR 100 UNIT/ML X5UNITS SQ SCH (09:00)
[2019-12-04] MEDS: carvediloL 6.25 MG TABLET PO SCH ×2 (10:23→16:18)
[2019-12-04] MEDS: hydrOXYzine pamoate 25 MG CAPSULE PO PRN ×2 (12:01→19:20)
[2019-12-04] MEDS ORDERED: Saline Nasal Spray 44 ML BOTTLE NS PRN (12:26)
[2019-12-05 02:24] LABS: Basophils % 0.3 %; Hematocrit 43.7 % (35.3-44.9); Hemoglobin 13.5 g/dL (11.5-15.4); Immature Granulocytes % 1.1 % (0-4); Lymphocytes % 6.6 %; Mean Corpuscular HGB Conc 30.9 g/dL (31.6-35.5); Mean Corpuscular Hemoglobin 29.2 pg (28.0-33.3); Mean Corpuscular Volume 94.6 fL (83.0-100.0); Mean Platelet Volume 11.3 fL (9.4-12.4); Monocytes # 0.7 K/mcL (0.0-1.3); Monocytes % 4.4 %; Neutrophils # 13.5 K/mcL (1.6-8.9); Platelet Count 194 K/mcL (140-400); Red Blood Count 4.62 M/mcL (3.82-4.97); Segmented Neutrophils % 87.6 %; White Blood Count 15.4 K/mcL (4.3-11.1)
[2019-12-05] MEDS: Levalbuterol Neb 1.25 MG/3 ML IH PRN ×2 (03:12→07:35)
[2019-12-05] MEDS: *HR* Heparin 5,000 UNIT/ML VIAL SQ SCH (06:17)
[2019-12-05 06:43] VITALS: BP 167/88
[2019-12-05] MEDS: Insulin LISPRO 300 UNITS/3 ML VIAL SQ SCH ×2 (07:05→07:58)
[2019-12-05] MEDS: Budesonide/Formoterol 160/4.5 1 PUFF INH IH SCH (07:35)
[2019-12-05] MEDS: hydrOXYzine pamoate 25 MG CAPSULE PO PRN (07:57)
[2019-12-05] MEDS: Diltiazem CD (24hr) 120 MG CAPSULE PO SCH (07:57)
[2019-12-05] MEDS: Loratadine 10 MG TABLET PO SCH (07:58)
[2019-12-05] MEDS: carvediloL 6.25 MG TABLET PO SCH (07:58)
[2019-12-05] MEDS ORDERED: FLU Vac QV 19-20 (6Month+)/PF 0.5 ML SYRINGE IM ONE (08:56)
[2019-12-05] MEDS ORDERED: predniSONE 20 MG TABLET PO SCH (09:00)
[2019-12-05] MEDS ORDERED: Insulin DETEMIR 100 UNIT/ML X5UNITS SQ SCH (09:00)
== END 2019-12-05 10:16 | disposition home or self-care (01) | DRG 190 ==
LOC: EMEROOARM 20:37 → 2ANU 20:37 → SUATTDRO 12-03 00:37 → 2ANU 12-03 01:40
PROVIDERS: ADMIT Internal Medicine; ATTEND Internal Medicine